=== PATIENT | male | born 1940 | race Caucasian/White ===

== ENCOUNTER 2021-11-12 08:35 | Outpatient (CLI) | payer MEDICARE, SELFPAY ==
--- NOTE | ~2021-11-12 | XR_ITS ---
XR chest 2V DATE: 11/12/2021 09:30 INDICATION: Orthostatic hypotension. Abnormal weight loss. Nicotine dependence. TECHNIQUE: PA and lateral views COMPARISON: 02/20/2016 PA and lateral chest FINDINGS: Severe bilateral hyperinflation with increased airspace, flattening the diaphragm, consiste nt with COPD. There is mild infiltrate or atelectasis at the right lower lung and lung base. Pneumonia aspiration p neumonitis. The lungs otherwise appear clear. No pleural effusion or pulmonary vascular congestion or pneumothorax. Cardiomegaly. Aortic calcification and mild unfolding. Diffuse osteopenia. IMPRESSION: Prominent COPD Mild right lower lung basilar infiltrate or atelectasis; consider pneumonia, aspiration cardiomegaly Aortic atherosclerosis Osteopenia Reviewed, dictated and finalized at location A. IMPRESSION: Prominent COPD Mild right lower lung basilar infiltrate or atelectasis; consider pneumonia, as piration cardiomegaly Aortic atherosclerosis Osteopenia
[2021-11-12 09:05] LABS: Basophils Absolute Auto 0.1 K/mm3 (0.0-0.1); Eosinophils Absolute Auto 0.1 K/mm3 (0-0.3); Eosinophils Percent Auto 1.9 % (0-4.4); Hematocrit 37.3 % (42.0-52.0); Hemoglobin 12.3 g/dL (14.0-18.0); Immature Granulocyte Absolute 0.02 K/mm3 (0.00-0.031); Immature Granulocyte Percent A 0.3 % (0-0.5); Lymphocytes Absolute Auto 1.58 K/mm3 (0.9-3.2); Lymphocytes Percent Auto 23.4 % (18.3-44.2); Mean Corpuscular Hemoglobin 29.2 pg (26-34); Mean Corpuscular Volume 88.6 fl (80-100); Mean Platelet Volume 9.4 fl (7.4-10.4); Monocytes Absolute Auto 0.5 K/mm3 (0.1-0.6); Monocytes Percent Auto 6.7 % (2.6-8.5); Neutrophils Absolute Auto 4.5 K/mm3 (1.3-6.7); Neutrophils Percent Auto 66.7 % (45.5-73.1); Platelet Count Result 218 k/mm3 (150-375); Red Blood Count 4.21 M/mm3 (4.6-6.20); White Blood Count 6.8 K/mm3 (4.5-10.0)
[2021-11-12 09:20] LABS: Alanine Aminotransferase 10 U/L (6-50); Albumin Level 3.8 g/dL (3.5-5.1); Alkaline Phosphatase 65 U/L (38-126); Anion Gap 6 mmol/L (8-16); Aspartate Amino Transferase 20 U/L (17-59); Bilirubin,Total 0.7 mg/dL (0.2-1.3); Blood Urea Nitrogen 23 mg/dL (9-20); Calcium 8.6 mg/dL (8.4-10.2); Carbon Dioxide 31 mmol/L (22-30); Chloride 102 mmol/L (98-107); Estimated Glomerular Filt Rate > 60; Glucose 106 mg/dL (65-110); Magnesium 2.2 mg/dL (1.6-2.3); Potassium 4.2 mmol/L (3.4-5.0); Sodium 139 mmol/L (137-145)
[2021-11-12 09:30] LABS: Troponin I 0.028 ng/mL (0.000-0.034)
== END 2021-11-12 08:36 | disposition home or self-care (01) ==
PROVIDERS: PCP Internal Medicine; Visit Provider Clinical Nurse Specialist
DX: R63.4 Abnormal weight loss (principal); I95.9 Hypotension, unspecified; R94.31 Abnormal electrocardiogram [ECG] [EKG]; F17.200 Nicotine dependence, unspecified, uncomplicated; I95.1 Orthostatic hypotension; J44.9 Chronic obstructive pulmonary disease, unspecified; R91.8 Other nonspecific abnormal finding of lung field; I70.0 Atherosclerosis of aorta; M85.88 Other specified disorders of bone density and structure, other site
CPT/HCPCS: 36415; 71046; 80053; 83735; 84443; 84484; 85025

== ENCOUNTER 2021-11-17 17:18 | Outpatient (CLI) | payer MEDICARE, SELFPAY ==
--- NOTE | ~2021-11-17 | CT_ITS ---
EXAMINATION:CT diagnostic chest w con DATE: 11/17/2021 18:04 INDICATION: Abnormal chest radiographs. TECHNIQUE: Computed tomography (CT) of the chest was performed with 75 mL Omnipaque 300 intravenous c ontrast. Automated exposure control and iterative reconstruction technique were employed. The dose-le ngth product (DLP) was 156.10 mGy-cm. COMPARISON: Chest 2 views 11/12/2021 FINDINGS: There is mild scarring at the lung apices. There is moderate emphysema. There is mild bronc hiectasis in the inferior lungs. There are groundglass opacities and septal thickening in the lungs w ith a lower lung predominance. There are airspace opacities in basilar right lower lobe. There are ce ntrilobular nodules and tree-in-bud opacities in the upper lobes. There are mild airspace opacities i n left lower lobe. No pleural effusion. There is left ventricular and left atrial enlargement of the heart. There is a large old infarct centered at left ventricular apex. There are coronary artery calc ifications. No pericardial effusion. There is kyphosis of thoracic spine with mild chronic anterior w edging of multiple vertebral bodies. There is severe cervical spondylosis and mild thoracic spondylos is. IMPRESSION: 1. Diffuse lung disease, likely a combination of multifocal pneumonia, moderate emphysema, and chroni c interstitial lung disease. 2. 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 Reviewed, dictated and finalized at location A. IMPRESSION: 1. Diffuse lung disease, likely a combination of multifocal pneumonia, moderate emphysema, and chronic interstitial lung disease. 2. 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
== END 2021-11-17 17:19 | disposition home or self-care (01) ==
PROVIDERS: PCP Internal Medicine; Visit Provider Clinical Nurse Specialist
DX: R63.4 Abnormal weight loss (principal); J44.9 Chronic obstructive pulmonary disease, unspecified; J18.9 Pneumonia, unspecified organism; F17.200 Nicotine dependence, unspecified, uncomplicated; R91.8 Other nonspecific abnormal finding of lung field; I25.2 Old myocardial infarction
CPT/HCPCS: 71260; Q9967

== ENCOUNTER 2021-12-04 13:30 | Outpatient (CLI) | payer MEDICARE, SELFPAY ==
--- NOTE | 2021-12-04 13:53 | ECHO_ITS ---
Patient Info Name: Clyde Watkins Age: 81 years : 1940 Gender: Male Ht: 75 in Wt: 135 lbs BSA: 1.78 m2 HR: 79 bpm BP: 119 / 76 mmHg Technical Quality: Fair Exam Date: 12/04/2021 2:13 PM Exam Location: [facility] Patient Status: Outpatient Admit Date: 12/04/2021 Staff Ordering Physician: Zeynep Osuna Frame Table Operator: Renata Corrigan RDCS Attending Provider: Zeynep Osuna Referring Physician: Enrrique CAMPOVERDE; Exam Type: CA echo dop color flow w con Study Info Indications I95.9 - HYPOTENSION, UNSPECIFIED Complete two-dimensional, color flow and Doppler transthoracic echocardiogram is performed with contrast to opacify the left ventricle and to improve the deliniation of the left ventricle endocardial borders. Contrast/Agitated Saline Contrast/Ag. Saline: Definity Amount: 8.00 ml Administered By: Renata Corrigan [facility] IV Access: Inner Forearm and Left Site Condition: No extravasation and IV removed Summary 1. Left ventricular chamber dimension is severely enlarged. 2. Definity contrast administered improved wall motion interpretation. 3. 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 4. Left ventricular systolic function is severely reduced, estimated at 15-20%. 5. The left ventricular diastolic function is grade I diastolic dysfunction. 6. E/e' 22 is elevated. 7. Left atrial chamber dimension is moderately enlarged. 8. There is mild aortic valve sclerosis. 9. The mitral valve has mildly calcified mitral leaflets and mildly calcified annulus. 10. There is mild to moderate mitral valve regurgitation. 11. There is trace tricuspid valve regurgitation. 12. Mild pulmonary hypertension, estimated pulmonary arterial systolic pressure is 42 mmHg. Left Ventricle E/e' 22 is elevated. Definity contrast administered improved wall motion interpretation. 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 Left ventricular chamber dimension is severely enlarged. Left ventricular systolic function is severely reduced, estimated at 15-20%. The left ventricular diastolic function is grade I diastolic dysfunction. Right Ventricle Right ventricular chamber dimension is normal. Right ventricular systolic function is normal. Left Atria Left atrial chamber dimension is moderately enlarged. Right Atria Right atrial chamber dimension is normal. Aortic Valve The aortic valve is trileaflet. There is mild aortic valve sclerosis. There is no aortic valve stenosis. There is no aortic valve regurgitation. Pulmonic Valve There is no pulmonic regurgitation. Mitral Valve The mitral valve has mildly calcified mitral leaflets and mildly calcified annulus. There is no mitral valve stenosis. There is mild to moderate mitral valve regurgitation. Tricuspid Valve There is trace tricuspid valve regurgitation. Mild pulmonary hypertension, estimated pulmonary arterial systolic pressure is 42 mmHg. Pericardium/Pleural There is no pericardial effusion. Inferior Vena Cava Normal inferior vena cava with >50% collapse upon inspiration consistent with normal right atrial pressure, 5 mmHg. Aorta The aortic root size at the sinus of Valsalva is normal. Left Ventricular Outflow Tract Name Value Normal
[2021-12-04] MEDS: PERFLUTREN LIPID MICROSPHERES 1.5 ML VIAL DILUTED TO 10 ML TOTAL VOLUME IV PUSH (14:55)
== END 2021-12-04 13:31 | disposition home or self-care (01) ==
LOC: ANHCARD 13:32
PROVIDERS: PCP Internal Medicine; Visit Provider Clinical Nurse Specialist
DX: I95.9 Hypotension, unspecified (principal); I08.3 Combined rheumatic disorders of mitral, aortic and tricuspid valves; I27.20 Pulmonary hypertension, unspecified
CPT/HCPCS: C8929; Q9957

== ENCOUNTER 2022-06-14 09:10 | Inpatient (IN) | payer MEDICARE, SELFPAY ==
[2022-06-14] VITALS (25 sets, daily range): BP systolic 108–129; BP diastolic 52–103; PULSE 60–94; RESP 13–23; TEMP 36.3–36.7; O2SAT 90–97; BMI 20.2
--- NOTE | ~2022-06-14 | US_ITS ---
EXAMINATION: US arterial ankle brachial ind DATE: 06/16/2022 12:17 INDICATION: Bilateral lower extremity ulcers. TECHNIQUE: Segmental pressures and plethysmographic and Doppler waveforms of the brachial and lower e xtremity arteries were obtained. COMPARISON: None. FINDINGS: Right and left brachial artery pressures of 70 mm Hg and 81 mm Hg, respectively, are concordant (norm al difference <= 30 mmHg). The right ankle-brachial index (RUCHI) is 0.75 (normal >= 0.9-1.0). The right great toe-brachial index (TBI) is 0.28 (normal >= 0.65). Arterial Doppler waveforms are biphasic at the ankle. The left RUCHI is 0.89. The left TBI is 0.38. Arterial Doppler waveforms are biphasic at the ankle. IMPRESSION: 1. Mildly decreased ABIs, consistent with arterial occlusive disease. Reviewed, dictated and finalized at location A. CAL DIRECTOR
--- NOTE | ~2022-06-14 | XR_ITS ---
XR chest 2V DATE: 06/14/2022 10:06 INDICATION: Edema of the lower extremities. Weakness. TECHNIQUE: AP and lateral views COMPARISON: 11/17/2021 CT chest 11/12/2021 PA and lateral chest FINDINGS: There is prominent enlargement of the cardiac silhouette. There is aortic calcification and unfolding. There is pulmonary vascular congestion and redistribution. There are bilateral central and particular ly lower lung zone infiltrates. There are moderate moderate bilateral pleural effusions. There is pro minence of the fissures consistent with subpleural edema. Findings are consistent with congestive hea rt failure and pulmonary edema. Pneumonia and aspiration cannot be excluded. Diffuse osteopenia. IMPRESSION: Congestive heart failure and pulmonary edema Reviewed, dictated and finalized at location A. ON STRIPPER
--- NOTE | ~2022-06-14 | US_ITS ---
EXAMINATION: US abdomen limited DATE: 06/15/2022 11:49 INDICATION: Abnormal liver function tests. TECHNIQUE: Multiple grayscale and Doppler ultrasound images of the abdomen were obtained. COMPARISON: Chest CT 11/17/2021 FINDINGS: The visualized portions of the head, body, and tail of the pancreas are normal. The liver i s normal without focal lesion. No liver surface nodularity. There is normal flow in main portal vein. The gallbladder is normal in size and contains sludge. No gallstones or gallbladder wall thickening. There is no sonographic Cannon sign. The common duct is normal and measures 3 mm . IMPRESSION: 1. Gallbladder sludge. No evidence of acute cholecystitis. Reviewed, dictated and finalized at location A. E MIXING SUPERVISOR
--- NOTE | ~2022-06-14 | XR_ITS ---
EXAMINATION: XR chest 1V portable INDICATION: Congestive heart failure TECHNIQUE: Portable AP chest at 0839 hours COMPARISON: 06/14/2022 FINDINGS: Cardiomegaly is noted. There is a diffuse interstitial pattern with slight interval worseni ng. There are small pleural effusions. No pneumothorax is identified. There are minimal bibasilar air space opacities. IMPRESSION: 1. Cardiomegaly. 2. Worsening diffuse lung disease, consistent with pneumonia and/or pulmonary edema. 3. Small pleural effusions. Reviewed, dictated and finalized at location B. CARRIER DRIVER IMPRESSION: 1. Cardiomegaly. 2. Worsening diffuse lung disease, consistent with pneumonia and/or pulmonary e gosia. 3. Small pleural effusions.
--- NOTE | ~2022-06-14 | US_ITS ---
EXAMINATION: US venous doppler [facility] DATE: 06/15/2022 11:48 INDICATION: Lower limb edema. TECHNIQUE: Grayscale ultrasound images without and with compression and Doppler ultrasound images of the bilateral lower extremity veins were obtained. COMPARISON: None. FINDINGS: The visualized portions of right common femoral vein, profunda (deep) femoral vein, femoral vein, pop liteal vein, peroneal veins, posterior tibial veins, and greater saphenous vein outflow are patent. The visualized portions of left common femoral vein, profunda femoral vein, femoral vein, popliteal v ein, peroneal veins, posterior tibial veins, and greater saphenous vein outflow are patent. IMPRESSION: 1. No deep venous thrombosis. Reviewed, dictated and finalized at location A. BATIC DANCER
--- NOTE | 2022-06-14 09:15 | ECG_ITS ---
Measurements Intervals [place] Rate: 73 P: 52 [place]: 183 QRS: -74 QRSD: 118 T: 92 QT: 395 QTc: 435 Interpretive Statements SINUS RHYTHM WITH OCCASIONAL VENTRICULAR PREMATURE COMPLEXES MARKED LEFT AXIS DEVIATION [QRS AXIS < -30] PATTERN CONSISTENT WITH PULMONARY DISEASE MODERATE INTRAVENTRICULAR CONDUCTION DELAY [110+ ms QRS DURATION] ABNORMAL QRS-T ANGLE [QRS-T AXIS DIFFERENCE > 60] NO PREVIOUS ECG AVAILABLE FOR COMPARISON Electronically Signed On 06-14-2022 18:40:32 [employer] by Lakesha Espinoza M.D.
--- NOTE | 2022-06-14 10:20 | ED.WEAKNESS ---
HPI - Weakness General Chief complaint: Weakness <Elli Reed PA-C - Last Filed: 06/14/22 13:54> Stated complaint: weakness <LONNIE Guthrie Last Filed: 06/14/22 13:54> Time Seen by Provider: 06/14/22 09:51 <Elli Reed PA-C - Last Filed: 06/14/22 13:54> Source: patient and family <LONNIE Guthrie Last Filed: 06/14/22 13:54> Mode of arrival: wheelchair <LONNIE Guthrie Last Filed: 06/14/22 13:54> Limitations: other (poor historian) <LONNIE Guthrie Last Filed: 06/14/22 13:54> History of Present Illness HPI Narrative: This is a 82 year old male that presents to the ER for generalized weakness. Worsening over the last week. Brought in by family for evaluation. He reports swelling and weeping in his lower extremities. Reports he does not currently take any medications or have any medical problems. Reports he did see his PCP last year and had several laboratory and imaging studies done, but has not followed up since. Denies fever, cough, chest pain, shortness of breath, abdominal pain, vomiting, diarrhea, or dysuria. <Elli Reed PA-C - Last Filed: 06/14/22 13:54> Related Data Allergies/Adverse reactions: Allergies Allergy/AdvReac Type Severity Reaction Status Date / Time No Known Allergies Allergy Unverified 06/14/22 10:26 <Elli Reed PA-C - Last Filed: 06/14/22 13:54> Review of Systems Review of Systems: CONSTITUTIONAL: Denies fever ENT: Denies rhinorrhea, congestion, sore throat CARDIOVASCULAR: Reports edema. Denies chest pain RESPIRATORY: Denies cough or dyspnea. GASTROINTESTINAL: Denies abdominal pain, nausea, vomiting, or diarrhea. GENITOURINARY: Denies dysuria SKIN: Reports rash and itching. MUSCULOSKELETAL: Denies back pain, joint pain, or myalgia. NEUROLOGIC: Reports generalized weakness. Denies numbness <LONNIE Guthrie Last Filed: 06/14/22 13:54> All systems reviewed & are unremarkable except as noted in HPI and below <Elli Reed PA-C - Last Filed: 06/14/22 13:54> [facility] Past Medical History Medical History: Medical History Chicken pox History of BPH Measles Mumps <Elli Reed PA-C - Last Filed: 06/14/22 13:54> Surgical History Surgical History: Surgical History H/O cataract removal with insertion of prosthetic lens October 2014 H/O hernia repair 1963 <Elli Reed PA-C - Last Filed: 06/14/22 13:54> Family History Family History: Family History Sibling Patient's sister is in good health Father Family history of Alzheimer's disease <Elli Reed PA-C - Last Filed: 06/14/22 13:54> Social History Social History: Social History Smoking status: Current every day smoker Tobacco type: cigarettes (Smokes about 6 cigarettes a day.) Alcohol intake: current Drinks per week: 15 Substance use: never <LONNIE Guthrie Last Filed: 06/14/22 13:54> Exam Narrative: GENERAL: Elderly, thin, and in no acute distress. HEAD: Normocephalic, atraumatic. EYES: PERRLA and EOMI. ENT: Nares clear, no rhinorrhea or epistaxis. Mucous membranes dry. Oropharynx without tonsillar hypertrophy exudate or other lesions. Bilateral TMs pearly heart non-bulging NECK: Supple. No adenopathy or masses. CHEST: Rales noted at the bilateral lower lobes. No respiratory distress. No wheezes or rhonchi HEART: Regular rate and rhythm. No murmur heard. ABDOMEN: Soft, nontender, nondistended, normal active bowel sounds. EXTREMITIES: Normal range of motion. Pitting edema noted to the bilateral lower extremities with weeping present. No erythema SKIN: Warm, dry. Redness and fissuring noted to the dorsal surface of the hands NEURO: No focal deficits. Alert and oriented x
[2022-06-14 10:35] LABS: Basophils Percent Auto 0.5 % (0.2-1.2); Eosinophils Absolute Auto 0.1 K/mm3 (0-0.3); Hematocrit 39.7 % (42.0-52.0); Hemoglobin 12.9 g/dL (14.0-18.0); Immature Granulocyte Absolute 0.02 K/mm3 (0.00-0.031); Immature Granulocyte Percent A 0.3 % (0-0.5); Lymphocytes Percent Auto 13.9 % (18.3-44.2); Mean Corpuscular HGB Conc 32.5 g/dl (32-36); Mean Corpuscular Hemoglobin 29.9 pg (26-34); Mean Corpuscular Volume 91.9 fl (80-100); Mean Platelet Volume 11.1 fl (7.4-10.4); Monocytes Absolute Auto 0.4 K/mm3 (0.1-0.6); Monocytes Percent Auto 6.8 % (2.6-8.5); Neutrophils Percent Auto 76.5 % (45.5-73.1); Platelet Count Result 197 k/mm3 (150-375); Red Blood Count 4.32 M/mm3 (4.6-6.20); Red Cell Distribution Width 16.4 % (11.5-14.5); White Blood Count 6.5 K/mm3 (4.5-10.0)
[2022-06-14 10:43] LABS: INR 1.1; Prothrombin Time 13.6 Seconds (11.1-14.7)
[2022-06-14 10:44] LABS: Partial Thromboplastin Time 28.3 SECONDS (22.3-36.8)
[2022-06-14 10:49] LABS: Lipase 136 U/L (23-300)
[2022-06-14 10:54] LABS: NT Pro B Type Natriuretic Pept 18800 pg/mL (19.9-100)
[2022-06-14 10:57] LABS: Alanine Aminotransferase 61 U/L (6-50); Albumin Level 3.6 g/dL (3.5-5.1); Alkaline Phosphatase 144 U/L (38-126); Anion Gap 4 mmol/L (8-16); Aspartate Amino Transferase 61 U/L (17-59); Blood Urea Nitrogen 33 mg/dL (9-20); Calcium 8.6 mg/dL (8.4-10.2); Carbon Dioxide 26 mmol/L (22-30); Chloride 107 mmol/L (98-107); Estimated CRCL calculation 49 ml/min; Estimated Glomerular Filt Rate > 60; Glucose 85 mg/dL (65-110); Potassium 4.7 mmol/L (3.4-5.0); Sodium 137 mmol/L (137-145)
--- NOTE | 2022-06-14 11:12 | PC.NURSE ---
Doppler used to find pedal pulses and marked.
[2022-06-14 11:34] LABS: Influenza A QL RT-PCR Negative (Negative); Influenza B QL RT-PCR Negative (Negative); SARS-CoV-2 RNA PCR Negative
[2022-06-14] MEDS: FUROSEMIDE INJ 40 MG/4 ML VIAL IV PUSH (12:39)
--- NOTE | 2022-06-14 12:54 | PC.NURSE ---
Urinal at bedside for patient. Family in room. Patient has call light in reach and educated on using it if he needs any assistance using urinal.
[2022-06-14 13:46] LABS: Appearance Urine Clear (Clear); Bilirubin Urine Negative (Negative); Blood Urine Negative (Negative); Color Urine Yellow (Yellow); Glucose Urine UA Negative (Negative); Ketones Urine Negative (Negative); Leukocyte Esterase Ur Negative LEU/UL (Negative); Nitrate Urine Negative (Negative); Protein Urine Trace mg/dL (Negative); Urobilinogen Urine 0.2 mg/dL (<2.0); pH Urine 5.5 (5.0-9.0)
[2022-06-14 13:58] LABS: Mucus Urine Rare /lpf; RBC Urine 0-2 /hpf (0-2); WBC Urine 0-3 /hpf
[2022-06-14 14:06] LABS: Add Urine Microscopic? YES
--- NOTE | 2022-06-14 15:15 | PM.IMHP ---
H&P: HPI History of Present Illness Date/Time: 06/14/22 15:15 Chief Complaint: Weakness and swelling. Narrative: This is a pleasant 82-year-old male smoker who presented to the emergency department at the urging of friends and family for evaluation of weakness and swelling. Historically it sounds as though he does not go to the doctor very often and sometime last summer he was at his dentist's office at which time he was told that his blood pressures were low. He made an appointment with Dr. Alexis and he eventually had a workup to include chest x-ray, chest CT, and echocardiogram. He was referred to Dr. Capps given findings of emphysema and possible chronic interstitial lung disease. At that time the patient indicated that he felt perfectly fine and declined further workup. He was also referred to Dr. Kenny after use found to have an EF of 15 to 20%. A subsequent nuclear stress test and January 2022 showed a large previous anterior infarction with an EF of 12%. He declined further workup, medical management, and defibrillator as he was reportedly asymptomatic. He continues to live alone and is independent of all activities of daily living. More recently he has developed swelling ?from my waist to my feet? and family and friends it eventually got him to agree to come into the ER today. He denies syncope, near syncope, chest pain, pleuritic pain, palpitations, nausea, vomiting, sweats, and calf pain. [place] [address], AST 61, ALT 61, alkaline phosphatase 144. Chest x-ray showed cardiomegaly and congestive changes. He is being admitted in this setting for diuresis and reports that he is urinating quite a bit already since receiving 40 mg Lasix in the ED. Review of Systems Review of Systems: Twelve systems were reviewed and are negative except for as per HPI. [facility] Past Medical History Medical History (Updated 06/14/22 @ 21:05 by Vicki Colunga PA-C) Benign prostatic hyperplasia Chronic obstructive pulmonary disease History of myocardial infarction Ischemic cardiomyopathy Tobacco dependence Surgical History Surgical History (Updated 06/14/22 @ 20:57 by Vicki Colunga PA-C) History of cataract removal with insertion of prosthetic lens (10/2014) History of hernia repair (1963) Family History Family History Sibling Patient's sister is in good health Father Family history of Alzheimer's disease Social History Social History (Updated 06/14/22 @ 21:01 by Vicki Colunga PA-C) Social History: Surrogate medical decision maker: Candida Soto, sister. Code status: Full code. Smoking status: Current every day smoker Tobacco type: cigarettes Alcohol intake: current Drinks per week: 7 Alcohol use details: Drinks 1 beer a day. Substance use: never Lack of Transportation: No Lack of Food: Never True Current Housing: I Have Housing Concerned About Future Housing: No Difficulty Paying Gas/Electric Bills: No Difficulty Paying for Meds: No Currently Unemployed: No Education: High School Diploma/GED Difficulty w/ Childcare or Family Care: No Additional living arrangements comments: The patient lives in his own home in [place]. Not , no children. 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 Spiritual care concerns: No Meds Home Medications and Allergies Home Medications Medication Instructions Recorded Confirmed Type No Home Medications 06/14/22 06/14/22 History Allergies Allergy/AdvReac Type Severity Reaction Status Date / Time No Known Allergies Allergy Unverified 06/14/22 10:26 Vital Signs Vital Signs - 24 hr 06/14/22 09:18 06/14/22 10:08 06/14/22 10:35 Temperature 98.1 F Pulse Rate 60 78 77 Respiratory Rate 18 14 Blood Pressure 116/103 H Pulse Oximetry 97 93 Oxygen Delivery Room Air 06/14/22 10:45 06/14/22 11:00
[2022-06-14] MEDS: FUROSEMIDE INJ 40 MG/4 ML VIAL 20 MG IV PUSH (21:41)
[2022-06-15 05:59] VITALS: BP 104/75; PULSE 84; RESP 18; TEMP 36.1; O2SAT 91
[2022-06-15 06:43] LABS: Alanine Aminotransferase 52 U/L (6-50); Albumin Level 3.4 g/dL (3.5-5.1); Alkaline Phosphatase 147 U/L (38-126); Anion Gap 7 mmol/L (8-16); Aspartate Amino Transferase 50 U/L (17-59); Bilirubin,Total 1.1 mg/dL (0.2-1.3); Blood Urea Nitrogen 36 mg/dL (9-20); Calcium 8.4 mg/dL (8.4-10.2); Carbon Dioxide 28 mmol/L (22-30); Chloride 106 mmol/L (98-107); Estimated CRCL calculation 41 ml/min; Estimated Glomerular Filt Rate 53; Glucose 78 mg/dL (65-110); Magnesium 2.2 mg/dL (1.6-2.3); Sodium 141 mmol/L (137-145)
[2022-06-15 07:15] LABS: Hepatitis B Surface Antigen Negative (Negative)
[2022-06-15 07:20] LABS: HAV RESULT Negative (Negative); Hepatitis B Core IgM Result Negative (Negative)
[2022-06-15 07:32] LABS: Hepatitis C Virus Antibody Negative (Negative)
[2022-06-15] MEDS: FUROSEMIDE INJ 40 MG/4 ML VIAL 20 MG IV PUSH (08:55)
[2022-06-15] MEDS: ENOXAPARIN 40 MG/0.4 ML SYRINGE SUB-Q (09:02)
[2022-06-15] MEDS: POTASSIUM CHLORIDE 20 MEQ TABLET.ER PO (11:54)
--- NOTE | 2022-06-15 13:28 | PM.CNCAR ---
Assessment and Plan Assessment and plan (1) Ischemic cardiomyopathy: Code(s): I25.5 - Ischemic cardiomyopathy Status: Acute Plan This is an 82-year-old man who has a chronic cigarette smoker who has been found several months ago as outpatient workup to have severe ischemic cardiomyopathy with a previous anterior wall infarction. He now presents to the hospital after falling while visiting some friends I do not get the history that sounds like a syncopal episode. He has now with some reservations become amenable to starting some guideline directed medical therapy. Along those lines I will start modest doses of Entresto and spironolactone to start with. If she is able to hemodynamically tolerate this we will consider starting beta-blockers later. His prognosis is very poor and in my opinion he is a poor candidate for aggressive treatment in the way of invasive procedures or device/defibrillator implant. Tobias Kenny MD [facility] History of Present Illness History of Present Illness Consult date/time: 06/15/22 13:28 Reason For Visit: CHF Exacerbation Narrative: This is an 82-year-old man I am asked to see at the request of the hospitalist because of congestive heart failure. The patient is actually known to me from a outpatient evaluation in the fall of 2021. He was brought to this hospital yesterday when he was [place] friends [place] country and took a fall at their house. The patient states that he tripped on something and fell to the floor they were unable to get him up so an ambulance was called to bring him to the hospital for the evaluation in the emergency room. He has been having some accumulating lower extremity edema for at least a couple of months he does not report any symptoms of chest pain or overt air hunger. He upon seeing him in the medical floor this after is alert and responsive but is not entirely coherent in terms of understanding and processing answers to simple medical questions. In any event the patient was referred to see me in the fall because he was found to have very poor left ventricular systolic function. His history began when he was going to the dentist for an appointment and he was found to be asymptomatically hypotensive in the dentist office. He referred to his PCP who ordered an echocardiogram. That was read by another collar feller as showing severely reduced left ventricular systolic function with a marked LV dilation. He had a CT scan of his chest done which corroborated these findings and also showed evidence of severe emphysema/COPD. The patient has been a significant cigarette smoker since he was a teenager. After I saw the patient in consultation in the office a Lexiscan nuclear stress test was done which confirmed evidence of a large previous anterior infarction, no significant ischemic burden and a very low ejection fraction of 13%. He was seen back in the office to discuss these findings and despite this information was firm in his decision to decline any sort of medical treatment for his heart disease and did not wish to have any further follow-up appointments. The patient's sister who apparently has medical power of regeneration operator is in the room visiting the patient with her . They participated in this to conversation today. The patient was sleeping in his bed when I entered the room to see him upon awakening he did not offer any other complaints. After a very long discussion he is now amenable to taking some simple medical therapy for congestive heart failure. Explained to the patient and his sister who has power of regeneration operator that we will be starting very cautiously some guideline directed medical therapy Review of Systems Review of Systems: ROS unobtainable: Yes unobtainable due to mental status PMFSH Past Medical History Medical History (Updated 06/14/22 @ 21:05 by Vicki Colunga PA-C) Benign prostatic hyperplasia Chronic obstructive pulmonary disease Histo
[2022-06-15] MEDS: EUCERIN CREAM 120 GM JAR 1 APPLIC TOPICAL (13:56)
[2022-06-15 14:00] VITALS: BP 102/68; PULSE 72; RESP 20; TEMP 35.7; O2SAT 93
[2022-06-15 14:59] VITALS: BMI 20.1
--- NOTE | 2022-06-15 15:11 | PM.IMPN ---
Progress Note: A&P Assessment and Plan (1) Acute on chronic systolic congestive heart failure: Code(s): I50.23 - Acute on chronic systolic (congestive) heart failure Status: Acute Assessment and Plan: Acute on chronic exacerbation. Echocardiogram 12/2021 found to have an EF of 15 to 20%. A subsequent nuclear stress test and January 2022 showed a large previous anterior infarction with an EF of 12%. He declined further workup, medical management, and defibrillator as he was reportedly asymptomatic. [place] [address], with likely hepatic congestion with AST 61, ALT 61, alkaline phosphatase 144. Chest x-ray showed cardiomegaly and congestive changes.? Received 40 mg Lasix in the ED. Cardiology consulted and appreciate recommendation. He is now agreeable to guideline directed medical therapy- low dose Entresto and Spironolactone started by Cardio Continue IV furosemide. Daily weights and strict I/O. Monitor renal function and electrolytes. Venous doppler negative for DVT. (2) Ischemic cardiomyopathy: Code(s): I25.5 - Ischemic cardiomyopathy Status: Chronic Assessment and Plan: Per Cardiology. (3) Elevated LFTs: Code(s): R79.89 - Other specified abnormal findings of blood chemistry Status: Acute Assessment and Plan: Likely secondary to hepatic congestion from CHF exacerbation. Liver US shows biliary sludge without gallstones or obstruction. No abd pain. Trend LFTs. (4) Chronic obstructive pulmonary disease: Code(s): J44.9 - Chronic obstructive pulmonary disease, unspecified Status: Chronic Assessment and Plan: Chronic, no wheezing on exam. Does not appear to be in acute exacerbation. PRN albuterol nebs for SOB/wheezing. (5) Tobacco dependence: Code(s): F17.200 - Nicotine dependence, unspecified, uncomplicated Status: Chronic Assessment and Plan: Counseled to quit. He reports smoking 5 cigarettes per day, but is not interested in quitting at this time. (6) Benign prostatic hyperplasia: Code(s): N40.0 - Benign prostatic hyperplasia without lower urinary tract symptoms Status: Chronic Assessment and Plan: UOP adequate. No suprapubic tenderness. continue to monitor. (7) Dermatitis: Code(s): L30.9 - Dermatitis, unspecified Status: Acute Assessment and Plan: Bilateral hands with multiple cracked ulcerations. wound care consulted. Ulcerations to BLE secondary to falls. Will check RUCHI Plan CODE STATUS: FULL CODE. Discussed at length with the patient and his sister/POA and patient wants to remain full code. Discharge disposition: pending PT/OT evaluation. Time Spent With Patient Time: 50 minutes spent reviewing chart, labs, patient assessment and adjusting treatment plan. Patient's questions all answered to the best of my ability. Subjective Date/time seen: 06/15/22 15:11 Patient is a 82-year-old male smoker who presented to the emergency department at the urging of friends and family for evaluation of weakness and lower extremity swelling. He reported several falls during the days prior to arrival but denies syncope. Review of medical records shows prior echocardiogram with HFrEF 10-15% with ischemic cardiomyopathy and known severe emphysema. BNP 95338 and chest x-ray shows cardiomegaly with moderate bilateral pleural effusion and pulmonary edema. He was admitted for cardiology evaluation and diuresis. Patient reports his lower extremity edema is improved today. No SOB, chest pain, palpitations, cough or sputum. Review of Systems Review of Systems: All systems reviewed & are unremarkable except as noted in HPI and below Exam Narrative: General: No acute distress.?Thin, frail older adult male sitting up in bed. BMI 20 kg/m2. Mental Status/Psych: Awake, alert and oriented x4 with clear speech. Forgetful. Neutral mood and affect. Pleasant
[2022-06-15 15:31] LABS: Alveolar/Arterial O2 Gradient 47.9 mmHg; Base Excess ABG 4.3 mEq/l (+/-2.0); Fractional Inspired Oxygen 21 %; HCO3 ABG 28.4 mEq/l (22.0-26.0); Oxygen Content ABG 16.7 %vol (16.0-22.0); Oxygen Saturation ABG 89.1 % (95.0-100.0); PCO2 ABG 40.9 mmHg (35.0-45.0); PO2 ABG 52.9 mmHg (80.0-100.0); PO2 FiO2 Ratio Arterial Blood 2.52 %; Total Hemoglobin 14.2 g/dL (12.0-18.0)
[2022-06-15 15:33] LABS: Oxyhemoglobin 83.7 % THb (90.0-100.0)
[2022-06-15 15:34] LABS: Device ROOM AIR; Site Drawn LEFT BRACHIAL
[2022-06-15 15:48] VITALS: O2SAT 97
[2022-06-15 20:00] VITALS: O2SAT 97
[2022-06-15 22:00] VITALS: BP 95/66; PULSE 87; RESP 14; TEMP 35.7; O2SAT 100
[2022-06-15 22:49] LABS: Hematocrit 39.3 % (42.0-52.0); Hemoglobin 12.9 g/dL (14.0-18.0); Mean Corpuscular HGB Conc 32.8 g/dl (32-36); Mean Corpuscular Hemoglobin 29.9 pg (26-34); Mean Platelet Volume 11.4 fl (7.4-10.4); Platelet Count Result 180 k/mm3 (150-375); Red Blood Count 4.32 M/mm3 (4.6-6.20); Red Cell Distribution Width 16.3 % (11.5-14.5); White Blood Count 5.7 K/mm3 (4.5-10.0)
[2022-06-15 23:06] LABS: NT Pro B Type Natriuretic Pept 19000 pg/mL (19.9-100)
[2022-06-16] VITALS (8 sets, daily range): BP systolic 91–130; BP diastolic 49–86; PULSE 68–76; RESP 16–20; TEMP 36.1–36.6; O2SAT 90–100
--- NOTE | 2022-06-16 01:14 | PC.NURSE ---
At 2045 pt was delayed in response to verbal and tactile stimuli. Pt responded with gurgled speech and was unable to stay awake for 2100 med pass. 2100 med (entresto) was not given. BERNADINE Talbert was made aware of pt status. Orders were received and results are pending.
[2022-06-16 01:23] LABS: Alveolar/Arterial O2 Gradient 54.8 mmHg; Base Excess ABG 2.8 mEq/l (+/-2.0); Fractional Inspired Oxygen 28 %; HCO3 ABG 27.4 mEq/l (22.0-26.0); Oxygen Content ABG 18.2 %vol (16.0-22.0); Oxygen Saturation ABG 97.4 % (95.0-100.0); Oxyhemoglobin 95.3 % THb (90.0-100.0); PCO2 ABG 42.2 mmHg (35.0-45.0); PO2 FiO2 Ratio Arterial Blood 3.39 %; Site Drawn RIGHT RADIAL; Total Hemoglobin 13.5 g/dL (12.0-18.0)
[2022-06-16 01:24] LABS: Device NASAL CANNULA; Modified Allen's Test Unable to perform
--- NOTE | 2022-06-16 07:50 | PC.NURSE ---
Called [facility] hospitalist to inform about pt blood pressure 95/66 around 0600. Had hadoop developer recheck at 0740 with 102/67. This nurse was told to hold the iv lasix for now and give the spironlactone and entresto. Recheck bp in 2 hours after.
[2022-06-16] MEDS: EUCERIN CREAM 120 GM JAR 1 APPLIC TOPICAL (08:03)
[2022-06-16] MEDS: SPIRONOLACTONE 25 MG TABLET PO (08:06)
[2022-06-16] MEDS: ENOXAPARIN 40 MG/0.4 ML SYRINGE SUB-Q (08:06)
[2022-06-16] MEDS: SACUBITRIL/VALSARTAN 12-13 MG TABLET 1 TAB PO ×2 (08:06→21:03)
[2022-06-16 08:21] LABS: Hematocrit 40.8 % (42.0-52.0); Hemoglobin 12.9 g/dL (14.0-18.0); Mean Corpuscular HGB Conc 31.6 g/dl (32-36); Mean Corpuscular Hemoglobin 29.3 pg (26-34); Mean Corpuscular Volume 92.7 fl (80-100); Mean Platelet Volume 11.3 fl (7.4-10.4); Platelet Count Result 186 k/mm3 (150-375); Red Cell Distribution Width 16.6 % (11.5-14.5); White Blood Count 5.6 K/mm3 (4.5-10.0)
[2022-06-16 08:28] LABS: Alanine Aminotransferase 46 U/L (6-50); Albumin Level 3.1 g/dL (3.5-5.1); Alkaline Phosphatase 125 U/L (38-126); Anion Gap 5 mmol/L (8-16); Aspartate Amino Transferase 54 U/L (17-59); Blood Urea Nitrogen 38 mg/dL (9-20); Calcium 8.1 mg/dL (8.4-10.2); Carbon Dioxide 29 mmol/L (22-30); Chloride 105 mmol/L (98-107); Estimated CRCL calculation 39 ml/min; Estimated Glomerular Filt Rate 53; Glucose 73 mg/dL (65-110); Magnesium 2.2 mg/dL (1.6-2.3); Potassium 4.2 mmol/L (3.4-5.0); Sodium 139 mmol/L (137-145)
--- NOTE | 2022-06-16 11:06 | PC.NURSE ---
Called [facility] again about the recheck bp of . Hospitalist again said to hold the lasix for now.
--- NOTE | 2022-06-16 14:22 | PM.PNCARD ---
Progress Note: A&P Assessment and Plan (1) Ischemic cardiomyopathy: Code(s): I25.5 - Ischemic cardiomyopathy Status: Chronic Assessment and Plan: Severe ischemic cardiomyopathy with an EF of ~15%. He appears to be mildly decompensated currently. He has been placed on low doses of GDMT and seems to be tolerating this well from a blood pressure standpoint. Continue IV furosemide today, perhaps shift him to p.o. furosemide tomorrow. Anticipate discharge in the next 24 - 48 hours. Will arrange for follow up in our office. Cardiology will sign off. Please call with any further questions. Subjective Date/time seen: 06/16/22 14:22 Cardiology follow up for cardiomyopathy, CHF Interval history: Feeling well today. Denies any shortness of breath or chest pain. Interested in going home. Still has some swelling. Review of Systems Review of Systems: ROS unobtainable: Yes unobtainable due to mental status Exam Const: General: comfortable HENMT: Mouth: Yes dry mucous membranes Eyes: Sclera: sclerae normal Neck: Neck: supple Resp: Effort & Inspection: normal respiratory effort Other: Breath sounds are diminished in all lung [place] Cardio: Rate: regular rate Rhythm: regular rhythm Other: PMI is laterally displaced in the anterior axillary line S1-S2 is audible S3 is noted no audible murmur GI: Auscultation: normal bowel sounds Skin: General skin exam: normal color Neuro: Other: The patient is arousable and answers questions cognition is very slow Extrem: Other: Moderate symmetrical bilateral pitting edema. Fingers have extensive nicotine stain Objective Data Vital Signs Vital Signs: Vital Signs - 24 hr 06/15/22 15:48 06/15/22 16:00 06/15/22 20:00 Temperature Pulse Rate Respiratory Rate Blood Pressure Pulse Oximetry 97 97 Oxygen Delivery Nasal Cannula Nasal Cannula Nasal Cannula Oxygen Flow Rate 2 2 2 06/15/22 22:00 06/16/22 06:00 06/16/22 07:44 Temperature 35.7 C L 36.6 C Pulse Rate 87 76 Respiratory Rate 14 16 Blood Pressure 95/66 L 102/67 Pulse Oximetry 100 100 Oxygen Delivery Oxygen Flow Rate 06/16/22 09:51 06/16/22 08:00 06/16/22 10:39 Temperature Pulse Rate Respiratory Rate Blood Pressure 91/49 L Pulse Oximetry 95 Oxygen Delivery Nasal Cannula Nasal Cannula Oxygen Flow Rate 1 1 06/16/22 12:22 Temperature Pulse Rate Respiratory Rate Blood Pressure Pulse Oximetry 96 Oxygen Delivery Room Air Oxygen Flow Rate Intake/Output Intake/Output: Intake & Output 06/13/22 06/14/22 06/15/22 06/16/22 23:59 23:59 23:59 23:59 Intake Total 618 1754 910 Output Total 950 Balance 618 804 910 Meds/Results Medications: Active Medications Generic Name Dose Route Start Last Admin Trade Name Freq PRN Reason Stop Dose Admin Acetaminophen 650 mg 06/15/22 15:44 Acetaminophen 325 Mg Tablet PO Q6H PRN Mild Pain (1-3) or Fever Enoxaparin Sodium 40 mg 06/15/22 09:00 06/16/22 08:06 Enoxaparin 40 Mg/0.4 Ml Syringe SUB-Q 40 mg DAILY ERUM Administration Furosemide 20 mg 06/16/22 09:00 06/16/22 07:48 Furosemide Inj 40 Mg/4 Ml Vial IV PUSH Not Given BID ERUM Multi-Ingred Cream/Lotion/Oil/Oint 1 applic 06/15/22 09:00 06/16/22 08:03 Eucerin Cream 120 Gm Jar TOPICAL 1 applic DAILY ERUM Administration Sacubitril/Valsartan 1 tab 06/15/22 21:00 06/16/22 08:06 Sacubitril/Valsartan 12-13 Mg Tablet PO 1 tab Q12HR ERUM Administration Spironolactone 25 mg 06/16/22 09:00 06/16/22 08:06 Spironolactone 25 Mg Tablet PO 25 mg QAM ERUM Administration Radiology Results: ITS Impressions Chest X-Ray 06/14/22 10:11 IMPRESSION: Congestive heart failure and pulmonary edema Venous Doppler Study 06/15/22 11:49 IMPRESSION: 1. No deep venous thrombosis. Abdomen Ultrasound 06/15/22 11:50 IMPRESSION: 1. Gallbladder sludge. No evidence of
--- NOTE | 2022-06-16 14:54 | PM.IMPN ---
Progress Note: A&P Assessment and Plan (1) Acute on chronic systolic congestive heart failure: Code(s): I50.23 - Acute on chronic systolic (congestive) heart failure Status: Acute Assessment and Plan: Acute on chronic exacerbation. Echocardiogram 12/2021 found to have an EF of 15 to 20%. Received 40 mg Lasix in the ED. A subsequent nuclear stress test and January 2022 showed a large previous anterior infarction with an EF of 12%. He declined further workup, medical management, and defibrillator as he was reportedly asymptomatic. [place] [address], with likely hepatic congestion with AST 61, ALT 61, alkaline phosphatase 144. Chest x-ray showed cardiomegaly and congestive changes.? Cardiology consulted and appreciate recommendation. He is now agreeable to guideline directed medical therapy- low dose Entresto and Spironolactone started by Cardio Continue IV furosemide 20 mg BID. Hold parameters placed for SBP<90 Daily weights and strict I/O- intake/output appear inaccurate, however -4 to 5 kg. Monitor renal function and electrolytes. Venous doppler negative for DVT. (2) Ischemic cardiomyopathy: Code(s): I25.5 - Ischemic cardiomyopathy Status: Chronic Assessment and Plan: Per Cardiology. (3) Elevated LFTs: Code(s): R79.89 - Other specified abnormal findings of blood chemistry Status: Acute Assessment and Plan: Likely secondary to hepatic congestion from CHF exacerbation. Liver US shows biliary sludge without gallstones or obstruction. No abd pain. Trend LFTs. (4) Chronic obstructive pulmonary disease: Qualifiers: COPD type: emphysema Emphysema type: unspecified Qualified Code(s): J43.9 - Emphysema, unspecified Code(s): J44.9 - Chronic obstructive pulmonary disease, unspecified Status: Chronic Assessment and Plan: Chronic, no wheezing on exam. Does not appear to be in acute exacerbation. PRN albuterol nebs for SOB/wheezing. (5) Tobacco dependence: Code(s): F17.200 - Nicotine dependence, unspecified, uncomplicated Status: Chronic Assessment and Plan: Counseled to quit. He reports smoking 5 cigarettes per day, but is not interested in quitting at this time. (6) Benign prostatic hyperplasia: Qualifiers: Lower urinary tract symptom presence: symptoms absent Qualified Code(s): N40.0 - Benign prostatic hyperplasia without lower urinary tract symptoms Code(s): N40.0 - Benign prostatic hyperplasia without lower urinary tract symptoms Status: Chronic Assessment and Plan: UOP adequate. No suprapubic tenderness. continue to monitor. (7) Dermatitis: Code(s): L30.9 - Dermatitis, unspecified Status: Acute Assessment and Plan: Bilateral hands with multiple cracked ulcerations. wound care consulted. Ulcerations to BLE secondary to venous stasis and PAD (8) Peripheral artery disease: Code(s): I73.9 - Peripheral vascular disease, unspecified Status: Acute Assessment and Plan: chronic tobacco use. RUCHI - R RUCHI 0.75, R TBI 0.28, L RUCHI 0.89, L TBI 0.38 Will start aspirin 81 mg daily Plan CODE STATUS: FULL CODE. Discussed at length with the patient and his sister/POA and patient wants to remain full code. Discharge disposition: pending PT/OT evaluation. Time Spent With Patient Time: 35 minutes time spent reviewing nursing and specialist documentation, labs, vitals, and patient assessment. Subjective Date/time seen: 06/16/22 14:54 Patient is an 82-year-old male with chronic tobacco use who presented to the emergency department at the urging of friends and family for evaluation of weakness and lower extremity swelling. Review of medical records shows prior echocardiogram with HFrEF 10-15% with ischemic cardiomyopathy and known severe emphysema. BNP 75117 and chest x-ray shows cardiomegaly with moderate bilateral p
[2022-06-16] MEDS: FUROSEMIDE INJ 40 MG/4 ML VIAL 20 MG IV PUSH (17:15)
[2022-06-17 06:00] VITALS: BP 106/67; PULSE 77; RESP 18; TEMP 36.6; O2SAT 92
[2022-06-17 07:54] LABS: Anion Gap 3 mmol/L (8-16); Blood Urea Nitrogen 34 mg/dL (9-20); Calcium 8.1 mg/dL (8.4-10.2); Carbon Dioxide 32 mmol/L (22-30); Chloride 103 mmol/L (98-107); Estimated CRCL calculation 39 ml/min; Estimated Glomerular Filt Rate 53; Glucose 87 mg/dL (65-110); Magnesium 2.1 mg/dL (1.6-2.3); Potassium 3.7 mmol/L (3.4-5.0); Sodium 138 mmol/L (137-145)
[2022-06-17 07:59] LABS: Hematocrit 40.9 % (42.0-52.0); Hemoglobin 13.2 g/dL (14.0-18.0); Mean Corpuscular HGB Conc 32.3 g/dl (32-36); Mean Corpuscular Hemoglobin 28.8 pg (26-34); Mean Corpuscular Volume 89.3 fl (80-100); Mean Platelet Volume 11.5 fl (7.4-10.4); Platelet Count Result 211 k/mm3 (150-375); Red Blood Count 4.58 M/mm3 (4.6-6.20); Red Cell Distribution Width 16.4 % (11.5-14.5); White Blood Count 6.6 K/mm3 (4.5-10.0)
[2022-06-17 08:03] LABS: Iron 52 ug/dL (49-181)
[2022-06-17 08:12] LABS: Percent Iron Saturation 16 % (20-50)
[2022-06-17] MEDS: EUCERIN CREAM 120 GM JAR 1 APPLIC TOPICAL (08:17)
[2022-06-17] MEDS: FUROSEMIDE INJ 40 MG/4 ML VIAL 20 MG IV PUSH (08:18)
[2022-06-17] MEDS: ENOXAPARIN 40 MG/0.4 ML SYRINGE SUB-Q (08:19)
[2022-06-17] MEDS: ASPIRIN 81 MG ENTERIC TABLET PO (08:20)
[2022-06-17] MEDS: SACUBITRIL/VALSARTAN 12-13 MG TABLET 1 TAB PO ×2 (08:21→20:54)
[2022-06-17] MEDS: SPIRONOLACTONE 25 MG TABLET PO (08:21)
--- NOTE | 2022-06-17 08:23 | PM.IMPN ---
Progress Note: A&P Assessment and Plan (1) Acute on chronic systolic congestive heart failure: Code(s): I50.23 - Acute on chronic systolic (congestive) heart failure Status: Acute Assessment and Plan: Acute on chronic exacerbation. Echocardiogram 12/2021 found to have an EF of 15 to 20%. Received 40 mg Lasix in the ED. A subsequent nuclear stress test and January 2022 showed a large previous anterior infarction with an EF of 12%. He declined further workup, medical management, and defibrillator as he was reportedly asymptomatic. [place] [address], with likely hepatic congestion with AST 61, ALT 61, alkaline phosphatase 144. Chest x-ray showed cardiomegaly and congestive changes.? Cardiology consulted and appreciate recommendation. He is now agreeable to guideline directed medical therapy- low dose Entresto and Spironolactone started by Cardio Continue IV furosemide 20 mg BID. Hold parameters placed for SBP<90 Daily weights and strict I/O- intake/output appear inaccurate, however -4 to 5 kg. Monitor renal function and electrolytes. Venous doppler negative for DVT. (2) Ischemic cardiomyopathy: Code(s): I25.5 - Ischemic cardiomyopathy Status: Chronic Assessment and Plan: Per Cardiology. (3) Elevated LFTs: Code(s): R79.89 - Other specified abnormal findings of blood chemistry Status: Acute Assessment and Plan: Likely secondary to hepatic congestion from CHF exacerbation. Liver US shows biliary sludge without gallstones or obstruction. No abd pain. Trend LFTs. (4) Chronic obstructive pulmonary disease: Qualifiers: COPD type: emphysema Emphysema type: unspecified Qualified Code(s): J43.9 - Emphysema, unspecified Code(s): J44.9 - Chronic obstructive pulmonary disease, unspecified Status: Chronic Assessment and Plan: Chronic, no wheezing on exam. Does not appear to be in acute exacerbation. PRN albuterol nebs for SOB/wheezing. Has some productive cough, possible acute bacteriuria bronchitis Start doxycycline and Omnicef p.o. (5) Tobacco dependence: Code(s): F17.200 - Nicotine dependence, unspecified, uncomplicated Status: Chronic Assessment and Plan: Counseled to quit. He reports smoking 5 cigarettes per day, but is not interested in quitting at this time. (6) Benign prostatic hyperplasia: Qualifiers: Lower urinary tract symptom presence: symptoms absent Qualified Code(s): N40.0 - Benign prostatic hyperplasia without lower urinary tract symptoms Code(s): N40.0 - Benign prostatic hyperplasia without lower urinary tract symptoms Status: Chronic Assessment and Plan: UOP adequate. No suprapubic tenderness. continue to monitor. (7) Dermatitis: Code(s): L30.9 - Dermatitis, unspecified Status: Acute Assessment and Plan: Bilateral hands with multiple cracked ulcerations. wound care consulted. Ulcerations to BLE secondary to venous stasis and PAD (8) Peripheral artery disease: Code(s): I73.9 - Peripheral vascular disease, unspecified Status: Acute Assessment and Plan: chronic tobacco use. RUCHI - R RUCHI 0.75, R TBI 0.28, L RUCHI 0.89, L TBI 0.38 Will start aspirin 81 mg daily Plan CODE STATUS: FULL CODE. Discussed at length with the patient and his sister/POA and patient wants to remain full code. Discharge disposition: pending PT/OT evaluation. Subjective Date/time seen: 06/17/22 08:23 Interval history: Saw and examined patient today, patient denies any shortness of breath or chest pain. Still has some swelling. Exam Narrative: General: No acute distress.?Thin, frail older adult male sitting up in bed. Mental Status/Psych: Awake, alert and oriented x4 with clear speech. Forgetful. Neutral mood and affect. Pleasant and cooperative. Skin: fair, warm, dry. Scattered seborrheic keratoses on the trunk
[2022-06-17 14:00] VITALS: BP 97/76; PULSE 73; RESP 16; TEMP 36.2; O2SAT 93
--- NOTE | 2022-06-17 14:14 | ECHO_ITS ---
Patient Info Name: Clyde Watkins Age: 82 years : 1940 Gender: Male Ht: 75 in Wt: 152 lbs BSA: 1.89 m2 HR: 65 bpm BP: 97 / 96 mmHg Technical Quality: Fair Exam Date: 06/17/2022 3:16 PM Exam Location: [facility] Pulmonary Exam Room: 320 Patient Status: Inpatient Admit Date: 06/15/2022 Staff Ordering Physician: Selam Sheets MD [employer]: Renata Corrigan RDCS Attending Provider: Evelio Delaney MD Exam Type: CA echo doppler color flow Study Info Indications - dizziness Complete two-dimensional, color flow and Doppler transthoracic echocardiogram is performed. Summary 1. Complete two-dimensional, color flow and Doppler transthoracic echocardiogram is performed. 2. Left ventricular chamber dimension is severely enlarged. 3. Left ventricular systolic function is severely reduced, estimated at 15-20%. 4. Right ventricular chamber dimension is normal. 5. Right ventricular systolic function is normal. 6. Left atrial chamber dimension is severely enlarged. 7. Right atrial chamber dimension is severely enlarged. 8. The mitral valve annulus is mildly calcified. 9. The mitral valve has thickened leaflets. 10. There is moderate mitral valve regurgitation, which may be underestimated due to the eccentricity of the jet. 11. There is moderate tricuspid valve regurgitation. 12. Dilated inferior vena cava with <50% collapse upon inspiration consistent with elevated right atrial pressure, 15 mmHg. 13. Large left pleural effusion present. Left Ventricle Left ventricular chamber dimension is severely enlarged. Left ventricular systolic function is severely reduced, estimated at 15-20%. There is no increased left ventricular wall thickness. Right Ventricle Right ventricular chamber dimension is normal. Right ventricular systolic function is normal. Left Atria Left atrial chamber dimension is severely enlarged. Right Atria Right atrial chamber dimension is severely enlarged. Atrial Septum Intact interatrial septum visualized by color flow imaging. Aortic Valve The aortic valve is trileaflet. There is mild aortic valve sclerosis. There is no aortic valve stenosis. Pulmonic Valve The pulmonic valve is not well visualized. Mitral Valve The mitral valve has thickened leaflets. There is moderate mitral valve regurgitation, which may be underestimated due to the eccentricity of the jet. The mitral valve annulus is mildly calcified. Tricuspid Valve There is moderate tricuspid valve regurgitation. Pericardium/Pleural Large left pleural effusion present. There is no pericardial effusion. Inferior Vena Cava Dilated inferior vena cava with <50% collapse upon inspiration consistent with elevated right atrial pressure, 15 mmHg. Aorta The aortic root size at the sinus of Valsalva is normal. Left Ventricular Outflow Tract Name Value Normal LVOT 2D LVOT Diameter 2.2 cm LVOT Doppler LVOT Peak Gradient 3 mmHg LVOT Mean Gradient 1 mmHg LVOT VTI 16 cm LVOT VTI/AV VTI Ratio
[2022-06-17] MEDS: FUROSEMIDE INJ 40 MG/4 ML VIAL IV PUSH (16:55)
[2022-06-17] MEDS: guaiFENesin/DEXTROMETHORPHAN 10 ML UDC PO (17:14)
[2022-06-17] MEDS: CEFDINIR 300 MG CAPSULE PO (20:54)
[2022-06-17] MEDS: DOXYCYCLINE HYCLATE 100 MG TABLET PO (20:54)
[2022-06-17 21:25] VITALS: BP 111/70; PULSE 70; RESP 20; TEMP 36.2; O2SAT 94
[2022-06-18 04:37] VITALS: BP 110/70; PULSE 65; RESP 16; TEMP 36.2; O2SAT 93
[2022-06-18] MEDS: DOXYCYCLINE HYCLATE 100 MG TABLET PO (08:32)
[2022-06-18] MEDS: SACUBITRIL/VALSARTAN 12-13 MG TABLET 1 TAB PO (08:32)
[2022-06-18] MEDS: SPIRONOLACTONE 25 MG TABLET PO (08:32)
[2022-06-18] MEDS: CEFDINIR 300 MG CAPSULE PO (08:32)
[2022-06-18] MEDS: ENOXAPARIN 40 MG/0.4 ML SYRINGE SUB-Q (08:32)
[2022-06-18] MEDS: ASPIRIN 81 MG ENTERIC TABLET PO (08:32)
[2022-06-18] MEDS: EUCERIN CREAM 120 GM JAR 1 APPLIC TOPICAL (09:47)
[2022-06-18 09:51] VITALS: BP 99/50
[2022-06-18] MEDS: FUROSEMIDE INJ 40 MG/4 ML VIAL IV PUSH (09:51)
--- NOTE | 2022-06-18 12:29 | PM.DS ---
DS: Summary Time Spent with Patient Time attestation: Total time spent providing and/or coordinating discharge services: Discharge Plan Discharge Attending physician on discharge: Selam Sheets Consulting providers: Elli Reed ; Tobias Kenny Discharging Clinician: Selam Sheets Anticipated Discharge Date/Time: 06/18/22 12:24 Patient Disposition: Home Health Service Activity: as tolerated Diet: heart healthy Patient Instructions: Antibiotic Form, Heart Failure (GEN), How to Stop Smoking (DC) Stand Alone Forms: General Discharge Information Follow-up/Referrals: Donna Graham APN-C [Advanced Practice Nurse] - Marcell Alexis, [Primary Care Provider] - Discharge Medications: New doxycycline hyclate 100 mg Tablet 100 mg PO Q12HR Qty: 12 0RF furosemide [Lasix] 20 mg tablet 20 mg PO BID Qty: 60 1RF Entresto 24-26 mg Tablet 1 tab PO Q12HR Qty: 60 1RF spironolactone 25 mg Tablet 25 mg PO QAM Qty: 30 1RF aspirin 81 mg Tablet,Delayed Release (Dr/Ec) 81 mg PO QAM Qty: 30 1RF cefdinir 300 mg Capsule 300 mg PO Q12HR Qty: 12 0RF No Action No Home Medications Date of admission: 06/15/22 12:43 Primary Care Provider: Marcell Alexis Admitting Provider: Evelio Delaney Attending physician on admission: Evelio Delaney Condition: Stable
--- NOTE | 2022-06-18 13:21 | PC.NURSE ---
It was brought to my attention that patient was upset about his bed and chair alarm. I educated patient about safety, which he verbalized understanding. Patient is alert and oriented X4. I had patient ambulated to the hallway and back. Patient ambulated without difficulty. Patient refusing to sit in chair with alarm pad activated. Spoke with staff. Patient eager to discharge today.
--- NOTE | 2022-06-18 13:31 | PM.DS ---
DS: Admitting Diagnosis Discharge Date today Admitting Diagnosis Acute on chronic systolic heart failure DS: Discharge Diagnosis Discharge Diagnosis Plan Patient will be discharged home with home health care DS: Summary Hospital Course Reason for hospitalization: Acute on chronic systolic heart failure Hospital Course: This is a pleasant 82-year-old male smoker who presented to the emergency department at the urging of friends and family for evaluation of weakness and swelling. Historically it sounds as though he does not go to the doctor very often and sometime last summer he was at his dentist's office at which time he was told that his blood pressures were low. He made an appointment with Dr. Alexis and he eventually had a workup to include chest x-ray, chest CT, and echocardiogram. He was referred to Dr. Capps given findings of emphysema and possible chronic interstitial lung disease. At that time the patient indicated that he felt perfectly fine and declined further workup. He was also referred to Dr. Kenny after use found to have an EF of 15 to 20%. A subsequent nuclear stress test and January 2022 showed a large previous anterior infarction with an EF of 12%. He declined further workup, medical management, and defibrillator as he was reportedly asymptomatic. He continues to live alone and is independent of all activities of daily living. More recently he has developed swelling ?from my waist to my feet? and family and friends it eventually got him to agree to come into the ER. [place] [address], AST 61, ALT 61, alkaline phosphatase 144. Chest x-ray showed cardiomegaly and congestive changes. He is being admitted in this setting for diuresis and reports that he is urinating quite a bit already since receiving 40 mg Lasix in the ED. during hospitalization, patient was diagnosed acute on chronic exacerbation. Echocardiogram 12/2021 found to have an EF of 15 to 20%. Received 40 mg Lasix in the ED. A subsequent nuclear stress test and January 2022 showed a large previous anterior infarction with an EF of 12%. He declined furt Patient received entresto and Spironolactone started by Cardio, IV Lasix. Today patient feels comfortable, denies chest pain, shortness of breath Acute CHF has resolved. Change Lasix to 20 mg b.i.d. p.o. continue Entresto, spironolactone p.o. During hospitalization, patient was also found have acute bacteriuria bronchitis, received Omnicef and doxycycline p.o. patient feels cough and phlegm production is decreased. Will continue the antibiotics after discharge Current patient is afebrile, hemodynamically stable He will continue with home medication Time Spent with Patient Time attestation: Total time spent providing and/or coordinating discharge services: Specific discharge activities: 40 minutes Discharge Plan Discharge Attending physician on discharge: Selam Sheets Consulting providers: Elli Reed ; Tobias Kenny Discharging Clinician: Selam Sheets Anticipated Discharge Date/Time: 06/18/22 12:24 Patient Disposition: Home Health Service Activity: as tolerated Diet: heart healthy Patient Instructions: Antibiotic Form, Heart Failure (GEN), How to Stop Smoking (DC), Heart Healthy Diet (DC) Stand Alone Forms: General Discharge Information Follow-up/Referrals: Donna Graham, PREMIUM NOTE INTEREST CALCULATOR CLERK-C [Advanced Practice Nurse] - (You have an appointment on 07/01/22 at 2:00. Please arrive at 1:45) Marcell Alexis, DO [Primary Care Provider] - Discharge Medications: New aspirin 81 mg Tablet,Delayed Release (Dr/Ec) 81 mg PO QAM Qty: 30 1RF spironolactone 25 mg Tablet 25 mg PO QAM Qty: 30 1RF cefdinir 300 mg Capsule 300 mg PO Q12HR Qty: 12 0RF doxycycline hyclate 100 mg Tablet 100 mg PO Q12HR Qty: 12 0RF Entresto 24-26 mg Tablet 1 tab PO Q12HR Qty: 60 1RF furosemide [Lasix] 20 mg tablet 20 mg PO BID Qty: 60 1RF Date of admis
== END 2022-06-18 14:02 | disposition home health service (06) | DRG 292 ==
LOC: ANHED 13:46 → ANH3MEDSUR 15:53
PROVIDERS: Nurse Practitioner; Nurse Practitioner Family; Physician Assistant; Preventive Medicine Aerospace Medicine; Admitting Provider Internal Medicine; Emergency Provider Physician Assistant; PCP Internal Medicine; Visit Provider Hospitalist
DX: I50.23 Acute on chronic systolic (congestive) heart failure (principal); J44.0 Chronic obstructive pulmonary disease with (acute) lower respiratory infection; L97.829 Non-pressure chronic ulcer of other part of left lower leg with unspecified severity; L97.819 Non-pressure chronic ulcer of other part of right lower leg with unspecified severity; J20.9 Acute bronchitis, unspecified; I25.5 Ischemic cardiomyopathy; I87.2 Venous insufficiency (chronic) (peripheral); I70.248 Atherosclerosis of native arteries of left leg with ulceration of other part of lower leg; I70.238 Atherosclerosis of native arteries of right leg with ulceration of other part of lower leg; L30.9 Dermatitis, unspecified; N40.0 Benign prostatic hyperplasia without lower urinary tract symptoms; R79.89 Other specified abnormal findings of blood chemistry; I25.2 Old myocardial infarction; F17.210 Nicotine dependence, cigarettes, uncomplicated; Z20.822 Contact with and (suspected) exposure to COVID-19
CPT/HCPCS: 36415; 36600; 71045; 71046; 76705; 80048; 80053; 80074; 80076; 81001; 82607; 82728; 82746; 82805; 83540; 83550; 83690; 83735; 83880; 84443; 85025; 85027; 85610; 85730; 87636; 93005; 93306; 93922; 93970; 96372; 96374; 96375; 96376; 97161; 97165; 99285; A9270; G0378; J1650; J1940

== ENCOUNTER 2022-06-30 15:16 | Outpatient (NON) | payer MEDICARE, SELFPAY ==
[2022-06-30 16:02] LABS: Alanine Aminotransferase 26 U/L (6-50); Albumin Level 3.5 g/dL (3.5-5.1); Alkaline Phosphatase 93 U/L (38-126); Anion Gap 5 mmol/L (8-16); Aspartate Amino Transferase 34 U/L (17-59); Bilirubin,Total 0.7 mg/dL (0.2-1.3); Blood Urea Nitrogen 31 mg/dL (9-20); Calcium 8.4 mg/dL (8.4-10.2); Carbon Dioxide 39 mmol/L (22-30); Chloride 94 mmol/L (98-107); Estimated Glomerular Filt Rate > 60; Glucose 106 mg/dL (65-110); Potassium 3.7 mmol/L (3.4-5.0); Sodium 138 mmol/L (137-145)
== END 2022-06-30 15:17 | disposition home or self-care (01) ==
PROVIDERS: PCP Internal Medicine; Visit Provider Nurse Practitioner
DX: I50.9 Heart failure, unspecified (principal)
CPT/HCPCS: 80053

== ENCOUNTER 2022-07-29 13:15 | Outpatient (CLI) | payer MEDICARE, SELFPAY ==
--- NOTE | ~2022-07-29 | CT_ITS ---
EXAMINATION: CT diagnostic chest wo con DATE: 07/29/2022 13:38 INDICATION: COPD, bronchiectasis TECHNIQUE: Computed tomography (CT) of the chest was performed without intravenous contrast. The dose -length product (DLP) was 158.80 mGy-cm. 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 COMPARISON: 11/17/2021 FINDINGS: There is moderate emphysema. Scarring is noted in the lung apices. There is bronchiectasis in the lower lung zones without significant change. There is mild atelectasis. No pleural effusion or pneumothorax. Cardiomegaly is noted. Again seen is subendocardial fat deposition in the left ventric ular apex with left ventricular enlargement of the heart. There are no pathologically enlarged thorac ic lymph nodes. Calcified coronary artery atherosclerosis is noted. There appears to be a partially i kelly fusiform infrarenal abdominal aortic aneurysm. There is mild thoracic spondylosis. IMPRESSION: 1. Stable bronchiectasis in the lower lung zones. 2. Moderate emphysema. Reviewed, dictated and finalized at location F.
--- NOTE | 2022-07-29 14:43 | PCRCNOTE ---
Addendum entered by Nai Garcia, MANAGEMENT SUPERVISOR 07/29/22 15:46: ATTEMPTED ALL TESTING Original Note: PT CAME IN FOR PFT TESTING AND WAS UNABLE TO GET ACCEPTABLE AND REPRODUCIBLE RESULTS. DR HERNANDEZ'S OFFICE NOTIFIED.
--- NOTE | 2022-08-01 07:41 | WPDSIXMINUTE ---
Six Minute Walk Procedure Procedure Performed Pulmonary Stress Test (6 min walk) Six Minute Walk Six Minute Walk: This is a 6 minute walk test. The test was performed and interpreted in accordance with the 2014 ERS/ATS task force guidelines. Findings: The patient's resting room air oxygen saturation measured by pulse oximetry was 98% and heart rate was 66 bpm. Patient ambulated for 305 meters and oxygen saturation remained 97 to 99%. Heart rate at the end of the study was 100 bpm. The patient did not qualify for supplemental oxygen at rest or with ambulation. There are no prior studies for comparison.
== END 2022-07-29 13:16 | disposition home or self-care (01) ==
LOC: ANHIMG 13:18
PROVIDERS: PCP Internal Medicine; Visit Provider Internal Medicine Pulmonary Disease
DX: J47.9 Bronchiectasis, uncomplicated (principal); J43.9 Emphysema, unspecified; J40 Bronchitis, not specified as acute or chronic; Z72.0 Tobacco use; R93.89 Abnormal findings on diagnostic imaging of other specified body structures
CPT/HCPCS: 71250; 94618

== ENCOUNTER 2022-07-31 10:17 | Outpatient (CLI) | payer MEDICARE, SELFPAY ==
[2022-08-04 10:02] LABS: Immunoglobulin G, Serum 1498 mg/dL (600-1540); Immunoglobulin G1 1054 mg/dL (382-929); Immunoglobulin G2 166 mg/dL (241-700); Immunoglobulin G3 104 mg/dL (22-178); Immunoglobulin G4 178.6 mg/dL (4.0-86.0)
[2022-08-05 21:15] LABS: Immunoglobulin E 478 kU/L (<=114)
== END 2022-07-31 10:18 | disposition home or self-care (01) ==
PROVIDERS: PCP Internal Medicine; Visit Provider Internal Medicine Pulmonary Disease
DX: J47.9 Bronchiectasis, uncomplicated (principal)
CPT/HCPCS: 36415; 82784; 82785; 82787

== ENCOUNTER 2024-12-04 20:30 | Inpatient (IN) | payer MEDICARE, SELFPAY ==
--- NOTE | ~2024-12-04 | XR_ITS ---
EXAMINATION: XR hip RT min 2V DATE: 12/06/2024 15:29 INDICATION: Right bipolar hip arthroplasty TECHNIQUE: 2 views right hip FINDINGS: There is a right bipolar hip arthroplasty in expected position. Subcutaneous gas with soft tissue swelling are consistent with recent surgery. IMPRESSION: 1. Recent right bipolar hip arthroplasty. Reviewed, dictated and finalized at location A.
--- NOTE | ~2024-12-04 | XR_ITS ---
HISTORY: fall COMPARISON: None TECHNIQUE: 2 views of the right hip along with an AP view of the pelvis FINDINGS: Acute fracture of the right femoral neck is identified with overlap of the fracture fragments. Superior lateral sclerosis of the bilateral femoral acetabular joint spaces are present consistent wi th osteoarthritis. Degenerative disease within the visualized portion of the lower lumbar spine. Calcified atherosclerotic disease is detected. IMPRESSION: Acute fracture of the right femoral neck, as detailed above. Reviewed, dictated and finalized at location A.
--- NOTE | ~2024-12-04 | XR_ITS ---
CHEST RADIOGRAPH CLINICAL HISTORY: POSSIBLE POSITIVE HIP FRACTURE . COMPARISON: 06/17/2019 2.3 TECHNIQUE: Single portable view of the chest. FINDINGS The cardiomediastinal silhouette is unremarkable. Increased interstitial markings are identified bilaterally, findings suggesting mild pulmonary vascul ar congestion. Blunting of the right costophrenic sulcus suggesting a small right-sided pleural effusion. The remainder of the lungs are clear. IMPRESSION: Mild pulmonary vascular congestion with a small right-sided pleural effusion. Reviewed, dictated and finalized at location A.
--- NOTE | ~2024-12-04 | XR_ITS ---
HISTORY: fall COMPARISON: None TECHNIQUE: 2 views of the right knee were performed FINDINGS: No acute or subacute fracture. Ossification of the insertion of the quadriceps tendon Medial tibiofemoral joint space narrowing with sclerosis is identified. No suprapatellar joint effusion is identified. The infrapatellar joint space is clear. IMPRESSION: Degenerative disease without acute fracture. Reviewed, dictated and finalized at location A.
--- OUTSIDE RECORDS SUMMARY | 2024-12-04 20:02 | XMS_ITS | Clinical Summary ---
Author Organization [facility] Address [address] [place] [id number] Care Team Providers Care Nurse Obgyn Name Role Phone Unavailable Primary Care Provider Unavailabl e Social History Tobacco Use Types Packs/Day Years Used Date Smoking Tobacco: Never Assessed Sex and Gender Information Value Date Recorded Sex Assigned at Not on file Legal Sex Male 4:36 PM CDT Gender Identity Not on file Sexual Orientation Not on file Plan of Treatment Health Maintenance Due Date Last Done Comments DTaP, Tdap and Td Vaccines ( 1 - Tdap) 01/08/1960 Pneumococcal Vaccine: 50+ Ye ars (1 of 1 - PCV) 1991 Zoster Vaccines (1 of 2) 1991 RSV Immunization or 60+ Years (1 - 1-dose 75+ series) 01/08/2016 COVID-19 Vaccine ( - 2023-2 5 season) 2024 Meningococcal B Vaccine Aged Out No l onger eligible based on patient's age to complete this topic Meningococcal Vaccine Aged Out No demarco tereso eligible based on patient's age to complete this topic RSV Immunizations Under 20 Months Aged Out No longer eligible based on patient's age to complete this topic
[2024-12-04 21:21] VITALS: BP 105/59; PULSE 99; RESP 16; TEMP 36.4; O2SAT 99
--- NOTE | 2024-12-04 22:26 | PC.NURSE ---
pt to imaging via wheelchair, will return to ed room 5 via stretcher after.
--- NOTE | 2024-12-04 23:54 | ED.FALL ---
HPI - Fall General Chief Complaint: Fall <LONNIE Jaquez Last Filed: 12/05/24 03:46> Stated Complaint: right knee injury / fall <LONNIE Jaquez Last Filed: 12/05/24 03:46> Time Seen by Provider: 12/04/24 23:24 <Rosa Elena Mann PA-C - Last Filed: 12/05/24 03:46> History of Present Illness HPI Narrative: 84-year-old male with history of PAD, COPD, CHF presents emergency department via EMS from home for a ground level fall. Patient states patient was leading his neighbor's lawn when his foot got stepped on a crack, he pivoted and sprained his ankle and right knee. He he states he then walked into his garage and his right leg gave out causing him to fall and land on his right knee, right elbow and right hip. He is reporting a skin tear to his right elbow with no pain to this region and pain to his right hip that radiates into his groin. He denies any pain to his right ankle or knee but does note that his knee is swollen. He did not hit his head or lose consciousness. He denies neck pain, back pain or other injuries acquired. Patient notes he has chronic lower extremity leg weakness for several years and it is not abnormal for his legs to ?give out?. Last Tdap unknown. <LONNIE Jaquez Last Filed: 12/05/24 03:46> Related Data Home Medications: Home Medications ?Medication ?Instructions ?Recorded ?Confirmed ?Last Taken ?Type sacubitril 24 mg-valsartan 26 mg 0.5 tablet PO Q12H 12/05/24 12/05/24 Unknown History tablet (Entresto) <LONNIE Jaquez Last Filed: 12/05/24 03:46> Allergies/Adverse Reactions: Allergies Allergy/AdvReac Type Severity Reaction Status Date / Time No Known Allergies Allergy Verified 12/05/24 08:59 <LONNIE Jaquez Last Filed: 12/05/24 03:46> Review of Systems Review of Systems: All systems reviewed & are unremarkable except as noted in HPI and below <Rosa Elena Mann PA-C - Last Filed: 12/05/24 03:46> [facility] Past Medical History Medical History: Medical History History of myocardial infarction Ischemic cardiomyopathy Chronic obstructive pulmonary disease Tobacco dependence Benign prostatic hyperplasia <Rosa Elena Mann PA-C - Last Filed: 12/05/24 03:46> Surgical History Surgical History: Surgical History History of hernia repair (1963) History of cataract removal with insertion of prosthetic lens (10/2014) <LONNIE Jaquez Last Filed: 12/05/24 03:46> Family History Family History: Family History Sibling Patient's sister is in good health Father Family history of Alzheimer's disease <Rosa Elena Mann PA-C - Last Filed: 12/05/24 03:46> Social History Social History: Social History Social History: Patient lives alone. Smokes 1/2 pack per day for the past 70 years. He drinks 1 alcoholic drink day. No drug use. Surrogate medical decision maker: Candida Soto, sister. Code status: Full code. Smoking packs per day: 0.5 Smoking cigarettes per day: 10.0 Years smoked: 68 Smoking pack-years: 34.00 Smoking status: Current every day smoker Tobacco type: cigarettes Alcohol intake: current Drinks per week: 7 Alcohol use details: Drinks 1 beer a day. Substance use: never Substance use type: does not use Lack of Transportation: No Lack of Food: Never True Current Housing: I Have Housing Concerned About Future Housing: No Difficulty Paying Gas/Electric Bills: No Difficulty Paying for Meds: No Currently Unemployed: No Education: High School Diploma/GED Difficulty w/ Childcare or Family Care: No Additional living arrangements comments: The patient lives in his own home in [place]. Not , no children. 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 Spiritual care concerns: No <Rosa Elena Mann PA-C - Last Filed: 12/05/24 03:46> Exam Narrative: GENERAL: Well-appearing, well-nourished, and in no acute distress. HEAD: Normocephalic, atraumatic. EYES: PERRLA and EOMI. ENT: Nares clear, no rhinorrhea or epistaxis. Mucous membranes moist. NECK: No midline cervical spinous tenderness, crepitus, step-offs or deformities BACK: No midline thoracolumbar spinous tenderness, crepitus, step-offs or deformities CHEST: Clear to auscultation. No respiratory distress. HEART: Regular rate and rhythm. No murmur heard. Normal peripheral pulses. ABDOMEN: Soft, nontender, nondistended, normal active bowel sounds. EXTREMITIES: RUE: 3 superficial skin tears to the right elbow with no active bleeding, no deep structures or foreign bodies visualized, no bony tenderness with full range of motion of elbow. No tenderness remainder of right or left upper extremities. Radial pulse 2 +. Sensation intact. RLE: Tenderness to the right hip with limited range of motion due to pain, no overlying skin changes, compartments are soft. No tenderness remainder of extremity with mild edema to the right knee. DP pulse dopplered. SKIN: Warm, dry, no rash. NEURO: No focal deficits. Alert and oriented x3 <Rosa Elena Mann PA-C - Last Filed: 12/05/24 03:46> Course SEWER INSPECTOR/PA Physician Supervision PA informed me that this patient would be admitted for hip fracture. I was available for consultation while patient was in the emergency department but otherwise did not personally examine them and was not directly involved in their care. <Jayna Morales MD - Last Filed: 12/05/24 18:36> Vital Signs Vital signs: Vital Signs Temperature 97.5 F L 12/04/24 21:21 Pulse Rate 99 12/04/24 21:21 Respiratory Rate 16 12/04/24 21:21 Blood Pressure 105/59 L 12/04/24 21:21 Pulse Oximetry 99 12/04/24 21:21 Oxygen Delivery Room Air 12/04/24 21:21 Temperature 98.2 F 12/05/24 14:59 Pulse Rate 81 12/05/24 16:00 Respiratory Rate 18 12/05/24 14:59 Blood Pressure 125/59 L 12/05/24 14:59 Pulse Oximetry 98 12/05/24 14:59 Oxygen Delivery Room Air 12/05/24 11:40 <Rosa Elena Mann PA-C - Last Filed: 12/05/24 03:46> Vital Signs Temperature 97.5 F L 12/04/24 21:21 Pulse Rate 99 12/04/24 21:21 Respiratory Rate 16 12/04/24 21:21 Blood Pressure 105/59 L 12/04/24 21:21 Pulse Oximetry 99 12/04/24 21:21 Oxygen Delivery Room Air 12/04/24 21:21 Temperature 98.2 F 12/05/24 14:59 Pulse Rate 81 12/05/24 16:00 Respiratory Rate 18 12/05/24 14:59 Blood Pressure 125/59 L 12/05/24 14:59 Pulse Oximetry 98 12/05/24 14:59 Oxygen Delivery Room Air 12/05/24 11:40 <Jayna Morales MD - Last Filed: 12/05/24 18:36> MDM - Fall MDM Narrative Medical decision making narrative: 84-year-old male presents emergency department for a ground level fall that occurred prior to arrival. See HPI for further history. Vitals stable. Exam is notable for the above. CBC with leukocytosis of 15.2 which may be acute stress reaction due to a fracture. Hemoglobin is 10.1 with most recent hemoglobin in June 2022 at 13.2. Chemistries indicative of CAMERON with a creatinine of 2.19 BUN of 42. Most recent creatinine in June 2022 was 1.1. Potassium mildly elevated at 5.4. X-ray of the right hip shows an acute fracture of the right femoral neck. X-ray of the right knee shows degenerative disease without acute fracture. Chest x-ray shows mild pulmonary vascular congestion with small right-sided pleural effusion. UA with 51-100 RBCs, likely traumatic due to Restrepo placement. No white blood cells. Patient did receive 500 cc fluid bolus for CAMERON and hyperkalemia. Tdap was updated. He was given morphine and Dilaudid for pain control. Plan to admit to the hospitalist for CAMERON and right hip fracture with consult to Orthopedics. Discussed with orthopedist, Dr. Small, who agrees to consult on admission. Discussed with hospitalist, Dr. Cramer, who advises 50 cc/hour of IV fluids and admission to [facility]. <Rosa Elena Mann PA-C - Last Filed: 12/05/24 03:46> Lab Data Result diagrams: 12/05/24 00:16 12/05/24 10:36 <Rosa Elena Mann PA-C - Last Filed: 12/05/24 03:46> Labs: Lab Results 12/05/24 12/05/24 Range/Units 00:16 01:24 WBC 15.2 H (4.5-10.0) K/mm3 RBC 3.48 L (4.6-6.20) M/mm3 Hgb 10.1 L D (14.0-18.0) g/dL Hct 31.4 L (42.0-52.0) % MCV 90.2 (80-100) fl MCH 29.0 (26-34) pg MCHC 32.2 (32-36) g/dl RDW 13.5 (11.5-14.5) % Plt Count 238 (150-375) k/mm3 MPV 10.0 (7.4-10.4) fl Immature Gran % (Auto) 0.4 (0-0.5) % Neut % (Auto) 88.4 H (45.5-73.1) % Lymph % (Auto) 5.6 L (18.3-44.2) % [place] % (Auto) 5.4 (2.6-8.5) % Eos % (Auto) 0.0 (0-4.4) % Baso % (Auto) 0.2 (0.2-1.2) % Lymph # (Auto) 0.85 L (0.9-3.2) K/mm3 [place] # (Auto) 0.8 H (0.1-0.6) K/mm3 Eos # (Auto) 0.0 (0-0.3) K/mm3 Baso # (Auto) 0.0 (0.0-0.1) K/mm3 Abs Immat Gran (auto) 0.06 H (0.00-0.031) K/mm3 Absolute Neuts (auto) 13.5 H (1.3-6.7) K/mm3 Absolute Nucleated RBC 0.000 (0.0-0.012) K/mm3 Nucleated RBC % 0.0 (0.0-0.2) % Sodium 136 L (137-145) mmol/L Potassium 5.4 H (3.4-5.0) mmol/L Chloride 102 (98-107) mmol/L Carbon Dioxide 23 (22-30) mmol/L Anion Gap 11 (4-12) mmol/L BUN 42 H D (9-20) mg/dL Creatinine 2.19 H (0.7-1.3) mg/dL Estim Creat Clear Calc 21 ml/min Estimated GFR 29 L (59 - ) Glucose 119 H (65-110) mg/dL Calcium 9.4 (8.4-10.2) mg/dL Total Bilirubin 0.6 (0.2-1.3) mg/dL AST 30 (17-59) U/L ALT 18 (6-50) U/L Alkaline Phosphatase 68 (38-126) U/L Total Creatine Kinase 270 H (55-170) U/L Total Protein 7.3 (6.3-8.2) g/dL Albumin 4.1 (3.5-5.1) g/dL Urine Color Yellow (Yellow) Urine Appearance Cloudy H (Clear) Urine pH 5.0 (5.0-9.0) Ur Specific [place] 1.019 (1.001-1.035) Urine Protein 2+ H (Negative) mg/dL Urine Glucose (UA) Negative (Negative) mg/dL Urine Ketones Trace H (Negative) mg/dL Ur Blood (Man) 2+ H (Negative) Urine Nitrate Negative (Negative) Urine Bilirubin Negative (Negative) Urine Urobilinogen 0.2 (<2.0) mg/dL Add Ur Microanalysis Reviewed Leukocyte Esterase Rfl Trace H (Negative) EMMA/UL Urine RBC 51-100 H (0-2) /hpf Urine WBC 0-5 (0-3) /hpf Ur Squamous Epith Cells Occasional (Few) /hpf Urine Bacteria None seen /hpf Urine Casts >20 Urine Mucus Present /lpf <Rosa Elena Mann PA-C - Last Filed: 12/05/24 03:46> Lab Results 12/05/24 12/05/24 Range/Units 00:16 01:24 WBC 15.2 H (4.5-10.0) K/mm3 RBC 3.48 L (4.6-6.20) M/mm3 Hgb 10.1 L D (14.0-18.0) g/dL Hct 31.4 L (42.0-52.0) % MCV 90.2 (80-100) fl MCH 29.0 (26-34) pg MCHC 32.2 (32-36) g/dl RDW 13.5 (11.5-14.5) % Plt Count 238 (150-375) k/mm3 MPV 10.0 (7.4-10.4) fl Immature Gran % (Auto) 0.4 (0-0.5) % Neut % (Auto) 88.4 H (45.5-73.1) % Lymph % (Auto) 5.6 L (18.3-44.2) % Perry % (Auto) 5.4 (2.6-8.5) % Eos % (Auto) 0.0 (0-4.4) % Baso % (Auto) 0.2 (0.2-1.2) % Lymph # (Auto) 0.85 L (0.9-3.2) K/mm3 [place] # (Auto) 0.8 H (0.1-0.6) K/mm3 Eos # (Auto) 0.0 (0-0.3) K/mm3 Baso # (Auto) 0.0 (0.0-0.1) K/mm3 Abs Immat Gran (auto) 0.06 H (0.00-0.031) K/mm3 Absolute Neuts (auto) 13.5 H (1.3-6.7) K/mm3 Absolute Nucleated RBC 0.000 (0.0-0.012) K/mm3 Nucleated RBC % 0.0 (0.0-0.2) % Sodium 136 L (137-145) mmol/L Potassium 5.4 H (3.4-5.0) mmol/L Chloride 102 (98-107) mmol/L Carbon Dioxide 23 (22-30) mmol/L Anion Gap 11 (4-12) mmol/L BUN 42 H D (9-20) mg/dL Creatinine 2.19 H (0.7-1.3) mg/dL Estim Creat Clear Calc 21 ml/min Estimated GFR 29 L (59 - ) Glucose 119 H (65-110) mg/dL Calcium 9.4 (8.4-10.2) mg/dL Total Bilirubin 0.6 (0.2-1.3) mg/dL AST 30 (17-59) U/L ALT 18 (6-50) U/L Alkaline Phosphatase 68 (38-126) U/L Total Creatine Kinase 270 H (55-170) U/L Total Protein 7.3 (6.3-8.2) g/dL Albumin 4.1 (3.5-5.1) g/dL Urine Color Yellow (Yellow) Urine Appearance Cloudy H (Clear) Urine pH 5.0 (5.0-9.0) Ur Specific [place] 1.019 (1.001-1.035) Urine Protein 2+ H (Negative) mg/dL Urine Glucose (UA) Negative (Negative) mg/dL Urine Ketones Trace H (Negative) mg/dL Ur Blood (Man) 2+ H (Negative) Urine Nitrate Negative (Negative) Urine Bilirubin Negative (Negative) Urine Urobilinogen 0.2 (<2.0) mg/dL Add Ur Microanalysis Reviewed Leukocyte Esterase Rfl Trace H (Negative) EMMA/UL Urine RBC 51-100 H (0-2) /hpf Urine WBC 0-5 (0-3) /hpf Ur Squamous Epith Cells Occasional (Few) /hpf Urine Bacteria None seen /hpf Urine Casts >20 Urine Mucus Present /lpf <Jayna Morales MD - Last Filed: 12/05/24 18:36> Discharge Plan Discharge Clinical Impression: CAMERON (acute kidney injury), Hyperkalemia Closed fracture of right hip Qualifiers: Encounter type: initial encounter Qualified Code(s): S72.001A - Fracture of unspecified part of neck of right femur, initial encounter for closed fracture <Rosa Elena Mann PA-C - Last Filed: 12/05/24 03:46> Patient Disposition: Still a Patient <Rosa Elena Mann PA-C - Last Filed: 12/05/24 03:46> Condition: Stable <Rosa Elena Mann PA-C - Last Filed: 12/05/24 03:46>
[2024-12-05] VITALS (19 sets, daily range): BP systolic 106–134; BP diastolic 40–81; PULSE 73–90; RESP 14–18; TEMP 36.3–36.8; O2SAT 91–100; BMI 18.4
--- OUTSIDE RECORDS SUMMARY | 2024-12-05 00:02 | XMS_ITS | Clinical Summary ---
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
[2024-12-05] MEDS: TETANUS,DIPHTHERIA,AC PERTUSSIS ADULT (0.5 ML) BOOSTRIX IM (00:03)
[2024-12-05] MEDS: MORPHINE SULFATE (*CRX) 2 MG/ML INJ IV PUSH (00:05)
--- NOTE | 2024-12-05 00:05 | ECG_ITS ---
Test Date: 2024-12-05 00:40:48 Measurements Intervals [place] Rate: 83 P: 78 WA: 197 QRS: -49 QRSD: 110 T: 125 QT: 366 QTc: 431 Interpretive Statements SINUS RHYTHM WITH SINUS ARRHYTHMIA LEFT AXIS DEVIATION PATTERN CONSISTENT WITH PULMONARY DISEASE ST ELEVATION IN ANTEROLATERAL LEADS, PROBABLY EARLY REPOLARIZATION BORDERLINE ST-T WAVE ABNORMALITY- HIGH LATERAL LEADS BASELINE ARTIFACT- I, II, III, AVR, AVL, AVF, V1-V6 ABNORMAL ECG No previous ECG available for comparison Electronically Signed On 12-05-2024 08:45:27 CDT by Niraj Gibson D.O.
[2024-12-05 00:33] LABS: Hematocrit 31.4 % (42.0-52.0); Hemoglobin 10.1 g/dL (14.0-18.0); Immature Granulocyte Percent A 0.4 % (0-0.5); Lymphocytes Absolute Auto 0.85 K/mm3 (0.9-3.2); Mean Corpuscular HGB Conc 32.2 g/dl (32-36); Mean Corpuscular Hemoglobin 29.0 pg (26-34); Mean Corpuscular Volume 90.2 fl (80-100); Nucleated Red Blood Cells Absolute Auto 0.000 K/mm3 (0.0-0.012); Nucleated Red Blood Cells Perc 0.0 % (0.0-0.2); Platelet Count Result 238 k/mm3 (150-375); Red Blood Count 3.48 M/mm3 (4.6-6.20); White Blood Count 15.2 K/mm3 (4.5-10.0)
[2024-12-05 00:48] LABS: Alanine Aminotransferase 18 U/L (6-50); Albumin Level 4.1 g/dL (3.5-5.1); Alkaline Phosphatase 68 U/L (38-126); Anion Gap 11 mmol/L (4-12); Aspartate Amino Transferase 30 U/L (17-59); Bilirubin,Total 0.6 mg/dL (0.2-1.3); Blood Urea Nitrogen 42 mg/dL (9-20); Calcium 9.4 mg/dL (8.4-10.2); Carbon Dioxide 23 mmol/L (22-30); Chloride 102 mmol/L (98-107); Estimated CRCL calculation 21 ml/min; Estimated Glomerular Filt Rate 29; Glucose 119 mg/dL (65-110); Potassium 5.4 mmol/L (3.4-5.0); Sodium 136 mmol/L (137-145); Total Protein 7.3 g/dL (6.3-8.2)
[2024-12-05] MEDS: SODIUM CHLORIDE 0.9% IV 500 ML 999 ML IV CONT (01:40)
[2024-12-05] MEDS: HYDROmorphone HCL INJ (*CRX) 2 MG/ML VIAL 0.5 MG IV PUSH ×3 (01:41→11:26)
[2024-12-05 02:35] LABS: Add Urine Microscopic? YES; Appearance Urine Cloudy (Clear); Glucose Urine UA Negative (Negative); Leukocyte Esterase Ur Trace LEU/UL (Negative); Need Manual Microscopic Reviewed; Nitrate Urine Negative (Negative); Non Pathogenic Casts >20; Specific Grav Ur 1.019 (1.001-1.035)
[2024-12-05 03:22] LABS: Creatine Kinase 270 U/L (55-170)
[2024-12-05] MEDS: SODIUM CHLORIDE 0.9% IV 1,000 ML 50 ML IV CONT (05:14)
--- NOTE | 2024-12-05 07:57 | P.HP_ITS ---
H&P: HPI History of Present Illness Date/Time: 12/05/24 07:57 Chief Complaint: Hip pain after a fall Narrative: 84yo male with PAD, COPD and systolic CHF who is brought in to the ED with complaints of right hip pain after a fall. Patient has been following with Dr. Ray for his heart disease. Patient has lost about 15 lb over the past 6 months. He also describes chronic leg weakness that he feels is due to his medications. He does not recall when his last echo or stress test were performed. Chart review showing that patient has been following with Cardiology since 2021 when he was found to have low EF. Lexiscan stress test at that time showing a large previous anterior wall NV with EF 12%. Echo here in Jun 2022 showing severely enlarged LV with severely reduced fxn (EF 15-20%), moderate MR, mod TR and large pericardial effusion. He was last seen by Cardiology in August and his Spironolactone dose was decreased to M-W-F due to patient complaints. He is active working outside frequently and denies any chest pain or increasing shortness of breath with activity. His last hospitalization was about 2 years ago. [facility] he had his foot lodged in a crack in the [facility]. He turned abruptly causing right ankle and knee pain. He did not fall. He walked to the garage and sat for short period time. When he got up, he lost balance falling to his right landing on his right elbow, right knee and hip. He had a right elbow abrasion. He was seen by neighbors and EMS was called. There was no head injury. He denies any neck or back pain. No recent fever or chills. No chest pain, palpitations, shortness of breath, cough, nausea, vomiting, dysuria or hematuria. He did have loose stools earlier in the day treated with Pepto-Bismol which is not uncommon for him. He presented to the emergency room for evaluation. In the ED, he was hemodynamically stable. Pertinent labs: WBC 15K, Hgb 10 with normal plt count, potassium 5.4, BUN 42 and Cr 2.2 (with normal baseline Cr in 2022), total CK 270. UA showing 2+ protein, trace ketones, 2+ blood, trace LE and 51-100 RBC but 0-5 WBC. Rt knee xray showing degenerative disease. Rt hip xray showing acute right femoral neck fracture. CXR showing mild pulmonary vascular congestion with a small right-sided pleural effusion. He was admitted for further care. Review of Systems Review of Systems: All systems reviewed & are unremarkable except as noted in HPI and below PMFSH Past Medical History Medical History History of myocardial infarction Ischemic cardiomyopathy Chronic obstructive pulmonary disease Tobacco dependence Benign prostatic hyperplasia Surgical History Surgical History History of hernia repair (1963) History of cataract removal with insertion of prosthetic lens (10/2014) Family History Family History Sibling Patient's sister is in good health Father Family history of Alzheimer's disease Social History Social History (Updated 12/05/24 @ 09:50 by Ernie Riley MD) Social History: Patient lives alone. Smokes 1/2 pack per day for the past 70 years. He drinks 1 alcoholic drink day. No drug use. Surrogate medical decision maker: Candida Soto, sister. Code status: Full code. Smoking status: Current every day smoker Tobacco type: cigarettes Alcohol intake: current Drinks per week: 7 Alcohol use details: Drinks 1 beer a day. Substance use: never Lack of Transportation: No Lack of Food: Never True Current Housing: I Have Housing Concerned About Future Housing: No Difficulty Paying Gas/Electric Bills: No Difficulty Paying for Meds: No Currently Unemployed: No Education: High School Diploma/GED Difficulty w/ Childcare or Family Care: No Additional living arrangements comments: The patient lives in his own home in [place]. Not , no children. 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 Spiritual care concerns: No Meds Home Medications and Allergies Home Medications ?Medication ?Instructions ?Recorded ?Confirmed ?Type aspirin 81 mg tablet,delayed 81 mg PO QAM #30 tabs 06/18/22 12/05/24 Rx release spironolactone 25 mg tablet 25 mg PO QAM #30 tabs 06/18/22 12/05/24 Rx triamcinolone acetonide 0.1 % 1 applic topical BID #15 grams 06/24/22 11/04/22 Rx topical cream Allergies Allergy/AdvReac Type Severity Reaction Status Date / Time No Known Allergies Allergy Verified 12/05/24 08:59 Vital Signs Vital Signs - 24 hr 12/04/24 21:21 12/05/24 01:50 12/05/24 01:57 Temperature 97.5 F L Pulse Rate 99 86 Respiratory Rate 16 14 Blood Pressure 105/59 L 117/56 L Pulse Oximetry 99 96 94 Oxygen Delivery Room Air 12/05/24 02:10 12/05/24 02:20 12/05/24 02:31 Temperature Pulse Rate Respiratory Rate Blood Pressure 107/56 L Pulse Oximetry 96 100 91 Oxygen Delivery 12/05/24 02:46 12/05/24 03:16 12/05/24 03:46 Temperature Pulse Rate Respiratory Rate Blood Pressure 113/58 L 106/74 127/56 L Pulse Oximetry Oxygen Delivery 12/05/24 04:01 12/05/24 04:31 12/05/24 05:01 Temperature Pulse Rate Respiratory Rate Blood Pressure 123/59 L 111/40 L 118/81 Pulse Oximetry 91 Oxygen Delivery 12/05/24 06:16 12/05/24 06:31 Temperature Pulse Rate Respiratory Rate Blood Pressure 117/61 131/64 Pulse Oximetry Oxygen Delivery Exam Narrative: AF 97.5 131/64 86 14 91% ra Gen - thin appearing male in no acute respiratory distress who is nontoxic- appearing lying flat in bed HEENT - normocephalic. Atraumatic. Pupils equal round and reactive. Extraocular motions intact. Sclera clear and anicteric. Nares patent. No oral lesions. Moist mucous membranes. Tongue was midline. Neck - neck was supple without pain with movement. No dominant adenopathy, thyromegaly or masses. Chest - lungs are clear anteriorly and in flanks. No wheezes or crackles. CV - heart was regular rate and rhythm. S1-S2. No murmurs gallops or rubs. Abd - abdomen was soft, scaphoid, nontender. Positive bowel sounds. No organomegaly or masses. - Restrepo secured draining blood tinged urine Ext - no pedal edema. trace DP pulses bilaterally. Right leg is foreshortened. No pain with right ankle ROM. Right foot is cool to touch Neuro - patient is alert and oriented x4 but seems forgetful. Strength is 5/5 in both upper and lower extremities. Cranial nerves 2-12 are intact. Speech is clear. Psych - normal mood and affect. Patient is pleasant and cooperative. Skin - warm and dry. No rashes noted. Rt elbow dressing stained with old blood. Mild abrasion tot he right knee and small about of eccymosis to the right ankle. H&P: Results Labs Labs: Short CBC 12/05/24 Range/Units 00:16 WBC 15.2 H (4.5-10.0) K/mm3 Hgb 10.1 L D (14.0-18.0) g/dL Hct 31.4 L (42.0-52.0) % Plt Count 238 (150-375) k/mm3 BMP 12/05/24 00:16 Sodium 136 L Potassium 5.4 H Chloride 102 Carbon Dioxide 23 BUN 42 H D Creatinine 2.19 H Glucose 119 H Calcium 9.4 Cardiac Enzymes 12/05/24 Range/Units 00:16 Total Creatine Kinase 270 H (55-170) U/L Liver Function 12/05/24 Range/Units 00:16 Total Bilirubin 0.6 (0.2-1.3) mg/dL AST 30 (17-59) U/L ALT 18 (6-50) U/L Alkaline Phosphatase 68 (38-126) U/L Albumin 4.1 (3.5-5.1) g/dL Urine 12/05/24 Range/Units 01:24 Urine Color Yellow (Yellow) Urine Appearance Cloudy H (Clear) Urine pH 5.0 (5.0-9.0) Ur Specific [place] 1.019 (1.001-1.035) Urine Protein 2+ H (Negative) mg/dL Urine Glucose (UA) Negative (Negative) mg/dL Assessment and Plan Assessment and plan (1) Fracture of femoral neck, right: Code(s): S72.001A - Fracture of unspecified part of neck of right femur, initial encounter for closed fracture Status: Acute Assessment and Plan: Patient with right femoral neck fracture after a ground level fall. Ortho consult NPO. Analgesics available prn PT/OT post repair (2) CAMERON (acute kidney injury): Code(s): N17.9 - Acute kidney failure, unspecified Status: Acute Assessment and Plan: Cr 2.2 today. [place] to have normal renal function but unclear on baseline since last Cr was 1.1 in 2022. Could be related to dehydration (working outside) and/or spironolactone. IV fluids started at 50ml/hr. Slow rehydration given his hx of systolic CHF Monitor UOP, renal fxn and electrolytes (3) Hyperkalemia: Code(s): E87.5 - Hyperkalemia Status: Acute Assessment and Plan: Potassium elevated on admission at 5.4 [place] related to CAMERON and spironolactone. Hold spironolactone. IV fluids started Repeat potassium level today (4) Ischemic cardiomyopathy: Code(s): I25.5 - Ischemic cardiomyopathy Status: Chronic Assessment and Plan: Patient with known ischemic CMP with EF 15-20%. He is on spironolactone and Entresto. He can not take betas tobias due to resting bradycardia. Currently on low dose IV fluids. Monitor fluid status closely. (5) Peripheral artery disease: Code(s): I73.9 - Peripheral vascular disease, unspecified Status: Acute Assessment and Plan: Patient with PAD listed. Bilateral LE ABIs Jun 2022 showing mildly decreased bilateral ABIs but severely reduced TBI bilaterally. No further imaging noted. Resume ASA when able. Consider statin therapy. (6) COPD (chronic obstructive pulmonary disease): Code(s): J44.9 - Chronic obstructive pulmonary disease, unspecified Status: Acute Assessment and Plan: Patient with COPD. He continues to smoke. Not on routine inhalers. No wheezing on exam. Follow (7) Tobacco abuse: Code(s): Z72.0 - Tobacco use Status: Acute Assessment and Plan: Patient education about benefits of smoking cessation. Plan Hematuria - felt related to traumatic Restrepo placement. DVT Prophylaxis - per ortho Code status - full
--- NOTE | 2024-12-05 10:19 | ADMGEN ---
This patient, Clyde Watkins Jr., was admitted to Medical Room 248-01. Patient/family oriented to hospital policies and general routines including ID bracelet, bed and alarms, visiting hours, pain management, procedures, bathroom and other care routines, personal items, smoking policy, room service/diet, and visiting hours. Information on how to activate the Rapid Response Team has been discussed. Patient/Family are encouraged to report perceived risks to care and to ask questions if they do not understand what they are told or what they should do.
[2024-12-05 11:31] LABS: Anion Gap 7 mmol/L (4-12); Blood Urea Nitrogen 39 mg/dL (9-20); Calcium 9.2 mg/dL (8.4-10.2); Carbon Dioxide 25 mmol/L (22-30); Chloride 103 mmol/L (98-107); Estimated CRCL calculation 28 ml/min; Estimated Glomerular Filt Rate 38; Glucose 113 mg/dL (65-110); Potassium 5.1 mmol/L (3.4-5.0); Sodium 135 mmol/L (137-145)
--- NOTE | 2024-12-05 12:20 | PM.CNOR ---
Assessment and Plan Assessment and plan (1) Orthostatic hypotension: Code(s): I95.1 - Orthostatic hypotension <Becca R. Pia, MATERNAL FETAL PHYSICIAN - Last Filed: 12/05/24 16:05> Status: Acute <Becca R. Pia, MATERNAL FETAL PHYSICIAN - Last Filed: 12/05/24 16:05> (2) CHF exacerbation: Qualifiers: Heart failure type: unspecified Qualified Code(s): I50.9 - Heart failure, unspecified <Becca R. Pia, MATERNAL FETAL PHYSICIAN - Last Filed: 12/05/24 16:05> Code(s): I50.9 - Heart failure, unspecified <Becca R. Pia, MATERNAL FETAL PHYSICIAN - Last Filed: 12/05/24 16:05> Status: Acute <Becca R. Pia, MATERNAL FETAL PHYSICIAN - Last Filed: 12/05/24 16:05> (3) Ischemic cardiomyopathy: Code(s): I25.5 - Ischemic cardiomyopathy <Becca R. Pia, MATERNAL FETAL PHYSICIAN - Last Filed: 12/05/24 16:05> Status: Chronic <Becca R. Pia, MATERNAL FETAL PHYSICIAN - Last Filed: 12/05/24 16:05> (4) Acute on chronic systolic congestive heart failure: Code(s): I50.23 - Acute on chronic systolic (congestive) heart failure <Becca R. Pia, MATERNAL FETAL PHYSICIAN - Last Filed: 12/05/24 16:05> Status: Acute <Becca R. Pia, MATERNAL FETAL PHYSICIAN - Last Filed: 12/05/24 16:05> (5) Fracture of femoral neck, right: Qualifiers: Encounter type: initial encounter Fracture type: closed Qualified Code(s): S72.001A - Fracture of unspecified part of neck of right femur, initial encounter for closed fracture <Becca R. Pia, MATERNAL FETAL PHYSICIAN - Last Filed: 12/05/24 16:05> Code(s): S72.001A - Fracture of unspecified part of neck of right femur, initial encounter for closed fracture <Becca R. Pia, MATERNAL FETAL PHYSICIAN - Last Filed: 12/05/24 16:05> Status: Acute <Becca R. Pia, MATERNAL FETAL PHYSICIAN - Last Filed: 12/05/24 16:05> Assessment and Plan: History, exam radiographs reviewed the patient. Radiographs of the right hip reveal an acute right femoral neck fracture. The fracture type and injury as well as radiographs discussed with the patient. Discussed nonoperative and operative treatment options with the patient. Risks and benefits of each as well as alternatives were reviewed. All of the patient's questions were answered. The risks of surgery reviewed including but not limited to: Neurovascular damage, wound complication, infection, blood clot, pulmonary embolus, stroke, myocardial infarction, and anesthetic risks up to and including . Continued pain and possible dysfunction were explained. Specific risks of the procedure including later recurrence of deformity. No guarantees were offered. If hardware used, discussed risk of failure/ breakage and possible need for removal. If complications occur, the patient understands the need for further treatment, possible further surgery. Patient verbalizes understanding and wishes to proceed. Plan: Right Hip Bipolar by Dr. Geovanny STEPHENSON at midnight. Medical clearance. Obtain consent. HOLD Anticoagulation. Pain control. Bed rest. HIGH FALL RISK. Ice. Monitor NV status. <BERNADINE Stevens - Last Filed: 12/05/24 16:05> History of Present Illness HPI Consult date: 12/05/24 <BERNADINE Stevens - Last Filed: 12/05/24 16:05> 12/06/24 <Srinivasan Small MD - Last Filed: 12/06/24 07:21> Consult reason: fracture <BERNADINE Stevens - Last Filed: 12/05/24 16:05> Chief complaint: Hip fracture <BERNADINE Stevens - Last Filed: 12/05/24 16:05> Narrative: 84-year-old male with a history of CAD, COPD and systolic CHF was brought to the emergency room after a fall. Per the patient and medical record, he has lost a significant amount of weight over the last 6 months and complains of chronic right lower extremity weakness which he believes are due to his medications. He reports an increase in a dose of medication from his recreational aide in early August. He reports intermittent feelings of dizziness since the increase in dose. Prior to admission to the hospital, the patient was out we had walking when he had his foot lodge in to a portion of the driveway causing right ankle and knee pain without fall. He then went into his garage and sat for a short period of time at which point he got up lost his balance and fell onto his right elbow right knee and right hip. EMS was called by neighbors and the patient was transported for evaluation in the emergency room. Radiographs of the right hip in the emergency room revealed a right femoral neck fracture. Patient admitted to the hospital service with orthopedic consultation for right hip fracture. <BERNADINE Stevens - Last Filed: 12/05/24 16:05> Review of Systems Review of Systems: All systems reviewed & are unremarkable except as noted in HPI and below <BERNADINE Stevens - Last Filed: 12/05/24 16:05> [facility] Past Medical History Medical History: Medical History History of myocardial infarction Ischemic cardiomyopathy Chronic obstructive pulmonary disease Tobacco dependence Benign prostatic hyperplasia <BERNADINE Stevens - Last Filed: 12/05/24 16:05> Surgical History Surgical History: Surgical History History of hernia repair (1963) History of cataract removal with insertion of prosthetic lens (10/2014) <BERNADINE Stevens - Last Filed: 12/05/24 16:05> Family History Family History: Family History Sibling Patient's sister is in good health Father Family history of Alzheimer's disease <BERNADINE Stevens - Last Filed: 12/05/24 16:05> Social History Social History: Social History Social History: Patient lives alone. Smokes 1/2 pack per day for the past 70 years. He drinks 1 alcoholic drink day. No drug use. Surrogate medical decision maker: Candida Soto, sister. Code status: Full code. Smoking packs per day: 0.5 Smoking cigarettes per day: 10.0 Years smoked: 68 Smoking pack-years: 34.00 Smoking status: Current every day smoker Tobacco type: cigarettes Alcohol intake: current Drinks per week: 7 Alcohol use details: Drinks 1 beer a day. Substance use: never Substance use type: does not use Lack of Transportation: No Lack of Food: Never True Current Housing: I Have Housing Concerned About Future Housing: No Difficulty Paying Gas/Electric Bills: No Difficulty Paying for Meds: No Currently Unemployed: No Education: High School Diploma/GED Difficulty w/ Childcare or Family Care: No Additional living arrangements comments: The patient lives in his own home in [place]. Not , no children. 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 Spiritual care concerns: No <BERNADINE Stevens - Last Filed: 12/05/24 16:05> Meds Home Medications and Allergies Home medications: Home Medications ?Medication ?Instructions ?Recorded ?Confirmed ?Type aspirin 81 mg tablet,delayed 81 mg PO QAM #30 tabs 06/18/22 12/05/24 Rx release spironolactone 25 mg tablet 25 mg PO QAM #30 tabs 06/18/22 12/05/24 Rx sacubitril 24 mg-valsartan 26 mg 0.5 tablet PO Q12H 12/05/24 12/05/24 History tablet (Entresto) <BERNADINE Stevens - Last Filed: 12/05/24 16:05> Allergies/Adverse reactions: Allergies Allergy/AdvReac Type Severity Reaction Status Date / Time No Known Allergies Allergy Verified 12/05/24 08:59 <BERNADINE Stevens - Last Filed: 12/05/24 16:05> Vital Signs Vital Signs - 24 hr 12/04/24 21:21 12/05/24 01:50 12/05/24 01:57 Temperature 36.4 C L Pulse Rate 99 86 Respiratory Rate 16 14 Blood Pressure 105/59 L 117/56 L Pulse Oximetry 99 96 94 Oxygen Delivery Room Air 12/05/24 02:10 12/05/24 02:20 12/05/24 02:31 Temperature Pulse Rate Respiratory Rate Blood Pressure 107/56 L Pulse Oximetry 96 100 91 Oxygen Delivery 12/05/24 02:46 12/05/24 03:16 12/05/24 03:46 Temperature Pulse Rate Respiratory Rate Blood Pressure 113/58 L 106/74 127/56 L Pulse Oximetry Oxygen Delivery 12/05/24 04:01 12/05/24 04:31 12/05/24 05:01 Temperature Pulse Rate Respiratory Rate Blood Pressure 123/59 L 111/40 L 118/81 Pulse Oximetry 91 Oxygen Delivery 12/05/24 06:16 12/05/24 06:31 12/05/24 09:12 Temperature 36.3 C L Pulse Rate 77 Respiratory Rate 18 Blood Pressure 117/61 131/64 134/54 L Pulse Oximetry 97 Oxygen Delivery 12/05/24 11:40 Temperature Pulse Rate Respiratory Rate Blood Pressure Pulse Oximetry Oxygen Delivery Room Air <HILARIO StevensP - Last Filed: 12/05/24 16:05> Exam Const: General: cooperative, comfortable and average body habitus <HILARIO StevensP - Last Filed: 12/05/24 16:05> Nutritional Appearance: average body habitus <HILARIO StevensP - Last Filed: 12/05/24 16:05> Limitations: no limitations <HILARIO StevensP - Last Filed: 12/05/24 16:05> HENMT: Head: normal to inspection and No palpable skull fracture present <HILARIO StevensP - Last Filed: 12/05/24 16:05> Ears: hearing grossly normal bilaterally and external ears normal <HILARIO StevensP - Last Filed: 12/05/24 16:05> Face/Nose/Sinus: Normal external nose present, Normal nares present, Normal nasal mucous membranes and turbinates present and normal facial exam <HILARIO StevensP - Last Filed: 12/05/24 16:05> Face and sinus: normal facial exam <HILARIO StevensP - Last Filed: 12/05/24 16:05> Mouth: Yes Normal oral and palatal mucosa present <HILARIO StevensP - Last Filed: 12/05/24 16:05> Teeth and gingiva: dentition normal <HILARIO StevensP - Last Filed: 12/05/24 16:05> Eyes: General: appearance normal, both eyes and all related structures <HILARIO StevensP - Last Filed: 12/05/24 16:05> Sclera: sclerae normal <HILARIO StevensP - Last Filed: 12/05/24 16:05> Pupils: Equal, round and reactive pupils present <HILARIO StevensP - Last Filed: 12/05/24 16:05> Neck: Neck: normal visual inspection and full ROM <HILARIO StevensP - Last Filed: 12/05/24 16:05> Resp: Effort & Inspection: normal respiratory effort and able to speak in complete sentences <HILARIO StevensP - Last Filed: 12/05/24 16:05> Cardio: Jugular venous distension: no JVD <HILARIO StevensP - Last Filed: 12/05/24 16:05> Rate: regular rate <HILARIO StevensP - Last Filed: 12/05/24 16:05> Rhythm: regular rhythm <Becca Palacio [facility] - Last Filed: 12/05/24 16:05> GI: Inspection: normal to inspection <Becca Palacio [facility] - Last Filed: 12/05/24 16:05> GI Palp: No abdominal tenderness <HILARIO StevensP - Last Filed: 12/05/24 16:05> Urinary Catheter: Urinary Catheter: patent and draining and urine clear <HILARIO StevensP - Last Filed: 12/05/24 16:05> Skin: General skin exam: normal color and no rashes or lesions noted <HILARIO StevensP - Last Filed: 12/05/24 16:05> Wounds: no wounds <HILARIO StevensP - Last Filed: 12/05/24 16:05> Neuro: General: No gait normal (NWB ), No moves all extremities and Unable to assess gait (bedrest ) <HILARIO StevensP - Last Filed: 12/05/24 16:05> Cranial nerves: Yes Equal, round and reactive pupils present <HILARIO StevensP - Last Filed: 12/05/24 16:05> Cognition (Neuro): normal cognition <BERNADINE Stevens - Last Filed: 12/05/24 16:05> Speech: normal speech <HILARIO StevensP - Last Filed: 12/05/24 16:05> Gait exam (Neuro): Unable to assess gait (bedrest ) <BERNADINE Stevens - Last Filed: 12/05/24 16:05> Sensory Exam: normal sensation <HILARIO StevensP - Last Filed: 12/05/24 16:05> Extrem: Right lower extremity: hip/thigh Details: abnormal to inspection Details: foreshortened and externally rotated, swelling Location: at the hip and abnormal ROM Details: held in an abnormal fashion Details: in external rotation, knee Details: normal to inspection and abnormal ROM Details: held in an abnormal fashion Details: in flexion; no tenderness, no swelling, no lacerations, no ecchymosis and no crepitus, lower leg Details: normal to inspection and no edema; no tenderness, ankle Details: normal to inspection and normal ROM and foot Details: normal capillary refill and vascular exam Details: dorsalis pedis pulse present <BERNADINE Stevens - Last Filed: 12/05/24 16:05> Psych: Appearance: grossly normal <BERNADINE Stevens - Last Filed: 12/05/24 16:05> Results Labs Result Diagrams: 12/06/24 04:27 12/06/24 04:27 <BERNADINE Stevens - Last Filed: 12/05/24 16:05> Labs: Abnormal lab results 12/05/24 12/05/24 12/05/24 Range/Units 00:16 01:24 10:36 WBC 15.2 H (4.5-10.0) K/mm3 RBC 3.48 L (4.6-6.20) M/mm3 Hgb 10.1 L D (14.0-18.0) g/dL Hct 31.4 L (42.0-52.0) % Neut % (Auto) 88.4 H (45.5-73.1) % Lymph % (Auto) 5.6 L (18.3-44.2) % Lymph # (Auto) 0.85 L (0.9-3.2) K/mm3 [place] # (Auto) 0.8 H (0.1-0.6) K/mm3 Abs Immat Gran (auto) 0.06 H (0.00-0.031) K/mm3 Absolute Neuts (auto) 13.5 H (1.3-6.7) K/mm3 Sodium 136 L 135 L (137-145) mmol/L Potassium 5.4 H 5.1 H (3.4-5.0) mmol/L BUN 42 H D 39 H (9-20) mg/dL Creatinine 2.19 H 1.74 H (0.7-1.3) mg/dL Estimated GFR 29 L 38 L (59 - ) Glucose 119 H 113 H (65-110) mg/dL Total Creatine Kinase 270 H (55-170) U/L Urine Appearance Cloudy H (Clear) Urine Protein 2+ H (Negative) mg/dL Urine Ketones Trace H (Negative) mg/dL Ur Blood (Man) 2+ H (Negative) Leukocyte Esterase Rfl Trace H (Negative) EMMA/UL Urine RBC 51-100 H (0-2) /hpf H & H 12/05/24 Range/Units 00:16 Hgb 10.1 L D (14.0-18.0) g/dL Hct 31.4 L (42.0-52.0) % All other labs normal. <BERNADINE Stevens - Last Filed: 12/05/24 16:05>
--- NOTE | 2024-12-05 13:30 | P.CDI_ITS ---
CDI Query Clarification Request BMI: 18.5 Nutritional Diagnostic Statement: Please refer to the comprehensive nutrition assessment for further information. If you agree with diagnosis of Severe Protein Calorie Malnutrition as related to inadequate protein-energy intake with increased protein-energy needs in setting of chronic disease or condition as evidenced by significant weight loss of 9% (14 ibs) in 2 months; severe subcutaneous fat loss (orbital fat pads) and severe muscle wasting (temporalis/clavicle). Please specify severity if known: * Mild * Moderate * Severe * Other/Unknown
[2024-12-05] MEDS: HYDROcodone/acetaminophen (*CRX) 5-325 MG TABLET 1 TAB PO (14:47)
[2024-12-06] VITALS (17 sets, daily range): BP systolic 116–150; BP diastolic 53–87; PULSE 64–104; RESP 14–18; TEMP 36.4–36.9; O2SAT 96–100
[2024-12-06] MEDS: SODIUM CHLORIDE 0.9% IV 1,000 ML 50 ML IV CONT (03:24)
[2024-12-06 05:01] LABS: Hematocrit 29.0 % (42.0-52.0); Hemoglobin 9.3 g/dL (14.0-18.0); Immature Granulocyte Percent A 0.5 % (0-0.5); Lymphocytes Absolute Auto 1.02 K/mm3 (0.9-3.2); Mean Corpuscular HGB Conc 32.1 g/dl (32-36); Mean Corpuscular Hemoglobin 29.0 pg (26-34); Mean Corpuscular Volume 90.3 fl (80-100); Nucleated Red Blood Cells Absolute Auto 0.000 K/mm3 (0.0-0.012); Nucleated Red Blood Cells Perc 0.0 % (0.0-0.2); Platelet Count Result 227 k/mm3 (150-375); Red Blood Count 3.21 M/mm3 (4.6-6.20); White Blood Count 11.5 K/mm3 (4.5-10.0)
[2024-12-06 05:18] LABS: Anion Gap 9 mmol/L (4-12); Blood Urea Nitrogen 32 mg/dL (9-20); Calcium 9.0 mg/dL (8.4-10.2); Carbon Dioxide 23 mmol/L (22-30); Chloride 106 mmol/L (98-107); Estimated CRCL calculation 35 ml/min; Estimated Glomerular Filt Rate 49; Glucose 105 mg/dL (65-110); Potassium 4.8 mmol/L (3.4-5.0); Sodium 138 mmol/L (137-145)
--- NOTE | 2024-12-06 07:20 | WPDHPUPDATE1 ---
History and Physical Update Update Date/Time: 12/06/24 07:20 History and Physical has been reviewed, including an updated exam of the patient. There are NO changes in the patient's condition. Risks, benefits, and alternatives have been discussed and questions answered. Patient agrees to proceed with procedure.
--- NOTE | 2024-12-06 07:29 | P.PNIM_ITS ---
Progress Note: A&P Assessment and Plan (1) Fracture of femoral neck, right: Qualifiers: Encounter type: initial encounter Fracture type: closed Qualified Code(s): S72.001A - Fracture of unspecified part of neck of right femur, initial encounter for closed fracture Code(s): S72.001A - Fracture of unspecified part of neck of right femur, initial encounter for closed fracture Status: Acute Assessment and Plan: -Patient with right femoral neck fracture after a ground level fall. -Ortho consult, planning for OR today -NPO. -Analgesics available prn -PT/OT post repair (2) CAMERON (acute kidney injury): Code(s): N17.9 - Acute kidney failure, unspecified Status: Acute Assessment and Plan: -Cr 2.2 on admission. [place] to have normal renal function but unclear on baseline since last Cr was 1.1 in 2022. -Could be related to dehydration (working outside) and/or spironolactone. -Cr improved with IV fluids. - Spironolactone on hold, resume as able -Monitor UOP, renal fxn and electrolytes (3) Hyperkalemia: Code(s): E87.5 - Hyperkalemia Status: Acute Assessment and Plan: -Potassium elevated on admission at 5.4 -[place] related to CAMERON and spironolactone. -Improved with IV fluids and holding spironolactone. - monitor BMP (4) Ischemic cardiomyopathy: Code(s): I25.5 - Ischemic cardiomyopathy Status: Chronic Assessment and Plan: -Patient with known ischemic CMP with EF 15-20%. (2022) -He is on spironolactone and Entresto. Will resume if renal function remains stable. He can not take betas tobias due to resting bradycardia. -Monitor fluid status closely. (5) Peripheral artery disease: Code(s): I73.9 - Peripheral vascular disease, unspecified Status: Acute Assessment and Plan: -Patient with PAD listed. Bilateral LE ABIs Jun 2022 showing mildly decreased bilateral ABIs but severely reduced TBI bilaterally. No further imaging noted. -Resume ASA when able. Consider statin therapy. (6) COPD (chronic obstructive pulmonary disease): Code(s): J44.9 - Chronic obstructive pulmonary disease, unspecified Status: Acute Assessment and Plan: -Patient with COPD. He continues to smoke. -Not on routine inhalers. -No wheezing on exam. -Follow (7) Tobacco abuse: Code(s): Z72.0 - Tobacco use Status: Acute Assessment and Plan: -Patient education about benefits of smoking cessation. Plan Hematuria - felt related to traumatic Restrepo placement. DVT Prophylaxis - per ortho Code status - full Subjective Date/time seen: 12/06/24 07:29 Interval history: 84yo male with PAD, COPD and systolic CHF who is brought in to the ED with complaints of right hip pain after a fall. Patient seen and examined at bedside. Per nursing, patient was confused overnight. Patient is alert oriented x3 this a.m.. He is having severe pain. Still agreeable to surgery this afternoon. Review of Systems Review of Systems: All systems reviewed & are unremarkable except as noted in HPI and below Exam Narrative: General: NAD, frail Eyes: EOMI ENT: neck supple Cardiovascular: Regular rate and rhythm Respiratory: Clear to auscultation, respirations even and unlabored on RA Gastrointestinal: Soft, non tender Genitourinary: no suprapubic tenderness Musculoskeletal: No edema, right leg shortened and externally rotated Skin: warm, dry Neuro: Alert. Psych: Mood appropriate Objective Data Vital Signs Vital Signs: Vital Signs - 24 hr 12/05/24 09:12 12/05/24 11:40 12/05/24 12:00 Temperature 97.3 F L Pulse Rate 77 73 Respiratory Rate 18 Blood Pressure 134/54 L Pulse Oximetry 97 Oxygen Delivery Room Air 12/05/24 14:59 12/05/24 16:00 12/05/24 20:00 Temperature 98.2 F Pulse Rate 81 81 78 Respiratory Rate 18 Blood Pressure 125/59 L Pulse Oximetry 98 Oxygen Delivery 12/05/24 20:15 12/05/24 20:50 12/06/24 00:00 Temperature 97.4 F L Pulse Rate 90 64 Respiratory Rate 18 Blood Pressure 109/53 L Pulse Oximetry 94 Oxygen Delivery Room Air 12/06/24 03:42 12/06/24 05:03 Temperature 97.6 F Pulse Rate 66 90 Respiratory Rate 18 Blood Pressure 118/59 L Pulse Oximetry 96 Oxygen Delivery Intake/Output Intake/Output: Intake & Output 12/03/24 12/04/24 12/05/24 12/06/24 23:59 23:59 23:59 23:59 Intake Total 740 1000 Output Total 350 300 Balance 390 700 Meds/Results Medications: Active Medications Generic Name Dose Route Start Last Admin Trade Name Freq PRN Reason Stop Dose Admin Acetaminophen 650 mg 12/05/24 10:06 Acetaminophen 325 Mg Tablet PO Q6H PRN Mild Pain (1-3) or Fever Hydrocodone Bitart/Acetaminophen 1 tab 12/05/24 10:06 12/05/24 14:47 Hydrocodone/Acetaminophen (*Crx) 5-325 Mg Tablet PO 1 tab Q6H PRN Administration Pain Rated 4-6 Hydromorphone HCl 0.5 mg 12/05/24 03:46 12/05/24 11:26 Hydromorphone Hcl Inj (*Crx) 2 Mg/Ml Vial IV PUSH 0.5 mg Q4H PRN Administration Pain Rated 7-10 Sodium Chloride 1,000 mls @ 50 mls/hr 12/05/24 03:50 12/06/24 03:24 Normal Saline Iv IV CONT 50 mls/hr .Q20H ERUM Administration Radiology Results: ITS Impressions Knee X-Ray 12/04/24 22:44 IMPRESSION: Degenerative disease without acute fracture. Hip/Pelvis X-Ray 12/04/24 22:45 IMPRESSION: Acute fracture of the right femoral neck, as detailed above. Chest X-Ray 12/04/24 22:47 IMPRESSION: Mild pulmonary vascular congestion with a small right-sided pleural effusion. Labs Labs: Laboratory Results - last 24 hr 12/05/24 12/06/24 10:36 04:27 WBC 11.5 H RBC 3.21 L Hgb 9.3 L Hct 29.0 L MCV 90.3 MCH 29.0 MCHC 32.1 RDW 13.4 Plt Count 227 MPV 10.3 Immature Gran % (Auto) 0.5 Neut % (Auto) 83.7 H Lymph % (Auto) 8.9 L Mckean % (Auto) 6.2 Eos % (Auto) 0.4 Baso % (Auto) 0.3 Lymph # (Auto) 1.02 Mckean # (Auto) 0.7 H Eos # (Auto) 0.1 Baso # (Auto) 0.0 Abs Immat Gran (auto) 0.06 H Absolute Neuts (auto) 9.6 H Absolute Nucleated RBC 0.000 Nucleated RBC % 0.0 Sodium 135 L 138 Potassium 5.1 H 4.8 Chloride 103 106 Carbon Dioxide 25 23 Anion Gap 7 9 BUN 39 H 32 H Creatinine 1.74 H 1.38 H Estim Creat Clear Calc 28 35 Estimated GFR 38 L 49 L Glucose 113 H 105 Calcium 9.2 9.0
[2024-12-06] MEDS: HYDROmorphone HCL INJ (*CRX) 2 MG/ML VIAL 0.5 MG IV PUSH (08:50)
[2024-12-06] MEDS: TRANEXAMIC ACID 1,000MG/ISO100 1,000 MG/100 ML BAG 200 MG IVPB (12:05)
[2024-12-06] MEDS: ACETAMINOPHEN 500 MG TABLET 1000 MG PO (12:05)
[2024-12-06] MEDS: KETOROLAC 15 MG/ML VIAL (*BKC) IV PUSH (12:05)
--- NOTE | 2024-12-06 13:27 | P.PNAN_ITS ---
Anes - Initial Pre Proc Eval Procedure: Operation Date: 12/06/24 13:30 Proposed Procedures p Right Bipolar Hip Replacement(Right) - Srinivasan Small MD Date/Time: 12/06/24 13:27 Surgeon: Lashawn Cramer DO Pre Op Diagnosis: Hip fracture Patient Data Age: 84 Gender: M Height: 1.91 m Weight: 67 kg Last Vital Signs Temp 36.4 C 12/06/24 05:03 Pulse 104 H 12/06/24 08:00 Resp 18 12/06/24 05:03 BP 118/59 L 12/06/24 05:03 Pulse Ox 99 12/06/24 08:32 O2 Del Method Room Air 12/06/24 08:50 Allergies Allergy/AdvReac Type Severity Reaction Status Date / Time No Known Allergies Allergy Verified 12/06/24 12:19 Home Medications ?Medication ?Instructions ?Recorded ?Confirmed ?Type aspirin 81 mg tablet,delayed 81 mg PO QAM #30 tabs 06/18/22 12/05/24 Rx release spironolactone 25 mg tablet 25 mg PO QAM #30 tabs 06/18/22 12/05/24 Rx sacubitril 24 mg-valsartan 26 mg 0.5 tablet PO Q12H 12/05/24 12/05/24 History tablet (Entresto) Laboratory Tests 12/06/24 04:27 WBC 11.5 H K/mm3 (4.5-10.0) RBC 3.21 L M/mm3 (4.6-6.20) Hgb 9.3 L g/dL (14.0-18.0) Hct 29.0 L % (42.0-52.0) MCV 90.3 fl (80-100) MCH 29.0 pg (26-34) MCHC 32.1 g/dl (32-36) RDW 13.4 % (11.5-14.5) Plt Count 227 k/mm3 (150-375) MPV 10.3 fl (7.4-10.4) Immature Gran % (Auto) 0.5 % (0-0.5) Neut % (Auto) 83.7 H % (45.5-73.1) Lymph % (Auto) 8.9 L % (18.3-44.2) Chaves % (Auto) 6.2 % (2.6-8.5) Eos % (Auto) 0.4 % (0-4.4) Baso % (Auto) 0.3 % (0.2-1.2) Lymph # (Auto) 1.02 K/mm3 (0.9-3.2) Chaves # (Auto) 0.7 H K/mm3 (0.1-0.6) Eos # (Auto) 0.1 K/mm3 (0-0.3) Baso # (Auto) 0.0 K/mm3 (0.0-0.1) Abs Immat Gran (auto) 0.06 H K/mm3 (0.00-0.031) Absolute Neuts (auto) 9.6 H K/mm3 (1.3-6.7) Absolute Nucleated RBC 0.000 K/mm3 (0.0-0.012) Nucleated RBC % 0.0 % (0.0-0.2) Sodium 138 mmol/L (137-145) Potassium 4.8 mmol/L (3.4-5.0) Chloride 106 mmol/L (98-107) Carbon Dioxide 23 mmol/L (22-30) Anion Gap 9 mmol/L (4-12) BUN 32 H mg/dL (9-20) Creatinine 1.38 H mg/dL (0.7-1.3) Estim Creat Clear Calc 35 ml/min Estimated GFR 49 L (59 - ) Glucose 105 mg/dL (65-110) Calcium 9.0 mg/dL (8.4-10.2) Patient hx anesthesia problems: none Family hx anesthesia problems: none Results Review: All pre-operative results and documents have been reviewed as part of the pre- operative evaluation. FORMERLY [facility], [facility] Past Medical History Medical History History of myocardial infarction Ischemic cardiomyopathy Chronic obstructive pulmonary disease Tobacco dependence Benign prostatic hyperplasia Surgical History Surgical History History of hernia repair (1963) History of cataract removal with insertion of prosthetic lens (10/2014) Family History Family History Sibling Patient's sister is in good health Father Family history of Alzheimer's disease Social History Social History Social History: Patient lives alone. Smokes 1/2 pack per day for the past 70 years. He drinks 1 alcoholic drink day. No drug use. Surrogate medical decision maker: Candida Soto, sister. Code status: Full code. Smoking packs per day: 0.5 Smoking cigarettes per day: 10.0 Years smoked: 68 Smoking pack-years: 34.00 Smoking status: Current every day smoker Tobacco type: cigarettes Alcohol intake: current Drinks per week: 7 Alcohol use details: Drinks 1 beer a day. Substance use: never Substance use type: does not use Lack of Transportation: No Lack of Food: Never True Current Housing: I Have Housing Concerned About Future Housing: No Difficulty Paying Gas/Electric Bills: No Difficulty Paying for Meds: No Currently Unemployed: No Education: High School Diploma/GED Difficulty w/ Childcare or Family Care: No Additional living arrangements comments: The patient lives in his own home in [place]. Not , no children. 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 Spiritual care concerns: No Anes - Eval Final PreProcedure Day of Procedure 12/06/24 13:27 Patient weight: cachectic Heart: regular rate and rhythm Lungs: decreased breath sounds Airway: Mallampati scale class II Neurological: other (alert) Last oral intake: >/= 8 hours ASA classification: IV Emergent: no Anesthetic plan: proceed Anesthesia type and monitoring: general LMA and standard monitoring Results Review: All pre-operative results and documents have been reviewed as part of the pre- operative evaluation. Informed Consent: The patient's anesthetic plan and its attendant risks and benefits were discussed with the patient/family/POA. Questions were solicited and answers provided to the satisfaction of the patient/family/POA.
[2024-12-06] MEDS: ceFAZolin 2 GM in SODIUM CHLORIDE 0.9% IV 50 ML 100 ML IVPB (13:39)
[2024-12-06] MEDS: SODIUM CHLORIDE 0.9% IV 37.7 ML, MORPHINE SULFATE INJ (*CRX) 2 MG, ROPivacaine HCL 1% 2... INFILTRATE (14:24)
--- NOTE | 2024-12-06 14:57 | W.PM.PROC2 ---
Procedure Note - Detailed Date of Procedure 12/06/24 Pre-op Diagnosis Hip fracture Post-op Diagnosis Same Procedure Performed RIGHT HIP HEMIARTHROPLASTY WITH BIPOLAR PROSTHESIS Surgeon Srinivasan Small MD Anesthesia General Description of Procedure THE PATIENT WAS TAKEN TO THE OPERATING ROOM IN STABLE CONDITION. HE WAS PLACED IN THE LATERAL DECUBITUS AND THE RIGHT LOWER EXTREMITY WAS PREPPED AND DRAPED IN THE STERILE FASHION. INCISION WAS MADE IN THE POSTERIOR LATERAL SIDE OF THE HIP, DOWN TO THE FASCIA LAYER. THE FASCIA WAS INCISED. THE HIP WAS EXPOSED. THE SHORT EXTERNAL ROTATORS WERE EXPOSED AND THERE WAS A LARGE HEMATOMA. THE CAPSULE WAS INCISED EXPOSING THE FRACTURE. THE FEMORAL HEAD WAS REMOVED. IT MEASURED 54 MM. AN OSTEOTOMY WAS MADE TO THE FEMORAL NECK ABOUT 1 CM PROXIMAL TO THE LESSER TROCHANTER. NEXT THE FEMUR WAS PREPARED WITH INITIAL CANAL FINDER THEN SEQUENTIAL REAMING UNTIL A #4 BROACH FIT WELL IN 15 OF ANTE VERSION. A 0 STANDARD OFFSET NECK BIPOLAR TRIAL IN A 54 MM SHELL WAS PLACED. THE SHUCK TEST WAS EXCELLENT AND THE STABILITY IN FLEXION AND ROTATION WAS EXCELLENT. LEG LENGTHS WERE GROSSLY EQUAL. TRIALS WERE REMOVED. A 4 RACHEL FRACTURE STEM WITH A STANDARD OFFSET WAS INSERTED IN 15 DEG OF ANTEVERSION. A 0 BIPOLAR HEAD NECK TRIAL WAS PLACED AGAIN. THE HIP WAS TRIALED AND THE STABILITY WAS EXCELLENT WERE THE LEG LENGTHS AND THE SHUCK TEST. NEXT A BIPOLAR HEAD NECK 0 IMPLANT WITH A 54 MM COBALT CHROME SHELL WAS PLACED AND TRIALED ONCE AGAIN SHOWING EXCELLENT STABILITY AND GROSSLY EQUAL LEG LENGTHS. THE WOUND WAS IRRIGATED WITH STERILE BETADINE AND WATER FOR 3 MIN. THEN WASHED AGAIN. THE CAPSULE AND THE EXTERNAL ROTATORS WERE APPROXIMATED WITH NUMBER 1 VICRYL. THE FASCIA WITH No 2 QUIL AND THE SUB CUTANEOUS LAYER WITH 2-0 ABSORBABLE SUTURE WITH A RUNNING 3-0 SUBCUTICULAR LAYER WITH STRATAFIX WELL. DERMABOND WAS PLACED AND STERILE DRESSING WAS APPLIED. PATIENT WAS PLACED BACK ON TO THE SUPINE POSITION AND WAS EXTUBATED. Estimated Blood Loss 100 Drains No Pathology None sent Complications No immediate complications Condition Stable Disposition PACU
[2024-12-06] MEDS: LACTATED RINGERS 1,000 ML 30 ML IV CONT ×2 (15:09→15:10)
[2024-12-06] MEDS: SACUBITRIL/VALSARTAN 24-26 MG TABLET 0.5 TAB PO (21:21)
[2024-12-07] VITALS (9 sets, daily range): BP systolic 90–106; BP diastolic 40–58; PULSE 62–107; RESP 16–18; TEMP 36.4–36.8; O2SAT 95–100
[2024-12-07] MEDS: SODIUM CHLORIDE 0.9% IV 1,000 ML 50 ML IV CONT (04:30)
[2024-12-07 05:46] LABS: Anion Gap 10 mmol/L (4-12); Blood Urea Nitrogen 32 mg/dL (9-20); Calcium 9.0 mg/dL (8.4-10.2); Carbon Dioxide 21 mmol/L (22-30); Chloride 107 mmol/L (98-107); Estimated CRCL calculation 35 ml/min; Estimated Glomerular Filt Rate 50; Glucose 88 mg/dL (65-110); Magnesium 2.1 mg/dL (1.6-2.3); Potassium 5.0 mmol/L (3.4-5.0); Sodium 138 mmol/L (137-145)
--- NOTE | 2024-12-07 07:00 | P.PNIM_ITS ---
Progress Note: A&P Assessment and Plan (1) Fracture of femoral neck, right: Qualifiers: Encounter type: initial encounter Fracture type: closed Qualified Code(s): S72.001A - Fracture of unspecified part of neck of right femur, initial encounter for closed fracture Code(s): S72.001A - Fracture of unspecified part of neck of right femur, initial encounter for closed fracture Status: Acute Assessment and Plan: -Patient with right femoral neck fracture after a ground level fall. - s/p right hip hemiarthroplasty with bipolar prosthesis 12/06/[address] Small. - pain control with scheduled Tylenol, PRN oxycodone for breakthrough - PT/OT recommends SNF. Care coordination assisting. - DVT prophylaxis per ortho (2) Delirium: Code(s): R41.0 - Disorientation, unspecified Status: Acute Assessment and Plan: - patient having periods of confusion and agitation overnight - family reports ongoing memory issues, but no formal dementia diagnosis. Patient alert oriented x4 this morning. -delirium precautions, schedule melatonin -recommend outpatient dementia evaluation upon discharge (3) CAMERON (acute kidney injury): Code(s): N17.9 - Acute kidney failure, unspecified Status: Acute Assessment and Plan: -Cr 2.2 on admission. [place] to have normal renal function but unclear on baseline since last Cr was 1.1 in 2022. -Could be related to dehydration (working outside) and/or spironolactone. -Cr improved with IV fluids. - Spironolactone and Entresto on hold, resume as able -Monitor UOP, renal fxn and electrolytes (4) Hyperkalemia: Code(s): E87.5 - Hyperkalemia Status: Acute Assessment and Plan: -Potassium elevated on admission at 5.4 -[place] related to CAMERON and spironolactone. -Improved with IV fluids and holding spironolactone. - monitor BMP (5) Ischemic cardiomyopathy: Code(s): I25.5 - Ischemic cardiomyopathy Status: Chronic Assessment and Plan: -Patient with known ischemic CMP with EF 15-20%. (2022) -He is on spironolactone and Entresto. Will resume if renal function remains stable. He can not take betas tobias due to resting bradycardia. -Monitor fluid status closely. (6) Peripheral artery disease: Code(s): I73.9 - Peripheral vascular disease, unspecified Status: Acute Assessment and Plan: -Patient with PAD listed. Bilateral LE ABIs Jun 2022 showing mildly decreased bilateral ABIs but severely reduced TBI bilaterally. No further imaging noted. -Resume ASA when able. Consider statin therapy. (7) COPD (chronic obstructive pulmonary disease): Code(s): J44.9 - Chronic obstructive pulmonary disease, unspecified Status: Acute Assessment and Plan: -Patient with COPD. He continues to smoke. -Not on routine inhalers. -No wheezing on exam. -Follow (8) Tobacco abuse: Code(s): Z72.0 - Tobacco use Status: Acute Assessment and Plan: -Patient education about benefits of smoking cessation. Plan DVT Prophylaxis - per ortho Code status - full Subjective Date/time seen: 12/07/24 07:00 Interval history: 84yo male with PAD, COPD and systolic CHF who is brought in to the ED with complaints of right hip pain after a fall. Patient seen and examined up in chair. Complaining of pain the right hip. Patient adamant about not wanting to go to rehab. Discussed options with kathryn vaca's sister who will be assisting with the discharge process. Review of Systems Review of Systems: All systems reviewed & are unremarkable except as noted in HPI and below Exam Narrative: General: NAD, frail Eyes: EOMI ENT: neck supple Cardiovascular: Regular rate and rhythm Respiratory: Clear to auscultation, respirations even and unlabored on RA Gastrointestinal: Soft, non tender Genitourinary: no suprapubic tenderness Musculoskeletal: No edema, R foot with weak pulse, palpated via doppler per nurses Skin: warm, dry Neuro: Alert. Psych: Mood appropriate Objective Data Vital Signs Vital Signs: Vital Signs - 24 hr 12/06/24 08:00 12/06/24 08:32 12/06/24 08:50 Temperature Pulse Rate 104 H Respiratory Rate Blood Pressure Pulse Oximetry 99 Oxygen Delivery Room Air Room Air Oxygen Flow Rate 12/06/24 12:00 12/06/24 15:09 12/06/24 15:20 Temperature 98.5 F Pulse Rate 80 72 69 Respiratory Rate 14 16 Blood Pressure 144/65 H 116/87 Pulse Oximetry 100 100 Oxygen Delivery Simple Face Mask Simple Face Mask Oxygen Flow Rate 10 10 12/06/24 15:35 12/06/24 15:50 12/06/24 16:05 Temperature Pulse Rate 66 67 71 Respiratory Rate 16 14 14 Blood Pressure 143/71 H 135/71 139/78 Pulse Oximetry 100 99 98 Oxygen Delivery Room Air Room Air Room Air Oxygen Flow Rate 12/06/24 16:20 12/06/24 16:39 12/06/24 17:20 Temperature Pulse Rate 71 75 81 Respiratory Rate 16 18 18 Blood Pressure 137/80 150/59 H 131/63 Pulse Oximetry 97 99 100 Oxygen Delivery Room Air Oxygen Flow Rate 12/06/24 17:42 12/06/24 20:00 12/06/24 20:00 Temperature Pulse Rate 75 74 Respiratory Rate 18 Blood Pressure 134/71 Pulse Oximetry 100 Oxygen Delivery Room Air Oxygen Flow Rate 12/06/24 22:00 12/07/24 00:00 12/07/24 04:00 Temperature 97.5 F L Pulse Rate 82 101 H 88 Respiratory Rate 18 Blood Pressure 125/53 L Pulse Oximetry 97 Oxygen Delivery Oxygen Flow Rate 12/07/24 06:00 Temperature 97.5 F L Pulse Rate 103 H Respiratory Rate 18 Blood Pressure 90/58 L Pulse Oximetry 100 Oxygen Delivery Oxygen Flow Rate Intake/Output Intake/Output: Intake & Output 12/04/24 12/05/24 12/06/24 12/07/24 23:59 23:59 23:59 23:59 Intake Total 740 1305 Output Total 350 775 800 Balance 390 530 -800 Meds/Results Medications: Active Medications Generic Name Dose Route Start Last Admin Trade Name Freq PRN Reason Stop Dose Admin Acetaminophen 650 mg 12/05/24 10:06 Acetaminophen 325 Mg Tablet PO Q6H PRN Mild Pain (1-3) or Fever Hydrocodone Bitart/Acetaminophen 1 tab 12/05/24 10:06 12/05/24 14:47 Hydrocodone/Acetaminophen (*Crx) 5-325 Mg Tablet PO 1 tab Q6H PRN Administration Pain Rated 4-6 Aspirin 81 mg 12/07/24 09:00 Aspirin 81 Mg Enteric Tablet PO QAM ERUM Sacubitril/Valsartan 0.5 tab 12/06/24 21:00 12/06/24 21:21 Sacubitril/Valsartan 24-26 Mg Tablet PO 0.5 tab Q12HR ERUM Administration Radiology Results: ITS Impressions Knee X-Ray 12/04/24 22:44 IMPRESSION: Degenerative disease without acute fracture. Hip/Pelvis X-Ray 12/04/24 22:45 IMPRESSION: Acute fracture of the right femoral neck, as detailed above. Chest X-Ray 12/04/24 22:47 IMPRESSION: Mild pulmonary vascular congestion with a small right-sided pleural effusion. Hip X-Ray 12/06/24 15:34 IMPRESSION: 1. Recent right bipolar hip arthroplasty. Labs Labs: Laboratory Results - last 24 hr 12/07/24 04:56 Sodium 138 Potassium 5.0 Chloride 107 Carbon Dioxide 21 L Anion Gap 10 BUN 32 H Creatinine 1.36 H Estim Creat Clear Calc 35 Estimated GFR 50 L Glucose 88 Calcium 9.0 Magnesium 2.1
[2024-12-07] MEDS: ASPIRIN 81 MG ENTERIC TABLET PO (08:21)
[2024-12-07] MEDS: HYDROcodone/acetaminophen (*CRX) 5-325 MG TABLET 1 TAB PO (08:54)
--- NOTE | 2024-12-07 09:33 | WPDANESPN ---
Anes - Prog Note Post-Op Date/Time: 12/07/24 09:33 Cardiovascular status: normal Respiratory status: normal Airway patency: baseline Mental status: baseline Post-Op hydration status: normal Vital Signs: Last Vital Signs Temp 36.4 C L 12/07/24 06:00 Pulse 107 H 12/07/24 08:00 Resp 18 12/07/24 06:00 BP 90/58 L 12/07/24 06:00 Pulse Ox 100 12/07/24 06:00 O2 Del Method Room Air 12/06/24 20:00 O2 Flow Rate 10 12/06/24 15:20 Pain Score (VAS): 2 I/O: Intake & Output 12/06/24 12/07/24 12/07/24 23:59 07:59 15:59 Intake Total 200 Output Total 150 800 Balance 50 -800 Laboratory Tests 12/06/24 04:27 12/07/24 04:56 12/07/24 04:56 Sodium 138 Potassium 5.0 Chloride 107 Carbon Dioxide 21 L Anion Gap 10 BUN 32 H Creatinine 1.36 H Estim Creat Clear Calc 35 Estimated GFR 50 L Glucose 88 Calcium 9.0 Magnesium 2.1 Post-procedural complaints: none Patient Feedback: Patient satisfied with anesthetic care.
--- NOTE | 2024-12-07 10:06 | P.PNOP_ITS ---
Progress Note: A&P Assessment and Plan (1) Status post hemiarthroplasty of right hip: Code(s): Z96.641 - Presence of right artificial hip joint Status: Acute Assessment and Plan: POD #1: RIGHT HIP HEMIARTHROPLASTY WITH BIPOLAR PROSTHESIS Continue PT/OT. WBAT. Walker. HIGH FALL RISK. Continue pain control. Ice Hip. Protect skin. D/C Restrepo Catheter. Monitor urine output. DVT prophylaxis with Arixtra, Resume home dose of Aspirin. SCDs. Incentive Spirometry Use reviewed. Monitor Dressing. Change prior to discharge. Bowel Regimen. Dispo: Home with Home Health vs. [facility] pending progress with PT/OT Care coordination consult for [facility] evaluation. Plan To note: patient states he feels like his right leg is . He is able to flex/extend the right knee, right foot/ankle. Pedal pulses weak. Dopplerable. Sensation intact. Continue to monitor. Patient may require full work up in the future of the lumbar spine and ABIs for b/l LE. Time Spent With Patient Time: Reviewed history, exam, radiographs and current labs with attending MD and covering surgeon, Dr. Small, who agrees with current plan as indicated above. No further recommendations from Dr. Small at this time. Time with patient: 15 - 25 minutes Subjective Subjective Date/Time Seen: 12/07/24 10:06 Post Op day: 1 Interval history: POD #1: RIGHT HIP HEMIARTHROPLASTY WITH BIPOLAR PROSTHESIS Patient doing well. Pain well controlled. Still complains that his right leg feels . Adamently refusing SNF at discharge. Open to considering [facility] vs. Home with Home Health. Slow progress with PT/OT. Review of Systems Review of Systems: All systems reviewed & are unremarkable except as noted in HPI and below Constitutional: Constitutional: Denies chills, Denies fever(s), Denies headache(s), Denies lethargy and Reports weakness ENT: Denies headache(s) Cardiovascular: Cardiovascular: Denies chest pain, Denies diaphoresis, Denies lightheadedness, Denies palpitations, Denies dyspnea and Denies dyspnea on exertion Respiratory: Respiratory: Denies cough, Denies dyspnea and Denies dyspnea on exertion Gastrointestinal: Gastrointestinal: Denies constipation, Denies diarrhea, Denies nausea and Denies vomiting Genitourinary: Genitourinary: Denies dysuria, Reports urinary frequency and Denies urinary hesitancy Musculoskeletal: Musculoskeletal: Reports joint swelling (Right Hip ) and Reports limited range of motion (Right Hip due to recent surgery ) Neurologic: Denies headache(s) and Reports weakness Endocrine: Endocrine: Denies palpitations Exam Const: General: comfortable and no acute distress Resp: Effort & Inspection: normal respiratory effort Cardio: Rate: regular rate Rhythm: regular rhythm GI: Inspection: non-distended Skin: General skin exam: normal color Other: Incision right hip c/d/i. Surrounding tissue without redness/warmth. Mild swelling consistent with recent surgery. No drainage. Neuro: Cognition (Neuro): normal cognition Speech: normal speech Extrem: Right lower extremity: normal to inspection, normal capillary refill, hip/thigh Details: tenderness Location: of the hip (Thigh soft ) Location: laterally and anteriorly, swelling Location: at the hip, abnormal ROM (limited consistent with recent surgery ) Details: pain with active ROM during and pain with passive ROM during and other (Incision c/d/i. ); no deformity and no unusual warmth, knee Details: normal to inspection; no tenderness and no swelling, lower leg (Negative Dona's Sign ) Details: normal to inspection and no edema; no tenderness, ankle (+ankle dorsiflexion/plantarflexion) Details: normal to inspection and no edema; no tenderness, no swelling and no ecchymosis and foot Details: normal capillary refill, toes with normal ROM, vascular exam Details: dorsalis pedis pulse present and motor-sensory exam Details: light- touch normal; no tenderness Objective Data Vital Signs Vital Signs: Vital Signs - 24 hr 12/06/24 12:00 12/06/24 15:09 12/06/24 15:20 Temperature 36.9 C Pulse Rate 80 72 69 Respiratory Rate 14 16 Blood Pressure 144/65 H 116/87 Pulse Oximetry 100 100 Oxygen Delivery Simple Face Mask Simple Face Mask Oxygen Flow Rate 10 10 12/06/24 15:35 12/06/24 15:50 12/06/24 16:05 Temperature Pulse Rate 66 67 71 Respiratory Rate 16 14 14 Blood Pressure 143/71 H 135/71 139/78 Pulse Oximetry 100 99 98 Oxygen Delivery Room Air Room Air Room Air Oxygen Flow Rate 12/06/24 16:20 12/06/24 16:39 12/06/24 17:20 Temperature Pulse Rate 71 75 81 Respiratory Rate 16 18 18 Blood Pressure 137/80 150/59 H 131/63 Pulse Oximetry 97 99 100 Oxygen Delivery Room Air Oxygen Flow Rate 12/06/24 17:42 12/06/24 20:00 12/06/24 20:00 Temperature Pulse Rate 75 74 Respiratory Rate 18 Blood Pressure 134/71 Pulse Oximetry 100 Oxygen Delivery Room Air Oxygen Flow Rate 12/06/24 22:00 12/07/24 00:00 12/07/24 04:00 Temperature 36.4 C L Pulse Rate 82 101 H 88 Respiratory Rate 18 Blood Pressure 125/53 L Pulse Oximetry 97 Oxygen Delivery Oxygen Flow Rate 12/07/24 06:00 12/07/24 08:00 Temperature 36.4 C L Pulse Rate 103 H 107 H Respiratory Rate 18 Blood Pressure 90/58 L Pulse Oximetry 100 Oxygen Delivery Oxygen Flow Rate Intake/Output Intake/Output: Intake & Output 12/04/24 12/05/24 12/06/24 12/07/24 23:59 23:59 23:59 23:59 Intake Total 740 1305 Output Total 350 775 800 Balance 390 530 -800 Meds/Results Medications: Active Medications Generic Name Dose Route Start Last Admin Trade Name Freq PRN Reason Stop Dose Admin Acetaminophen 650 mg 12/05/24 10:06 Acetaminophen 325 Mg Tablet PO Q6H PRN Mild Pain (1-3) or Fever Hydrocodone Bitart/Acetaminophen 1 tab 12/05/24 10:06 12/07/24 08:54 Hydrocodone/Acetaminophen (*Crx) 5-325 Mg Tablet PO 1 tab Q6H PRN Administration Pain Rated 4-6 Aspirin 81 mg 12/07/24 09:00 12/07/24 08:21 Aspirin 81 Mg Enteric Tablet PO 81 mg QAM ERUM Administration Fondaparinux 2.5 mg 12/08/24 09:00 Fondaparinux Sodium 2.5 Mg/0.5 Ml Syringe SUB-Q DAILY ERUM Sacubitril/Valsartan 0.5 tab 12/06/24 21:00 12/06/24 21:21 Sacubitril/Valsartan 24-26 Mg Tablet PO 0.5 tab Q12HR ERUM Administration Radiology Results: ITS Impressions Knee X-Ray 12/04/24 22:44 IMPRESSION: Degenerative disease without acute fracture. Hip/Pelvis X-Ray 12/04/24 22:45 IMPRESSION: Acute fracture of the right femoral neck, as detailed above. Chest X-Ray 12/04/24 22:47 IMPRESSION: Mild pulmonary vascular congestion with a small right-sided pleural effusion. Hip X-Ray 12/06/24 15:34 IMPRESSION: 1. Recent right bipolar hip arthroplasty. Labs Labs: Laboratory Results - last 24 hr 12/07/24 04:56 Sodium 138 Potassium 5.0 Chloride 107 Carbon Dioxide 21 L Anion Gap 10 BUN 32 H Creatinine 1.36 H Estim Creat Clear Calc 35 Estimated GFR 50 L Glucose 88 Calcium 9.0 Magnesium 2.1 Quality VTE Prophylaxis VTE prophylaxis: mechanical ordered
[2024-12-07] MEDS: FONDAPARINUX SODIUM 2.5 MG/0.5 ML SYRINGE SUB-Q (11:15)
[2024-12-07] MEDS: ACETAMINOPHEN 325 MG TABLET 650 MG PO ×3 (12:34→22:48)
[2024-12-07] MEDS: oxyCODONE HCL (*CRX) 5 MG TAB IR PO (12:34)
[2024-12-07 17:04] LABS: Hematocrit 32.7 % (42.0-52.0); Hemoglobin 10.0 g/dL (14.0-18.0); Immature Granulocyte Percent A 0.4 % (0-0.5); Lymphocytes Absolute Auto 1.18 K/mm3 (0.9-3.2); Mean Corpuscular HGB Conc 30.6 g/dl (32-36); Mean Corpuscular Hemoglobin 28.8 pg (26-34); Mean Corpuscular Volume 94.2 fl (80-100); Nucleated Red Blood Cells Absolute Auto 0.000 K/mm3 (0.0-0.012); Nucleated Red Blood Cells Perc 0.0 % (0.0-0.2); Platelet Count Result 190 k/mm3 (150-375); Red Blood Count 3.47 M/mm3 (4.6-6.20); White Blood Count 10.6 K/mm3 (4.5-10.0)
[2024-12-07] MEDS: MELATONIN 3 MG TABLET PO (21:35)
[2024-12-08] VITALS (11 sets, daily range): BP systolic 90–117; BP diastolic 48–63; PULSE 51–82; RESP 16–18; TEMP 36.5–36.7; O2SAT 95–96
[2024-12-08 05:20] LABS: Anion Gap 6 mmol/L (4-12); Blood Urea Nitrogen 33 mg/dL (9-20); Calcium 8.7 mg/dL (8.4-10.2); Carbon Dioxide 22 mmol/L (22-30); Chloride 103 mmol/L (98-107); Estimated CRCL calculation 41 ml/min; Estimated Glomerular Filt Rate > 60; Glucose 101 mg/dL (65-110); Magnesium 2.0 mg/dL (1.6-2.3); Potassium 4.6 mmol/L (3.4-5.0); Sodium 131 mmol/L (137-145)
[2024-12-08] MEDS: ACETAMINOPHEN 325 MG TABLET 650 MG PO ×4 (06:46→23:33)
[2024-12-08] MEDS: FONDAPARINUX SODIUM 2.5 MG/0.5 ML SYRINGE SUB-Q (08:29)
[2024-12-08] MEDS: ASPIRIN 81 MG ENTERIC TABLET PO (08:29)
--- NOTE | 2024-12-08 09:03 | PCPTNOTE ---
Patient refused treatment this session. Patient reported he just wanted to rest and take the day off. Attempted to educate patient on the importance and benefits of working with therapy and getting up to chair. Patient continued to refuse and became agitated. Patient kept stating can't I just take today off?
--- NOTE | 2024-12-08 11:46 | P.PNIM_ITS ---
Progress Note: A&P Assessment and Plan (1) Fracture of femoral neck, right: Qualifiers: Encounter type: initial encounter Fracture type: closed Qualified Code(s): S72.001A - Fracture of unspecified part of neck of right femur, initial encounter for closed fracture Code(s): S72.001A - Fracture of unspecified part of neck of right femur, initial encounter for closed fracture Status: Acute Assessment and Plan: -Patient with right femoral neck fracture after a ground level fall. - s/p right hip hemiarthroplasty with bipolar prosthesis 12/06/[address] Small. - pain control with scheduled Tylenol, PRN oxycodone for breakthrough - PT/OT recommends SNF. Care coordination assisting. - DVT prophylaxis per ortho (2) Delirium: Code(s): R41.0 - Disorientation, unspecified Status: Acute Assessment and Plan: - patient having periods of confusion and agitation overnight - family reports ongoing memory issues, but no formal dementia diagnosis. Patient alert oriented x4 this morning. -delirium precautions, schedule melatonin -recommend outpatient dementia evaluation upon discharge (3) CAMERON (acute kidney injury): Code(s): N17.9 - Acute kidney failure, unspecified Status: Acute Assessment and Plan: -Cr 2.2 on admission. [place] to have normal renal function but unclear on baseline since last Cr was 1.1 in 2022. -Could be related to dehydration (working outside) and/or spironolactone. -Cr improved with IV fluids. - Spironolactone and Entresto on hold. Resume Entresto. -Monitor UOP, renal fxn and electrolytes (4) Hyperkalemia: Code(s): E87.5 - Hyperkalemia Status: Acute Assessment and Plan: -Potassium elevated on admission at 5.4 -[place] related to CAMERON and spironolactone. -Improved with IV fluids and holding spironolactone. - monitor BMP (5) Ischemic cardiomyopathy: Code(s): I25.5 - Ischemic cardiomyopathy Status: Chronic Assessment and Plan: -Patient with known ischemic CMP with EF 15-20%. (2022) -He is on spironolactone and Entresto. Will resume if renal function remains stable. He can not take betas tobias due to resting bradycardia. -Monitor fluid status closely. (6) Peripheral artery disease: Code(s): I73.9 - Peripheral vascular disease, unspecified Status: Acute Assessment and Plan: -Patient with PAD listed. Bilateral LE ABIs Jun 2022 showing mildly decreased bi lateral ABIs but severely reduced TBI bilaterally. No further imaging noted. -Resume ASA when able. Consider statin therapy. (7) COPD (chronic obstructive pulmonary disease): Code(s): J44.9 - Chronic obstructive pulmonary disease, unspecified Status: Acute Assessment and Plan: -Patient with COPD. He continues to smoke. -Not on routine inhalers. -No wheezing on exam. (8) Tobacco abuse: Code(s): Z72.0 - Tobacco use Status: Acute Assessment and Plan: -Patient education about benefits of smoking cessation. Plan DVT Prophylaxis - per ortho Code status - full Subjective Date/time seen: 12/08/24 11:46 Interval history: 84yo male with PAD, COPD and systolic CHF who is brought in to the ED with co mplaints of right hip pain after a fall. Patient seen and examined at bedside. Less confused overnight Review of Systems Review of Systems: All systems reviewed & are unremarkable except as noted in HPI and below Exam Narrative: General: NAD, frail Eyes: EOMI ENT: neck supple Cardiovascular: Regular rate and rhythm, R leg warm and appears well-perfused Respiratory: Clear to auscultation, respirations even and unlabored on RA Gastrointestinal: Soft, non tender Genitourinary: no suprapubic tenderness Musculoskeletal: No edema Skin: warm, dry Neuro: Alert. Sensation intake RLE. Psych: Mood appropriate Objective Data Vital Signs Vital Signs: Vital Signs - 24 hr 12/07/24 12:00 12/07/24 14:21 12/07/24 16:00 Temperature 97.8 F Pulse Rate 82 62 62 Respiratory Rate 16 Blood Pressure 102/40 L Pulse Oximetry 99 Oxygen Delivery 12/07/24 19:39 12/07/24 20:00 12/07/24 20:00 Temperature 98.3 F Pulse Rate 95 73 Respiratory Rate 16 Blood Pressure 106/46 L Pulse Oximetry 95 Oxygen Delivery Room Air 12/08/24 00:00 12/08/24 04:00 12/08/24 04:33 Temperature 98.0 F Pulse Rate 69 72 79 Respiratory Rate 16 Blood Pressure 117/63 Pulse Oximetry 96 Oxygen Delivery 12/08/24 08:00 12/08/24 08:20 Temperature Pulse Rate Respiratory Rate Blood Pressure Pulse Oximetry 95 Oxygen Delivery Room Air Room Air Intake/Output Intake/Output: Intake & Output 12/05/24 12/06/24 12/07/24 12/08/24 23:59 23:59 23:59 23:59 Intake Total 740 1305 780 400 Output Total 315 500 9144 775 Balance 390 159 -835 -505 Meds/Results Medications: Active Medications Generic Name Dose Route Start Last Admin Trade Name Freq PRN Reason Stop Dose Admin Acetaminophen 650 mg 12/07/24 12:11 12/08/24 06:46 Acetaminophen 325 Mg Tablet PO 650 mg Q6HR ERUM Administration Aspirin 81 mg 12/07/24 09:00 12/08/24 08:29 Aspirin 81 Mg Enteric Tablet PO 81 mg QAM ERUM Administration Fondaparinux 2.5 mg 12/07/24 10:30 12/08/24 08:29 Fondaparinux Sodium 2.5 Mg/0.5 Ml Syringe SUB-Q 2.5 mg DAILY ERUM Administration Melatonin 3 mg 12/07/24 21:00 12/07/24 21:35 Melatonin 3 Mg Tablet PO 3 mg HS ERUM Administration Oxycodone HCl 2.5 mg 12/07/24 12:11 Oxycodone Hcl (*Crx) 2.5 Mg Tab Ir PO Q6H PRN Pain Rated 4-6 Oxycodone HCl 5 mg 12/07/24 12:11 12/07/24 12:34 Oxycodone Hcl (*Crx) 5 Mg Tab Ir PO 5 mg Q6H PRN Administration Pain Rated 7-10 Polyethylene Glycol 17 gm 12/08/24 10:00 Polyethylene Glycol 3350 17 Gm Powd.Pack PO QAM ERUM Sacubitril/Valsartan 0.5 tab 12/06/24 21:00 12/06/24 21:21 Sacubitril/Valsartan 24-26 Mg Tablet PO 0.5 tab Q12HR ERUM Administration Senna/Docusate Sodium 1 tab 12/08/24 09:35 Senna/Docusate Sodium Tablet PO DAILY ERUM Radiology Results: ITS Impressions Knee X-Ray 12/04/24 22:44 IMPRESSION: Degenerative disease without acute fracture. Hip/Pelvis X-Ray 12/04/24 22:45 IMPRESSION: Acute fracture of the right femoral neck, as detailed above. Chest X-Ray 12/04/24 22:47 IMPRESSION: Mild pulmonary vascular congestion with a small right-sided pleural effusion. Hip X-Ray 12/06/24 15:34 IMPRESSION: 1. Recent right bipolar hip arthroplasty. Labs Labs: Laboratory Results - last 24 hr 12/07/24 12/08/24 16:59 04:46 WBC 10.6 H RBC 3.47 L Hgb 10.0 L Hct 32.7 L MCV 94.2 MCH 28.8 MCHC 30.6 L RDW 13.5 Plt Count 190 MPV 10.0 Immature Gran % (Auto) 0.4 Neut % (Auto) 78.7 H Lymph % (Auto) 11.2 L [place] % (Auto) 8.1 Eos % (Auto) 1.1 Baso % (Auto) 0.5 Lymph # (Auto) 1.18 [place] # (Auto) 0.9 H Eos # (Auto) 0.1 Baso # (Auto) 0.1 Abs Immat Gran (auto) 0.04 H Absolute Neuts (auto) 8.3 H Absolute Nucleated RBC 0.000 Nucleated RBC % 0.0 Sodium 131 L Potassium 4.6 Chloride 103 Carbon Dioxide 22 Anion Gap 6 BUN 33 H Creatinine 1.15 Estim Creat Clear Calc 41 Estimated GFR > 60 Glucose 101 Calcium 8.7 Magnesium 2.0 Quality VTE Prophylaxis VTE prophylaxis: mechanical ordered
--- NOTE | 2024-12-08 12:47 | P.PNOP_ITS ---
Progress Note: A&P Assessment and Plan (1) Status post hemiarthroplasty of right hip: Code(s): Z96.641 - Presence of right artificial hip joint Status: Acute Assessment and Plan: POD #2: RIGHT HIP HEMIARTHROPLASTY WITH BIPOLAR PROSTHESIS Continue PT/OT. WBAT. Walker. HIGH FALL RISK. Continue pain control. Ice Hip. Protect skin. D/C Restrepo Catheter. Monitor urine output. DVT prophylaxis with Arixtra, Resume home dose of Aspirin. SCDs. Incentive Spirometry Use reviewed. Monitor Dressing. Change prior to discharge. Bowel Regimen. Dispo: Home with Home Health vs. [facility] pending progress with PT/OT Care coordination consult for [facility] evaluation. (2) Skin tear of elbow without complication: Qualifiers: Encounter type: initial encounter Laterality: right Qualified Code(s): S51.011A - Laceration without foreign body of right elbow, initial encounter Code(s): S51.019A - Laceration without foreign body of unspecified elbow, initial encounter Status: Acute Assessment and Plan: Patient has a skin tear on the right elbow. Dressing removed today. Cleansed with soap/water. Applied silver gel, transfer dressing, gauze and wrapped with kerlex. Nursing to begin daily dressing changes. Plan To note: patient states he feels like his right leg is . He is able to flex/extend the right knee, right foot/ankle. Pedal pulses weak. Dopplerable. Sensation intact. Continue to monitor. Patient may require full work up in the future of the lumbar spine and ABIs for b/l LE. Time Spent With Patient Time: Reviewed history, exam, radiographs and current labs with attending MD and covering surgeon, Dr. Small, who agrees with current plan as indicated above. No further recommendations from Dr. Small at this time. Time with patient: 15 - 25 minutes Subjective Subjective Date/Time Seen: 12/08/24 12:47 Post Op day: 1 Interval history: POD #2: RIGHT HIP HEMIARTHROPLASTY WITH BIPOLAR PROSTHESIS Patient doing well. Pain well controlled. Slow progress with PT/OT. Review of Systems Review of Systems: All systems reviewed & are unremarkable except as noted in HPI and below Constitutional: Constitutional: Denies chills, Denies fever(s), Denies headache(s), Denies lethargy and Reports weakness ENT: Denies headache(s) Cardiovascular: Cardiovascular: Denies chest pain, Denies diaphoresis, Denies lightheadedness, Denies palpitations, Denies dyspnea and Denies dyspnea on exertion Respiratory: Respiratory: Denies cough, Denies dyspnea and Denies dyspnea on exertion Gastrointestinal: Gastrointestinal: Denies constipation, Denies diarrhea, Denies nausea and Denies vomiting Genitourinary: Genitourinary: Denies dysuria, Reports urinary frequency and Denies urinary hesitancy Musculoskeletal: Musculoskeletal: Reports joint swelling (Right Hip ) and Re ports limited range of motion (Right Hip due to recent surgery ) Neurologic: Denies headache(s) and Reports weakness Endocrine: Endocrine: Denies palpitations Exam Const: General: comfortable and no acute distress Resp: Effort & Inspection: normal respiratory effort Cardio: Rate: regular rate Rhythm: regular rhythm GI: Inspection: non-distended Skin: General skin exam: normal color Other: Incision right hip c/d/i. Surrounding tissue without redness/warmth. Mild swelling consistent with recent surgery. No drainage. Neuro: Cognition (Neuro): normal cognition Speech: normal speech Extrem: Right lower extremity: normal to inspection, normal capillary refill, hip/thigh Details: tenderness Location: of the hip (Thigh soft ) Location: laterally and anteriorly, swelling Location: at the hip, abnormal ROM (limited consistent with recent surgery ) Details: pain with active ROM during and pain with passive ROM during and other (Incision c/d/i. ); no deformity and no unusual warmth, knee Details: normal to inspection; no tenderness and no swelling, lower leg (Negative Dona's Sign ) Details: normal to inspection and no edema; no tenderness, ankle (+ankle dorsiflexion/plantarflexion) Details: normal to inspection and no edema; no tenderness, no swelling and no ecchymosis and foot Details: normal capillary refill, toes with normal ROM, vascular exam Details: dorsalis pedis pulse present and motor-sensory exam Details: light- touch normal; no tenderness Objective Data Vital Signs Vital Signs: Vital Signs - 24 hr 12/07/24 14:21 12/07/24 16:00 12/07/24 19:39 Temperature 36.6 C 36.8 C Pulse Rate 62 62 95 Respiratory Rate 16 16 Blood Pressure 102/40 L 106/46 L Pulse Oximetry 99 95 Oxygen Delivery 12/07/24 20:00 08/07/25 20:00 12/08/24 00:00 Temperature Pulse Rate 73 69 Respiratory Rate Blood Pressure Pulse Oximetry Oxygen Delivery Room Air 12/08/24 04:00 12/08/24 04:33 12/08/24 08:00 Temperature 36.7 C Pulse Rate 72 79 Respiratory Rate 16 Blood Pressure 117/63 Pulse Oximetry 96 95 Oxygen Delivery Room Air 12/08/24 08:20 Temperature Pulse Rate Respiratory Rate Blood Pressure Pulse Oximetry Oxygen Delivery Room Air Intake/Output Intake/Output: Intake & Output 12/05/24 12/06/24 12/07/24 12/08/24 23:59 23:59 23:59 23:59 Intake Total 740 1305 780 400 Output Total 941 934 5227 775 Balance 390 293 -517 -050 Meds/Results Medications: Active Medications Generic Name Dose Route Start Last Admin Trade Name Freq PRN Reason Stop Dose Admin Acetaminophen 650 mg 12/07/24 12:11 12/08/24 12:23 Acetaminophen 325 Mg Tablet PO 650 mg Q6HR ERUM Administration Aspirin 81 mg 12/07/24 09:00 12/08/24 08:29 Aspirin 81 Mg Enteric Tablet PO 81 mg QAM ERUM Administration Fondaparinux 2.5 mg 12/07/24 10:30 12/08/24 08:29 Fondaparinux Sodium 2.5 Mg/0.5 Ml Syringe SUB-Q 2.5 mg DAILY ERUM Administration Melatonin 3 mg 12/07/24 21:00 12/07/24 21:35 Melatonin 3 Mg Tablet PO 3 mg HS ERUM Administration Oxycodone HCl 2.5 mg 12/07/24 12:11 Oxycodone Hcl (*Crx) 2.5 Mg Tab Ir PO Q6H PRN Pain Rated 4-6 Oxycodone HCl 5 mg 12/07/24 12:11 12/07/24 12:34 Oxycodone Hcl (*Crx) 5 Mg Tab Ir PO 5 mg Q6H PRN Administration Pain Rated 7-10 Polyethylene Glycol 17 gm 12/08/24 10:00 12/08/24 12:24 Polyethylene Glycol 3350 17 Gm Powd.Pack PO Not Given QAM ERUM Sacubitril/Valsartan 0.5 tab 12/06/24 21:00 08/06/25 21:21 Sacubitril/Valsartan 24-26 Mg Tablet PO 0.5 tab Q12HR ERUM Administration Senna/Docusate Sodium 1 tab 12/08/24 09:35 12/08/24 12:24 Senna/Docusate Sodium Tablet PO Not Given DAILY ERUM Radiology Results: ITS Impressions Knee X-Ray 12/04/24 22:44 IMPRESSION: Degenerative disease without acute fracture. Hip/Pelvis X-Ray 12/04/24 22:45 IMPRESSION: Acute fracture of the right femoral neck, as detailed above. Chest X-Ray 12/04/24 22:47 IMPRESSION: Mild pulmonary vascular congestion with a small right-sided pleural effusion. Hip X-Ray 12/06/24 15:34 IMPRESSION: 1. Recent right bipolar hip arthroplasty. Labs Labs: Laboratory Results - last 24 hr 12/07/24 12/08/24 16:59 04:46 WBC 10.6 H RBC 3.47 L Hgb 10.0 L Hct 32.7 L MCV 94.2 MCH 28.8 MCHC 30.6 L RDW 13.5 Plt Count 190 MPV 10.0 Immature Gran % (Auto) 0.4 Neut % (Auto) 78.7 H Lymph % (Auto) 11.2 L [place] % (Auto) 8.1 Eos % (Auto) 1.1 Baso % (Auto) 0.5 Lymph # (Auto) 1.18 [place] # (Auto) 0.9 H Eos # (Auto) 0.1 Baso # (Auto) 0.1 Abs Immat Gran (auto) 0.04 H Absolute Neuts (auto) 8.3 H Absolute Nucleated RBC 0.000 Nucleated RBC % 0.0 Sodium 131 L Potassium 4.6 Chloride 103 Carbon Dioxide 22 Anion Gap 6 BUN 33 H Creatinine 1.15 Estim Creat Clear Calc 41 Estimated GFR > 60 Glucose 101 Calcium 8.7 Magnesium 2.0
[2024-12-08 13:14] LABS: Hematocrit 26.9 % (42.0-52.0); Hemoglobin 8.4 g/dL (14.0-18.0); Immature Granulocyte Percent A 0.2 % (0-0.5); Lymphocytes Absolute Auto 1.02 K/mm3 (0.9-3.2); Mean Corpuscular HGB Conc 31.2 g/dl (32-36); Mean Corpuscular Hemoglobin 29.3 pg (26-34); Mean Corpuscular Volume 93.7 fl (80-100); Nucleated Red Blood Cells Absolute Auto 0.000 K/mm3 (0.0-0.012); Nucleated Red Blood Cells Perc 0.0 % (0.0-0.2); Platelet Count Result 219 k/mm3 (150-375); Red Blood Count 2.87 M/mm3 (4.6-6.20); White Blood Count 8.8 K/mm3 (4.5-10.0)
[2024-12-08] MEDS: SACUBITRIL/VALSARTAN 24-26 MG TABLET 0.5 TAB PO (21:43)
[2024-12-08] MEDS: MELATONIN 3 MG TABLET PO (21:44)
[2024-12-08] MEDS: LIDOCAINE 2% GEL UROJET 10 ML PKG MUCOUS MEM (23:33)
[2024-12-09] VITALS: PULSE 80
[2024-12-09 04:00] VITALS: PULSE 79
[2024-12-09 04:45] VITALS: BP 118/51; PULSE 79; RESP 18; TEMP 36.4; O2SAT 96
[2024-12-09 05:17] LABS: Hematocrit 27.7 % (42.0-52.0); Hemoglobin 9.0 g/dL (14.0-18.0); Immature Granulocyte Percent A 0.2 % (0-0.5); Lymphocytes Absolute Auto 1.17 K/mm3 (0.9-3.2); Mean Corpuscular HGB Conc 32.5 g/dl (32-36); Mean Corpuscular Hemoglobin 29.1 pg (26-34); Mean Corpuscular Volume 89.6 fl (80-100); Nucleated Red Blood Cells Absolute Auto 0.000 K/mm3 (0.0-0.012); Nucleated Red Blood Cells Perc 0.0 % (0.0-0.2); Platelet Count Result 251 k/mm3 (150-375); Red Blood Count 3.09 M/mm3 (4.6-6.20); White Blood Count 8.2 K/mm3 (4.5-10.0)
--- NOTE | 2024-12-09 07:00 | P.DS_ITS ---
DS: Admitting Diagnosis Discharge Date 12/09/24 Admitting Diagnosis - R femoral neck fracture - CAMERON - Hyperkalemia -Ischemic cardiomyopathy - PAD - COPD - Tobacco use DS: Discharge Diagnosis Discharge Diagnosis (1) Fracture of femoral neck, right: Qualifiers: Encounter type: initial encounter Fracture type: closed Qualified Code(s): S72.001A - Fracture of unspecified part of neck of right femur, initial encounter for closed fracture Code(s): S72.001A - Fracture of unspecified part of neck of right femur, initial encounter for closed fracture Status: Acute (2) Delirium: Code(s): R41.0 - Disorientation, unspecified Status: Acute (3) CAMERON (acute kidney injury): Code(s): N17.9 - Acute kidney failure, unspecified Status: Acute (4) Hyperkalemia: Code(s): E87.5 - Hyperkalemia Status: Acute (5) Ischemic cardiomyopathy: Code(s): I25.5 - Ischemic cardiomyopathy Status: Chronic (6) Peripheral artery disease: Code(s): I73.9 - Peripheral vascular disease, unspecified Status: Acute (7) COPD (chronic obstructive pulmonary disease): Code(s): J44.9 - Chronic obstructive pulmonary disease, unspecified Status: Acute (8) Tobacco abuse: Code(s): Z72.0 - Tobacco use Status: Acute Plan DVT Prophylaxis - per ortho Code status - full DS: Summary Hospital Course Reason for hospitalization: - R femoral neck fracture - CAMERON -Hyperkalemia -Ischemic cardiomyopathy - PAD - COPD - Tobacco use Hospital Course: 84yo male with PAD, COPD and systolic CHF who is brought in to the ED with complaints of right hip pain after a fall. In the ED, he was hemodynamically stable. Pertinent labs: WBC 15K, Hgb 10 with normal plt count, potassium 5.4, BUN 42 and Cr 2.2 (with normal baseline Cr in 2022), total CK 270. UA showing 2+ protein, trace ketones, 2+ blood, trace LE and 51-100 RBC but 0-5 WBC. Rt knee xray showing degenerative disease. Rt hip xray showing acute right femoral neck fracture. CXR showing mild pulmonary vascular congestion with a small right- sided pleural effusion. He was admitted for further management and orthopedic evaluation. Patient underwent right hip hemiarthroplasty with bipolar prosthesis 12/06/[address] Small. Patient did well postoperatively. Vital signs and hemoglobin remained stable. Orthopedic surgery followed and cleared for discharge. Instructions placed on discharge for surgical dressing changes. Patient is scheduled for follow-up as an outpatient 01/18/25. DVT prophylaxis was prescrib ed per Orthopedic surgery. PT/OT followed and recommended SNF. Continued pain management and bowel regimen upon discharge to SNF. Patient noted to have CAMERON. Cr 2.2 on admission with normal baseline in 2022. Patient's creatinine returned to normal with IV fluids and holding Entresto/spironolactone. Entresto was restarted. Continue to hold spironolactone on discharge due to mild hyponatremia (131). SNF instructed to repeat BMP on Wednesday and restart spironolactone if sodium and creatinine are stable. While hospitalized, patient experienced acute urinary retention. A Restrepo catheter was placed preoperatively. A voiding trial was attempted on the day prior to discharge which patient failed. Restrepo was reinserted. [facility] will [facility] with a Restrepo catheter. SNF was provided with instructions to retrial voiding trial once patient is having regular bowel movements and is more mobile. If urinary retention persistent, may consider starting Flomax and following up with urology as outpatient. While hospitalized patient experienced some mild delirium, worse at night. This was likely multifactorial in setting of narcotics, poor sleep/wake cycle superimposed on patient's baseline memory impairment. Patient was alert and oriented x3 on discharge. Encouraged patient's family to follow-up with his PCP regarding a formal memory/dementia evaluation. Continue delirium precautions at SNF. Patient was discharged to [facility] in stable condition. Discussed discharge instructions with patient's sister, Candida, over the phone who expressed understanding. Status at Discharge Functional status at discharge: uses cane/walker Time Spent with Patient Time attestation: Total time spent providing and/or coordinating discharge services: Time spent: Greater than 30 minutes Exam Narrative: General: NAD, frail Eyes: EOMI ENT: neck supple Cardiovascular: Regular rate and rhythm Respiratory: Clear to auscultation, respirations even and unlabored on RA Gastrointestinal: Soft, non tender Genitourinary: no suprapubic tenderness Musculoskeletal: R hip surgical dressing CDI Skin: warm, dry Neuro: Alert. Sensation intact BLEs. Psych: Mood appropriate DS: Data Data Completed and Pending Labs on day of discharge: Labs from last 24 hours 12/09/24 12/08/24 04:46 04:46 WBC 8.2 8.8 RBC 3.09 L 2.87 L Hgb 9.0 L 8.4 L Hct 27.7 L 26.9 L MCV 89.6 93.7 MCH 29.1 29.3 MCHC 32.5 31.2 L RDW 13.5 13.6 Plt Count 251 219 MPV 10.3 10.4 Immature Gran % (Auto) 0.2 0.2 Neut % (Auto) 74.6 H 77.2 H Lymph % (Auto) 14.2 L 11.6 L [place] % (Auto) 7.8 7.9 Eos % (Auto) 2.7 2.5 Baso % (Auto) 0.5 0.6 Lymph # (Auto) 1.17 1.02 [place] # (Auto) 0.6 0.7 H Eos # (Auto) 0.2 0.2 Baso # (Auto) 0.0 0.1 Abs Immat Gran (auto) 0.02 0.02 Absolute Neuts (auto) 6.1 6.8 H Absolute Nucleated RBC 0.000 0.000 Nucleated RBC % 0.0 0.0 Discharge Plan Discharge Attending physician on discharge: Denzel Way Consulting providers: Nida Turcios; Srinivasan Small Discharging Clinician: Nida Turcios Anticipated Discharge Date/Time: 12/09/24 09:26 Patient Disposition: SNF Activity: may shower, no driving and follow weight bearing status Diet: regular Wound Care Instructions: follow printed instructions Discharge Instructions: Patient's sodium level was mildly low (131). Recheck BMP on Wednesday. Can restart spironolactone on Wednesday if sodium and creatinine are stable. Restrepo catheter was attempted to be removed, but patient failed his voiding trial. Would recommend retrialing after patient is having bowel movements and narcotics are weaned. If still having urinary retention, would follow-up with urology as outpatient. Consider starting Flomax if urinary retention persists. Postoperative Hip Fracture Instructions Dr. Srinivasan Small [phone] * Dressing to be changed daily with an island dressing beginning on post op day #2. May stop dressing changes at post op day #14. No sutures/suraj will need to be removed. Can allow Dermabond to fall off naturally. * Weight bearing: Weight bearing as tolerated. * You may shower with your dressing but do not submerge in a bath tub. * Do not drive or operate machinery until you are released by your surgeon. * Do not walk without a walker for any reason until you are released by your s urgeon. * DVT prophylaxis x28 days post op. * Continue to apply ice to the hip intermittently for additional pain relief. Protect your skin with a towel or pillow case. * Continue to follow strict hip fracture precautions. * Please contact our office with any questions/concerns regarding your hip at [phone]. * Follow up appointment instructions indicated below. Patient Instructions: Antibiotic Form Patient Language: Divehi Stand Alone Forms: General Discharge Information, Longterm Discharge Follow-up/Referrals: Srinivasan Small MD [Physician] - 01/18/25 9:15 am Henry Ross MD [Physician] - (as needed for urinary retention) Mracell Alexis DO [Primary Care Provider] - Call for Appointment (hospital follow-up, memory evaluation) Discharge Medications: New fondaparinux [Arixtra] 2.5 mg/0.5 mL Syringe 2.5 mg subcut DAILY 14 Days Qty: 7 0RF melatonin 3 mg Tablet 3 mg PO HS Qty: 30 0RF polyethylene glycol 3350 [Miralax] 17 gram Powder In Packet 17 g PO QAM Qty: 30 0RF acetaminophen [Tylenol] 325 mg tablet 650 mg PO Q6H 7 Days Qty: 56 0RF oxycodone 5 mg capsule 2.5 mg PO Q8H PRN (Reason: pain) 3 Days Qty: 5 0RF docusate sodium [Dulcolax Stool Softener (dss)] 100 mg capsule 100 mg PO DAILY Qty: 30 0RF Continued aspirin 81 mg Tablet,Delayed Release (Dr/Ec) 81 mg PO QAM Qty: 30 1RF sacubitril-valsartan [Entresto] 24-26 mg tablet 0.5 tablet PO Q12H Patient Comments: Patient splits whole pill and takes BID Held spironolactone 25 mg Tablet 25 mg PO QAM Qty: 30 1RF Hold Instructions: Resume on 12/11/24. OK to resume spironolactone if sodium and creatinine are stable Other Ambulatory Orders: Basic Metabolic Panel (Routine) Timeframe: 3 Days Location: Determined by Patient Ordered By: Nida Turcios Complete Blood Count with Diff (Routine) Timeframe: 3 Days Location: Determined by Patient Ordered By: Nida Turcios Date of admission: 12/05/24 08:22 Primary Care Provider: Marcell Alexis Admitting Provider: Lashawn Cramer Attending physician on admission: Lashawn Cramer Condition: Stable Hospitalist MIPS Heart Failure (Exclusion) Patient has history of Heart Transplant or Left Ventricular Assistive Device?: No IF YES, STOP HERE Heart Failure (Qualifier) Patient has current or prior documentation of LVEF less than or equal to 40%, or mod/servere depressed LVSF?: Yes IF NO, STOP HERE If Yes, Heart Failure (Qualifier) Patient was prescribed or already taking an Angiotensin-Converting Enzyme (CARIDAD) Inhibitor, or Antiotensin Receptor Melinda (ARB): Yes Patient was prescribed or already taking bisoprolol, carvedilol, or sustained release metoprolol succinate: No If Medications not prescribed/taking Reason patient not prescribed/taking bisoprolol, carvedilol, or sustained realease metoprolol succinate: Medical reasons: allergy, intolerance, contraindication or other
[2024-12-09 08:00] VITALS: PULSE 94
[2024-12-09] MEDS: SENNA/DOCUSATE SODIUM TABLET 1 TAB PO (08:57)
[2024-12-09] MEDS: SACUBITRIL/VALSARTAN 24-26 MG TABLET 0.5 TAB PO (08:57)
[2024-12-09] MEDS: ASPIRIN 81 MG ENTERIC TABLET PO (08:57)
[2024-12-09] MEDS: FONDAPARINUX SODIUM 2.5 MG/0.5 ML SYRINGE SUB-Q (08:58)
[2024-12-09 12:00] VITALS: PULSE 85
[2024-12-09] MEDS: ACETAMINOPHEN 325 MG TABLET 650 MG PO (12:07)
== END 2024-12-09 13:35 | DRG 521 ==
LOC: ANHED 12-05 03:46 → ANH3MEDSUR 12-05 04:04 → ANH2MED 12-05 08:59
PROVIDERS: Internal Medicine; Orthopaedic Surgery; Admitting Provider Internal Medicine; Emergency Provider Physician Assistant; PCP Internal Medicine; Visit Provider Physician Assistant
PROC: 0SRR01Z Replacement of Right Hip Joint, Femoral Surface with Metal Synthetic Substitute, Open Approach (ICD-10-PCS; CPT 27125; principal; 2024-12-06 13:30)
DX: S72.001A Fracture of unspecified part of neck of right femur, initial encounter for closed fracture (principal); E43 Unspecified severe protein-calorie malnutrition; I50.23 Acute on chronic systolic (congestive) heart failure; Z68.1 Body mass index [BMI] 19.9 or less, adult; N17.9 Acute kidney failure, unspecified; S50.311A Abrasion of right elbow, initial encounter; W19.XXXA Unspecified fall, initial encounter; R41.0 Disorientation, unspecified; R33.8 Other retention of urine; E87.5 Hyperkalemia; F17.210 Nicotine dependence, cigarettes, uncomplicated; I95.9 Hypotension, unspecified; I25.5 Ischemic cardiomyopathy; I25.2 Old myocardial infarction; I73.9 Peripheral vascular disease, unspecified; J44.9 Chronic obstructive pulmonary disease, unspecified; N40.0 Benign prostatic hyperplasia without lower urinary tract symptoms; Z79.82 Long term (current) use of aspirin
CPT/HCPCS: 36415; 71045; 73502; 73560; 80048; 80053; 81001; 82550; 83735; 85025; 90471; 90715; 93005; 96361; 96374; 96375; 96376; 97110; 97162; 97165; 97530; 97535; 99285; J0690; A9270; C1776; G0378; J0166; J1171; J1652; J1885; J2270; J2704; J2795; J3010; J7030; J7120

== ENCOUNTER 2024-12-12 08:41 | Inpatient (IN) | payer MEDICARE, SELFPAY ==
[2024-12-12] VITALS (13 sets, daily range): BP systolic 105–141; BP diastolic 53–83; PULSE 55–98; RESP 14–24; TEMP 36.4–36.6; O2SAT 98–100; BMI 17.0; BMI 16.2
--- NOTE | ~2024-12-12 | XR_ITS ---
XR chest 1V 12/12/2024 09:16 Indication: Altered mental status Procedure: AP view of the chest Comparison: Comparison to multiple prior studies sequentially, with oldest reviewed study dated 11/12. Findings: Cardiomegaly. Right basilar infiltrates. No focal pneumonia, edema or pneumothorax. No sign ificant effusion. Impression: 1: Right basilar infiltrates may represent atelectasis or developing pneumonia. Reviewed, dictated and finalized at location A. Impression: 1: Right basilar infiltrates may represent atelectasis or developing pneumonia.
--- NOTE | ~2024-12-12 | CT_ITS ---
EXAMINATION: CT brain wo con DATE: 12/12/2024 09:09 INDICATION: Altered mental status TECHNIQUE: Computed tomography (CT) of the head was performed without intravenous contrast. The dose- length product was 1362.00 mGy-cm. COMPARISON: None FINDINGS: No acute intracranial hemorrhage. No mass effect. No midline shift. There is a septum cavum pellucidu m. There are a few small low density regions scattered throughout the periventricular and deep white mat ter likely due to chronic ischemic white matter change. Cerebral atrophy appropriate for the patient's age. Partial opacification of the maxillary sinuses. This study is slightly limited due to motion artifact. IMPRESSION: 1. No acute intracranial hemorrhage. No mass effect. 2. Probable chronic ischemic white matter change. 3. Cerebral atrophy appropriate for the patient's age. Reviewed, dictated and finalized at location A.
--- NOTE | 2024-12-12 09:02 | ECG_ITS ---
Test Date: 2024-12-12 08:56:09 Measurements Intervals [place] Rate: 64 P: 41 DE: 188 QRS: -58 QRSD: 110 T: 114 QT: 431 QTc: 446 Interpretive Statements SINUS RHYTHM WITH MARKED SINUS ARRHYTHMIA AND NON-CONDUCTED ATRIAL PREMATURE COMPLEX LEFT AXIS DEVIATION CANNOT R/O SEPTAL INFARCT, AGE INDETERMINATE ST-T WAVE ABNORMALITY IN LAT/HIGH LAT LEADS- CONSIDER ISCHEMIA BASELINE ARTIFACT- II, III, V1-V2 ABNORMAL ECG Compared to ECG 12/05/2024 00:40:48 ST-T WAVE ABNORMALITY NOW PRESENT POSSIBLE ISCHEMIA NOT PRESENT Electronically Signed On 12-12-2024 09:07:58 CDT by Nirja Gibson D.O.
--- NOTE | 2024-12-12 09:04 | ED.AMS ---
HPI - Altered Mental Status General Chief Complaint: Altered Mental Status Stated Complaint: AMS Time Seen by Provider: 12/12/24 08:52 History of Present Illness HPI narrative: Pt found unresponsive this morning but NH staff and had pulled Restrepo out in middle of night and had blood on pants and bed. Pt had recent hip fracture and repair here and was just recently discharged. No reported fever. Related Data Home Medications ?Medication ?Instructions ?Recorded ?Confirmed ?Last Taken ?Type sacubitril 24 mg-valsartan 26 mg 0.5 tablet PO Q12H 12/05/24 12/12/24 12/12/24 History tablet (Entresto) Allergies Allergy/AdvReac Type Severity Reaction Status Date / Time No Known Allergies Allergy Verified 12/12/24 08:58 Review of Systems Review of Systems: ROS unobtainable: Yes unobtainable due to mental status PMFSH Past Medical History Medical History CHF (congestive heart failure) Peripheral artery disease History of myocardial infarction Ischemic cardiomyopathy Chronic obstructive pulmonary disease Tobacco dependence Benign prostatic hyperplasia Surgical History Surgical History Status post hemiarthroplasty of right hip History of hernia repair (1963) History of cataract removal with insertion of prosthetic lens (10/2014) Family History Family History Sibling Patient's sister is in good health Father Family history of Alzheimer's disease Social History Social History Social History: Patient lives alone. Smokes 1/2 pack per day for the past 70 years. He drinks 1 alcoholic drink day. No drug use. Surrogate medical decision maker: Candida Soto, sister. Code status: Full code. Smoking packs per day: 0.5 Smoking cigarettes per day: 10.0 Years smoked: 68 Smoking pack-years: 34.00 Smoking status: Current some day smoker Tobacco type: cigarettes Alcohol intake: current Drinks per week: 7 Alcohol use details: Drinks 1 beer a day. Substance use: never Substance use type: does not use Lack of Transportation: No Lack of Food: Never True Current Housing: I Have Housing Concerned About Future Housing: No Difficulty Paying Gas/Electric Bills: No Difficulty Paying for Meds: No Currently Unemployed: No Education: High School Diploma/GED Difficulty w/ Childcare or Family Care: No Additional living arrangements comments: The patient lives in his own home in [place]. Not , no children. 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 Spiritual care concerns: No Exam Const: Nutritional Appearance: thin Limitations: altered mental status (only responds to painful stimuli) HENMT: Head: normal to inspection Mouth: Yes dry mucous membranes Eyes: Pupils: Equal, round and reactive pupils present Chest: Chest palpation & inspection: normal inspection of the chest Resp: Effort & Inspection: normal respiratory effort Auscultation: clear to auscultation bilaterally Cardio: Rate: regular rate Rhythm: regular rhythm GI: GI Palp: Yes Soft to palpation and No Tenderness to palpation present (GI) Auscultation: normal bowel sounds : Penis: Yes normal penis (blood at urethral meatus) Skin: General skin exam: normal color Extrem: General: no clubbing, cyanosis or edema Course Vital Signs Vital signs: Vital Signs Temperature 97.9 F 12/12/24 08:41 Pulse Rate 55 L 12/12/24 08:41 Respiratory Rate 19 12/12/24 08:41 Blood Pressure 122/67 12/12/24 08:41 Pulse Oximetry 99 12/12/24 08:41 Oxygen Delivery Room Air 12/12/24 08:41 Temperature 97.7 F 12/12/24 15:57 Pulse Rate 80 12/12/24 15:57 Respiratory Rate 24 H 12/12/24 15:57 Blood Pressure 131/67 12/12/24 15:57 Pulse Oximetry 100 12/12/24 15:57 Oxygen Delivery Room Air 12/12/24 09:03 MDM - Altered Mental Status MDM Narrative Medical decision making narrative: Pt was found unresponsive this morning and had pulled out his catheter. will get ams work up to rule out cva and sepsis. Pt appears dry so will give fluid bolus as well but VS look good. ekg to rule out coronary cause. ekg slight st elevation v5 and v6 and t wave inversion v6 trop is elevated slightly., possible infiltrate on cxr. discussed with dr bell and agrees to observation. will treat pneumonia with rocephin and zithromax. Pt now awake and alert and oriented to baseline. No complaint of CP nowDiscussed with Dr Lu and asked to havve cysto tray to room and will assess in ER after his procedure. Dr áMrquez notified and will call after he completes procedure. discussed with Donna Graham and pt has EF of 20% so doubts nstemi, would not anticoagulate and just rend trop. second ekg no change from earlier ekg. Differential Diagnosis Differential diagnosis: Likely altered mental status, delirium, dementia, hyponatremia, subarachnoid hemorrhage and sepsis Lab Data 12/12/24 09:39 12/12/24 09:39 Labs: Lab Results 12/12/24 Range/Units 09:39 WBC 7.7 (4.5-10.0) K/mm3 RBC 2.78 L (4.6-6.20) M/mm3 Hgb 8.2 L (14.0-18.0) g/dL Hct 25.7 L (42.0-52.0) % MCV 92.4 (80-100) fl MCH 29.5 (26-34) pg MCHC 31.9 L (32-36) g/dl RDW 13.7 (11.5-14.5) % Plt Count 364 (150-375) k/mm3 MPV 9.6 (7.4-10.4) fl Immature Gran % (Auto) 0.3 (0-0.5) % Neut % (Auto) 71.9 (45.5-73.1) % Lymph % (Auto) 15.4 L (18.3-44.2) % [place] % (Auto) 7.7 (2.6-8.5) % Eos % (Auto) 3.9 (0-4.4) % Baso % (Auto) 0.8 (0.2-1.2) % Lymph # (Auto) 1.18 (0.9-3.2) K/mm3 [place] # (Auto) 0.6 (0.1-0.6) K/mm3 Eos # (Auto) 0.3 (0-0.3) K/mm3 Baso # (Auto) 0.1 (0.0-0.1) K/mm3 Abs Immat Gran (auto) 0.02 (0.00-0.031) K/mm3 Absolute Neuts (auto) 5.5 (1.3-6.7) K/mm3 Absolute Nucleated RBC 0.000 (0.0-0.012) K/mm3 Nucleated RBC % 0.0 (0.0-0.2) % PT 13.7 (11.1-14.7) Seconds INR 1.0 APTT 31.9 (22.3-36.8) Seconds Sodium 136 L (137-145) mmol/L Potassium 4.5 (3.4-5.0) mmol/L Chloride 103 (98-107) mmol/L Carbon Dioxide 27 (22-30) mmol/L Anion Gap 6 (4-12) mmol/L BUN 36 H (9-20) mg/dL Creatinine 1.24 (0.7-1.3) mg/dL Estim Creat Clear Calc 35 ml/min Estimated GFR 56 L (59 - ) Glucose 93 (65-110) mg/dL Lactic Acid 0.8 (0.7-2.0) mmol/L Calcium 9.0 (8.4-10.2) mg/dL Total Bilirubin 0.8 (0.2-1.3) mg/dL AST 52 (17-59) U/L ALT 26 (6-50) U/L Alkaline Phosphatase 56 (38-126) U/L Total Creatine Kinase 411 H (55-170) U/L Troponin I 0.053 H* (0.000-0.034) ng/mL Total Protein 6.8 (6.3-8.2) g/dL Albumin 3.6 (3.5-5.1) g/dL TSH 1.570 (0.465-4.680) uIU/mL Critical Care Time Critical Care Time Critical Care Time: Yes Total Critical Care Time: 40 Discharge Plan Discharge Clinical Impression: Non-ST elevation ND (NSTEMI), Pneumonia Altered mental status Qualifiers: Altered mental status type: disorientation Qualified Code(s): R41.0 - Disorientation, unspecified Patient Disposition: Still a Patient Condition: Stable
[2024-12-12] MEDS: SODIUM CHLORIDE 0.9% IV 1,000 ML 999 ML IV CONT (09:42)
[2024-12-12 09:50] LABS: Hematocrit 25.7 % (42.0-52.0); Hemoglobin 8.2 g/dL (14.0-18.0); Immature Granulocyte Percent A 0.3 % (0-0.5); Lymphocytes Absolute Auto 1.18 K/mm3 (0.9-3.2); Mean Corpuscular HGB Conc 31.9 g/dl (32-36); Mean Corpuscular Hemoglobin 29.5 pg (26-34); Mean Corpuscular Volume 92.4 fl (80-100); Nucleated Red Blood Cells Absolute Auto 0.000 K/mm3 (0.0-0.012); Nucleated Red Blood Cells Perc 0.0 % (0.0-0.2); Platelet Count Result 364 k/mm3 (150-375); Red Blood Count 2.78 M/mm3 (4.6-6.20); White Blood Count 7.7 K/mm3 (4.5-10.0)
[2024-12-12 10:03] LABS: INR 1.0; Partial Thromboplastin Time 31.9 Seconds (22.3-36.8); Prothrombin Time 13.7 Seconds (11.1-14.7)
--- NOTE | 2024-12-12 10:05 | PC.NURSE ---
per EDP Dr. Norton the UA sample can be obtained from the [facility] due to the pt recently ripping out his guerra catheter. EDP does not want to cause further damage
[2024-12-12 10:08] LABS: Alanine Aminotransferase 26 U/L (6-50); Albumin Level 3.6 g/dL (3.5-5.1); Alkaline Phosphatase 56 U/L (38-126); Anion Gap 6 mmol/L (4-12); Aspartate Amino Transferase 52 U/L (17-59); Bilirubin,Total 0.8 mg/dL (0.2-1.3); Blood Urea Nitrogen 36 mg/dL (9-20); Calcium 9.0 mg/dL (8.4-10.2); Carbon Dioxide 27 mmol/L (22-30); Chloride 103 mmol/L (98-107); Creatine Kinase 411 U/L (55-170); Estimated CRCL calculation 35 ml/min; Estimated Glomerular Filt Rate 56; Glucose 93 mg/dL (65-110); Sodium 136 mmol/L (137-145); Total Protein 6.8 g/dL (6.3-8.2)
[2024-12-12] MEDS: cefTRIAXone 2 GM in SODIUM CHLORIDE 0.9% IV 100 ML 200 ML IVPB (10:14)
[2024-12-12 10:16] LABS: Potassium 4.5 mmol/L (3.4-5.0); Troponin I 0.053 ng/mL (0.000-0.034)
[2024-12-12 10:34] LABS: Thyroid Stimulating Hormone 1.570 uIU/mL (0.465-4.680)
--- NOTE | 2024-12-12 11:30 | PC.NURSE ---
spoke to pt POA/sister Candida Tenorio at this time. POA was requesting an update and this RN gave her the update and answered any questions she had at the time Candida Tenorio (sister/POA)
--- NOTE | 2024-12-12 11:33 | PC.NURSE ---
this RN attempted to call report to pt facility and was told the nurse was busy and she will call this RN back
[2024-12-12] MEDS: AZITHROMYCIN 250 MG/NS 250 ML 250 MG/250 ML BAG IVPB (11:55)
[2024-12-12] MEDS: NITROGLYCERIN OINTMENT 1 INCH DOSE TRANSDERM ×2 (11:56→17:33)
--- NOTE | 2024-12-12 12:11 | PC.NURSE ---
spoke to Clay at [facility] about pt being admitted at this time
--- NOTE | 2024-12-12 12:26 | ECG_ITS ---
Test Date: 2024-12-12 12:34:08 Measurements Intervals [place] Rate: 67 P: 49 [place]: 189 QRS: -59 QRSD: 105 T: 115 QT: 398 QTc: 421 Interpretive Statements SINUS RHYTHM WITH MARKED SINUS ARRHYTHMIA LEFT AXIS DEVIATION CANNOT R/O SEPTAL INFARCT, AGE INDETERMINATE ST-T WAVE ABNORMALITY IN LAT/HIGH LAT LEADS- CONSIDER ISCHEMIA BASELINE ARTIFACT- I, II ,III, AVL ABNORMAL ECG Compared to ECG 12/12/2024 08:56:09 NO SIGNIFICANT CHANGE Electronically Signed On 12-12-2024 14:05:17 CDT by Niraj Gibson D.O.
[2024-12-12 13:12] LABS: Troponin I 0.047 ng/mL (0.000-0.034)
--- NOTE | 2024-12-12 13:33 | P.HP_ITS ---
H&P: HPI History of Present Illness Date/Time: 12/12/24 13:33 Chief Complaint: AMS Narrative: 84 y/o M with PMH of myocardial infarction, ischemic cardiomyopathy, COPD, and BPH presents here with altered mental status. The patient presents here from [facility] via EMS for further evaluation of altered mental status on 12/12. HPI obtained through chart review as the patient is currently altered and unable to provide collateral information. Per facility report to EMS, the patient has a baseline orientation of A&O x4. He was found this morning in the bathroom with approximately 50-100 mL of blood on the floor and altered. He was found alert to painful stimuli only. He had reportedly pulled his Guerra catheter out in the middle of the night which resulted in the blood covering his pants and his bed. He states he accidentally pulled the guerra. He denies chest pain, shortness of breath, fever, chills, nausea, vomiting, diarrhea, focal numbness/weakness, dizziness or headache. Of note, he was recently admitted for a hip fracture from 12/05/2024 to 12/09/2024. He underwent surgical fixation on 12/06. During his stay he developed acute urinary retention and failed his void trial prior to discharge. The patient also developed mild delirium that was worse at night and contributed to multiple factors. Patient also on CAMERON with a creatinine of 2.2 upon admission that return to normal with IV fluids and holding Entresto/Spironolactone. Spironolactone was held at discharge as the patient had mild hyponatremia with a sodium of 131. Plan for repeat BMP outpatient prior to restarting. Initial VS at presentation: 97.9? F, HR 55, RR 19, 122/67, and 99% on RA. ED workup showed: No leukocytosis, hemoglobin 8.2 (9.0 on 12/09), normal coags, sodium 136, creatinine 1.24 and GFR 56, CK 411, TSH WNL, and initial troponin 0.053. Head CT showed no acute intracranial hemorrhage or mass effect, probable chronic ischemic white matter change, cerebral atrophy appropriate for patient's age. CXR showed right basilar infiltrates which may represent atelectasis or developing pneumonia. Review of Systems Review of Systems: All systems reviewed & are unremarkable except as noted in HPI and below [facility] Past Medical History Medical History CHF (congestive heart failure) Peripheral artery disease History of myocardial infarction Ischemic cardiomyopathy Chronic obstructive pulmonary disease Tobacco dependence Benign prostatic hyperplasia Surgical History Surgical History Status post hemiarthroplasty of right hip History of hernia repair (1963) History of cataract removal with insertion of prosthetic lens (10/2014) Family History Family History Sibling Patient's sister is in good health Father Family history of Alzheimer's disease Social History Social History Social History: Patient lives alone. Smokes 1/2 pack per day for the past 70 years. He drinks 1 alcoholic drink day. No drug use. Surrogate medical decision maker: Candida Soto, sister. Code status: Full code. Smoking packs per day: 0.5 Smoking cigarettes per day: 10.0 Years smoked: 68 Smoking pack-years: 34.00 Smoking status: Current some day smoker Tobacco type: cigarettes Alcohol intake: current Drinks per week: 7 Alcohol use details: Drinks 1 beer a day. Substance use: never Substance use type: does not use Lack of Transportation: No Lack of Food: Never True Current Housing: I Have Housing Concerned About Future Housing: No Difficulty Paying Gas/Electric Bills: No Difficulty Paying for Meds: No Currently Unemployed: No Education: High School Diploma/GED Difficulty w/ Childcare or Family Care: No Additional living arrangements comments: The patient lives in his own home in [place]. Not , no children. 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 Spiritual care concerns: No Meds Home Medications and Allergies Home Medications ?Medication ?Instructions ?Recorded ?Confirmed ?Type aspirin 81 mg tablet,delayed 81 mg PO QAM #30 tabs 06/18/22 12/12/24 Rx release spironolactone 25 mg tablet 25 mg PO QAM #30 tabs 06/18/22 12/12/24 Rx sacubitril 24 mg-valsartan 26 mg 0.5 tablet PO Q12H 12/05/24 12/12/24 History tablet (Entresto) fondaparinux 2.5 mg/0.5 mL 2.5 mg (0.5 mL) subcut DAILY 14 12/07/24 12/12/24 Rx subcutaneous solution syringe days #7 mL (Arixtra) acetaminophen 325 mg tablet 650 mg (2 x 325 mg) PO Q6H 7 days 12/09/24 12/12/24 Rx (Tylenol) #56 tabs docusate sodium 100 mg capsule 100 mg PO DAILY #30 caps 12/09/24 12/12/24 Rx (Dulcolax Stool Softener (docusate)) melatonin 3 mg tablet 3 mg PO HS #30 tabs 12/09/24 12/12/24 Rx oxycodone 5 mg capsule 2.5 mg (1/2 x 5 mg) PO Q8H PRN 12/09/24 12/12/24 Rx pain 3 days #5 caps polyethylene glycol 3350 17 gram 17 g PO QAM #30 ea 12/09/24 12/12/24 Rx oral powder packet (Miralax) Allergies Allergy/AdvReac Type Severity Reaction Status Date / Time No Known Allergies Allergy Verified 12/12/24 08:58 Vital Signs Vital Signs - 24 hr 12/12/24 08:41 12/12/24 08:53 12/12/24 09:03 Temperature 97.9 F Pulse Rate 55 L 67 Respiratory Rate 19 18 Blood Pressure 122/67 122/67 Pulse Oximetry 99 98 98 Oxygen Delivery Room Air Room Air 12/12/24 09:40 12/12/24 10:49 12/12/24 11:24 Temperature Pulse Rate 67 66 88 Respiratory Rate 14 19 Blood Pressure 141/72 H 107/73 Pulse Oximetry 100 100 Oxygen Delivery 12/12/24 11:24 12/12/24 12:13 12/12/24 12:16 Temperature Pulse Rate 89 78 58 L Respiratory Rate 19 20 16 Blood Pressure 107/73 118/83 111/53 L Pulse Oximetry 99 99 Oxygen Delivery 12/12/24 13:00 Temperature Pulse Rate 66 Respiratory Rate 15 Blood Pressure 118/64 Pulse Oximetry 98 Oxygen Delivery Exam Const: General: comfortable and no acute distress Other: , male, elderly, frail, nontoxic appearance HENMT: Face/Nose/Sinus: Normal nares present Mouth: Yes moist mucous membranes Eyes: General: appearance normal, both eyes and all related structures Sclera: sclerae normal Pupils: Equal, round and reactive pupils present EOM: EOMs intact bilaterally Resp: Effort & Inspection: normal respiratory effort Other: Crackles in the right lung base, faint. Cardio: Rate: regular rate Rhythm: regular rhythm Other: S1-S2 present without murmur, rub, ectopy GI: Other: Abdomen soft, nondistended, nontender. Normoactive bowel sounds in all quadrants. Skin: General skin exam: normal color and no rashes or lesions noted Other: Postoperative wound to right hip, dressing CDI. Neuro: Speech: normal speech Motor exam (neuro): 5/5 motor strength present throughout Other: A/Ox self, time, and some situational provided. unsure where he is stating he has bounced around. Psych: Mental Status: mental status grossly normal Affect: normal affect Other: Fair to poor insight and judgment at present. H&P: Results Labs Labs: Short CBC 12/12/24 Range/Units 09:39 WBC 7.7 (4.5-10.0) K/mm3 Hgb 8.2 L (14.0-18.0) g/dL Hct 25.7 L (42.0-52.0) % Plt Count 364 (150-375) k/mm3 BMP 12/12/24 09:39 Sodium 136 L Potassium 4.5 Chloride 103 Carbon Dioxide 27 BUN 36 H Creatinine 1.24 Glucose 93 Calcium 9.0 Cardiac Enzymes 12/12/24 12/12/24 Range/Units 09:39 12:32 Total Creatine Kinase 411 H (55-170) U/L Troponin I 0.053 H* 0.047 H* (0.000-0.034) ng/mL Liver Function 12/12/24 Range/Units 09:39 Total Bilirubin 0.8 (0.2-1.3) mg/dL AST 52 (17-59) U/L ALT 26 (6-50) U/L Alkaline Phosphatase 56 (38-126) U/L Albumin 3.6 (3.5-5.1) g/dL Assessment and Plan Assessment and plan (1) Altered mental status: Qualifiers: Altered mental status type: disorientation Qualified Code(s): R41.0 - Disorientation, unspecified Code(s): R41.82 - Altered mental status, unspecified Status: Acute Assessment and Plan: - Head CT showed no etiology for patient's symptoms - check UA - R basilar PNA noted on CXR, reviewed image compared to prior during most recent admission and have a higher suspicion for infiltrate vs atelectasis. started on abx, see below. - patient had mild delirium that worsened at night during most recent admission, felt to be multifactorial including narcotics, poor sleep/wake cycle superimposed on patient's baseline memory impairment. This is likely contributing to patient's current alteration. - continue home melatonin to promote consistent with wake/sleep cycle - neuro checks q.4h (2) Elevated troponin: Code(s): R79.89 - Other specified abnormal findings of blood chemistry Status: Acute Assessment and Plan: - EKG, initial: Sinus rhythm with marked sinus arrhythmia and nonconducted atrial premature complex, left axis deviation, cannot rule out septal infarct, ST-T-wave abnormality in lateral high 00s leads consider ischemia. - EKG, repeat (1): When compared to EKG done earlier same day, atrial premature complexes no longer present, mi findings/T-wave abnormality/possible ischemia still present - Troponin: 0.053 -> 0.047 -> 0.048 - ASA 324 given in ED, continue as 81 daily - nitro transdermal PRN - cardiology consulted, awaiting recs - telemetry monitoring (3) Pneumonia: Qualifiers: Laterality: right Lung location: lower lobe of lung Pneumonia type: due to unspecified organism Qualified Code(s): J18.9 - Pneumonia, unspecified organism Code(s): J18.9 - Pneumonia, unspecified organism Status: Acute Assessment and Plan: - did not meet SIRS criteria - CXR: Right basilar infiltrates may represent atelectasis or developing pneumonia. - risk factors and complicating factors: admitted within the last 2 weeks, COPD - started on HAP tx: Cefepime, doxycycline, vancomycin - check MRSA PCR and sputum culture (if obtainable) - supportive care - no current supplemental O2 requirement/hypoxia (4) COPD (chronic obstructive pulmonary disease): Qualifiers: COPD type: unspecified COPD Qualified Code(s): J44.9 - Chronic obstructive pulmonary disease, unspecified Code(s): J44.9 - Chronic obstructive pulmonary disease, unspecified Status: Chronic Assessment and Plan: - DuoNebs PRN (5) CHF (congestive heart failure): Qualifiers: Heart failure chronicity: chronic Heart failure type: systolic Qualified Code(s): I50.22 - Chronic systolic (congestive) heart failure Code(s): I50.9 - Heart failure, unspecified Status: Chronic Assessment and Plan: - echo in 2022 showed significantly reduced systolic function with an EF of 15- 20%, LVH chamber severely enlarged, bilateral atrial enlargement, valvular disease. See report for full details. - given 1L bolus in the ED, monitor toleration (6) Urinary retention: Code(s): R33.9 - Retention of urine, unspecified Status: Acute Assessment and Plan: - guerra replaced by Urology - Flomax initiated - void trial in several days if inpatient Plan Creatinine and sodium stable, resume spironolactone. Diet: NPO GI Prophylaxis: n/a DVT Prophylaxis: fondaparinux IV fluids: 1L bolus Lines/Tubes: Peripheral IV Code Status: Full code Quality VTE Prophylaxis VTE prophylaxis: pharmacologic ordered Hospitalist MIPS Advance Care Plan I have confirmed that the patient's Advanced Care Plan is present, code status is documented, or surrogate decision maker is listed in patient medical record.: Yes Medication Reconciliation I have utilized all available resources to obtain, update and review the patients current medications (includes all prescriptions, OTC, herbals, cannabis, and nutritional supplements).: Yes
--- NOTE | 2024-12-12 14:31 | P.CONUR_ITS ---
Assessment and Plan Assessment and plan (1) Urinary retention: Code(s): R33.9 - Retention of urine, unspecified Status: Acute Assessment and Plan: Restrepo was placed without difficulty. Will initiate tamsulosin. Will plan on voiding trial in the next several days if patient is inpatient. May benefit from follow-up with Dr. Villafuerte from his right hip arthroplasty as he has been unable to see him as an outpatient Urology Consult Note HPI Date Seen: 12/12/24 Time Seen: 14:32 Requesting Physician: Evelio Delaney MD Primary Care Provider: Marcell Alexis, DO Consult Narrative Reason for consult: Urinary retention and traumatic Restrepo removal Narrative: Clyde Watkins Jr. is a 84 year old male who is status post right hip arthroplasty a week or 2 ago. Patient was found confused at the [facility] and had pulled his Restrepo catheter. It is also unclear why the Restrepo was in place. None the less were asked to see him. Patient appears less confused at this time but again is unclear as to the details of his Restrepo catheter. His PVR or random bladder scan was greater than 450 cc. He was prepped and a 18 [place] coude was placed. Approximately 500 cc of clear urine was obtained. Review of Systems 2 Review of Systems: All systems reviewed & are unremarkable except as noted in HPI and below [facility] Past Medical History Medical History CHF (congestive heart failure) Peripheral artery disease History of myocardial infarction Ischemic cardiomyopathy Chronic obstructive pulmonary disease Tobacco dependence Benign prostatic hyperplasia Surgical History Surgical History Status post hemiarthroplasty of right hip History of hernia repair (1963) History of cataract removal with insertion of prosthetic lens (10/2014) Family History Family History Sibling Patient's sister is in good health Father Family history of Alzheimer's disease Social History Social History Social History: Patient lives alone. Smokes 1/2 pack per day for the past 70 years. He drinks 1 alcoholic drink day. No drug use. Surrogate medical decision maker: Candida Soto, sister. Code status: Full code. Smoking packs per day: 0.5 Smoking cigarettes per day: 10.0 Years smoked: 68 Smoking pack-years: 34.00 Smoking status: Current every day smoker Tobacco type: cigarettes Alcohol intake: current Drinks per week: 7 Alcohol use details: Drinks 1 beer a day. Substance use: never Substance use type: does not use Lack of Transportation: No Lack of Food: Never True Current Housing: I Have Housing Concerned About Future Housing: No Difficulty Paying Gas/Electric Bills: No Difficulty Paying for Meds: No Currently Unemployed: No Education: High School Diploma/GED Difficulty w/ Childcare or Family Care: No Additional living arrangements comments: The patient lives in his own home in [place]. Not , no children. 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 Spiritual care concerns: No Meds Home Medications and Allergies Home Medications ?Medication ?Instructions ?Recorded ?Confirmed ?Type aspirin 81 mg tablet,delayed 81 mg PO QAM #30 tabs 06/18/22 12/12/24 Rx release spironolactone 25 mg tablet 25 mg PO QAM #30 tabs 06/18/22 12/12/24 Rx sacubitril 24 mg-valsartan 26 mg 0.5 tablet PO Q12H 12/05/24 12/12/24 History tablet (Entresto) fondaparinux 2.5 mg/0.5 mL 2.5 mg (0.5 mL) subcut DAILY 14 12/07/24 12/12/24 Rx subcutaneous solution syringe days #7 mL (Arixtra) acetaminophen 325 mg tablet 650 mg (2 x 325 mg) PO Q6H 7 days 12/09/24 12/12/24 Rx (Tylenol) #56 tabs docusate sodium 100 mg capsule 100 mg PO DAILY #30 caps 12/09/24 12/12/24 Rx (Dulcolax Stool Softener (docusate)) melatonin 3 mg tablet 3 mg PO HS #30 tabs 12/09/24 12/12/24 Rx oxycodone 5 mg capsule 2.5 mg (1/2 x 5 mg) PO Q8H PRN 12/09/24 12/12/24 Rx pain 3 days #5 caps polyethylene glycol 3350 17 gram 17 g PO QAM #30 ea 12/09/24 12/12/24 Rx oral powder packet (Miralax) Allergies Allergy/AdvReac Type Severity Reaction Status Date / Time No Known Allergies Allergy Verified 12/12/24 08:58 Vital Signs Vital Signs - 24 hr 12/12/24 08:41 12/12/24 08:53 12/12/24 09:03 Temperature 36.6 C Pulse Rate 55 L 67 Respiratory Rate 19 18 Blood Pressure 122/67 122/67 Pulse Oximetry 99 98 98 Oxygen Delivery Room Air Room Air 12/12/24 09:40 12/12/24 10:49 12/12/24 11:24 Temperature Pulse Rate 67 66 88 Respiratory Rate 14 19 Blood Pressure 141/72 H 107/73 Pulse Oximetry 100 100 Oxygen Delivery 12/12/24 11:24 12/12/24 12:13 12/12/24 12:16 Temperature Pulse Rate 89 78 58 L Respiratory Rate 19 20 16 Blood Pressure 107/73 118/83 111/53 L Pulse Oximetry 99 99 Oxygen Delivery 12/12/24 13:00 Temperature Pulse Rate 66 Respiratory Rate 15 Blood Pressure 118/64 Pulse Oximetry 98 Oxygen Delivery Exam 2 Const: General: cooperative and comfortable Resp: Effort & Inspection: normal respiratory effort Cardio: Rate: regular rate Rhythm: regular rhythm GI: GI Palp: Yes Soft to palpation Results Labs 12/12/24 09:39 12/12/24 09:39 Labs: Short CBC 12/12/24 Range/Units 09:39 WBC 7.7 (4.5-10.0) K/mm3 Hgb 8.2 L (14.0-18.0) g/dL Hct 25.7 L (42.0-52.0) % Plt Count 364 (150-375) k/mm3 BMP 12/12/24 09:39 Sodium 136 L Potassium 4.5 Chloride 103 Carbon Dioxide 27 BUN 36 H Creatinine 1.24 Glucose 93 Calcium 9.0 Cardiac Enzymes 12/12/24 12/12/24 Range/Units 09:39 12:32 Total Creatine Kinase 411 H (55-170) U/L Troponin I 0.053 H* 0.047 H* (0.000-0.034) ng/mL Liver Function 12/12/24 Range/Units 09:39 Total Bilirubin 0.8 (0.2-1.3) mg/dL AST 52 (17-59) U/L ALT 26 (6-50) U/L Alkaline Phosphatase 56 (38-126) U/L Albumin 3.6 (3.5-5.1) g/dL
--- NOTE | 2024-12-12 14:41 | PC.NURSE ---
due to pt ripping out his catheter, Dr. Lu inserted a new Restrepo 18fr with 400mL output
--- NOTE | 2024-12-12 15:19 | ADMGEN ---
This patient, Clyde Watkins Jr., was admitted to IMU Room 204-01. Patient/family oriented to hospital policies and general routines including ID bracelet, bed and alarms, visiting hours, pain management, procedures, bathroom and other care routines, personal items, smoking policy, room service/diet, and visiting hours. Information on how to activate the Rapid Response Team has been discussed. Patient/Family are encouraged to report perceived risks to care and to ask questions if they do not understand what they are told or what they should do.
[2024-12-12] MEDS: CEFEPIME 2 GM in SODIUM CHLORIDE 0.9% IV 50 ML 100 ML IVPB ×2 (15:23→20:56)
[2024-12-12] MEDS: VANCOMYCIN 1,500 MG/NS 500 ML 1,500 MG/500 ML BAG 250 MG IVPB (16:10)
[2024-12-12] MEDS: DOXYCYCLINE HYCLATE 100 MG TABLET PO (17:30)
[2024-12-12 17:33] LABS: Troponin I 0.048 ng/mL (0.000-0.034)
[2024-12-12] MEDS: MELATONIN 3 MG TABLET PO (20:42)
[2024-12-12] MEDS: SACUBITRIL/VALSARTAN 12-13 MG TABLET 1 TAB PO (20:42)
[2024-12-12] MEDS: TAMSULOSIN HCL 0.4 MG CAPSULE PO (20:42)
[2024-12-12 22:13] LABS: MRSA (PCR) NOT DETECTED (NOT DETECTE)
[2024-12-13] VITALS (11 sets, daily range): BP systolic 104–129; BP diastolic 54–77; PULSE 52–111; RESP 16–20; TEMP 36.4–36.7; O2SAT 95–100; BMI 16.2
[2024-12-13 04:52] LABS: Hematocrit 26.3 % (42.0-52.0); Hemoglobin 8.2 g/dL (14.0-18.0); Immature Granulocyte Percent A 0.3 % (0-0.5); Lymphocytes Absolute Auto 0.81 K/mm3 (0.9-3.2); Mean Corpuscular HGB Conc 31.2 g/dl (32-36); Mean Corpuscular Hemoglobin 29.2 pg (26-34); Mean Corpuscular Volume 93.6 fl (80-100); Nucleated Red Blood Cells Absolute Auto 0.000 K/mm3 (0.0-0.012); Nucleated Red Blood Cells Perc 0.0 % (0.0-0.2); Platelet Count Result 362 k/mm3 (150-375); Red Blood Count 2.81 M/mm3 (4.6-6.20); White Blood Count 7.6 K/mm3 (4.5-10.0)
[2024-12-13 05:10] LABS: Alanine Aminotransferase 24 U/L (6-50); Albumin Level 3.7 g/dL (3.5-5.1); Alkaline Phosphatase 64 U/L (38-126); Anion Gap 9 mmol/L (4-12); Aspartate Amino Transferase 46 U/L (17-59); Bilirubin,Total 1.0 mg/dL (0.2-1.3); Blood Urea Nitrogen 28 mg/dL (9-20); Calcium 9.2 mg/dL (8.4-10.2); Carbon Dioxide 22 mmol/L (22-30); Chloride 104 mmol/L (98-107); Estimated CRCL calculation 39 ml/min; Estimated Glomerular Filt Rate > 60; Glucose 79 mg/dL (65-110); Potassium 4.5 mmol/L (3.4-5.0); Sodium 135 mmol/L (137-145); Total Protein 6.8 g/dL (6.3-8.2)
[2024-12-13] MEDS: DOXYCYCLINE HYCLATE 100 MG TABLET PO (05:42)
[2024-12-13] MEDS: SPIRONOLACTONE 25 MG TABLET PO (08:44)
[2024-12-13] MEDS: CEFEPIME 2 GM in SODIUM CHLORIDE 0.9% IV 50 ML 100 ML IVPB (08:44)
[2024-12-13] MEDS: DOCUSATE SODIUM 100 MG CAPSULE PO (08:44)
[2024-12-13] MEDS: SACUBITRIL/VALSARTAN 12-13 MG TABLET 1 TAB PO (08:44)
[2024-12-13] MEDS: ASPIRIN 81 MG ENTERIC TABLET PO (08:44)
--- NOTE | 2024-12-13 12:24 | P.CONCA_ITS ---
Assessment and Plan Assessment and plan (1) Elevated troponin: Code(s): R79.89 - Other specified abnormal findings of blood chemistry Status: Acute Assessment and Plan: His troponins obviously are not related acute coronary syndrome. He has severe cardiomyopathy and chronic congestive heart failure as well as mild acute renal failure. No further troponins. He can be downgraded. Okay to discontinue telemetry monitoring. No further cardiac workup. (2) Ischemic cardiomyopathy: Code(s): I25.5 - Ischemic cardiomyopathy Status: Chronic Assessment and Plan: Continue home medications including aspirin, low-dose Entresto and spironolactone (3) CAMERON (acute kidney injury): Code(s): N17.9 - Acute kidney failure, unspecified Status: Acute Assessment and Plan: Per hospitalist (4) Chronic systolic (congestive) heart failure: Code(s): I50.22 - Chronic systolic (congestive) heart failure Status: Acute Assessment and Plan: Continue home regimen. History of Present Illness History of Present Illness Consult date/time: 12/13/24 12:24 Consult reason: Other (Elevated troponin) Reason For Visit: altered mental status Narrative: Date of service: 12/13/2024 Reason for consultation: Elevated troponin Requesting provider: Dr. Norton History patient 84-year-old male with history of ischemic cardiomyopathy who follows with Dr. Ray who has a history of myocardial infarction, COPD who presented to the hospital because of altered mental status. In he did have a hip fracture and ORIF on 12/06/2024. Recently discharged on 12/09/2024. Did have urinary retention and failed a voiding trial and therefore was sent to the nursing facility with a Restrepo catheter. He was found in the bathroom with a little bit of blood on the floor and was only alert to painful stimuli only. Reportedly he had pulled out his Restrepo catheter. In the process of workup a troponin was ordered for some reason which was minimally elevated. There is no significant rise or fall. He has elevated creatinine history of severe cardiomyopathy and CHF. He states he has been feeling fine and denies any chest pain, shortness of breath, syncope, presyncope, paroxysmal nocturnal dyspnea, orthopnea, edema palpitations. Review of Systems 2 Review of Systems: All systems reviewed & are unremarkable except as noted in HPI and below Constitutional: Constitutional: Denies body ache(s) Eyes: Eyes: Denies blurry vision ENT: Reports Normal hearing present Cardiovascular: Cardiovascular: Denies chest pain Respiratory: Respiratory: Denies hemoptysis Gastrointestinal: Gastrointestinal: Denies abdominal pain Genitourinary: Genitourinary: Denies hematuria Musculoskeletal: Musculoskeletal: Denies back pain Integumentary/Breasts: Skin/Breast: Denies erythema Neurologic: Denies Abnormal speech present Psychiatric: Psychiatric: Denies anxiety Endocrine: Endocrine: Denies excessive sweating Hematologic/Lymphatic: Hematologic/Lymphatic: Denies easy bleeding Allergic/Immunologic: Allergic/Immunologic: Denies GI upset with certain foods PMFSH Past Medical History Medical History CHF (congestive heart failure) Peripheral artery disease History of myocardial infarction Ischemic cardiomyopathy Chronic obstructive pulmonary disease Tobacco dependence Benign prostatic hyperplasia Surgical History Surgical History Status post hemiarthroplasty of right hip History of hernia repair (1963) History of cataract removal with insertion of prosthetic lens (10/2014) Family History Family History Sibling Patient's sister is in good health Father Family history of Alzheimer's disease Social History Social History Social History: Patient lives alone. Smokes 1/2 pack per day for the past 70 years. He drinks 1 alcoholic drink day. No drug use. Surrogate medical decision maker: Candida Soto, sister. Code status: Full code. Smoking packs per day: 0.5 Smoking cigarettes per day: 10.0 Years smoked: 68 Smoking pack-years: 34.00 Smoking status: Current some day smoker Tobacco type: cigarettes Alcohol intake: current Drinks per week: 7 Alcohol use details: Drinks 1 beer a day. Substance use: never Substance use type: does not use Lack of Transportation: No Lack of Food: Never True Current Housing: I Have Housing Concerned About Future Housing: No Difficulty Paying Gas/Electric Bills: No Difficulty Paying for Meds: No Currently Unemployed: No Education: High School Diploma/GED Difficulty w/ Childcare or Family Care: No Additional living arrangements comments: The patient lives in his own home in [place]. Not , no children. 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 Spiritual care concerns: No Meds Home Medications and Allergies Home Medications ?Medication ?Instructions ?Recorded ?Confirmed ?Type aspirin 81 mg tablet,delayed 81 mg PO QAM #30 tabs 06/18/22 12/12/24 Rx release spironolactone 25 mg tablet 25 mg PO QAM #30 tabs 06/18/22 12/12/24 Rx sacubitril 24 mg-valsartan 26 mg 0.5 tablet PO Q12H 12/05/24 12/12/24 History tablet (Entresto) fondaparinux 2.5 mg/0.5 mL 2.5 mg (0.5 mL) subcut DAILY 14 12/07/24 12/12/24 Rx subcutaneous solution syringe days #7 mL (Arixtra) acetaminophen 325 mg tablet 650 mg (2 x 325 mg) PO Q6H 7 days 12/09/24 12/12/24 Rx (Tylenol) #56 tabs docusate sodium 100 mg capsule 100 mg PO DAILY #30 caps 12/09/24 12/12/24 Rx (Dulcolax Stool Softener (docusate)) melatonin 3 mg tablet 3 mg PO HS #30 tabs 12/09/24 12/12/24 Rx oxycodone 5 mg capsule 2.5 mg (1/2 x 5 mg) PO Q8H PRN 12/09/24 12/12/24 Rx pain 3 days #5 caps polyethylene glycol 3350 17 gram 17 g PO QAM #30 ea 12/09/24 12/12/24 Rx oral powder packet (Miralax) Allergies Allergy/AdvReac Type Severity Reaction Status Date / Time No Known Allergies Allergy Verified 12/12/24 08:58 Vital Signs Vital Signs - 24 hr 12/12/24 13:00 12/12/24 15:57 12/12/24 19:44 Temperature 36.5 C 36.4 C L Pulse Rate 66 80 82 Respiratory Rate 15 24 H 18 Blood Pressure 118/64 131/67 105/70 Pulse Oximetry 98 100 100 Oxygen Delivery 12/12/24 20:00 12/12/24 20:00 12/12/24 22:00 Temperature Pulse Rate 98 86 Respiratory Rate Blood Pressure Pulse Oximetry Oxygen Delivery Room Air 12/13/24 00:00 12/13/24 00:00 12/13/24 00:00 Temperature 36.7 C Pulse Rate 111 H 108 H Respiratory Rate 18 Blood Pressure 104/56 L Pulse Oximetry 100 Oxygen Delivery Room Air 12/13/24 02:00 12/13/24 04:00 12/13/24 04:00 Temperature Pulse Rate 95 84 Respiratory Rate Blood Pressure Pulse Oximetry Oxygen Delivery Room Air 12/13/24 04:00 12/13/24 06:00 12/13/24 08:00 Temperature 36.6 C Pulse Rate 75 94 77 Respiratory Rate 16 20 Blood Pressure 119/54 L Pulse Oximetry 100 96 Oxygen Delivery Room Air 12/13/24 08:00 12/13/24 08:03 12/13/24 08:34 Temperature 36.4 C Pulse Rate 77 77 74 Respiratory Rate 20 20 Blood Pressure 129/60 Pulse Oximetry 100 96 Oxygen Delivery Room Air 12/13/24 10:00 12/13/24 11:36 Temperature 36.4 C Pulse Rate 83 81 Respiratory Rate 18 Blood Pressure 113/65 Pulse Oximetry 98 Oxygen Delivery Exam 2 Narrative: Appears in no acute distress. Appears stated age Const: General: comfortable and no acute distress HENMT: Ears: TM's normal bilaterally Face/Nose/Sinus: Normal nares present Eyes: General: appearance normal, both eyes and all related structures S clera: sclerae normal Neck: Neck: supple and no JVD Chest: Other: No reproducible chest wall pain to palpation Resp: Effort & Inspection: normal respiratory effort Auscultation: clear to auscultation bilaterally Cardio: Rate: regular rate Rhythm: regular rhythm GI: Inspection: non-distended GI Palp: Yes Soft to palpation Skin: General skin exam: normal color and no rashes or lesions noted Neuro: Speech: normal speech Extrem: General: normal to inspection Psych: Mental Status: mental status grossly normal Affect: normal affect Results Labs and Meds 12/13/24 03:59 12/13/24 03:59 Lab results: Cardiac Enzymes 12/12/24 12/12/24 12/13/24 Range/Units 12:32 16:12 03:59 AST 46 (17-59) U/L Troponin I 0.047 H* 0.048 H* (0.000-0.034) ng/mL CBC 12/13/24 Range/Units 03:59 WBC 7.6 (4.5-10.0) K/mm3 RBC 2.81 L (4.6-6.20) M/mm3 Hgb 8.2 L (14.0-18.0) g/dL Hct 26.3 L (42.0-52.0) % Plt Count 362 (150-375) k/mm3 Lymph # (Auto) 0.81 L (0.9-3.2) K/mm3 Clinch # (Auto) 0.6 (0.1-0.6) K/mm3 Eos # (Auto) 0.2 (0-0.3) K/mm3 Baso # (Auto) 0.1 (0.0-0.1) K/mm3 Comprehensive Metabolic Panel 12/13/24 Range/Units 03:59 Sodium 135 L (137-145) mmol/L Potassium 4.5 (3.4-5.0) mmol/L Chloride 104 (98-107) mmol/L Carbon Dioxide 22 (22-30) mmol/L BUN 28 H (9-20) mg/dL Creatinine 1.06 (0.7-1.3) mg/dL Glucose 79 (65-110) mg/dL Calcium 9.2 (8.4-10.2) mg/dL AST 46 (17-59) U/L ALT 24 (6-50) U/L Alkaline Phosphatase 64 (38-126) U/L Total Protein 6.8 (6.3-8.2) g/dL Albumin 3.7 (3.5-5.1) g/dL Intake and Output 12/12/24 12/13/24 12/13/24 23:59 07:59 15:59 Intake Total 150 200 240 Output Total 275 725 Balance -125 -525 240 Intake: IV 50 Cefepime 2 gm In Sodium 50 Chloride 0.9% IV 50 ml @ 100 mls/hr IVPB Q12HR [facility] Rx#: [id number] Oral 100 200 240 Output: Urine 275 Catheter Urine 725 Urethral Catheter 725 EKG is personally reviewed and independently interpreted showing sinus rhythm convert. Septal infarction. Lateral T-wave abnormality, consider ischemia. ST and T-wave changes consistent with known severe previous infarction in likely aneurysmal formation.
--- NOTE | 2024-12-13 12:51 | WPDUROPN2 ---
Progress Note: A&P Assessment and Plan (1) Urinary retention: Code(s): R33.9 - Retention of urine, unspecified Status: Acute Assessment and Plan: Restrepo draining clear urine at this time. Again unclear as to the initial need for the Restrepo. Given that he had a traumatic Restrepo removal recommend Restrepo for at least 3-4 days prior to a voiding trial. Initiate tamsulosin. Subjective Subjective Date/Time Seen: 12/13/24 12:51 Interval history: Restrepo draining clear urine at this time. Review of Systems Review of Systems: All systems reviewed & are unremarkable except as noted in HPI and below Exam Resp: Effort & Inspection: normal respiratory effort Cardio: Rate: regular rate Rhythm: regular rhythm Urinary Catheter: Urinary Catheter: patent and draining and urine clear Objective Data Vital Signs Vital Signs: Vital Signs - 24 hr 12/12/24 13:00 12/12/24 15:57 12/12/24 19:44 Temperature 36.5 C 36.4 C L Pulse Rate 66 80 82 Respiratory Rate 15 24 H 18 Blood Pressure 118/64 131/67 105/70 Pulse Oximetry 98 100 100 Oxygen Delivery 12/12/24 20:00 12/12/24 20:00 12/12/24 22:00 Temperature Pulse Rate 98 86 Respiratory Rate Blood Pressure Pulse Oximetry Oxygen Delivery Room Air 12/13/24 00:00 12/13/24 00:00 12/13/24 00:00 Temperature 36.7 C Pulse Rate 111 H 108 H Respiratory Rate 18 Blood Pressure 104/56 L Pulse Oximetry 100 Oxygen Delivery Room Air 12/13/24 02:00 12/13/24 04:00 12/13/24 04:00 Temperature Pulse Rate 95 84 Respiratory Rate Blood Pressure Pulse Oximetry Oxygen Delivery Room Air 12/13/24 04:00 12/13/24 06:00 12/13/24 08:00 Temperature 36.6 C Pulse Rate 75 94 77 Respiratory Rate 16 20 Blood Pressure 119/54 L Pulse Oximetry 100 96 Oxygen Delivery Room Air 12/13/24 08:00 12/13/24 08:03 12/13/24 08:34 Temperature 36.4 C Pulse Rate 77 77 74 Respiratory Rate 20 20 Blood Pressure 129/60 Pulse Oximetry 100 96 Oxygen Delivery Room Air 12/13/24 10:00 12/13/24 11:36 Temperature 36.4 C Pulse Rate 83 81 Respiratory Rate 18 Blood Pressure 113/65 Pulse Oximetry 98 Oxygen Delivery Intake/Output Intake/Output: Intake & Output 12/10/24 12/11/24 12/12/24 12/13/24 23:59 23:59 23:59 23:59 Intake Total 1500 440 Output Total 275 725 Balance 1225 -285 Meds/Results Medications: Active Medications Generic Name Dose Route Start Last Admin Trade Name Freq PRN Reason Stop Dose Admin Acetaminophen 650 mg 12/12/24 13:55 Acetaminophen 325 Mg Tablet PO Q6H PRN Mild Pain (1-3) or Fever Albuterol/Ipratropium 3 ml 12/12/24 13:53 Ipratropium 0.5 Mg/Albuterol Sulfate 2.5 Mg Ampul.Neb 3 Ml INHALATION Q6HRT PRN Shortness Of Breath Or Wheezing Aspirin 81 mg 12/13/24 09:00 12/13/24 08:44 Aspirin 81 Mg Enteric Tablet PO 81 mg QAM ERUM Administration Benzonatate 100 mg 12/12/24 13:55 Benzonatate 100 Mg Capsule PO TID PRN Cough Docusate Sodium 100 mg 12/13/24 09:00 12/13/24 08:44 Docusate Sodium 100 Mg Capsule PO 100 mg DAILY ERUM Administration Doxycycline Hyclate 100 mg 12/12/24 18:00 12/13/24 05:42 Doxycycline Hyclate 100 Mg Tablet PO 100 mg Q12H ERUM Administration Fondaparinux 2.5 mg 12/13/24 09:00 12/13/24 09:06 Fondaparinux Sodium 2.5 Mg/0.5 Ml Syringe SUB-Q Not Given DAILY ERUM Guaifenesin 600 mg 12/12/24 13:55 Guaifenesin 12 Hr 600 Mg Tabcr PO Q12HR PRN Congestion Cefepime HCl 2 gm/ Sodium 50 mls @ 100 mls/hr 12/12/24 22:00 12/13/24 08:44 Chloride IVPB 100 mls/hr Q12HR ERUM Administration Melatonin 3 mg 12/12/24 21:00 12/12/24 20:42 Melatonin 3 Mg Tablet PO 3 mg HS ERUM Administration Nitroglycerin 0.4 mg 12/12/24 23:41 Nitroglycerin Sl 0.4 Mg Tablet SUBLINGUAL Q5MIN PRN Chest Pain Polyethylene Glycol 17 gm 12/13/24 09:00 12/13/24 08:40 Polyethylene Glycol 3350 17 Gm Powd.Pack PO Not Given QAM ERUM Sacubitril/Valsartan 1 tab 12/12/24 21:00 12/13/24 08:44 Sacubitril/Valsartan 12-13 Mg Tablet PO 1 tab Q12HR ERUM Administration Spironolactone 25 mg 12/13/24 09:00 12/13/24 08:44 Spironolactone 25 Mg Tablet PO 25 mg QAM ERUM Administration Tamsulosin HCl 0.4 mg 12/12/24 21:00 12/12/24 20:42 Tamsulosin Hcl 0.4 Mg Capsule PO 0.4 mg QHS ERUM Administration Radiology Results: ITS Impressions Head CT 12/12/24 09:12 IMPRESSION: 1. No acute intracranial hemorrhage. No mass effect. 2. Probable chronic ischemic white matter change. 3. Cerebral atrophy appropriate for the patient's age. Chest X-Ray 12/12/24 09:20 Impression: 1: Right basilar infiltrates may represent atelectasis or developing pneumonia. Labs Labs: Laboratory Results - last 24 hr 12/12/24 12/12/24 12/12/24 12:32 16:12 20:54 WBC RBC Hgb Hct MCV MCH MCHC RDW Plt Count MPV Immature Gran % (Auto) Neut % (Auto) Lymph % (Auto) [place] % (Auto) Eos % (Auto) Baso % (Auto) Lymph # (Auto) [place] # (Auto) Eos # (Auto) Baso # (Auto) Abs Immat Gran (auto) Absolute Neuts (auto) Absolute Nucleated RBC Nucleated RBC % Sodium Potassium Chloride Carbon Dioxide Anion Gap BUN Creatinine Estim Creat Clear Calc Estimated GFR Glucose Calcium Total Bilirubin AST ALT Alkaline Phosphatase Troponin I 0.047 H* 0.048 H* Total Protein Albumin Nasal MRSA (PCR) Not detected 12/13/24 03:59 WBC 7.6 RBC 2.81 L Hgb 8.2 L Hct 26.3 L MCV 93.6 MCH 29.2 MCHC 31.2 L RDW 13.6 Plt Count 362 MPV 9.5 Immature Gran % (Auto) 0.3 Neut % (Auto) 78.7 H Lymph % (Auto) 10.7 L [place] % (Auto) 7.2 Eos % (Auto) 2.4 Baso % (Auto) 0.7 Lymph # (Auto) 0.81 L [place] # (Auto) 0.6 Eos # (Auto) 0.2 Baso # (Auto) 0.1 Abs Immat Gran (auto) 0.02 Absolute Neuts (auto) 6.0 Absolute Nucleated RBC 0.000 Nucleated RBC % 0.0 Sodium 135 L Potassium 4.5 Chloride 104 Carbon Dioxide 22 Anion Gap 9 BUN 28 H Creatinine 1.06 Estim Creat Clear Calc 39 Estimated GFR > 60 Glucose 79 Calcium 9.2 Total Bilirubin 1.0 AST 46 ALT 24 Alkaline Phosphatase 64 Troponin I Total Protein 6.8 Albumin 3.7 Nasal MRSA (PCR)
--- NOTE | 2024-12-13 13:53 | P.DS_ITS ---
DS: Admitting Diagnosis Discharge Date 12/13/2024 Admitting Diagnosis indwelling catheter trauma/AMS/elevated troponin/pneumonia DS: Discharge Diagnosis Discharge Diagnosis (1) Altered mental status: Qualifiers: Altered mental status type: disorientation Qualified Code(s): R41.0 - Disorientation, unspecified Code(s): R41.82 - Altered mental status, unspecified Status: Acute (2) Elevated troponin: Code(s): R79.89 - Other specified abnormal findings of blood chemistry Status: Acute (3) Pneumonia: Qualifiers: Laterality: right Lung location: lower lobe of lung Pneumonia type: due to unspecified organism Qualified Code(s): J18.9 - Pneumonia, unspecified organism Code(s): J18.9 - Pneumonia, unspecified organism Status: Acute (4) COPD (chronic obstructive pulmonary disease): Qualifiers: COPD type: unspecified COPD Qualified Code(s): J44.9 - Chronic obstructive pulmonary disease, unspecified Code(s): J44.9 - Chronic obstructive pulmonary disease, unspecified Status: Chronic (5) CHF (congestive heart failure): Qualifiers: Heart failure chronicity: chronic Heart failure type: systolic Qualified Code(s): I50.22 - Chronic systolic (congestive) heart failure Code(s): I50.9 - Heart failure, unspecified Status: Chronic (6) Urinary retention: Code(s): R33.9 - Retention of urine, unspecified Status: Acute DS: Summary Hospital Course Reason for hospitalization: indwelling catheter trauma/AMS/elevated troponin/pneumonia Hospital Course: Admission: Patient is a 84 y/o M with PMH of myocardial infarction, ischemic cardiomyopathy, COPD, and BPH presents here with altered mental status. The patient presented to the ED from [facility] via EMS for further evaluation of altered mental status on 12/12. HPI obtained through chart review as the patient is currently altered and unable to provide collateral infor mation. Per facility report to EMS, the patient has a baseline orientation of A&O x4. He was found this morning in the bathroom with approximately 50-100 mL of blood on the floor and altered. He was found alert to painful stimuli only. He had reportedly pulled his Guerra catheter out in the middle of the night which resulted in the blood covering his pants and his bed. He states he accidentally pulled the guerra. He denies chest pain, shortness of breath, fever, chills, nausea, vomiting, diarrhea, focal numbness/weakness, dizziness or headache. Of note, he was recently admitted for a hip fracture from 12/05/2024 to 12/09/2024. He underwent surgical fixation on 12/06. During his stay he developed acute urinary retention and failed his void trial prior to discharge. The patient also developed mild delirium that was worse at night and contributed to multiple factors. Patient also on CAMERON with a creatinine of 2.2 upon admission that return to normal with IV fluids and holding Entresto/Spironolactone. Spironolactone was held at discharge as the patient had mild hyponatremia with a sodium of 131. Plan for repeat BMP outpatient prior to restarting. In the ED: No leukocytosis, hemoglobin 8.2 (9.0 on 12/09), normal coags, sodium 136, creatinine 1.24 and GFR 56, CK 411, TSH WNL, and initial troponin 0.053. Head CT showed no acute intracranial hemorrhage or mass effect, probable chronic ischemic white matter change, cerebral atrophy appropriate for patient's age. CXR showed right basilar infiltrates which may represent atelectasis or developing pneumonia. Hospital Course: Patient was admitted to the medical unit for further evaluation after he was believed to altered mental term removed his catheter the [facility] facility. Follow-up assessment next day patient was alert and oriented x4 no altered mental status was aware of his current location and what happened. Patient's Guerra catheter had been replaced by Urology in the emergency department without difficulty and voiding clear yellow urine they did initiate Flomax and stated plans continue voiding trial in 3-4 days following traumatic removal. Patient did have a mild bump in troponins and Cardiology have been consulted but patient denied any type of chest pain shortness a breath appeared secondary to his severe cardiomyopathy, CHF and acute renal failure ACS ruled out. Patient back to baseline following day was discharged back to [facility] for continued rehab and to follow-up with his orthopedic surgeon as scheduled and to attempt a voiding trial within 3-4 days. Status at Discharge Functional status at discharge: uses cane/walker Overall status at discharge: patient is progressing back to baseline Time Spent with Patient Time attestation: Total time spent providing and/or coordinating discharge services: Time spent: Greater than 30 minutes Exam Narrative: Const: General: comfortable and no acute distress Other: , male, elderly, frail, nontoxic appearance HENMT: Face/Nose/Sinus: Normal nares present Mouth: Yes moist mucous membranes Eyes: General: appearance normal, both eyes and all related structures Sclera: sclerae normal Pupils: Equal, round and reactive pupils present EOM: EOMs intact bilaterally Resp: Effort & Inspection: normal respiratory effort Other: Crackles in the right lung base, faint. Cardio: Rate: regular rate Rhythm: regular rhythm Other: S1-S2 present without murmur, rub, ectopy GI: Other: Abdomen soft, nondistended, nontender. Normoactive bowel sounds in all quadrants. Skin: General skin exam: normal color and no rashes or lesions noted Other: Postoperative wound to right hip, dressing CDI. Neuro: Cranial nerves: Yes Equal, round and reactive pupils present Speech: normal speech Motor exam (neuro): 5/5 motor strength present throughout Psych: Mental Status: mental status grossly normal Affect: normal affect Other: Fair to poor insight and judgment at present. DS: Data Data Completed and Pending Labs on day of discharge: Labs from last 24 hours 12/13/24 12/12/24 12/12/24 03:59 20:54 16:12 WBC 7.6 RBC 2.81 L Hgb 8.2 L Hct 26.3 L MCV 93.6 MCH 29.2 MCHC 31.2 L RDW 13.6 Plt Count 362 MPV 9.5 Immature Gran % (Auto) 0.3 Neut % (Auto) 78.7 H Lymph % (Auto) 10.7 L [place] % (Auto) 7.2 Eos % (Auto) 2.4 Baso % (Auto) 0.7 Lymph # (Auto) 0.81 L [place] # (Auto) 0.6 Eos # (Auto) 0.2 Baso # (Auto) 0.1 Abs Immat Gran (auto) 0.02 Absolute Neuts (auto) 6.0 Absolute Nucleated RBC 0.000 Nucleated RBC % 0.0 Sodium 135 L Potassium 4.5 Chloride 104 Carbon Dioxide 22 Anion Gap 9 BUN 28 H Creatinine 1.06 Estim Creat Clear Calc 39 Estimated GFR > 60 Glucose 79 Calcium 9.2 Total Bilirubin 1.0 AST 46 ALT 24 Alkaline Phosphatase 64 Troponin I 0.048 H* Total Protein 6.8 Albumin 3.7 Nasal MRSA (PCR) Not detected Imaging Radiologist's impression: EXAMINATION: CT brain wo con DATE: 12/12/2024 09:09 INDICATION: Altered mental status TECHNIQUE: Computed tomography (CT) of the head was performed without intravenous contrast. The dose-length product was 1362.00 mGy-cm. COMPARISON: None FINDINGS: No acute intracranial hemorrhage. No mass effect. No midline shift. There is a septum cavum pellucidum. There are a few small low density regions scattered throughout the periventricular and deep white matter likely due to chronic ischemic white matter change. Cerebral atrophy appropriate for the patient's age. Partial opacification of the maxillary sinuses. This study is slightly limited due to motion artifact. IMPRESSION: 1. No acute intracranial hemorrhage. No mass effect. 2. Probable chronic ischemic white matter change. 3. Cerebral atrophy appropriate for the patient's age. XR chest 1V 12/12/2024 09:16 Indication: Altered mental status Procedure: AP view of the chest Comparison: Comparison to multiple prior studies sequentially, with oldest reviewed study dated 11/12/2021. Findings: Cardiomegaly. Right basilar infiltrates. No focal pneumonia, edema or pneumothorax. No significant effusion. Impression: 1: Right basilar infiltrates may represent atelectasis or developing pneumonia. Discharge Plan Discharge Attending physician on discharge: Moses Prescott Consulting providers: Saleem Lu; Salo Calderon; Niraj Gibson; Tania Linda; Laith Ontiveros; Everette Joshua Discharging Clinician: Pilar Hernandez Anticipated Discharge Date/Time: 12/13/24 13:44 Patient Disposition: SNF Activity: follow weight bearing status Diet: as tolerated and regular Discharge Instructions: 1). Guerra catheter failed his voiding trial and due to recent trauma will need to wait at least 4-5 days before another voiding trial. If still having urinary retention, would follow-up with urology as outpatient. Flomax was started for urinary retention. 2). Postoperative Hip Fracture Instructions Dr. Srinivasan Small [phone] * Dressing to be changed daily with an island dressing beginning on post op day #2. May stop dressing changes at post op day #14. No sutures/surja will need to be removed. Can allow Dermabond to fall off naturally. * Weight bearing: Weight bearing as tolerated. * You may shower with your dressing but do not submerge in a bath tub. * Do not drive or operate machinery until you are released by your surgeon. * Do not walk without a walker for any reason until you are released by your surgeon. * DVT prophylaxis x28 days post op. * Continue to apply ice to the hip intermittently for additional pain relief. Protect your skin with a towel or pillow case. * Continue to follow strict hip fracture precautions. * Please contact our office with any questions/concerns regarding your hip at [phone]. * Follow up appointment instructions indicated below. 01/18/2025 at 0915 3). Pneumonia * Chest XRAY was showing early evidence of pneumonia I have prescribed oral antibiotic please take and complete as indicated * Continue with incentive spirometer * encourage activity How can you care for yourself at home? ? Keep track of any new symptoms or changes in your symptoms. ? Rest until you feel better. ? Be safe with medicines. Take your medicines exactly as prescribed. Call your doctor if you think you are having a problem with your medicine. ? Do not drive after taking a prescription pain medicine. ? Ensure to follow-up with primary care physician as indicated and provide updated medication list provided to you at discharge. When should you call for help? Call 911 anytime you think you may need emergency care. For example, call if: ? You passed out (lost consciousness). Call your doctor now or seek immediate medical care if: ? You have new symptoms like fever, difficulty breathing, Chest pain, vomiting, or rash. ? You have new or different pain. ? You are confused and are having trouble thinking clearly. ? Your symptoms are getting worse. Watch closely for changes in your health, and be sure to contact your doctor if: ? You do not get better as expected. Patient Instructions: Urinary Retention in Men (GEN), Enlarged Prostate (BPH) (DC) Patient Language: Korean Stand Alone Forms: General Discharge Information, Jail Discharge Follow-up/Referrals: Srinivasan Small MD [Physician] - 12/18/24 9:15 am Saleem Lu MD [Physician] - Call for Appointment Discharge Medications: New tamsulosin 0.4 mg Capsule 0.4 mg PO QHS Qty: 30 0RF doxycycline hyclate 100 mg Tablet 100 mg PO Q12H Qty: 8 0RF guaifenesin [Mucus Relief ER] 600 mg Tablet Extended Release 12hr 600 mg PO Q12HR PRN (Reason: Congestion) Qty: 20 0RF amoxicillin-pot clavulanate 875-125 mg tablet 1 tablet PO Q12H Qty: 8 0RF Continued aspirin 81 mg Tablet,Delayed Release (Dr/Ec) 81 mg PO QAM Qty: 30 1RF spironolactone 25 mg Tablet 25 mg PO QAM Qty: 30 1RF sacubitril-valsartan [Entresto] 24-26 mg tablet 0.5 tablet PO Q12H Patient Comments: Patient splits whole pill and takes BID fondaparinux [Arixtra] 2.5 mg/0.5 mL Syringe 2.5 mg subcut DAILY 14 Days Qty: 7 0RF melatonin 3 mg Tablet 3 mg PO HS Qty: 30 0RF polyethylene glycol 3350 [Miralax] 17 gram Powder In Packet 17 g PO QAM Qty: 30 0RF acetaminophen [Tylenol] 325 mg tablet 650 mg PO Q6H 7 Days Qty: 56 0RF oxycodone 5 mg capsule 2.5 mg PO Q8H PRN (Reason: pain) 3 Days Qty: 5 0RF docusate sodium [Dulcolax Stool Softener (dss)] 100 mg capsule 100 mg PO DAILY Qty: 30 0RF Date of admission: 12/13/24 10:46 Primary Care Provider: Yablonsky,Marcell B. Admitting Provider: Evelio Delaney Attending physician on admission: Pilar Hernandez Condition: Stable Quality VTE Prophylaxis VTE prophylaxis: pharmacologic ordered Hospitalist MIPS Heart Failure (Exclusion) Patient has history of Heart Transplant or Left Ventricular Assistive Device?: No IF YES, STOP HERE Heart Failure (Qualifier) Patient has current or prior documentation of LVEF less than or equal to 40%, or mod/servere depressed LVSF?: No IF NO, STOP HERE
--- NOTE | 2024-12-13 15:45 | PC.NURSE ---
Report called to Yary or Ronak nurse at [facility]. Discussed discharge orders including new medications and continued medications. All orders faxed over to the facility as well and a copy of orders along with medications prescription and orders placed in discharge packet. Medications were highlighted with last dose given. Patient updated that ambulance was coming to get the patient. Denies further questions at this time.
--- NOTE | 2024-12-14 06:55 | P.CDI_ITS ---
CDI Query Clarification Request BMI: 16.3 Nutritional Diagnostic Statement: Please refer to the comprehensive nutrition assessment for further information. If you agree with diagnosis of Severe malnutrition related to chronic COPD, loss of appetite as evidenced by intakes <75% needs >1 month; weight loss 6%/1 week; severe muscle wasting and fat loss. Please specify severity if known: * Mild * Moderate * Severe * Other/Unknown <Jackie Cai RN - Last Filed: 12/14/24 06:56> Clarified Diagnosis Clarified Diagnosis: Severe malnutrition related to chronic COPD, loss of appetite as evidenced by intakes <75% needs >1 month; weight loss 6%/1 week; severe muscle wasting and fat loss <Pilar Hernandez APRN - Last Filed: 12/14/24 08:56>
== END 2024-12-13 17:38 | DRG 698 ==
LOC: ANHED 10:47 → ANH3MEDSUR 11:28 → ANHIMU 14:21
PROVIDERS: Student in an Organized Health Care Education/Training Program; Admitting Provider Internal Medicine; Emergency Provider Emergency Medicine; PCP Internal Medicine; Visit Provider Nurse Practitioner Family
DX: S37.39XA Other injury of urethra, initial encounter (principal); E43 Unspecified severe protein-calorie malnutrition; J18.9 Pneumonia, unspecified organism; I50.22 Chronic systolic (congestive) heart failure; Z68.1 Body mass index [BMI] 19.9 or less, adult; N17.9 Acute kidney failure, unspecified; J44.0 Chronic obstructive pulmonary disease with (acute) lower respiratory infection; R33.9 Retention of urine, unspecified; R41.82 Altered mental status, unspecified; N40.0 Benign prostatic hyperplasia without lower urinary tract symptoms; I25.5 Ischemic cardiomyopathy; I73.9 Peripheral vascular disease, unspecified; R79.89 Other specified abnormal findings of blood chemistry; F17.210 Nicotine dependence, cigarettes, uncomplicated; Z96.641 Presence of right artificial hip joint; I25.2 Old myocardial infarction
CPT/HCPCS: 36415; 70450; 71045; 80053; 82550; 83605; 84443; 84484; 85025; 85610; 85730; 87040; 87641; 93005; 96361; 96365; 96366; 96367; 96372; 99291; A9270; G0378; J0456; J0692; J0696; J1652; J3373; J7030

== ENCOUNTER 2025-03-15 19:36 | Inpatient (IN) | payer MEDICARE, SELFPAY ==
[2025-03-15] VITALS (34 sets, daily range): BP systolic 57–145; BP diastolic 47–93; PULSE 76–111; RESP 15–24; TEMP 34.4–36.7; O2SAT 62–98
--- NOTE | ~2025-03-15 | CT_ITS ---
EXAMINATION: CTA chest abdomen pelvis DATE: 03/15/2025 22:57 INDICATION: Enlarged aorta. TECHNIQUE: Computed tomographic angiography (CTA) of the chest, abdomen, and pelvis was performed with 100 mL Omnipaque-350 intravenous contrast. Automated exposure control and iterative reconstruction technique were employed. The dose- length product was 412.67 mGy-cm. Maximum intensity projection 3D-r econstructions of the aorta and other arteries were constructed by the technologist on a separate workstation. COMPARISON: Chest CT 07/29/2022 FINDINGS: CHEST CTA: There is moderate emphysema. There is material in the bronchi of the upper lobes and lower lobes, worse in the lower lobes. There are airspace opacities in right upper lobe. There are airspace opacities with volume loss in left lower lobe. There are mild airspace opacities in left upper lobe and right lower lobe. There is a trace left pleural effusion. Cardiomegaly is noted. There are coronary artery calcifications. Thoracic aorta is normal in caliber. Aortic atherosclerosis is noted. The endotracheal tube tip is in expected position. The esophagus is fluid-filled. There is severe cervical spondylosis and mild thoracic spondylosis. There is mild chronic anterior wedging of multiple thoracic vertebral bodies. ABDOMEN AND PELVIS CTA: The liver is normal. There is a gallstone in the gallbladder, which is normal in size. The spleen, pancreas, and adrenal glands are normal. There is cortical thinning of the kidneys. There is a Restrepo catheter in expected position. There is diverticulosis of the colon without evidence of diverticulitis. The appendix is not visualized. Stool distends the rectum. There are no pathologically enlarged lymph nodes. There is no ascites. There is a 6.4 cm fusiform infrarenal aneurysm. 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 There is no significant stenosis of superior mesenteric artery or the renal arteries. 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 There is moderate lumbar spondylosis. There is mild chronic anterior wedging of L1 vertebral body. IMPRESSION: 1. Multifocal pneumonia, worst in left lower lobe. 2. Moderate emphysema. 3. Fluid-filled esophagus. Material in the upper and lower lobe bronchi may be aspiration. 4. 6.4 cm fusiform infrarenal aortic aneurysm. Surgical consultation is recommended. 5. 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 6. 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 7. Stool distends the rectum. Reviewed, dictated and finalized at location E. RESSIONAL DISTRICT AIDE IMPRESSION: 1. Multifocal pneumonia, worst in left lower lobe. 2. Moderate emphysema. 3. Fluid-filled esophagus. Material in the upper and lower lobe bronchi may be aspiration. 4. 6.4 cm fusiform infrarenal aortic aneurysm. Surgical consultation is recomme nded. 5. 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 6. 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 7. Stool distends the rectum.
--- NOTE | ~2025-03-15 | XR_ITS ---
Examination: XR chest 1V portable Clinical History: Resp Failure Comparison: 03/16/2025 Technique: Portable AP Findings: ET tube, NG tube, right neck central line. Heart size normal. Worsening diffuse interstitial markings. Persistent left basilar atelectasis and/or pleural effusion. No acute bony abnormality. IMPRESSION: 1. Worsening diffuse interstitial pulmonary edema and/or pneumonitis. 2. Persistent left basilar atelectasis and/or airspace disease with effusion. Reviewed, dictated and finalized at location R. NG COMPLIANCE AUDITOR
--- NOTE | ~2025-03-15 | CT_ITS ---
CT brain wo con HISTORY:cardiac arrest COMPARISON: None. TECHNIQUE: Axial images were obtained of the head without intravenous contrast. FINDINGS: No acute intracranial hemorrhage, mass effect or midline shift. No extra-axial fluid collections. Generalized atrophy and chronic white matter microangiopathic changes are notedthere are mucosal thickening of the paranasal sinuses. Mastoid air cells are clear. IMPRESSION: No acute intracranial hemorrhage or extra axial fluid collections. Generalized atrophy and chronic white matter microangiopathic changes. All CT scans at this facility are performed using low dose modulation techniques as appropriate to perform exam including the following: automated exposure control; use of iterative reconstruction technique; adjustment of the mA and/or kV according to patient size (this includes techniques or standardized protocols for targeted exams where dose is matched to indication/reason for exam). Reviewed, dictated and finalized at location S. R TRANSFER CAR OPERATOR IMPRESSION: No acute intracranial hemorrhage or extra axial fluid collections. Generalized atrophy and chronic white matter microangiopathic changes. All CT scans at this facility are performed using low dose modulation techniqu es as appropriate to perform exam including the following: automated exposure c ontrol; use of iterative reconstruction technique; adjustment of the mA and/or kV according to patient size (this includes techniques or standardized protocol s for targeted exams where dose is matched to indication/reason for exam).
--- NOTE | ~2025-03-15 | XR_ITS ---
EXAMINATION: XR chest 1V portable DATE: 03/16/2025 08:06 INDICATION: Intubation TECHNIQUE: A single frontal view of the chest was obtained. COMPARISON: March 16 exam FINDINGS: Endotracheal tube remains in place. Patchy alveolar changes in the left lung and right perihilar region noted. Heart size upper limits normal. No pneumothorax or subphrenic free air seen. No large effusion or pneumothorax seen. IMPRESSION: 1. Frontal changes suggesting vascular congestion and mild pulmonary edema with pneumonitis and/or pneumonia possibly present. Grossly stable exam compared to yesterday. Patient remains intubated. Reviewed, dictated and finalized at location A. TH DATA ADMINISTRATOR
--- NOTE | ~2025-03-15 | XR_ITS ---
XR chest port-a-cath/central 03/16/2025 00:13 Indication: Central line placement Procedure: AP portable chest Comparison: Comparison to multiple prior studies sequentially, with oldest reviewed study dated 06/17/2022. Findings: Endotracheal tube tip 6.8 cm above the charles. Central line tip in the SVC. Cardiomegaly with mild interstitial edema unchanged. No significant effusion. No pneumothorax. Impression: 1: Cardiomegaly with stable mild interstitial edema. Reviewed, dictated and finalized at location B. ERCIAL LINES ACCOUNT MANAGER Impression: 1: Cardiomegaly with stable mild interstitial edema.
--- NOTE | ~2025-03-15 | XR_ITS ---
XR chest 1V portable INDICATION:ROSC . REFERENCE: None FINDINGS: A single AP of the chest demonstrates normal heart size. Endotracheal tube terminates above the charles. Bilateral infiltrate and opacity predominantly in the upper lobes. There is no evidence of pneumothorax or pleural effusion. IMPRESSION: Bilateral upper lobe infiltrates and opacities are noted. Reviewed, dictated and finalized at location S. ER HAND
--- NOTE | ~2025-03-15 | XR_ITS ---
EXAMINATION: XR chest 1V portable DATE: 03/16/2025 05:16 INDICATION: Intubation TECHNIQUE: A single frontal view of the chest was obtained. COMPARISON: March 16 chest x-ray at 12:08 AM FINDINGS: Endotracheal tube unchanged in position. Right internal jugular central catheter also noted. Diffuse interstitial changes throughout the right lung bordering on consolidation. Left lung is clear. Heart size upper limits normal. IMPRESSION: 1. Worsening congestion in the right lung possibly developing into multi lobar pneumonia and/or pulmonary edema. Patient remains intubated. Reviewed, dictated and finalized at location A. ASSEMBLER
--- NOTE | ~2025-03-15 | XR_ITS ---
EXAMINATION: XR abdomen gastric tube insert, 03/16/2025 11:08 HOIST CYLINDER LOADER HISTORY: OG tube placement COMPARISON: No comparisons available. Technique: 3 view. Findings: Bowel gas pattern unremarkable. No obstruction. No free air. No abnormal calcifications No acute osseous abnormality. Nasogastric tube terminates in the mid stomach Impression: 1. No acute abnormality. Reviewed, dictated and finalized at location P. T CYLINDER LOADER Impression: 1. No acute abnormality.
--- NOTE | 2025-03-15 19:53 | ECG_ITS ---
Test Date: 2025-03-15 20:04:41 Measurements Intervals [place] Rate: 100 P: 85 NM: 216 QRS: 249 QRSD: 128 T: 68 QT: 350 QTc: 453 Interpretive Statements BASELINE ARTIFACT, POOR QUALITY ECG SINUS TACHYCARDIA WITH FIRST DEGREE AV BLOCK RIGHT AXIS DEVIATION [QRS AXIS > 100] LEFT BUNDLE BRANCH BLOCK ABNORMAL ECG Compared to ECG 12/12/2024 12:34:08 CURRENT TRACING IS POOR QUALITY BECAUSE OF BASELINE ARTIFACT QRS PROLONGATION IS INCREASED LATERAL ST ELEVATION IS NO LONGER SEEN Electronically Signed On 03-16-2025 13:03:31 CAREER RESOURCE SPECIALIST by Tobias Kenny M.D.
[2025-03-15 20:06] LABS: Hematocrit 35.8 % (42.0-52.0); Hemoglobin 10.4 g/dL (14.0-18.0); Immature Granulocyte Percent A 2.0 % (0-0.5); Lymphocytes Absolute Auto 4.49 K/mm3 (0.9-3.2); Mean Corpuscular HGB Conc 29.1 g/dl (32-36); Mean Corpuscular Hemoglobin 28.0 pg (26-34); Mean Corpuscular Volume 96.5 fl (80-100); Nucleated Red Blood Cells Absolute Auto 0.000 K/mm3 (0.0-0.012); Nucleated Red Blood Cells Perc 0.0 % (0.0-0.2); Platelet Count Result 281 k/mm3 (150-375); Red Blood Count 3.71 M/mm3 (4.6-6.20); White Blood Count 8.3 K/mm3 (4.5-10.0)
--- NOTE | 2025-03-15 20:08 | ED_ITS ---
HPI - CPR General Chief Complaint: Cardiac Arrest/CPR Stated Complaint: post arrest Source: EMS and other (friend/client) Mode of arrival: EMS Limitations: clinical condition History of Present Illness HPI narrative: Patient presents after EMS called for patient in respiratory distress. Reportedly choked while eating at local establishment. Initially reported to have gone unresponsive and have agonal breaths quickly stopped breathing and went into cardiac arrest with asystole by report. 2 rounds EPI given as part of ACLS during which one IV and one IO placed as well as a 7.0 ETT during which copious vomitus was reported. ROSC obtained with appropriate vital signs (BP 100/60, HR 101) other than SpO2 52% during assisted bag valve mask ventilation. He got one push dose epi as well. There had been report of patient having recent hip surgery. Glucose 147mg/dL. Related Data Home Medications ?Medication ?Instructions ?Recorded ?Confirmed ?Last Taken ?Type sacubitril 24 mg-valsartan 26 mg 0.5 tablet PO Q12H 03/16/25 12/12/24 History tablet (Entresto) Allergies Allergy/AdvReac Type Severity Reaction Status Date / Time No Known Allergies Allergy Verified 03/16/25 02:05 [facility] Past Medical History Medical History CHF (congestive heart failure) Peripheral artery disease History of myocardial infarction Ischemic cardiomyopathy Chronic obstructive pulmonary disease Tobacco dependence Benign prostatic hyperplasia Surgical History Surgical History History of hernia repair (1963) History of cataract removal with insertion of prosthetic lens (10/2014) Family History Family History Sibling Patient's sister is in good health Father Family history of Alzheimer's disease Social History Social History Social History: Patient lives alone. Smokes 1/2 pack per day for the past 70 years. He drinks 1 alcoholic drink day. No drug use. Surrogate medical decision maker: Candida Soto, sister. Code status: Full code. Smoking packs per day: 0.5 Smoking cigarettes per day: 10.0 Years smoked: 68 Smoking pack-years: 34.00 Smoking status: Current every day smoker Tobacco type: cigarettes Second hand tobacco smoke exposure: No Alcohol intake: unknown Drinks per week: 7 Alcohol use details: Drinks 1 beer a day. Substance use: unknown Substance use type: does not use Lack of Transportation: No Lack of Food: Never True Current Housing: I Have Housing Concerned About Future Housing: No Difficulty Paying Gas/Electric Bills: No Difficulty Paying for Meds: No Currently Unemployed: No Education: High School Diploma/GED Difficulty w/ Childcare or Family Care: No Additional living arrangements comments: The patient lives in his own home in [place]. Not , no children. 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 Spiritual care concerns: No Exam 2 Narrative: GENERAL: thin; EYES: Non injected, non icteric ENT: Nares clear, no rhinorrhea or epistaxis. ETT in oropharynx. NECK: Supple. No meningismus. Trachea midline. CHEST: Thin. Ribs well visualized. No obvious trauma. Ventilation assisted by BVM. HEART: Regular rate and rhythm, borderline tachycardic . ABDOMEN: Soft, nondistended. No rigidity or guarding. Not peritoneal EXTREMITIES: No lower extremity edema. SKIN: Warm, dry, no rash. NEURO: Initially no spontaneous movements Course Vital Signs Vital signs: Vital Signs Pulse Rate 98 03/15/25 19:31 Pulse Oximetry 62 L 03/15/25 19:31 Oxygen Delivery Bag Valve Mask 03/15/25 19:31 Temperature 99.1 F 03/17/25 12:00 Pulse Rate 98 03/17/25 12:00 Respiratory Rate 13 03/17/25 12:00 Blood Pressure 86/54 L 03/17/25 12:00 Pulse Oximetry 12 L 03/17/25 12:00 Oxygen Delivery Room Air 03/17/25 11:55 Oxygen Flow Rate 22 03/16/25 16:00 Fraction of Inspired Oxygen 40 03/17/25 10:43 Procedures Central Line Placement Right IJ: Central Line Date: 03/15/25 Central Line Time: 23:50 Performed Emergently - Given emergent patient condition, temporal constraints may have precluded informed consent.: Yes Time Out Performed: Yes Patient Placed on Monitor/Pulse Ox: Yes Max. Sterile Barrier Technique: Caps, large sterile sheet and hand hygiene Central Line Prep: 2% chlorhexidine scrub and sterile drapes applied Technique: US-Guided Local Anesthetic: lidocaine 1% Amount of anesthesia used (mL): 4 Ultrasound Used for Placement: Yes Central Line Lumen Inserted: triple Post Procedure: sutured in place, good blood return, all ports aspirated, flushed, capped and sterile dressing applied Post Procedure X-Ray: tip of catheter in good position and no pneumothorax seen Patient Tolerated Procedure: well and other (did have episode of vomitus at the end, suctioned ) Other Procedure Procedure 1: Other Procedure: Date: 03/15/25 Procedure: Bronchoscopy Consent: implied emergent Indication: airway surveillance, secretion clearance Monitoring: EKG, blood pressure, pulse oximetry Physician: Jayna Morales Complications: none Entry: RT distilled approximately 10cc saline down ETT. Bronchoscope was introduced through the indwelling ETT in the standard fashion. Findings: ? Larynx: unable to assess (intubated) ? Tube: some occasional areas of bioburden but without occlusion ? Trachea: no secretions -Jordyn : clear/no secretions ? R mainstem: secretions ? L mainstem: secretions Biomatter (chewed meat, greenbeans) removed on multiple such attempts during bronchoscopy MDM - Cardiac Arrest/CPR MDM Narrative Medical decision making narrative: Patient presents after having a choking episode at local restaurant. Had respiratory arrest followed by cardiac arrest. EMS started IV and IO, performed ACLS, administered 2 doses epi + 1 push dose, and intubated with 7.0 tube. In the ED he is hypothermic with other vital signs notable for hypoxia, SpO2 between mid 50s and 60s. There had been report of recent hip surgery and thus consideration of PE causing arrest however the hip surgery was months ago and other etiologies more likely. ROSC achieved but decision made to trial foreign body removal via bronchoscopy and defer giving TNK at present, especially given ROSC achieved. Bronchoscopy performed by myself as above. He has hyperglycemia with a slight anion gap and an abnormal CO2 but not frankly acidotic. He has had some abnormal creatinine previously although seems to have normalized so today represents an CAMERON. He has already received some IV fluids. Additional 500 cc ordered. Transaminitis new. Normocytic anemia stable from previous. Patient discussed with energy risk management analyst Dr. Keene who does recommend proceeding with targeted temperature management. Discussed with Dr Reynolds. Given the amount of organic food material, I suspect patient will developing pneumonitis and is at high risk of pneumonia and thus will empirically treat for such and given he is ventilated, will initiate broad-spectrum antibiotics in the form of vancomycin, cefepime, and azithromycin. Repeat EKG was obtained due to quality of the initial and the questionable ST elevations post ROSC and while repeat EKG does not demonstrate these to the same degree, it is essentially non diagnostic. 2 acquaintences of patient arrive who had been present. They report he complained of right hip pain (his surgical hip) and then put his head down, grunting and gurgling. He gasped and then threw up a few times and became cyanotic while EMS en route. There is report patient's sister to arrive tomorrow. Patient's ABG as below is obtained on settings [id number] Based on the acidosis and the issues with ventilation, will change settings to the followin-[id number]%. Respiratory therapist does get even more organic material out of the ET tube with improved duration, greater than or equal to 96%. Becoming hypotensive. Versed had been started in addition to the fentanyl, will attempt to downtitrate this. Received 300cc from EMS and receiving 500cc from us. BNP slightly elevated but better than historical. History of cardiomyopathy. Previous Echo as below. Sodium bicarb given. Betahydroxybutyrate normal POINT OF CARE ULTRASOUND (POCUS) Procedure note performed by myself at bedside IVC still collapsable. Notably however, large 5 cm abdominal aorta is visualized starting at epigastrium and descening inferiorly at approximately the same size with what appears to be thrombus within the lumen. CTA to be obtained. 500cc additional fluids given. Peripheral pressors are started. Centra lline inserted as above. Central line ok to use for pressors. Viral swab negative. Dr Reynolds discussed with POA who via phone indicated that patient will be DNR. Aware of the AAA and guarded prognosis but would not want intervention. Will go to the ICU with furhter conversations to be had in the morning. == Critical Care: 1 or more vital organ systems impaired with a high probability of imminent or life-threatening deterioration in the patient's condition requiring frequent personal assessment and manipulation of the patient's condition. This included time spent evaluating the patient, speaking with EMS pre-hospital personnel and family, reviewing/interpreting laboratory/imaging studies, discussing the case with consultants or admitting teams, retrieving data and reviewing charts, monitoring for decompensation, documenting the visit, and performing bundled procedures exclusive of separately billed procedures. Differential Diagnosis Differential diagnosis: Likely acute respiratory failure, acute myocardial infarction, cardiac arrest, sudden cardiac and other (choking/aspiration; considered AAA; considered spontaneous intracranial hemorrhage; considered dissection; considered PE) Medical Records Attestation: I reviewed the patient's medical records. Medical records narrative: RIGHT HIP HEMIARTHROPLASTY WITH BIPOLAR PROSTHESIS performed December [id number] Summary 1. Complete two-dimensional, color flow and Doppler transthoracic echocardiogram is performed. 2. Left ventricular chamber dimension is severely enlarged. 3. Left ventricular systolic function is severely reduced, estimated at 15-20%. 4. Right ventricular chamber dimension is normal. 5. Right ventricular systolic function is normal. 6. Left atrial chamber dimension is severely enlarged. 7. Right atrial chamber dimension is severely enlarged. 8. The mitral valve annulus is mildly calcified. 9. The mitral valve has thickened leaflets. 10. There is moderate mitral valve regurgitation, which may be underestimated due to the eccentricity of the jet. 11. There is moderate tricuspid valve regurgitation. 12. Dilated inferior vena cava with <50% collapse upon inspiration consistent with elevated right atrial pressure, 15 mmHg. 13. Large left pleural effusion present. Lab Data 03/17/25 04:44 03/17/25 04:44 Labs: Lab Results 03/15/25 03/15/25 03/15/25 Range/Units 19:56 21:13 21:29 WBC 8.3 (4.5-10.0) K/mm3 RBC 3.71 L (4.6-6.20) M/mm3 Hgb 10.4 L (14.0-18.0) g/dL Hct 35.8 L (42.0-52.0) % MCV 96.5 (80-100) fl MCH 28.0 (26-34) pg MCHC 29.1 L (32-36) g/dl RDW 14.6 H (11.5-14.5) % Plt Count 281 (150-375) k/mm3 MPV 10.3 (7.4-10.4) fl Immature Gran % (Auto) 2.0 H (0-0.5) % Neut % (Auto) 36.0 L (45.5-73.1) % Lymph % (Auto) 53.9 H (18.3-44.2) % [place] % (Auto) 4.4 (2.6-8.5) % Eos % (Auto) 3.0 (0-4.4) % Baso % (Auto) 0.7 (0.2-1.2) % Lymph # (Auto) 4.49 H (0.9-3.2) K/mm3 [place] # (Auto) 0.4 (0.1-0.6) K/mm3 Eos # (Auto) 0.3 (0-0.3) K/mm3 Baso # (Auto) 0.1 (0.0-0.1) K/mm3 Abs Immat Gran (auto) 0.17 H (0.00-0.031) K/mm3 Absolute Neuts (auto) 3.0 (1.3-6.7) K/mm3 Absolute Nucleated RBC 0.000 (0.0-0.012) K/mm3 Band Neutrophils % Not Reportable Nucleated RBC % 0.0 (0.0-0.2) % Platelet Estimate Adequate (Adequate) Hypochromasia 1+ Ovalocytes Occasional [place] Cells Occasional Schistocytes Rare PT 14.7 (11.1-14.7) Seconds INR 1.2 APTT 33.7 (22.3-36.8) Seconds Methemoglobin (0-1.5) %THb Minute Volume Not Reportable Vent Mode Cmv Tidal Volume 430 ml PEEP 5 cmH2O Peak Inspir Pressure Not Reportable Pressure Support Not Reportable Sodium 138 (137-145) mmol/L Potassium 4.0 (3.4-5.0) mmol/L Chloride 100 (98-107) mmol/L Carbon Dioxide 21 L (22-30) mmol/L Anion Gap 17 H (4-12) mmol/L BUN 25 H (9-20) mg/dL Creatinine 1.34 H (0.7-1.3) mg/dL Estim Creat Clear Calc Not Reportable Estimated GFR 51 L (59 - ) Glucose 283 H (65-110) mg/dL POC Capillary Glucose (65-105) mg/dl Lactic Acid (0.7-2.0) mmol/L Calcium 9.0 (8.4-10.2) mg/dL Phosphorus (2.5-4.5) mg/dL Magnesium 2.3 (1.6-2.3) mg/dL Total Bilirubin 0.5 (0.2-1.3) mg/dL AST 104 H (17-59) U/L ALT 52 H (6-50) U/L Alkaline Phosphatase 138 H (38-126) U/L Troponin I 0.023 (0.000-0.034) ng/mL C-Reactive Protein < 0.5 (<1.0) mg/dL NT-Pro-B Natriuret Pep 3080 H (19.9-100) pg/mL Total Protein 7.5 (6.3-8.2) g/dL Albumin 4.3 (3.5-5.1) g/dL Triglycerides 114 (<150) mg/dL Cholesterol 189 (0-200) mg/dL LDL Cholesterol Direct 82 mg/dL HDL Direct 82 mg/dL Beta-Hydroxybutyrate/Acetoacetate (0.02-0.27) mmol/L Urine Color (Yellow) Urine Appearance (Clear) Urine pH (5.0-9.0) Ur Specific [place] (1.001-1.035) Urine Protein (Negative) mg/dL Urine Glucose (UA) (Negative) mg/dL Urine Ketones (Negative) mg/dL Ur Blood (Man) (Negative) Urine Nitrate (Negative) Urine Bilirubin (Negative) Urine Urobilinogen (<2.0) mg/dL Add Ur Microanalysis Leukocyte Esterase Rfl (Negative) EMMA/UL Urine RBC (0-2) /hpf Urine WBC (0-3) /hpf Ur Squamous Epith Cells (Few) /hpf Urine Bacteria /hpf Urine Casts Nasal MRSA (PCR) (NOT DETECTE) Sperm Presence Urine Opiates Screen (Negative) Urine Methadone Screen (Negative) Ur Barbiturates Screen (Negative) Ur Phencyclidine Scrn (Negative) Ur Amphetamine Screen (Negative) U Benzodiazepines Scrn (Negative) Urine Cocaine Screen (Negative) U Cannabinoids Screen (Negative) Influenza A (RT-PCR) (Negative) Influenza B (RT-PCR) (Negative) RSV (RT-PCR) (Negative) SARS-CoV-2 RNA (RT-PCR) (Negative) Blood Type Antibody Screen 03/15/25 03/15/25 03/16/25 Range/Units 21:30 21:31 00:44 WBC (4.5-10.0) K/mm3 RBC (4.6-6.20) M/mm3 Hgb (14.0-18.0) g/dL Hct (42.0-52.0) % MCV (80-100) fl MCH (26-34) pg MCHC (32-36) g/dl RDW (11.5-14.5) % Plt Count (150-375) k/mm3 MPV (7.4-10.4) fl Immature Gran % (Auto) (0-0.5) % Neut % (Auto) (45.5-73.1) % Lymph % (Auto) (18.3-44.2) % [place] % (Auto) (2.6-8.5) % Eos % (Auto) (0-4.4) % Baso % (Auto) (0.2-1.2) % Lymph # (Auto) (0.9-3.2) K/mm3 [place] # (Auto) (0.1-0.6) K/mm3 Eos # (Auto) (0-0.3) K/mm3 Baso # (Auto) (0.0-0.1) K/mm3 Abs Immat Gran (auto) (0.00-0.031) K/mm3 Absolute Neuts (auto) (1.3-6.7) K/mm3 Absolute Nucleated RBC (0.0-0.012) K/mm3 Band Neutrophils % Nucleated RBC % (0.0-0.2) % Platelet Estimate (Adequate) Hypochromasia Ovalocytes Nimesh Cells Schistocytes PT (11.1-14.7) Seconds INR APTT (22.3-36.8) Seconds Methemoglobin (0-1.5) %THb Minute Volume Vent Mode Tidal Volume ml PEEP cmH2O Peak Inspir Pressure Pressure Support Sodium (137-145) mmol/L Potassium (3.4-5.0) mmol/L Chloride (98-107) mmol/L Carbon Dioxide (22-30) mmol/L Anion Gap (4-12) mmol/L BUN (9-20) mg/dL Creatinine (0.7-1.3) mg/dL Estim Creat Clear Calc Estimated GFR (59 - ) Glucose (65-110) mg/dL POC Capillary Glucose (65-105) mg/dl Lactic Acid 5.4 H* (0.7-2.0) mmol/L Calcium (8.4-10.2) mg/dL Phosphorus (2.5-4.5) mg/dL Magnesium (1.6-2.3) mg/dL Total Bilirubin (0.2-1.3) mg/dL AST (17-59) U/L ALT (6-50) U/L Alkaline Phosphatase (38-126) U/L Troponin I 1.270 H* D (0.000-0.034) ng/mL C-Reactive Protein (<1.0) mg/dL NT-Pro-B Natriuret Pep (19.9-100) pg/mL Total Protein (6.3-8.2) g/dL Albumin (3.5-5.1) g/dL Triglycerides (<150) mg/dL Cholesterol (0-200) mg/dL LDL Cholesterol Direct mg/dL HDL Direct mg/dL Beta-Hydroxybutyrate/Acetoacetate 0.26 (0.02-0.27) mmol/L Urine Color Yellow (Yellow) Urine Appearance Clear (Clear) Urine pH 6.0 (5.0-9.0) Ur Specific [place] 1.019 (1.001-1.035) Urine Protein 2+ H (Negative) mg/dL Urine Glucose (UA) Negative (Negative) mg/dL Urine Ketones Negative (Negative) mg/dL Ur Blood (Man) Negative (Negative) Urine Nitrate Negative (Negative) Urine Bilirubin Negative (Negative) Urine Urobilinogen 0.2 (<2.0) mg/dL Add Ur Microanalysis Reviewed Leukocyte Esterase Rfl Negative (Negative) EMMA/UL Urine RBC 6-10 H (0-2) /hpf Urine WBC 0-5 (0-3) /hpf Ur Squamous Epith Cells None seen (Few) /hpf Urine Bacteria None seen /hpf Urine Casts 0-2 Nasal MRSA (PCR) Not detected (NOT DETECTE) Sperm Presence Present Urine Opiates Screen Negative (Negative) Urine Methadone Screen Negative (Negative) Ur Barbiturates Screen Negative (Negative) Ur Phencyclidine Scrn Negative (Negative) Ur Amphetamine Screen Negative (Negative) U Benzodiazepines Scrn Negative (Negative) Urine Cocaine Screen Negative (Negative) U Cannabinoids Screen Negative (Negative) Influenza A (RT-PCR) Negative (Negative) Influenza B (RT-PCR) Negative (Negative) RSV (RT-PCR) Negative (Negative) SARS-CoV-2 RNA (RT-PCR) Negative (Negative) Blood Type A Positive Antibody Screen Negative 03/16/25 03/16/25 03/16/25 Range/Units 02:10 04:33 05:35 WBC 10.2 H (4.5-10.0) K/mm3 RBC 3.33 L (4.6-6.20) M/mm3 Hgb 9.4 L (14.0-18.0) g/dL Hct 30.2 L (42.0-52.0) % MCV 90.7 D (80-100) fl MCH 28.2 (26-34) pg MCHC 31.1 L (32-36) g/dl RDW 14.6 H (11.5-14.5) % Plt Count 258 (150-375) k/mm3 MPV 10.5 H (7.4-10.4) fl Immature Gran % (Auto) 0.3 (0-0.5) % Neut % (Auto) 87.0 H (45.5-73.1) % Lymph % (Auto) 7.9 L (18.3-44.2) % [place] % (Auto) 4.3 (2.6-8.5) % Eos % (Auto) 0.2 (0-4.4) % Baso % (Auto) 0.3 (0.2-1.2) % Lymph # (Auto) 0.81 L (0.9-3.2) K/mm3 [place] # (Auto) 0.4 (0.1-0.6) K/mm3 Eos # (Auto) 0.0 (0-0.3) K/mm3 Baso # (Auto) 0.0 (0.0-0.1) K/mm3 Abs Immat Gran (auto) 0.03 (0.00-0.031) K/mm3 Absolute Neuts (auto) 8.9 H (1.3-6.7) K/mm3 Absolute Nucleated RBC 0.000 (0.0-0.012) K/mm3 Band Neutrophils % Nucleated RBC % 0.0 (0.0-0.2) % Platelet Estimate (Adequate) Hypochromasia Ovalocytes [place] Cells Schistocytes PT 13.8 (11.1-14.7) Seconds INR 1.1 APTT 29.6 (22.3-36.8) Seconds Methemoglobin 0.1 (0-1.5) %THb Minute Volume Not Reportable Vent Mode Cmv Tidal Volume 450 ml PEEP 7 cmH2O Peak Inspir Pressure Not Reportable Pressure Support Not Reportable Sodium 137 (137-145) mmol/L Potassium 4.5 (3.4-5.0) mmol/L Chloride 104 (98-107) mmol/L Carbon Dioxide 30 (22-30) mmol/L Anion Gap 3 L (4-12) mmol/L BUN 29 H (9-20) mg/dL Creatinine 1.29 (0.7-1.3) mg/dL Estim Creat Clear Calc 30 Estimated GFR 53 L (59 - ) Glucose 100 (65-110) mg/dL POC Capillary Glucose 112 H (65-105) mg/dl Lactic Acid 0.8 (0.7-2.0) mmol/L Calcium 8.2 L (8.4-10.2) mg/dL Phosphorus 4.0 (2.5-4.5) mg/dL Magnesium 2.2 (1.6-2.3) mg/dL Total Bilirubin 0.4 (0.2-1.3) mg/dL AST 102 H (17-59) U/L ALT 70 H (6-50) U/L Alkaline Phosphatase 146 H (38-126) U/L Troponin I 4.410 H* D (0.000-0.034) ng/mL C-Reactive Protein (<1.0) mg/dL NT-Pro-B Natriuret Pep (19.9-100) pg/mL Total Protein 6.6 (6.3-8.2) g/dL Albumin 3.6 (3.5-5.1) g/dL Triglycerides (<150) mg/dL Cholesterol (0-200) mg/dL LDL Cholesterol Direct mg/dL HDL Direct mg/dL Beta-Hydroxybutyrate/Acetoacetate (0.02-0.27) mmol/L Urine Color (Yellow) Urine Appearance (Clear) Urine pH (5.0-9.0) Ur Specific [place] (1.001-1.035) Urine Protein (Negative) mg/dL Urine Glucose (UA) (Negative) mg/dL Urine Ketones (Negative) mg/dL Ur Blood (Man) (Negative) Urine Nitrate (Negative) Urine Bilirubin (Negative) Urine Urobilinogen (<2.0) mg/dL Add Ur Microanalysis Leukocyte Esterase Rfl (Negative) EMMA/UL Urine RBC (0-2) /hpf Urine WBC (0-3) /hpf Ur Squamous Epith Cells (Few) /hpf Urine Bacteria /hpf Urine Casts Nasal MRSA (PCR) (NOT DETECTE) Sperm Presence Urine Opiates Screen (Negative) Urine Methadone Screen (Negative) Ur Barbiturates Screen (Negative) Ur Phencyclidine Scrn (Negative) Ur Amphetamine Screen (Negative) U Benzodiazepines Scrn (Negative) Urine Cocaine Screen (Negative) U Cannabinoids Screen (Negative) Influenza A (RT-PCR) (Negative) Influenza B (RT-PCR) (Negative) RSV (RT-PCR) (Negative) SARS-CoV-2 RNA (RT-PCR) (Negative) Blood Type Antibody Screen ABG Data ABG results: 03/15/25 03/16/25 21:13 05:35 Puncture Site Left radial Right radial ABG pH 7.204 L* 7.355 ABG pCO2 57.5 H 51.4 H ABG pO2 72.0 L 85.8 ABG PO2/FiO2 Ratio 0.80 1.43 ABG HCO3 22.2 28.1 H ABG O2 Saturation 90.6 L 96.0 ABG O2 Content 13.8 L 14.7 L ABG Base Excess -6.1 1.9 A-a Gradient 510.8 285.5 Oxyhemoglobin 88.0 L 95.4 Carboxyhemoglobin 0.4 Reduced Hemoglobin 4.1 Total Hemoglobin 11.1 L 10.9 L O2 Delivery Device Ventilator Ventilator O2 Liters/Min Not Reportable Not Reportable Vent Rate 18 22 FiO2 90 60 Imaging Data Attestation: I personally reviewed and interpreted this imaging study as follows: My impression: Diffuse patchy infiltrate in bilateral lungs CXR #2: Central line ok to use, in [facility] Radiologist's impression: CXR Stat Rad Post central line: Comparison did radiograph performed earlier on 03/15/2025. Impression: Right internal jugular central venous line catheter tip is at the superior vena cava. Endotracheal tube tip is 4.9 cm above the jordyn. (NOTE: PATIENT HAD BEEN SUPINE DURING THIS STUDY) unchanged bilateral pulmonary infiltrates in the upper lungs. NO INcidental findings: None CTA Chest Stat Rad: No thoracic aortic dissection. Atherosclerosis of the thoracic aorta. Coronary artery calcification. Left lower lobe pneumonia. Endotracheal tube in position. Emphysematous lung disease. Fibrotic changes of the right lung apex. Incidental findings: Degenerative changes of the spine. CTA Abd & Pelvis Stat rad: 5.9 x 5.8 cm infrarenal abdominal aortic aneurysm. No aortic dissection. Incidental finding scatter artifact from right femoral hardware. Restrepo catheter in position. ECG Data EKG #1: Attestation: I personally reviewed and interpreted this ECG as follows: ECG completion date: 03/15/25 ECG completion time: 20:04 Interpretation: Sinus tachycardia at a rate of 100 beats per minute. WA interval is permanent and [address] residence. Significant artifact in multiple leads including 1 to PVR EBL limits full interpretation. QRS 128. QT/QTC 350/407. Questionable ST elevation V3 and V4 and V5 but not V6. EKG #2: Attestation: I personally reviewed and interpreted this ECG as follows: ECG completion date: 03/15/25 ECG completion time: 20:37 EKG #3: Attestation: I personally reviewed and interpreted this ECG as follows: ECG completion date: 03/16/25 ECG completion time: 00:43 Interpretation: Pre populated EKG algorithm suggests atrial fibrillation however there are P- waves that preceded QRS complexes in QRS complexes that follow P-waves consistent with sinus rhythm. QRS 98. QT/QTC 380/429. Poor R-wave progression across the precordial leads. Critical Care Time Critical Care Time Critical Care Time: Yes Total Critical Care Time: 65 Discharge Plan Discharge Clinical Impression: Hyperglycemia, CAMERON (acute kidney injury), Transaminitis, Respiratory arrest before cardiac arrest, Signs of return of spontaneous circulation, On mechanically assisted ventilation, Normocytic anemia, Aspiration into main bronchus, Left lower lobe pneumonia, Emphysema lung, Degeneration of spine, Infrarenal abdominal aortic aneurysm (AAA) without rupture Patient Disposition: Still a Patient Condition: Guarded Prognosis
--- NOTE | 2025-03-15 20:16 | ECG_ITS ---
Test Date: 2025-03-15 20:37:21 Measurements Intervals [place] Rate: 111 P: 0 AL: 0 QRS: -73 QRSD: 138 T: 91 QT: 340 QTc: 462 Interpretive Statements POOR QUALITY ECG WITH BASELINE ARTIFACT SINUS RHYTHM WITH FIRST-DEGREE AV BLOCK LEFT BUNDLE BRANCH BLOCK ABNORMAL ECG Compared to ECG 03/15/2025 20:04:41 NO SIGNIFICANT CHANGE Electronically Signed On 03-16-2025 13:05:34 RADIO OPERATOR GROUND by Tobias Kenny M.D.
[2025-03-15 20:21] LABS: INR 1.2; Prothrombin Time 14.7 Seconds (11.1-14.7)
[2025-03-15 20:22] LABS: Alanine Aminotransferase 52 U/L (6-50); Albumin Level 4.3 g/dL (3.5-5.1); Alkaline Phosphatase 138 U/L (38-126); Anion Gap 17 mmol/L (4-12); Aspartate Amino Transferase 104 U/L (17-59); Bilirubin,Total 0.5 mg/dL (0.2-1.3); Blood Urea Nitrogen 25 mg/dL (9-20); CRP < 0.5 mg/dL (<1.0); Calcium 9.0 mg/dL (8.4-10.2); Carbon Dioxide 21 mmol/L (22-30); Chloride 100 mmol/L (98-107); Cholesterol 189 mg/dL (0-200); Estimated Glomerular Filt Rate 51; Glucose 283 mg/dL (65-110); HDL Direct 82 mg/dL; Potassium 4.0 mmol/L (3.4-5.0); Sodium 138 mmol/L (137-145); Total Protein 7.5 g/dL (6.3-8.2); Triglycerides 114 mg/dL (<150)
[2025-03-15] MEDS: FENTANYL 2,500MCG/NS250ML(*CRX 2,500 MCG/250 ML BAG IV CONT (20:22)
[2025-03-15 20:23] LABS: Partial Thromboplastin Time 33.7 Seconds (22.3-36.8)
[2025-03-15 20:26] LABS: Hypochromasia 1+
[2025-03-15 20:27] LABS: Burr Cells Occasional; Ovalocytes Occasional
[2025-03-15 20:28] LABS: Schistocytes Rare
[2025-03-15 20:34] LABS: Troponin I 0.023 ng/mL (0.000-0.034)
--- NOTE | 2025-03-15 20:36 | PC.NURSE ---
Pt placed on alec hugger, core temp 94.2
[2025-03-15] MEDS: MIDAZOLAM 100MG/NS 100ML(*CRX) 100 MG/100 ML BAG IV CONT ×2 (20:55→21:21)
[2025-03-15 21:15] LABS: Alveolar/Arterial O2 Gradient 510.8 mmHg; Fractional Inspired Oxygen 90 %; HCO3 ABG 22.2 mEq/l (22.0-26.0); Oxygen Content ABG 13.8 %vol (16.0-22.0); Oxygen Saturation ABG 90.6 % (95.0-100.0); PCO2 ABG 57.5 mmHg (35.0-45.0); PO2 ABG 72.0 mmHg (80.0-100.0); PO2 FiO2 Ratio Arterial Blood 0.80 %
[2025-03-15 21:17] LABS: Arterial Blood Gas Ventilator rate 18 /MIN; Modified Allen's Test Pass; Site Drawn LEFT RADIAL
[2025-03-15 21:18] LABS: Arterial Blood Gas Tidal Volume 430 ml
[2025-03-15] MEDS: SODIUM CHLORIDE 0.9% IV 500 ML 999 ML IV CONT (21:25)
[2025-03-15] MEDS: CEFEPIME 1 GM in SODIUM CHLORIDE 0.9% IV 50 ML 100 ML IVPB (21:33)
[2025-03-15 21:36] LABS: NT Pro B Type Natriuretic Pept 3080 pg/mL (19.9-100)
[2025-03-15] MEDS: AZITHROMYCIN IV 500 MG in SODIUM CHLORIDE 0.9% IV 250 ML IVPB (21:48)
[2025-03-15] MEDS: SODIUM BICARBONATE 8.4% 50 MEQ/50 ML SYRINGE IV PUSH (21:53)
[2025-03-15 22:01] LABS: Magnesium 2.3 mg/dL (1.6-2.3)
[2025-03-15 22:07] LABS: Beta-Hydroxybutyrate/Acetoace. 0.26 mmol/L (0.02-0.27)
[2025-03-15 22:08] LABS: Add Urine Microscopic? YES; Appearance Urine Clear (Clear); Cannabinoid Screen Urine Negative (Negative); Glucose Urine UA Negative (Negative); Leukocyte Esterase Ur Negative LEU/UL (Negative); Need Manual Microscopic Reviewed; Nitrate Urine Negative (Negative); Non Pathogenic Casts 0-2; Specific Grav Ur 1.019 (1.001-1.035); Spermatozoa Urine Present
[2025-03-15] MEDS: NOREPINEPHRINE 8 MG/D5W 250 ML 8 MG/250 ML BAG 9.38 MG IV CONT (22:17)
[2025-03-15 22:21] LABS: Influenza A QL RT-PCR Negative (Negative); Influenza B QL RT-PCR Negative (Negative); RSV RNA, RT-PCR Negative (Negative); SARS-CoV-2 RNA PCR Negative (Negative)
[2025-03-15 22:58] LABS: MRSA (PCR) NOT DETECTED (NOT DETECTE)
[2025-03-15] MEDS: NOREPINEPHRINE 8 MG/D5W 250 ML 8 MG/250 ML BAG 28.13 MG IV CONT (23:28)
--- NOTE | 2025-03-15 23:37 | WPCEDHO ---
ED Hand Off Checklist All vitals saved:yes IV Site documented:yes All med administrations documented:yes Triage Note Triage Note Pt to ED arrived via EMS, post 03/15/25 19:31 cardiac arrest. Per EMS pt was chocking on food when he went into asystole, gave 2 rounds of EP and achieved ROSC. Upon ED arrival pt intubated with 7 ET tube, oSPO2 61%, BP , HR 95 . Allergies No Known Allergies Allergy (Verified 01/18/25 09:19) Family History (Last Reviewed 01/18/25 @ 09:20 by Isamar Rodriguez MA) Sibling Patient's sister is in good health Father Family history of Alzheimer's disease Active Medications including assessments/comments Fentanyl Citrate (Fentanyl 2,500 Mcg/Ns 250 Ml) 2,500 mcg in 250 mls @ 17.5 mls/hr IV CONT .[id number] ERUM; Protocol Last Titration: 03/15/25 21:15 Dose: 175 mcg/hr, 17.5 mls/hr Documented By: EZG Infusion/Titration Document 03/15/25 21:15 EZG (Rec: 03/15/25 21:16 EZG [id number]) Intake IV Site Peripheral Access Left Forearm Intake 2.7 Cumulative Intake ( 6.5 bag) Cumulative Intake ( 6.5 Rx) Container Volume 243.5 Waste Amount 0 Dosing Dose Rate 175 Infusion Rate 17.5 Cumulative Dose 65 Increase/Decrease Increased Elapsed Time Elapsed Time ( 53m minutes) Fentanyl Infusion Assessment Document 03/15/25 21:15 EZG (Rec: 03/15/25 21:16 EZG [id number]) Infusion Action Fentanyl Infusion Titrated/Rate Changed Action Pulse Pulse Rate (60-100 104 H beats/min) Respirations Respiratory Rate (12 19 -20 breaths/min) Priest Agitation/Sedation Scale (RASS) Priest Agitation/ Agitated/ +2 Sedation Scale (RASS ) Titration: 03/15/25 21:02 Dose: 125 mcg/hr, 12.5 mls/hr Documented By: EZG Infusion/Titration Document 03/15/25 21:02 EZG (Rec: 03/15/25 21:09 EZG [id number]) Intake IV Site Peripheral Access Left Forearm Intake 3.2 Cumulative Intake ( 3.8 bag) Cumulative Intake ( 3.8 Rx) Container Volume 246.2 Waste Amount 0 Dosing Dose Rate 125 Infusion Rate 12.5 Cumulative Dose 38 Increase/Decrease Increased Elapsed Time Elapsed Time ( 40m minutes) Fentanyl Infusion Assessment Document 03/15/25 21:02 EZG (Rec: 03/15/25 21:09 EZG [id number]) Infusion Action Fentanyl Infusion Titrated/Rate Changed Action Pulse Pulse Rate (60-100 105 H beats/min) Respirations Respiratory Rate (12 23 H -20 breaths/min) Priest Agitation/Sedation Scale (RASS) Priest Agitation/ Agitated/ +2 Sedation Scale (RASS ) Titration: 03/15/25 20:36 Dose: 75 mcg/hr, 7.5 mls/hr Documented By: MARY Infusion/Titration Document 03/15/25 20:36 EZG (Rec: 03/15/25 20:38 EZG [id number]) Intake IV Site Peripheral Access Left Forearm Intake 0.6 Cumulative Intake ( 0.6 bag) Cumulative Intake ( 0.6 Rx) Container Volume 249.4 Waste Amount 0 Dosing Dose Rate 75 Infusion Rate 7.5 Cumulative Dose 6 Increase/Decrease Increased Elapsed Time Elapsed Time ( 14m minutes) Fentanyl Infusion Assessment Document 03/15/25 20:36 EZG (Rec: 03/15/25 20:38 EZG [id number]) Infusion Action Fentanyl Infusion Titrated/Rate Changed Action Pulse Pulse Rate (60-100 109 H beats/min) Respirations Respiratory Rate (12 23 H -20 breaths/min) Priest Agitation/Sedation Scale (RASS) Priest Agitation/ Restless/ +1 Sedation Scale (RASS ) Admin: 03/15/25 20:22 Dose: 25 mcg/hr, 2.5 mls/hr Documented By: MARY Co-signed By: RAYMON Infusion/Titration Document 03/15/25 20:22 EZCarroll (Rec: 03/15/25 20:23 EZG [id number]) Co-signed By Brianda Muniz RN Intake IV Site Peripheral Access Left Forearm Container Volume 250 Waste Amount 0 Dosing Dose Rate 25 Infusion Rate 2.5 Increase/Decrease Started Elapsed Time Elapsed Time ( 0m minutes) Fentanyl Infusion Assessment Document 03/15/25 20:22 MARY (Rec: 03/15/25 20:23 EZG [id number]) Co-signed By Brianda Muniz RN Infusion Action Fentanyl Infusion Initiated Action Pulse Pulse Rate (60-100 109 H beats/min) Respirations Respiratory Rate (12 19 -20 breaths/min) Priest Agitation/Sedation Scale (RASS) Priest Agitation/ Restless/ +1 Sedation Scale (RASS ) Midazolam HCl (Versed 100 Mg/Ns 100 Ml) 100 mg in 100 mls @ 2 mls/hr IV CONT .Q50H ERUM; Protocol Last Titration: 03/15/25 21:50 Dose: 2 mg/hr, 2 mls/hr Documented By: EZG Infusion/Titration Document 03/15/25 21:50 EZG (Rec: 03/15/25 22:08 EZG [id number]) Intake IV Site Peripheral Access Right Antecubital Intake 0.5 Cumulative Intake ( 1.7 bag) Cumulative Intake ( 2.8 Rx) Container Volume 98.3 Waste Amount 0 Dosing Dose Rate 2 Infusion Rate 2 Cumulative Dose 2.8 Increase/Decrease Decreased Elapsed Time Elapsed Time ( 55m minutes) Versed Infusion Assessment Document 03/15/25 21:50 EZG (Rec: 03/15/25 22:08 EZG [id number]) Infusion Action Versed Infusion Titrated/Rate Changed Action Pulse Pulse Rate (60-100 108 H beats/min) Respirations Respiratory Rate (12 22 H -20 breaths/min) Priest Agitation/Sedation Scale (RASS) Priest Agitation/ Drowsy/ -1 Sedation Scale (RASS ) Titration: 03/15/25 21:40 Dose: 3 mg/hr, 3 mls/hr Documented By: EZG Infusion/Titration Document 03/15/25 21:40 EZG (Rec: 03/15/25 21:47 EZG [id number]) Intake IV Site Peripheral Access Right Antecubital Intake 0.7 Cumulative Intake ( 1.2 bag) Cumulative Intake ( 2.3 Rx) Container Volume 98.8 Waste Amount 0 Dosing Dose Rate 3 Infusion Rate 3 Cumulative Dose 2.3 Increase/Decrease Decreased Elapsed Time Elapsed Time ( 45m minutes) Versed Infusion Assessment Document 03/15/25 21:40 EZG (Rec: 03/15/25 21:47 EZG [id number]) Infusion Action Versed Infusion Titrated/Rate Changed Action Pulse Pulse Rate (60-100 103 H beats/min) Respirations Respiratory Rate (12 16 -20 breaths/min) Priest Agitation/Sedation Scale (RASS) Priest Agitation/ Drowsy/ -1 Sedation Scale (RASS ) Titration: 03/15/25 21:30 Dose: 4 mg/hr, 4 mls/hr Documented By: EZG Infusion/Titration Document 03/15/25 21:30 EZG (Rec: 03/15/25 21:32 EZG [id number]) Intake IV Site Peripheral Access Right Antecubital Intake 0.5 Cumulative Intake ( 0.5 bag) Cumulative Intake ( 1.6 Rx) Container Volume 99.5 Waste Amount 0 Dosing Dose Rate 4 Infusion Rate 4 Cumulative Dose 1.6 Increase/Decrease Increased Elapsed Time Elapsed Time ( 35m minutes) Versed Infusion Assessment Document 03/15/25 21:30 EZG (Rec: 03/15/25 21:32 EZG [id number]) Infusion Action Versed Infusion Titrated/Rate Changed Action Pulse Pulse Rate (60-100 104 H beats/min) Respirations Respiratory Rate (12 22 H -20 breaths/min) Priest Agitation/Sedation Scale (RASS) Priest Agitation/ Drowsy/ -1 Sedation Scale (RASS ) Admin: 03/15/25 21:21 Dose: 3 mg/hr, 3 mls/hr Documented By: EZG Infusion/Titration Document 03/15/25 21:21 EZG (Rec: 03/15/25 21:22 EZG [id number]) Intake IV Site Peripheral Access Right Antecubital Cumulative Intake ( 1.1 Rx) Container Volume 100 Waste Amount 0 Dosing Dose Rate 3 Infusion Rate 3 Cumulative Dose 1.1 Increase/Decrease Started/Decreased Elapsed Time Elapsed Time ( 26m minutes) Versed Infusion Assessment Document 03/15/25 21:21 EZG (Rec: 03/15/25 21:22 EZG [id number]) Infusion Action Versed Infusion No Rate Change Action Pulse Pulse Rate (60-100 108 H beats/min) Respirations Respiratory Rate (12 19 -20 breaths/min) Priest Agitation/Sedation Scale (RASS) Priest Agitation/ Agitated/ +2 Sedation Scale (RASS ) Titration: 03/15/25 21:21 Dose: Infused Documented By: EZG Infusion/Titration Document 03/15/25 21:21 EZG (Rec: 03/15/25 21:22 EZG [id number]) Intake IV Site Peripheral Access Right Antecubital Intake 1 Cumulative Intake ( 1.1 bag) Cumulative Intake ( 1.1 Rx) Container Volume 0 Waste Amount 98.9 Dosing Dose Rate 5 Infusion Rate 5 Cumulative Dose 1.1 Increase/Decrease Infused Elapsed Time Elapsed Time ( 26m minutes) Versed Infusion Assessment Document 03/15/25 21:21 EZG (Rec: 03/15/25 21:22 EZG [id number]) Infusion Action Versed Infusion Titrated/Rate Changed Action Pulse Pulse Rate (60-100 108 H beats/min) Respirations Respiratory Rate (12 19 -20 breaths/min) Priest Agitation/Sedation Scale (RASS) Priest Agitation/ Agitated/ +2 Sedation Scale (RASS ) Titration: 03/15/25 21:02 Dose: 3 mg/hr, 3 mls/hr Documented By: MARY Infusion/Titration Document 03/15/25 21:02 EZG (Rec: 03/15/25 21:09 EZG [id number]) Intake IV Site Peripheral Access Left Forearm Intake 0.1 Cumulative Intake ( 0.1 bag) Cumulative Intake ( 0.1 Rx) Container Volume 99.9 Waste Amount 0 Dosing Dose Rate 3 Infusion Rate 3 Cumulative Dose 0.1 Increase/Decrease Increased Elapsed Time Elapsed Time ( 7m minutes) Versed Infusion Assessment Document 03/15/25 21:02 EZG (Rec: 03/15/25 21:09 EZG [id number]) Infusion Action Versed Infusion No Rate Change Action Pulse Pulse Rate (60-100 108 H beats/min) Respirations Respiratory Rate (12 18 -20 breaths/min) Priest Agitation/Sedation Scale (RASS) Priest Agitation/ Agitated/ +2 Sedation Scale (RASS ) Admin: 03/15/25 20:55 Dose: 1 mg/hr, 1 mls/hr Documented By: MARY Co-signed By: HENNY Infusion/Titration Document 03/15/25 20:55 EZG (Rec: 03/15/25 20:56 EZG [id number]) Co-signed By Jackie Tuttle RN Intake IV Site Peripheral Access Left Forearm Container Volume 100 Waste Amount 0 Dosing Dose Rate 1 Infusion Rate 1 Increase/Decrease Started Elapsed Time Elapsed Time ( 0m minutes) Versed Infusion Assessment Document 03/15/25 20:55 EZCarroll (Rec: 03/15/25 20:56 EZG [id number]) Co-signed By Jackie Tuttle RN Infusion Action Versed Infusion Initiated Action Pulse Pulse Rate (60-100 107 H beats/min) Respirations Respiratory Rate (12 18 -20 breaths/min) Priest Agitation/Sedation Scale (RASS) Priest Agitation/ Restless/ +1 Sedation Scale (RASS ) Norepinephrine Bitartrate (Levophed 8 Mg/D5w 250 Ml) 8 mg in 250 mls @ 18.75 mls/hr IV CONT .[id number] [facility]; Protocol Last Admin: 03/15/25 23:28 Dose: 15 mcg/min, 28.13 mls/hr Documented By: EZG Infusion/Titration Document 03/15/25 23:28 EZG (Rec: 03/15/25 23:31 EZG [id number]) Intake IV Site Peripheral Access Left Medial Forearm Cumulative Intake ( 14.1 Rx) Container Volume 250 Waste Amount 0 Dosing Dose Rate 15 Infusion Rate 28.13 Cumulative Dose 0.4512 Increase/Decrease Started/Running Elapsed Time Elapsed Time ( 53m minutes) Norepinephrine Infusion Assess Document 03/15/25 23:28 EZG (Rec: 03/15/25 23:31 EZG [id number]) Infusion Action Norepinephrine Titrated/Rate Changed Infusion Action Pulse Pulse Rate (60-100 102 H beats/min) Blood Pressure Blood Pressure (100/ 73/55 L 60-140/90 mmHg) Blood Pressure Mean 61 (mmHg) Titration: 03/15/25 23:10 Dose: Infused Documented By: EZG Infusion/Titration Document 03/15/25 23:10 EZG (Rec: 03/15/25 23:31 EZG [id number]) Intake IV Site Peripheral Access Left Medial Forearm Intake 7.5 Cumulative Intake ( 14.1 bag) Cumulative Intake ( 14.1 Rx) Container Volume 0 Waste Amount 235.9 Dosing Dose Rate 15 Infusion Rate 28.13 Cumulative Dose 0.4512 Increase/Decrease Infused Elapsed Time Elapsed Time ( 53m minutes) Norepinephrine Infusion Assess Document 03/15/25 23:10 EZG (Rec: 03/15/25 23:31 EZG [id number]) Infusion Action Norepinephrine Titrated/Rate Changed Infusion Action Pulse Pulse Rate (60-100 102 H beats/min) Blood Pressure Blood Pressure (100/ 73/55 L 60-140/90 mmHg) Blood Pressure Mean 61 (mmHg) Titration: 03/15/25 22:46 Dose: 10 mcg/min, 18.75 mls/hr Documented By: EZG Infusion/Titration Document 03/15/25 22:46 EZG (Rec: 03/15/25 22:48 EZG [id number]) Intake IV Site Peripheral Access Left Medial Forearm Intake 5.3 Cumulative Intake ( 6.6 bag) Cumulative Intake ( 6.6 Rx) Container Volume 243.4 Waste Amount 0 Dosing Dose Rate 10 Infusion Rate 18.75 Cumulative Dose 0.2112 Increase/Decrease Increased Elapsed Time Elapsed Time ( 29m minutes) Norepinephrine Infusion Assess Document 03/15/25 22:46 EZG (Rec: 03/15/25 22:48 EZG [id number]) Infusion Action Norepinephrine Titrated/Rate Changed Infusion Action Pulse Pulse Rate (60-100 99 beats/min) Blood Pressure Blood Pressure (100/ 77/53 L 60-140/90 mmHg) Blood Pressure Mean 61 (mmHg) Titration: 03/15/25: Dose: 8 mcg/min, 15 mls/hr Documented By: EZG Infusion/Titration Document 03/15/25 22:25 EZG (Rec: 03/15/25 22:27 EZG [id number]) Intake IV Site Peripheral Access Left Medial Forearm Intake 1.3 Cumulative Intake ( 1.3 bag) Cumulative Intake ( 1.3 Rx) Container Volume 248.7 Waste Amount 0 Dosing Dose Rate 8 Infusion Rate 15 Cumulative Dose 0.0416 Increase/Decrease Increased Elapsed Time Elapsed Time ( 8m minutes) Norepinephrine Infusion Assess Document 03/15/25:25 EZG (Rec: 03/15/25 22:27 EZG [id number]) Infusion Action Norepinephrine Titrated/Rate Changed Infusion Action Pulse Pulse Rate (60-100 108 H beats/min) Blood Pressure Blood Pressure (100/ 57/49 L 60-140/90 mmHg) Blood Pressure Mean 51 (mmHg) Admin: 03/15/25: Dose: 5 mcg/min, 9.38 mls/hr Documented By: EZG Infusion/Titration Document 03/15/25 22:17 EZG (Rec: 03/15/25 22: EZG [id number]) Intake IV Site Peripheral Access Left Medial Forearm Container Volume 250 Waste Amount 0 Dosing Dose Rate 5 Infusion Rate 9.38 Increase/Decrease Started Elapsed Time Elapsed Time ( 0m minutes) Norepinephrine Infusion Assess Document 03/15/25 22:17 EZG (Rec: 03/15/25 22:21 EZG [id number]) Infusion Action Norepinephrine Initiated Infusion Action Pulse Pulse Rate (60-100 109 H beats/min) Blood Pressure Blood Pressure (100/ 69/48 L 60-140/90 mmHg) Blood Pressure Mean 55 (mmHg) Administered/Completed Medications Discontinued Medications Sodium Chloride (Normal Saline Iv) 500 mls @ 999 mls/hr IV CONT .Q31M STA Stop: 03/15/25 21:08 Last Infusion: 03/15/25 22:09 Dose: Infused Documented By: Admin: 03/15/25 21:25 Dose: 999 mls/hr Documented By: MARY Azithromycin 500 mg/ Sodium (Chloride) 250 mls @ 250 mls/hr IVPB ONCE ONE Stop: 03/15/25 22:12 Last Infusion: 03/15/25 23:32 Dose: Infused Documented By: Admin: 03/15/25 21:48 Dose: 250 mls/hr Documented By: MARY Cefepime HCl 1 gm/ Sodium (Chloride) 50 mls @ 100 mls/hr IVPB ONCE STA Stop: 03/15/25 21:42 Last Infusion: 03/15/25 22:08 Dose: Infused Documented By: Admin: 03/15/25 21:33 Dose: 100 mls/hr Documented By: MARY Sodium Bicarbonate (Sodium Bicarbonate 8.4% 50 Meq/50 Ml Syringe) 50 meq IV PUSH ONCE STA Stop: 03/15/25 21:45 Last Admin: 03/15/25 21:53 Dose: 50 meq Documented By: MARY Notes 03/15/25 20:36 Nurse Note by Lyndsay Holloway Pt placed on alec hugger, core temp 94.2 Initialized on 03/15/25 20:36 - END OF NOTE Interventions/Assessments Cardiac Monitoring Start: 03/15/25 19:30 Freq: Status: Active Protocol: Document 03/15/25 20:07 EZG (Rec: 03/15/25 20:07 EZG [id number]) Program Counselor Assessment Program Counselor Yes Applied Pulse Rate (60-100 103 H beats/min) IV / Saline Lock, Insert Start: 03/15/25 19:30 Freq: Status: Active Protocol: Document 03/15/25 22:21 EZG (Rec: 03/15/25 22:21 EZG [id number]) IV Assessment Peripheral Access Left Medial Forearm IV Catheter Access Initiated IV Insertion Date 03/15/25 IV Insertion Time 22:21 Catheter Gauge 20 IV Insertion 1 Attempts Ultrasound Used for No Placement IV Site Assessment WNL IV Care and WNL,Dressing Applied, Dated, Timed, and Initialed Maintenance PA: Cardiovascular Assessment Start: 03/15/25 19:30 Freq: Status: Active Protocol: Document 03/15/25 22:48 EZG (Rec: 03/15/25 22:49 EZG [id number]) Cardiovascular Assessment Cardiovascular None Symptoms Skin Description Clammy,Cool PA: Respiratory Assessment Start: 03/15/25 19:30 Freq: Status: Active Protocol: Document 03/15/25 22:11 EZG (Rec: 03/15/25 22:13 EZG [id number]) Respiratory Assessment Effort Manually Ventilated Depth Normal Chest Expansion Symmetrical Adult Capillary Greater than or Equal to 2 Seconds Refill Last Vital Signs Temperature 98.1 F 03/15/25 23:34 Pulse Rate 76 03/15/25 23:34 Respiratory Rate 21 H 03/15/25 23:34 Pulse Oximetry 94 03/15/25 23:34 Blood Pressure 105/61 03/15/25 23:34 Blood Pressure Mean 75 03/15/25 23:34 Blood Pressure Position Supine 03/15/25 23:34 Oxygen Delivery Mechanical Ventilation 03/15/25 21:20 Fraction of Inspired Oxygen 90 03/15/25 21:20 Weight 62.2 kg 03/15/25 19:31 Last Result - Abnormals Only RBC 3.71 M/mm3 (4.6-6.20) L 03/15/25 19:56 Hgb 10.4 g/dL (14.0-18.0) L 03/15/25 19:56 Hct 35.8 % (42.0-52.0) L 03/15/25 19:56 MCHC 29.1 g/dl (32-36) L 03/15/25 19:56 RDW 14.6 % (11.5-14.5) H 03/15/25 19:56 Immature Gran % (Auto) 2.0 % (0-0.5) H 03/15/25 19:56 Neut % (Auto) 36.0 % (45.5-73.1) L 03/15/25 19:56 Lymph % (Auto) 53.9 % (18.3-44.2) H 03/15/25 19:56 Lymph # (Auto) 4.49 K/mm3 (0.9-3.2) H 03/15/25 19:56 Abs Immat Gran (auto) 0.17 K/mm3 (0.00-0.031) H 03/15/25 19:56 ABG pH 7.204 (7.350-7.450) L* 03/15/25 21:13 ABG pCO2 57.5 mmHg (35.0-45.0) H 03/15/25 21:13 ABG pO2 72.0 mmHg (80.0-100.0) L 03/15/25 21:13 ABG O2 Saturation 90.6 % (95.0-100.0) L 03/15/25 21:13 ABG O2 Content 13.8 %vol (16.0-22.0) L 03/15/25 21:13 Oxyhemoglobin 88.0 % THb (90.0-100.0) L 03/15/25 21:13 Total Hemoglobin 11.1 g/dL (12.0-18.0) L 03/15/25 21:13 Carbon Dioxide 21 mmol/L (22-30) L 03/15/25 19:56 Anion Gap 17 mmol/L (4-12) H 03/15/25 19:56 BUN 25 mg/dL (9-20) H 03/15/25 19:56 Creatinine 1.34 mg/dL (0.7-1.3) H 03/15/25 19:56 Estimated GFR 51 (59-) L 03/15/25 19:56 Glucose 283 mg/dL (65-110) H 03/15/25 19:56 Lactic Acid 5.4 mmol/L (0.7-2.0) H* 03/15/25 21:30 AST 104 U/L (17-59) H 03/15/25 19:56 ALT 52 U/L (6-50) H 03/15/25 19:56 Alkaline Phosphatase 138 U/L (38-126) H 03/15/25 19:56 NT-Pro-B Natriuret Pep 3080 pg/mL (19.9-100) H 03/15/25 19:56 Urine Protein 2+ mg/dL (Negative) H 03/15/25 21:30 Urine RBC 6-10 /hpf (0-2) H 03/15/25 21:30
--- NOTE | 2025-03-15 23:40 | WPCEDHO ---
ED Hand Off Checklist All vitals saved:y IV Site documented:y All med administrations documented:y Triage Note Triage Note Pt to ED arrived via EMS, post 03/15/25 19:31 cardiac arrest. Per EMS pt was chocking on food when he went into asystole, gave 2 rounds of EP and achieved ROSC. Upon ED arrival pt intubated with 7 ET tube, oSPO2 61%, BP , HR 95 . Allergies No Known Allergies Allergy (Verified 01/18/25 09:19) Family History (Last Reviewed 01/18/25 @ 09:20 by Isamar Rodriguez MA) Sibling Patient's sister is in good health Father Family history of Alzheimer's disease Active Medications including assessments/comments Fentanyl Citrate (Fentanyl 2,500 Mcg/Ns 250 Ml) 2,500 mcg in 250 mls @ 17.5 mls/hr IV CONT .[id number] [facility]; Protocol Last Titration: 03/15/25 21:15 Dose: 175 mcg/hr, 17.5 mls/hr Documented By: EZG Infusion/Titration Document 03/15/25 21:15 EZG (Rec: 03/15/25 21:16 EZG [id number]) Intake IV Site Peripheral Access Left Forearm Intake 2.7 Cumulative Intake ( 6.5 bag) Cumulative Intake ( 6.5 Rx) Container Volume 243.5 Waste Amount 0 Dosing Dose Rate 175 Infusion Rate 17.5 Cumulative Dose 65 Increase/Decrease Increased Elapsed Time Elapsed Time ( 53m minutes) Fentanyl Infusion Assessment Document 03/15/25 21:15 EZG (Rec: 03/15/25 21:16 EZG [id number]) Infusion Action Fentanyl Infusion Titrated/Rate Changed Action Pulse Pulse Rate (60-100 104 H beats/min) Respirations Respiratory Rate (12 19 -20 breaths/min) Priest Agitation/Sedation Scale (RASS) Priest Agitation/ Agitated/ +2 Sedation Scale (RASS ) Titration: 03/15/25 21:02 Dose: 125 mcg/hr, 12.5 mls/hr Documented By: EZG Infusion/Titration Document 03/15/25 21:02 EZG (Rec: 03/15/25 21:09 EZG [id number]) Intake IV Site Peripheral Access Left Forearm Intake 3.2 Cumulative Intake ( 3.8 bag) Cumulative Intake ( 3.8 Rx) Container Volume 246.2 Waste Amount 0 Dosing Dose Rate 125 Infusion Rate 12.5 Cumulative Dose 38 Increase/Decrease Increased Elapsed Time Elapsed Time ( 40m minutes) Fentanyl Infusion Assessment Document 03/15/25 21:02 EZG (Rec: 03/15/25 21:09 EZG [id number]) Infusion Action Fentanyl Infusion Titrated/Rate Changed Action Pulse Pulse Rate (60-100 105 H beats/min) Respirations Respiratory Rate (12 23 H -20 breaths/min) Priest Agitation/Sedation Scale (RASS) Priest Agitation/ Agitated/ +2 Sedation Scale (RASS ) Titration: 03/15/25 20:36 Dose: 75 mcg/hr, 7.5 mls/hr Documented By: MARY Infusion/Titration Document 03/15/25 20:36 EZG (Rec: 03/15/25 20:38 EZG [id number]) Intake IV Site Peripheral Access Left Forearm Intake 0.6 Cumulative Intake ( 0.6 bag) Cumulative Intake ( 0.6 Rx) Container Volume 249.4 Waste Amount 0 Dosing Dose Rate 75 Infusion Rate 7.5 Cumulative Dose 6 Increase/Decrease Increased Elapsed Time Elapsed Time ( 14m minutes) Fentanyl Infusion Assessment Document 03/15/25 20:36 EZG (Rec: 03/15/25 20:38 EZG [id number]) Infusion Action Fentanyl Infusion Titrated/Rate Changed Action Pulse Pulse Rate (60-100 109 H beats/min) Respirations Respiratory Rate (12 23 H -20 breaths/min) Priest Agitation/Sedation Scale (RASS) Priest Agitation/ Restless/ +1 Sedation Scale (RASS ) Admin: 03/15/25 20:22 Dose: 25 mcg/hr, 2.5 mls/hr Documented By: MARY Co-signed By: RAYMON Infusion/Titration Document 03/15/25 20:22 EZCarroll (Rec: 03/15/25 20:23 EZG [id number]) Co-signed By Brianda Muniz RN Intake IV Site Peripheral Access Left Forearm Container Volume 250 Waste Amount 0 Dosing Dose Rate 25 Infusion Rate 2.5 Increase/Decrease Started Elapsed Time Elapsed Time ( 0m minutes) Fentanyl Infusion Assessment Document 03/15/25 20:22 MARY (Rec: 03/15/25 20:23 EZG [id number]) Co-signed By Brianda Muniz RN Infusion Action Fentanyl Infusion Initiated Action Pulse Pulse Rate (60-100 109 H beats/min) Respirations Respiratory Rate (12 19 -20 breaths/min) Priest Agitation/Sedation Scale (RASS) Priest Agitation/ Restless/ +1 Sedation Scale (RASS ) Midazolam HCl (Versed 100 Mg/Ns 100 Ml) 100 mg in 100 mls @ 2 mls/hr IV CONT .Q50H [facility]; Protocol Last Titration: 03/15/25 21:50 Dose: 2 mg/hr, 2 mls/hr Documented By: EZG Infusion/Titration Document 03/15/25 21:50 EZG (Rec: 03/15/25 22:08 EZG [id number]) Intake IV Site Peripheral Access Right Antecubital Intake 0.5 Cumulative Intake ( 1.7 bag) Cumulative Intake ( 2.8 Rx) Container Volume 98.3 Waste Amount 0 Dosing Dose Rate 2 Infusion Rate 2 Cumulative Dose 2.8 Increase/Decrease Decreased Elapsed Time Elapsed Time ( 55m minutes) Versed Infusion Assessment Document 03/15/25 21:50 EZG (Rec: 03/15/25 22:08 EZG [id number]) Infusion Action Versed Infusion Titrated/Rate Changed Action Pulse Pulse Rate (60-100 108 H beats/min) Respirations Respiratory Rate (12 22 H -20 breaths/min) Priest Agitation/Sedation Scale (RASS) Priest Agitation/ Drowsy/ -1 Sedation Scale (RASS ) Titration: 03/15/25 21:40 Dose: 3 mg/hr, 3 mls/hr Documented By: EZG Infusion/Titration Document 03/15/25 21:40 EZG (Rec: 03/15/25 21:47 EZG [id number]) Intake IV Site Peripheral Access Right Antecubital Intake 0.7 Cumulative Intake ( 1.2 bag) Cumulative Intake ( 2.3 Rx) Container Volume 98.8 Waste Amount 0 Dosing Dose Rate 3 Infusion Rate 3 Cumulative Dose 2.3 Increase/Decrease Decreased Elapsed Time Elapsed Time ( 45m minutes) Versed Infusion Assessment Document 03/15/25 21:40 EZG (Rec: 03/15/25 21:47 EZG [id number]) Infusion Action Versed Infusion Titrated/Rate Changed Action Pulse Pulse Rate (60-100 103 H beats/min) Respirations Respiratory Rate (12 16 -20 breaths/min) Priest Agitation/Sedation Scale (RASS) Priest Agitation/ Drowsy/ -1 Sedation Scale (RASS ) Titration: 03/15/25 21:30 Dose: 4 mg/hr, 4 mls/hr Documented By: EZG Infusion/Titration Document 03/15/25 21:30 EZG (Rec: 03/15/25 21:32 EZG [id number]) Intake IV Site Peripheral Access Right Antecubital Intake 0.5 Cumulative Intake ( 0.5 bag) Cumulative Intake ( 1.6 Rx) Container Volume 99.5 Waste Amount 0 Dosing Dose Rate 4 Infusion Rate 4 Cumulative Dose 1.6 Increase/Decrease Increased Elapsed Time Elapsed Time ( 35m minutes) Versed Infusion Assessment Document 03/15/25 21:30 EZG (Rec: 03/15/25 21:32 EZG [id number]) Infusion Action Versed Infusion Titrated/Rate Changed Action Pulse Pulse Rate (60-100 104 H beats/min) Respirations Respiratory Rate (12 22 H -20 breaths/min) Priest Agitation/Sedation Scale (RASS) Priest Agitation/ Drowsy/ -1 Sedation Scale (RASS ) Admin: 03/15/25 21:21 Dose: 3 mg/hr, 3 mls/hr Documented By: EZG Infusion/Titration Document 03/15/25 21:21 EZG (Rec: 03/15/25 21:22 EZG [id number]) Intake IV Site Peripheral Access Right Antecubital Cumulative Intake ( 1.1 Rx) Container Volume 100 Waste Amount 0 Dosing Dose Rate 3 Infusion Rate 3 Cumulative Dose 1.1 Increase/Decrease Started/Decreased Elapsed Time Elapsed Time ( 26m minutes) Versed Infusion Assessment Document 03/15/25 21:21 EZG (Rec: 03/15/25 21:22 EZG [id number]) Infusion Action Versed Infusion No Rate Change Action Pulse Pulse Rate (60-100 108 H beats/min) Respirations Respiratory Rate (12 19 -20 breaths/min) Priest Agitation/Sedation Scale (RASS) Priest Agitation/ Agitated/ +2 Sedation Scale (RASS ) Titration: 03/15/25 21:21 Dose: Infused Documented By: EZG Infusion/Titration Document 03/15/25 21:21 EZG (Rec: 03/15/25 21:22 EZG [id number]) Intake IV Site Peripheral Access Right Antecubital Intake 1 Cumulative Intake ( 1.1 bag) Cumulative Intake ( 1.1 Rx) Container Volume 0 Waste Amount 98.9 Dosing Dose Rate 5 Infusion Rate 5 Cumulative Dose 1.1 Increase/Decrease Infused Elapsed Time Elapsed Time ( 26m minutes) Versed Infusion Assessment Document 03/15/25 21:21 EZG (Rec: 03/15/25 21:22 EZG [id number]) Infusion Action Versed Infusion Titrated/Rate Changed Action Pulse Pulse Rate (60-100 108 H beats/min) Respirations Respiratory Rate (12 19 -20 breaths/min) Priest Agitation/Sedation Scale (RASS) Priest Agitation/ Agitated/ +2 Sedation Scale (RASS ) Titration: 03/15/25 21:02 Dose: 3 mg/hr, 3 mls/hr Documented By: MARY Infusion/Titration Document 03/15/25 21:02 EZG (Rec: 03/15/25 21:09 EZG [id number]) Intake IV Site Peripheral Access Left Forearm Intake 0.1 Cumulative Intake ( 0.1 bag) Cumulative Intake ( 0.1 Rx) Container Volume 99.9 Waste Amount 0 Dosing Dose Rate 3 Infusion Rate 3 Cumulative Dose 0.1 Increase/Decrease Increased Elapsed Time Elapsed Time ( 7m minutes) Versed Infusion Assessment Document 03/15/25 21:02 EZG (Rec: 03/15/25 21:09 EZG [id number]) Infusion Action Versed Infusion No Rate Change Action Pulse Pulse Rate (60-100 108 H beats/min) Respirations Respiratory Rate (12 18 -20 breaths/min) Priest Agitation/Sedation Scale (RASS) Priest Agitation/ Agitated/ +2 Sedation Scale (RASS ) Admin: 03/15/25 20:55 Dose: 1 mg/hr, 1 mls/hr Documented By: MARY Co-signed By: HENNY Infusion/Titration Document 03/15/25 20:55 EZG (Rec: 03/15/25 20:56 EZG [id number]) Co-signed By Jackie Tuttle RN Intake IV Site Peripheral Access Left Forearm Container Volume 100 Waste Amount 0 Dosing Dose Rate 1 Infusion Rate 1 Increase/Decrease Started Elapsed Time Elapsed Time ( 0m minutes) Versed Infusion Assessment Document 03/15/25 20:55 EZCarroll (Rec: 03/15/25 20:56 EZG [id number]) Co-signed By Jackie Tuttle RN Infusion Action Versed Infusion Initiated Action Pulse Pulse Rate (60-100 107 H beats/min) Respirations Respiratory Rate (12 18 -20 breaths/min) Priest Agitation/Sedation Scale (RASS) Priest Agitation/ Restless/ +1 Sedation Scale (RASS ) Norepinephrine Bitartrate (Levophed 8 Mg/D5w 250 Ml) 8 mg in 250 mls @ 28.125 mls/hr IV CONT .Q8H54M [facility]; Protocol Last Admin: 03/15/25 23:28 Dose: 15 mcg/min, 28.13 mls/hr Documented By: EZG Infusion/Titration Document 03/15/25 23:28 EZG (Rec: 03/15/25 23:31 EZG [id number]) Intake IV Site Peripheral Access Left Medial Forearm Cumulative Intake ( 14.1 Rx) Container Volume 250 Waste Amount 0 Dosing Dose Rate 15 Infusion Rate 28.13 Cumulative Dose 0.4512 Increase/Decrease Started/Running Elapsed Time Elapsed Time ( 53m minutes) Norepinephrine Infusion Assess Document 03/15/25 23:28 EZG (Rec: 03/15/25 23:31 EZG [id number]) Infusion Action Norepinephrine Titrated/Rate Changed Infusion Action Pulse Pulse Rate (60-100 102 H beats/min) Blood Pressure Blood Pressure (100/ 73/55 L 60-140/90 mmHg) Blood Pressure Mean 61 (mmHg) Titration: 03/15/25 23:10 Dose: Infused Documented By: EZG Infusion/Titration Document 03/15/25 23:10 EZG (Rec: 03/15/25 23:31 EZG [id number]) Intake IV Site Peripheral Access Left Medial Forearm Intake 7.5 Cumulative Intake ( 14.1 bag) Cumulative Intake ( 14.1 Rx) Container Volume 0 Waste Amount 235.9 Dosing Dose Rate 15 Infusion Rate 28.13 Cumulative Dose 0.4512 Increase/Decrease Infused Elapsed Time Elapsed Time ( 53m minutes) Norepinephrine Infusion Assess Document 03/15/25 23:10 EZG (Rec: 03/15/25 23:31 EZG [id number]) Infusion Action Norepinephrine Titrated/Rate Changed Infusion Action Pulse Pulse Rate (60-100 102 H beats/min) Blood Pressure Blood Pressure (100/ 73/55 L 60-140/90 mmHg) Blood Pressure Mean 61 (mmHg) Titration: 03/15/25 22:46 Dose: 10 mcg/min, 18.75 mls/hr Documented By: EZG Infusion/Titration Document 03/15/25 22:46 EZG (Rec: 03/15/25 22:48 EZG [id number]) Intake IV Site Peripheral Access Left Medial Forearm Intake 5.3 Cumulative Intake ( 6.6 bag) Cumulative Intake ( 6.6 Rx) Container Volume 243.4 Waste Amount 0 Dosing Dose Rate 10 Infusion Rate 18.75 Cumulative Dose 0.2112 Increase/Decrease Increased Elapsed Time Elapsed Time ( 29m minutes) Norepinephrine Infusion Assess Document 03/15/25 22:46 EZG (Rec: 03/15/25 22:48 EZG [id number]) Infusion Action Norepinephrine Titrated/Rate Changed Infusion Action Pulse Pulse Rate (60-100 99 beats/min) Blood Pressure Blood Pressure (100/ 77/53 L 60-140/90 mmHg) Blood Pressure Mean 61 (mmHg) Titration: 03/15/25: Dose: 8 mcg/min, 15 mls/hr Documented By: EZG Infusion/Titration Document 03/15/25 22:25 EZG (Rec: 03/15/25 22:27 EZG [id number]) Intake IV Site Peripheral Access Left Medial Forearm Intake 1.3 Cumulative Intake ( 1.3 bag) Cumulative Intake ( 1.3 Rx) Container Volume 248.7 Waste Amount 0 Dosing Dose Rate 8 Infusion Rate 15 Cumulative Dose 0.0416 Increase/Decrease Increased Elapsed Time Elapsed Time ( 8m minutes) Norepinephrine Infusion Assess Document 03/15/25:25 EZG (Rec: 03/15/25 22:27 EZG [id number]) Infusion Action Norepinephrine Titrated/Rate Changed Infusion Action Pulse Pulse Rate (60-100 108 H beats/min) Blood Pressure Blood Pressure (100/ 57/49 L 60-140/90 mmHg) Blood Pressure Mean 51 (mmHg) Admin: 03/15/25: Dose: 5 mcg/min, 9.38 mls/hr Documented By: EZG Infusion/Titration Document 03/15/25 22:17 EZG (Rec: 03/15/25 22: EZG [id number]) Intake IV Site Peripheral Access Left Medial Forearm Container Volume 250 Waste Amount 0 Dosing Dose Rate 5 Infusion Rate 9.38 Increase/Decrease Started Elapsed Time Elapsed Time ( 0m minutes) Norepinephrine Infusion Assess Document 03/15/25 22:17 EZG (Rec: 03/15/25 22:21 EZG [id number]) Infusion Action Norepinephrine Initiated Infusion Action Pulse Pulse Rate (60-100 109 H beats/min) Blood Pressure Blood Pressure (100/ 69/48 L 60-140/90 mmHg) Blood Pressure Mean 55 (mmHg) Administered/Completed Medications Discontinued Medications Sodium Chloride (Normal Saline Iv) 500 mls @ 999 mls/hr IV CONT .Q31M STA Stop: 03/15/25 21:08 Last Infusion: 03/15/25 22:09 Dose: Infused Documented By: Admin: 03/15/25 21:25 Dose: 999 mls/hr Documented By: MARY Azithromycin 500 mg/ Sodium (Chloride) 250 mls @ 250 mls/hr IVPB ONCE ONE Stop: 03/15/25 22:12 Last Infusion: 03/15/25 23:32 Dose: Infused Documented By: Admin: 03/15/25 21:48 Dose: 250 mls/hr Documented By: MARY Cefepime HCl 1 gm/ Sodium (Chloride) 50 mls @ 100 mls/hr IVPB ONCE STA Stop: 03/15/25 21:42 Last Infusion: 03/15/25 22:08 Dose: Infused Documented By: Admin: 03/15/25 21:33 Dose: 100 mls/hr Documented By: MARY Sodium Bicarbonate (Sodium Bicarbonate 8.4% 50 Meq/50 Ml Syringe) 50 meq IV PUSH ONCE STA Stop: 03/15/25 21:45 Last Admin: 03/15/25 21:53 Dose: 50 meq Documented By: MARY Notes 03/15/25 23:37 (created 03/15/25 23:36) ED Hand Off by Lyndsay Holloway ED Hand Off Checklist All vitals saved:yes IV Site documented:yes All med administrations documented:yes Triage Note Triage Note Pt to ED arrived via EMS, post 03/15/25 19:31 cardiac arrest. Per EMS pt was chocking on food when he went into asystole, gave 2 rounds of EP and achieved ROSC. Upon ED arrival pt intubated with 7 ET tube, oSPO2 61%, BP , HR 95 . Allergies No Known Allergies Allergy (Verified 01/18/25 09:19) Family History (Last Reviewed 01/18/25 @ 09:20 by Isamar Rodriguez MA) Sibling Patient's sister is in good health Father Family history of Alzheimer's disease Active Medications including assessments/comments Fentanyl Citrate (Fentanyl 2,500 Mcg/Ns 250 Ml) 2,500 mcg in 250 mls @ 17.5 mls/hr IV CONT .[id number] [facility]; Protocol Last Titration: 03/15/25 21:15 Dose: 175 mcg/hr, 17.5 mls/hr Documented By: EZG Infusion/Titration Document 03/15/25 21:15 EZG (Rec: 03/15/25 21:16 EZG [id number]) Intake IV Site Peripheral Access Left Forearm Intake 2.7 Cumulative Intake ( 6.5 bag) Cumulative Intake ( 6.5 Rx) Container Volume 243.5 Waste Amount 0 Dosing Dose Rate 175 Infusion Rate 17.5 Cumulative Dose 65 Increase/Decrease Increased Elapsed Time Elapsed Time ( 53m minutes) Fentanyl Infusion Assessment Document 03/15/25 21:15 EZG (Rec: 03/15/25 21:16 EZG [id number]) Infusion Action Fentanyl Infusion Titrated/Rate Changed Action Pulse Pulse Rate (60-100 104 H beats/min) Respirations Respiratory Rate (12 19 -20 breaths/min) Priest Agitation/Sedation Scale (RASS) Priest Agitation/ Agitated/ +2 Sedation Scale (RASS ) Titration: 03/15/25 21:02 Dose: 125 mcg/hr, 12.5 mls/hr Documented By: EZG Infusion/Titration Document 03/15/25 21:02 EZG (Rec: 03/15/25 21:09 EZG [id number]) Intake IV Site Peripheral Access Left Forearm Intake 3.2 Cumulative Intake ( 3.8 bag) Cumulative Intake ( 3.8 Rx) Container Volume 246.2 Waste Amount 0 Dosing Dose Rate 125 Infusion Rate 12.5 Cumulative Dose 38 Increase/Decrease Increased Elapsed Time Elapsed Time ( 40m minutes) Fentanyl Infusion Assessment Document 03/15/25 21:02 EZG (Rec: 03/15/25 21:09 EZG [id number]) Infusion Action Fentanyl Infusion Titrated/Rate Changed Action Pulse Pulse Rate (60-100 105 H beats/min) Respirations Respiratory Rate (12 23 H -20 breaths/min) Priest Agitation/Sedation Scale (RASS) Priest Agitation/ Agitated/ +2 Sedation Scale (RASS ) Titration: 03/15/25 20:36 Dose: 75 mcg/hr, 7.5 mls/hr Documented By: EZG Infusion/Titration Document 03/15/25 20:36 EZG (Rec: 03/15/25 20:38 EZG [id number]) Intake IV Site Peripheral Access Left Forearm Intake 0.6 Cumulative Intake ( 0.6 bag) Cumulative Intake ( 0.6 Rx) Container Volume 249.4 Waste Amount 0 Dosing Dose Rate 75 Infusion Rate 7.5 Cumulative Dose 6 Increase/Decrease Increased Elapsed Time Elapsed Time ( 14m minutes) Fentanyl Infusion Assessment Document 03/15/25 20:36 EZG (Rec: 03/15/25 20:38 EZG [id number]) Infusion Action Fentanyl Infusion Titrated/Rate Changed Action Pulse Pulse Rate (60-100 109 H beats/min) Respirations Respiratory Rate (12 23 H -20 breaths/min) Priest Agitation/Sedation Scale (RASS) Priest Agitation/ Restless/ +1 Sedation Scale (RASS ) Admin: 03/15/25 20:22 Dose: 25 mcg/hr, 2.5 mls/hr Documented By: MARY Co-signed By: RAYMON Infusion/Titration Document 03/15/25 20:22 EZG (Rec: 03/15/25 20:23 EZG [id number]) Co-signed By Brianda Muniz RN Intake IV Site Peripheral Access Left Forearm Container Volume 250 Waste Amount 0 Dosing Dose Rate 25 Infusion Rate 2.5 Increase/Decrease Started Elapsed Time Elapsed Time ( 0m minutes) Fentanyl Infusion Assessment Document 03/15/25 20:22 EZG (Rec: 03/15/25 20:23 EZG [id number]) Co-signed By Brianda Muniz RN Infusion Action Fentanyl Infusion Initiated Action Pulse Pulse Rate (60-100 109 H beats/min) Respirations Respiratory Rate (12 19 -20 breaths/min) Priest Agitation/Sedation Scale (RASS) Priest Agitation/ Restless/ +1 Sedation Scale (RASS ) Midazolam HCl (Versed 100 Mg/Ns 100 Ml) 100 mg in 100 mls @ 2 mls/hr IV CONT .Q50H [facility]; Protocol Last Titration: 03/15/25 21:50 Dose: 2 mg/hr, 2 mls/hr Documented By: EZG Infusion/Titration Document 03/15/25 21:50 EZG (Rec: 03/15/25 22:08 EZG [id number]) Intake IV Site Peripheral Access Right Antecubital Intake 0.5 Cumulative Intake ( 1.7 bag) Cumulative Intake ( 2.8 Rx) Container Volume 98.3 Waste Amount 0 Dosing Dose Rate 2 Infusion Rate 2 Cumulative Dose 2.8 Increase/Decrease Decreased Elapsed Time Elapsed Time ( 55m minutes) Versed Infusion Assessment Document 03/15/25 21:50 EZG (Rec: 03/15/25 22:08 EZG [id number]) Infusion Action Versed Infusion Titrated/Rate Changed Action Pulse Pulse Rate (60-100 108 H beats/min) Respirations Respiratory Rate (12 22 H -20 breaths/min) Priest Agitation/Sedation Scale (RASS) Priest Agitation/ Drowsy/ -1 Sedation Scale (RASS ) Titration: 03/15/25 21:40 Dose: 3 mg/hr, 3 mls/hr Documented By: EZG Infusion/Titration Document 03/15/25 21:40 EZG (Rec: 03/15/25 21:47 EZG [id number]) Intake IV Site Peripheral Access Right Antecubital Intake 0.7 Cumulative Intake ( 1.2 bag) Cumulative Intake ( 2.3 Rx) Container Volume 98.8 Waste Amount 0 Dosing Dose Rate 3 Infusion Rate 3 Cumulative Dose 2.3 Increase/Decrease Decreased Elapsed Time Elapsed Time ( 45m minutes) Versed Infusion Assessment Document 03/15/25 21:40 EZG (Rec: 03/15/25 21:47 EZG [id number]) Infusion Action Versed Infusion Titrated/Rate Changed Action Pulse Pulse Rate (60-100 103 H beats/min) Respirations Respiratory Rate (12 16 -20 breaths/min) Priest Agitation/Sedation Scale (RASS) Priest Agitation/ Drowsy/ -1 Sedation Scale (RASS ) Titration: 03/15/25 21:30 Dose: 4 mg/hr, 4 mls/hr Documented By: EZG Infusion/Titration Document 03/15/25 21:30 EZG (Rec: 03/15/25 21:32 EZG [id number]) Intake IV Site Peripheral Access Right Antecubital Intake 0.5 Cumulative Intake ( 0.5 bag) Cumulative Intake ( 1.6 Rx) Container Volume 99.5 Waste Amount 0 Dosing Dose Rate 4 Infusion Rate 4 Cumulative Dose 1.6 Increase/Decrease Increased Elapsed Time Elapsed Time ( 35m minutes) Versed Infusion Assessment Document 03/15/25 21:30 EZG (Rec: 03/15/25 21:32 EZG [id number]) Infusion Action Versed Infusion Titrated/Rate Changed Action Pulse Pulse Rate (60-100 104 H beats/min) Respirations Respiratory Rate (12 22 H -20 breaths/min) Priest Agitation/Sedation Scale (RASS) Priest Agitation/ Drowsy/ -1 Sedation Scale (RASS ) Admin: 03/15/25 21:21 Dose: 3 mg/hr, 3 mls/hr Documented By: EZG Infusion/Titration Document 03/15/25 21:21 EZG (Rec: 03/15/25 21:22 EZG [id number]) Intake IV Site Peripheral Access Right Antecubital Cumulative Intake ( 1.1 Rx) Container Volume 100 Waste Amount 0 Dosing Dose Rate 3 Infusion Rate 3 Cumulative Dose 1.1 Increase/Decrease Started/Decreased Elapsed Time Elapsed Time ( 26m minutes) Versed Infusion Assessment Document 03/15/25 21:21 EZG (Rec: 03/15/25 21:22 EZG [id number]) Infusion Action Versed Infusion No Rate Change Action Pulse Pulse Rate (60-100 108 H beats/min) Respirations Respiratory Rate (12 19 -20 breaths/min) Priest Agitation/Sedation Scale (RASS) Priest Agitation/ Agitated/ +2 Sedation Scale (RASS ) Titration: 03/15/25 21:21 Dose: Infused Documented By: EZG Infusion/Titration Document 03/15/25 21:21 EZG (Rec: 03/15/25 21:22 EZG [id number]) Intake IV Site Peripheral Access Right Antecubital Intake 1 Cumulative Intake ( 1.1 bag) Cumulative Intake ( 1.1 Rx) Container Volume 0 Waste Amount 98.9 Dosing Dose Rate 5 Infusion Rate 5 Cumulative Dose 1.1 Increase/Decrease Infused Elapsed Time Elapsed Time ( 26m minutes) Versed Infusion Assessment Document 03/15/25 21:21 EZG (Rec: 03/15/25 21:22 EZG [id number]) Infusion Action Versed Infusion Titrated/Rate Changed Action Pulse Pulse Rate (60-100 108 H beats/min) Respirations Respiratory Rate (12 19 -20 breaths/min) Priest Agitation/Sedation Scale (RASS) Priest Agitation/ Agitated/ +2 Sedation Scale (RASS ) Titration: 03/15/25 21:02 Dose: 3 mg/hr, 3 mls/hr Documented By: EZG Infusion/Titration Document 03/15/25 21:02 EZG (Rec: 03/15/25 21:09 EZG [id number]) Intake IV Site Peripheral Access Left Forearm Intake 0.1 Cumulative Intake ( 0.1 bag) Cumulative Intake ( 0.1 Rx) Container Volume 99.9 Waste Amount 0 Dosing Dose Rate 3 Infusion Rate 3 Cumulative Dose 0.1 Increase/Decrease Increased Elapsed Time Elapsed Time ( 7m minutes) Versed Infusion Assessment Document 03/15/25 21:02 EZG (Rec: 03/15/25 21:09 EZG [id number]) Infusion Action Versed Infusion No Rate Change Action Pulse Pulse Rate (60-100 108 H beats/min) Respirations Respiratory Rate (12 18 -20 breaths/min) Priest Agitation/Sedation Scale (RASS) Priest Agitation/ Agitated/ +2 Sedation Scale (RASS ) Admin: 03/15/25 20:55 Dose: 1 mg/hr, 1 mls/hr Documented By: MARY Co-signed By: AMI Infusion/Titration Document 03/15/25 20:55 EZG (Rec: 03/15/25 20:56 EZG [id number]) Co-signed By Jackie Tuttle RN Intake IV Site Peripheral Access Left Forearm Container Volume 100 Waste Amount 0 Dosing Dose Rate 1 Infusion Rate 1 Increase/Decrease Started Elapsed Time Elapsed Time ( 0m minutes) Versed Infusion Assessment Document 03/15/25 20:55 EZG (Rec: 03/15/25 20:56 EZG [id number]) Co-signed By Jackie Tuttle RN Infusion Action Versed Infusion Initiated Action Pulse Pulse Rate (60-100 107 H beats/min) Respirations Respiratory Rate (12 18 -20 breaths/min) Priest Agitation/Sedation Scale (RASS) Priest Agitation/ Restless/ +1 Sedation Scale (RASS ) Norepinephrine Bitartrate (Levophed 8 Mg/D5w 250 Ml) 8 mg in 250 mls @ 18.75 mls/hr IV CONT .[id number] [facility]; Protocol Last Admin: 03/15/25 23:28 Dose: 15 mcg/min, 28.13 mls/hr Documented By: EZG Infusion/Titration Document 03/15/25 23:28 EZG (Rec: 03/15/25 23:31 EZG [id number]) Intake IV Site Peripheral Access Left Medial Forearm Cumulative Intake ( 14.1 Rx) Container Volume 250 Waste Amount 0 Dosing Dose Rate 15 Infusion Rate 28.13 Cumulative Dose 0.4512 Increase/Decrease Started/Running Elapsed Time Elapsed Time ( 53m minutes) Norepinephrine Infusion Assess Document 03/15/25 23:28 EZG (Rec: 03/15/25 23:31 EZG [id number]) Infusion Action Norepinephrine Titrated/Rate Changed Infusion Action Pulse Pulse Rate (60-100 102 H beats/min) Blood Pressure Blood Pressure (100/ 73/55 L 60-140/90 mmHg) Blood Pressure Mean 61 (mmHg) Titration: 03/15/25 23:10 Dose: Infused Documented By: EZG Infusion/Titration Document 03/15/25 23:10 EZG (Rec: 03/15/25 23:31 EZG [id number]) Intake IV Site Peripheral Access Left Medial Forearm Intake 7.5 Cumulative Intake ( 14.1 bag) Cumulative Intake ( 14.1 Rx) Container Volume 0 Waste Amount 235.9 Dosing Dose Rate 15 Infusion Rate 28.13 Cumulative Dose 0.4512 Increase/Decrease Infused Elapsed Time Elapsed Time ( 53m minutes) Norepinephrine Infusion Assess Document 03/15/25 23:10 EZG (Rec: 03/15/25 23:31 EZG [id number]) Infusion Action Norepinephrine Titrated/Rate Changed Infusion Action Pulse Pulse Rate (60-100 102 H beats/min) Blood Pressure Blood Pressure (100/ 73/55 L 60-140/90 mmHg) Blood Pressure Mean 61 (mmHg) Titration: 03/15/25 22:46 Dose: 10 mcg/min, 18.75 mls/hr Documented By: EZG Infusion/Titration Document 03/15/25 22:46 EZG (Rec: 03/15/25 22:48 EZG [id number]) Intake IV Site Peripheral Access Left Medial Forearm Intake 5.3 Cumulative Intake ( 6.6 bag) Cumulative Intake ( 6.6 Rx) Container Volume 243.4 Waste Amount 0 Dosing Dose Rate 10 Infusion Rate 18.75 Cumulative Dose 0.2112 Increase/Decrease Increased Elapsed Time Elapsed Time ( 29m minutes) Norepinephrine Infusion Assess Document 03/15/25 22:46 EZG (Rec: 03/15/25 22:48 EZG [id number]) Infusion Action Norepinephrine Titrated/Rate Changed Infusion Action Pulse Pulse Rate (60-100 99 beats/min) Blood Pressure Blood Pressure (100/ 77/53 L 60-140/90 mmHg) Blood Pressure Mean 61 (mmHg) Titration: 03/15/25: Dose: 8 mcg/min, 15 mls/hr Documented By: MARY Infusion/Titration Document 03/15/25 22:25 EZG (Rec: 03/15/25 22:27 EZG [id number]) Intake IV Site Peripheral Access Left Medial Forearm Intake 1.3 Cumulative Intake ( 1.3 bag) Cumulative Intake ( 1.3 Rx) Container Volume 248.7 Waste Amount 0 Dosing Dose Rate 8 Infusion Rate 15 Cumulative Dose 0.0416 Increase/Decrease Increased Elapsed Time Elapsed Time ( 8m minutes) Norepinephrine Infusion Assess Document 03/15/25 22:25 EZG (Rec: 03/15/25 22:27 EZG [id number]) Infusion Action Norepinephrine Titrated/Rate Changed Infusion Action Pulse Pulse Rate (60-100 108 H beats/min) Blood Pressure Blood Pressure (100/ 57/49 L 60-140/90 mmHg) Blood Pressure Mean 51 (mmHg) Admin: 03/15/25 22:17 Dose: 5 mcg/min, 9.38 mls/hr Documented By: MARY Infusion/Titration Document 03/15/25 22:17 EZG (Rec: 03/15/25 22:21 EZG [id number]) Intake IV Site Peripheral Access Left Medial Forearm Container Volume 250 Waste Amount 0 Dosing Dose Rate 5 Infusion Rate 9.38 Increase/Decrease Started Elapsed Time Elapsed Time ( 0m minutes) Norepinephrine Infusion Assess Document 03/15/25 22:17 EZG (Rec: 03/15/25 22:21 EZG [id number]) Infusion Action Norepinephrine Initiated Infusion Action Pulse Pulse Rate (60-100 109 H beats/min) Blood Pressure Blood Pressure (100/ 69/48 L 60-140/90 mmHg) Blood Pressure Mean 55 (mmHg) Administered/Completed Medications Discontinued Medications Sodium Chloride (Normal Saline Iv) 500 mls @ 999 mls/hr IV CONT .Q31M STA Stop: 03/15/25 21:08 Last Infusion: 03/15/25 22:09 Dose: Infused Documented By: Admin: 03/15/25: Dose: 999 mls/hr Documented By: MARY Azithromycin 500 mg/ Sodium (Chloride) 250 mls @ 250 mls/hr IVPB ONCE ONE Stop: 03/15/25 22:12 Last Infusion: 03/15/25 23:32 Dose: Infused Documented By: Admin: 03/15/25 21:48 Dose: 250 mls/hr Documented By: MARY Cefepime HCl 1 gm/ Sodium (Chloride) 50 mls @ 100 mls/hr IVPB ONCE STA Stop: 03/15/25 21:42 Last Infusion: 03/15/25 22:08 Dose: Infused Documented By: Admin: 03/15/25 21:33 Dose: 100 mls/hr Documented By: MARY Sodium Bicarbonate (Sodium Bicarbonate 8.4% 50 Meq/50 Ml Syringe) 50 meq IV PUSH ONCE STA Stop: 03/15/25 21:45 Last Admin: 03/15/25 21:53 Dose: 50 meq Documented By: MARY Notes 03/15/25 20:36 Nurse Note by Lyndsay Holloway Pt placed on alec hugger, core temp 94.2 Initialized on 03/15/25 20:36 - END OF NOTE Interventions/Assessments Cardiac Monitoring Start: 03/15/25 19:30 Freq: Status: Active Protocol: Document 03/15/25 20:07 EZG (Rec: 03/15/25 20:07 EZG [id number]) Biofuels Processing Technician Assessment Biofuels Processing Technician Yes Applied Pulse Rate (60-100 103 H beats/min) IV / Saline Lock, Insert Start: 03/15/25 19:30 Freq: Status: Active Protocol: Document 03/15/25 22:21 EZG (Rec: 03/15/25 22:21 EZG [id number]) IV Assessment Peripheral Access Left Medial Forearm IV Catheter Access Initiated IV Insertion Date 03/15/25 IV Insertion Time 22:21 Catheter Gauge 20 IV Insertion 1 Attempts Ultrasound Used for No Placement IV Site Assessment WNL IV Care and WNL,Dressing Applied, Dated, Timed, and Initialed Maintenance PA: Cardiovascular Assessment Start: 03/15/25 19:30 Freq: Status: Active Protocol: Document 03/15/25 22:48 EZG (Rec: 03/15/25 22:49 EZG [id number]) Cardiovascular Assessment Cardiovascular None Symptoms Skin Description Clammy,Cool PA: Respiratory Assessment Start: 03/15/25 19:30 Freq: Status: Active Protocol: Document 03/15/25 22:11 EZG (Rec: 03/15/25 22:13 EZG [id number]) Respiratory Assessment Effort Manually Ventilated Depth Normal Chest Expansion Symmetrical Adult Capillary Greater than or Equal to 2 Seconds Refill Last Vital Signs Temperature 98.1 F 03/15/25 23:34 Pulse Rate 76 03/15/25 23:34 Respiratory Rate 21 H 03/15/25 23:34 Pulse Oximetry 94 03/15/25 23:34 Blood Pressure 105/61 03/15/25 23:34 Blood Pressure Mean 75 03/15/25 23:34 Blood Pressure Position Supine 03/15/25 23:34 Oxygen Delivery Mechanical Ventilation 03/15/25 21:20 Fraction of Inspired Oxygen 90 03/15/25 21:20 Weight 62.2 kg 03/15/25 19:31 Last Result - Abnormals Only RBC 3.71 M/mm3 (4.6-6.20) L 03/15/25 19:56 Hgb 10.4 g/dL (14.0-18.0) L 03/15/25 19:56 Hct 35.8 % (42.0-52.0) L 03/15/25 19:56 MCHC 29.1 g/dl (32-36) L 03/15/25 19:56 RDW 14.6 % (11.5-14.5) H 03/15/25 19:56 Immature Gran % (Auto) 2.0 % (0-0.5) H 03/15/25 19:56 Neut % (Auto) 36.0 % (45.5-73.1) L 03/15/25 19:56 Lymph % (Auto) 53.9 % (18.3-44.2) H 03/15/25 19:56 Lymph # (Auto) 4.49 K/mm3 (0.9-3.2) H 03/15/25 19:56 Abs Immat Gran (auto) 0.17 K/mm3 (0.00-0.031) H 03/15/25 19:56 ABG pH 7.204 (7.350-7.450) L* 03/15/25 21:13 ABG pCO2 57.5 mmHg (35.0-45.0) H 03/15/25 21:13 ABG pO2 72.0 mmHg (80.0-100.0) L 03/15/25 21:13 ABG O2 Saturation 90.6 % (95.0-100.0) L 03/15/25 21:13 ABG O2 Content 13.8 %vol (16.0-22.0) L 03/15/25 21:13 Oxyhemoglobin 88.0 % THb (90.0-100.0) L 03/15/25 21:13 Total Hemoglobin 11.1 g/dL (12.0-18.0) L 03/15/25 21:13 Carbon Dioxide 21 mmol/L (22-30) L 03/15/25 19:56 Anion Gap 17 mmol/L (4-12) H 03/15/25 19:56 BUN 25 mg/dL (9-20) H 03/15/25 19:56 Creatinine 1.34 mg/dL (0.7-1.3) H 03/15/25 19:56 Estimated GFR 51 (59-) L 03/15/25 19:56 Glucose 283 mg/dL (65-110) H 03/15/25 19:56 Lactic Acid 5.4 mmol/L (0.7-2.0) H* 03/15/25 21:30 AST 104 U/L (17-59) H 03/15/25 19:56 ALT 52 U/L (6-50) H 03/15/25 19:56 Alkaline Phosphatase 138 U/L (38-126) H 03/15/25 19:56 NT-Pro-B Natriuret Pep 3080 pg/mL (19.9-100) H 03/15/25 19:56 Urine Protein 2+ mg/dL (Negative) H 03/15/25 21:30 Urine RBC 6-10 /hpf (0-2) H 03/15/25 21:30 Initialized on 03/15/25 23:36 - END OF NOTE 03/15/25 20:36 Nurse Note by Lyndsay Holloway Pt placed on alec hugger, core temp 94.2 Initialized on 03/15/25 20:36 - END OF NOTE Interventions/Assessments Cardiac Monitoring Start: 03/15/25 19:30 Freq: Status: Active Protocol: Document 03/15/25 20:07 EZG (Rec: 03/15/25 20:07 EZG [id number]) Biofuels Processing Technician Assessment Biofuels Processing Technician Yes Applied Pulse Rate (60-100 103 H beats/min) IV / Saline Lock, Insert Start: 03/15/25 19:30 Freq: Status: Active Protocol: Document 03/15/25 22:21 EZG (Rec: 03/15/25 22:21 EZG [id number]) IV Assessment Peripheral Access Left Medial Forearm IV Catheter Access Initiated IV Insertion Date 03/15/25 IV Insertion Time 22:21 Catheter Gauge 20 IV Insertion 1 Attempts Ultrasound Used for No Placement IV Site Assessment WNL IV Care and WNL,Dressing Applied, Dated, Timed, and Initialed Maintenance PA: Cardiovascular Assessment Start: 03/15/25 19:30 Freq: Status: Active Protocol: Document 03/15/25 22:48 EZG (Rec: 03/15/25 22:49 EZG [id number]) Cardiovascular Assessment Cardiovascular None Symptoms Skin Description Clammy,Cool PA: Respiratory Assessment Start: 03/15/25 19:30 Freq: Status: Active Protocol: Document 03/15/25 22:11 EZG (Rec: 03/15/25 22:13 EZG [id number]) Respiratory Assessment Effort Manually Ventilated Depth Normal Chest Expansion Symmetrical Adult Capillary Greater than or Equal to 2 Seconds Refill Last Vital Signs Temperature 98.1 F 03/15/25 23:34 Pulse Rate 76 03/15/25 23:34 Respiratory Rate 21 H 03/15/25 23:34 Pulse Oximetry 94 03/15/25 23:34 Blood Pressure 105/61 03/15/25 23:34 Blood Pressure Mean 75 03/15/25 23:34 Blood Pressure Position Supine 03/15/25 23:34 Oxygen Delivery Mechanical Ventilation 03/15/25 21:20 Fraction of Inspired Oxygen 90 03/15/25 21:20 Weight 62.2 kg 03/15/25 19:31 Last Result - Abnormals Only RBC 3.71 M/mm3 (4.6-6.20) L 03/15/25 19:56 Hgb 10.4 g/dL (14.0-18.0) L 03/15/25 19:56 Hct 35.8 % (42.0-52.0) L 03/15/25 19:56 MCHC 29.1 g/dl (32-36) L 03/15/25 19:56 RDW 14.6 % (11.5-14.5) H 03/15/25 19:56 Immature Gran % (Auto) 2.0 % (0-0.5) H 03/15/25 19:56 Neut % (Auto) 36.0 % (45.5-73.1) L 03/15/25 19:56 Lymph % (Auto) 53.9 % (18.3-44.2) H 03/15/25 19:56 Lymph # (Auto) 4.49 K/mm3 (0.9-3.2) H 03/15/25 19:56 Abs Immat Gran (auto) 0.17 K/mm3 (0.00-0.031) H 03/15/25 19:56 ABG pH 7.204 (7.350-7.450) L* 03/15/25 21:13 ABG pCO2 57.5 mmHg (35.0-45.0) H 03/15/25 21:13 ABG pO2 72.0 mmHg (80.0-100.0) L 03/15/25 21:13 ABG O2 Saturation 90.6 % (95.0-100.0) L 03/15/25 21:13 ABG O2 Content 13.8 %vol (16.0-22.0) L 03/15/25 21:13 Oxyhemoglobin 88.0 % THb (90.0-100.0) L 03/15/25 21:13 Total Hemoglobin 11.1 g/dL (12.0-18.0) L 03/15/25 21:13 Carbon Dioxide 21 mmol/L (22-30) L 03/15/25 19:56 Anion Gap 17 mmol/L (4-12) H 03/15/25 19:56 BUN 25 mg/dL (9-20) H 03/15/25 19:56 Creatinine 1.34 mg/dL (0.7-1.3) H 03/15/25 19:56 Estimated GFR 51 (59-) L 03/15/25 19:56 Glucose 283 mg/dL (65-110) H 03/15/25 19:56 Lactic Acid 5.4 mmol/L (0.7-2.0) H* 03/15/25 21:30 AST 104 U/L (17-59) H 03/15/25 19:56 ALT 52 U/L (6-50) H 03/15/25 19:56 Alkaline Phosphatase 138 U/L (38-126) H 03/15/25 19:56 NT-Pro-B Natriuret Pep 3080 pg/mL (19.9-100) H 03/15/25 19:56 Urine Protein 2+ mg/dL (Negative) H 03/15/25 21:30 Urine RBC 6-10 /hpf (0-2) H 03/15/25 21:30
[2025-03-16] VITALS (90 sets, daily range): BP systolic 57–149; BP diastolic 45–103; PULSE 59–117; RESP 15–25; TEMP 36.6–37.3; O2SAT 90–100; BMI 16.8
--- NOTE | 2025-03-16 | ECHO_ITS ---
Patient Info Name: Clyde Watkins Age: 85 years : 1940 Gender: Male Ht: 72 in Wt: 124 lbs BSA: 1.67 m2 HR: 88 bpm BP: 106 / 80 mmHg Technical Quality: Good Exam Date: 03/16/2025 9:59 AM Patient Status: I Admit Date: 03/16/2025 Exam Type: CA echo doppler color flow Complete two-dimensional, color flow and Doppler transthoracic echocardiogram is performed. Staff Referring Physician: Luis Kay MD Traffic Control Technician: Jarrell Fleming III Attending Provider: Marybeth Reynolds Summary 1. Complete two-dimensional, color flow and Doppler transthoracic echocardiogram is performed. 2. Left ventricular chamber dimension is severely enlarged. 3. Left ventricular systolic function is severely globally reduced, estimated at 15-20. 4. 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 5. The left ventricular diastolic function is grade I diastolic dysfunction. 6. E/e' 15 is elevated. 7. Left atrial chamber dimension is mildly enlarged. 8. Right atrial chamber dimension is mildly enlarged. 9. There is moderate aortic valve sclerosis. 10. The mitral valve has a mildly calcified annulus. 11. There is mild to moderate mitral valve regurgitation. 12. There is mild tricuspid valve regurgitation. 13. No pulmonary hypertension, estimated pulmonary arterial systolic pressure is 26 mmHg. 14. Dilated inferior vena cava with <50% collapse upon inspiration consistent with significantly elevated right atrial pressure, 15 mmHg. Left Ventricle E/e' 15 is elevated. Left ventricular chamber dimension is severely enlarged. Left ventricular systolic function is severely globally reduced, estimated at 15-20. The left ventricular diastolic function is grade I diastolic dysfunction. 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 Right Ventricle Right ventricular chamber dimension is normal. Right ventricular systolic function is normal and with normal TAPSE 1.8 cm. Left Atria Left atrial chamber dimension is mildly enlarged. Right Atria Right atrial chamber dimension is mildly enlarged. Aortic Valve The aortic valve is trileaflet. There is moderate aortic valve sclerosis. There is no aortic valve stenosis. There is no aortic valve regurgitation. Pulmonic Valve There is no pulmonic regurgitation. Mitral Valve The mitral valve has a mildly calcified annulus. There is no mitral valve stenosis. There is mild to moderate mitral valve regurgitation. Tricuspid Valve There is mild tricuspid valve regurgitation. No pulmonary hypertension, estimated pulmonary arterial systolic pressure is 26 mmHg. Pericardium/Pleural There is no pericardial effusion. Inferior Vena Cava Dilated inferior vena cava with <50% collapse upon inspiration consistent with significantly elevated right atrial pressure, 15 mmHg. Aorta The aortic root size at the sinus of Valsalva is normal. Left Ventricular Outflow Tract Name Value Normal LVOT 2D LVOT Diameter 2.5 cm LVOT Doppler LVOT Peak Velocity 101 cm/s LVOT Peak Gradient 4 mmHg LVOT Mean Gradient 2 mmHg LVOT VTI 18 cm LVOT VTI/AV VTI Ratio 0.9 LVOT Stroke Volume 85 ml LVOT CO 6.7 l/min LVOT CI 4.0 l/min/m2 Mitral Valve Name Value Normal MV Doppler MV Peak Gradient 5 mmHg MV Mean Gradient 2 mmHg MV Area (Cont Eq VTI) 3.7 cm2 MV Regurgitation Doppler MR Peak Gradient 75 mmHg MV Diastolic Function MV E Peak Velocity 42 cm/s MV A Peak Velocity 110 cm/s MV E/A 0.4 MV Decel Time (PW) 310 ms MV Annular TDI MV E/e' (Septal) 17.6 MV E/e' (Lateral) 14.4 MV E/e' (Average) 16.0 Tricuspid Valve Name Value Normal TV Regurgitation Doppler TR Peak Velocity 167 cm/s TR Peak Gradient 11 mmHg Estimated PAP/RSVP RA Pressure 15 mmHg <=5 PA Systolic Pressure 26 mmHg <36 RV Systolic Pressure 26 mmHg <36 TV Annular TDI TV Lateral Luci s' Velocity 14.3 cm/s >=9.5 Aortic Valve Name Value Normal AV Doppler AV Peak Velocity 113 cm/s AV Peak Gradient 5 mmHg AV Mean Gradient 3 mmHg AV VTI 19 cm AV Area (Cont Eq VTI) 4.4 cm2 >=3.0 AV Area (Cont Eq Bowen) 4.2 cm2 AV DI (Bowen) 0.89 AV Regurgitation 2D LVOT Area 4.8 cm2 Ventricles Name Value Normal LV Dimensions 2D/MM IVS Diastolic Thickness (2D) 0.7 cm 0.6-1.0 LVID Diastole (2D) 6.6 cm 4.2-5.8 LVIW Diastolic Thickness (2D) 1.1 cm 0.6-1.0 LVID Systole (2D) 5.7 cm 2.5-4.0 LVOT Diameter 2.5 cm LV Mass (2D Cubed) 252.43 g 88.00-224.00 LV Mass Index (2D Cubed) 151 g/m2 49-115 Relative Wall Thickness (2D) 0.33 <=0.42 LV Fractional Shortening/Ejection Fraction 2D/MM LV Fractional Shortening (2D) 13 % 25-43 LV EF (2D Teichholz) 28 % LV Diastolic Volume (4C MOD) 244 ml LV EF (4C MOD) 16 % LV Diastolic Volume (2C MOD) 282 ml LV EF (2C MOD) 23 % LV Diastolic Volume (BP MOD) 272 ml 62-150 LV Diastolic Volume Index (BP MOD) 163 ml/m2 34-74 LV Systolic Volume (BP MOD) 216 ml 21-61 LV Systolic Volume Index (BP MOD) 129 ml/m2 11-31 LV EF (BP MOD) 21 % 52-72 LV Diastolic Length (4C) 11.1 cm LV Systolic Length (4C) 10.7 cm LV Stroke Volume (4C MOD) 40 ml Atria Name Value Normal LA Dimensions LA Volume (4C A-L) 76 ml LA Volume (BP A-L) 75 ml RA Dimensions RA Systolic Major Byers Length (4C) 5.8 cm 2.1-2.7 RA Area (4C) 20.2 cm2 <=18.0 Report Signatures
[2025-03-16] MEDS: VANCOMYCIN 1,500 MG/NS 500 ML 1,500 MG/500 ML BAG 250 MG IVPB (00:12)
[2025-03-16] MEDS: MINERAL OIL/WHITE PETROLATUM OINTMENT 1 APPLIC EACH EYE ×3 (00:14→20:49)
--- NOTE | 2025-03-16 00:19 | PC.NURSE ---
Family updated on plan of care, per sister will be coming tomorrow AM.
--- NOTE | 2025-03-16 00:38 | ECG_ITS ---
Test Date: 2025-03-16 00:43:23 Measurements Intervals [place] Rate: 76 P: 0 [place]: 0 QRS: -70 QRSD: 98 T: 98 QT: 380 QTc: 429 Interpretive Statements SINUS RHYTHM WITH FIRST-DEGREE AV BLOCK AND APCS PREVIOUS ANTERIOR INFARCTION NONSPECIFIC INTRAVENTRICULAR CONDUCTION DELAY Compared to ECG 03/15/2025 20:37:21 QRS IS NARROWED, COMPLETE LEFT BUNDLE BRANCH BLOCK IS NO LONGER SEEN Electronically Signed On 03-16-2025 13:12:20 HEAD GOLF COACH by Tobias Kenny M.D.
[2025-03-16 01:31] LABS: Troponin I 1.270 ng/mL (0.000-0.034)
--- NOTE | 2025-03-16 01:54 | ADMGEN ---
This patient, Clyde Watkins Jr., was admitted to Intensive Care Unit-8. Patient/family oriented to hospital policies and general routines including ID bracelet, bed and alarms, visiting hours, pain management, procedures, bathroom and other care routines, personal items, smoking policy, room service/diet, and visiting hours. Information on how to activate the Rapid Response Team has been discussed. Patient/Family are encouraged to report perceived risks to care and to ask questions if they do not understand what they are told or what they should do.
--- NOTE | 2025-03-16 02:15 | PM.IMHP ---
H&P: HPI History of Present Illness Date/Time: 03/16/25 02:15 Chief Complaint: Out of hospital cardiac arrest Narrative: 85 year male presents to [facility] ER on 03/15/2025 via EMS for out of hospital cardiac arrest. PMH severe ischemic cardiomyopathy with reduced ejection fraction 15-20% on 06/17/[address] Kenny, history of NH, COPD, peripheral artery disease, right femoral neck fracture status post ORIF 12/06/2024, BPH, CKD. Patient is currently intubated, history taken in collaboration with ER staff, patient's [id number] and chart review. Patient was out for dinner with his investment agent, eating chicken and peas. He was noted to choke on food, slumped over and stopped breathing. EMS noted asystole, gave 2 rounds of epi and achieved ROSC. On arrival to [facility] ER patient was unresponsive, intubated with 7 ET tube. SpO2 61%, heart rate 95, blood pressure 120/76. ER physician reports extracting copious amounts of food material during urgent bronchoscopy at bedside. Later, respiratory therapy suctioned out more food material from the ETT. Chest x-ray demonstrates ET tube terminating above the charles, bilateral infiltrates/opacities. Orientation And Mobility Instructor notified, advised to initiate targeted temperature management. Placed on fentanyl GTT but appeared agitated so Versed was added. Head CT without acute findings, reveals generalized atrophy and chronic white matter microangiopathic changes. EKG demonstrates ST-T-wave anteriorly similar to prior EKGs which are consistent with previous anterior myocardial infarction and likely aneurysmal formation, patient had elected medical management per chart review. Blood pressure low, bedside ultrasound performed demonstrating highly collapsible IVC. Patient given 500 cc isotonic fluid bolus in addition to the previous 800 cc. On ultrasound aorta noted to be dilated and a subsequent CTA chest abdomen pelvis revealed left lower lobe pneumonia, fibrotic changes of the right lung apex, 5.9 x 5.8 cm infrarenal abdominal aortic aneurysm without aortic dissection. Blood pressure still low, 73/55. Levophed started after a central line placed in the right IJ, blood pressure improved 139/67. Cefepime, azithromycin, vancomycin started. Blood cultures x2 obtained. Sodium bicarb administered. Hemoglobin 10.4 Lactic acid 5.4 Glucose 283 Serum creatinine 1.34 slightly above baseline Anion gap 17 Bicarb 21 Transaminitis and elevated alkaline phosphatase Troponin 0.023, 1.270 BNP 3080 Beta hydroxybutyrate 0.26 Urinalysis unremarkable except for trace RBC Urine drugs of abuse negative Quad viral screen negative ABG showing pH 7.204, pCO2 57.5, PO2 72 on 90% FiO2, bicarb 22.2. Vent settings changed from rate of 18->22 Tidal volume 430->450, peep from 5->7 Review of Systems Review of Systems: ROS unobtainable: Yes unobtainable due to endotracheal tube, unobtainable due to medical condition and unobtainable due to mental status COUNTS INCLUDE 234 BEDS AT THE [facility] Past Medical History Medical History (Updated 03/16/25 @ 02:45 by Marybeth Reynolds MD) CHF (congestive heart failure) Peripheral artery disease History of myocardial infarction Ischemic cardiomyopathy Chronic obstructive pulmonary disease Tobacco dependence Benign prostatic hyperplasia Surgical History Surgical History (Updated 01/18/25 @ 09:54 by Isamar Rodriguez MA) History of hernia repair (1963) History of cataract removal with insertion of prosthetic lens (10/2014) Family History Family History Sibling Patient's sister is in good health Father Family history of Alzheimer's disease Social History Social History Social History: Patient lives alone. Smokes 1/2 pack per day for the past 70 years. He drinks 1 alcoholic drink day. No drug use. Surrogate medical decision maker: Candida Soto, sister. Code status: Full code. Smoking packs per day: 0.5 Smoking cigarettes per day: 10.0 Years smoked: 68 Smoking pack-years: 34.00 Smoking status: Current every day smoker Tobacco type: cigarettes Second hand tobacco smoke exposure: No Alcohol intake: unknown Drinks per week: 7 Alcohol use details: Drinks 1 beer a day. Substance use: unknown Substance use type: does not use Lack of Transportation: No Lack of Food: Never True Current Housing: I Have Housing Concerned About Future Housing: No Difficulty Paying Gas/Electric Bills: No Difficulty Paying for Meds: No Currently Unemployed: No Education: High School Diploma/GED Difficulty w/ Childcare or Family Care: No Additional living arrangements comments: The patient lives in his own home in [place]. Not , no children. 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 Spiritual care concerns: No Meds Home Medications and Allergies Home Medications ?Medication ?Instructions ?Recorded ?Confirmed ?Type aspirin 81 mg tablet,delayed 81 mg PO QAM #30 tabs 06/18/22 03/16/25 Rx release spironolactone 25 mg tablet 25 mg PO QAM #30 tabs 06/18/22 03/16/25 Rx sacubitril 24 mg-valsartan 26 mg 0.5 tablet PO Q12H 12/05/24 03/16/25 History tablet (Entresto) fondaparinux 2.5 mg/0.5 mL 2.5 mg (0.5 mL) subcut DAILY 14 12/07/24 03/16/25 Rx subcutaneous solution syringe days #7 mL (Arixtra) acetaminophen 325 mg tablet 650 mg (2 x 325 mg) PO Q6H 7 days 12/09/24 03/16/25 Rx (Tylenol) #56 tabs docusate sodium 100 mg capsule 100 mg PO DAILY #30 caps 12/09/24 03/16/25 Rx (Dulcolax Stool Softener (docusate)) melatonin 3 mg tablet 3 mg PO HS #30 tabs 12/09/24 03/16/25 Rx oxycodone 5 mg capsule 2.5 mg (1/2 x 5 mg) PO Q8H PRN 12/09/24 03/16/25 Rx pain 3 days #5 caps polyethylene glycol 3350 17 gram 17 g PO QAM #30 ea 12/09/24 03/16/25 Rx oral powder packet (Miralax) guaifenesin 600 mg tablet, 600 mg PO Q12HR PRN Congestion #20 12/13/24 03/16/25 Rx extended release 12 hr (Mucus tabs Relief ER) tamsulosin 0.4 mg capsule 0.4 mg PO QHS #30 caps 12/13/24 03/16/25 Rx Allergies Allergy/AdvReac Type Severity Reaction Status Date / Time No Known Allergies Allergy Verified 03/16/25 02:05 Vital Signs Vital Signs - 24 hr 03/15/25 19:31 03/15/25 19:43 03/15/25 20:01 Temperature Pulse Rate 98 100 101 H Respiratory Rate 18 16 Blood Pressure 120/76 145/78 H Pulse Oximetry 62 L 87 L 88 L Oxygen Delivery Bag Valve Mask Fraction of Inspired Oxygen 03/15/25 20:04 03/15/25 20:07 03/15/25 20:14 Temperature Pulse Rate 110 H 103 H 103 H Respiratory Rate 15 Blood Pressure 142/85 H Pulse Oximetry 91 98 Oxygen Delivery Mechanical Ventilation Fraction of Inspired Oxygen 100 03/15/25 20:16 03/15/25 20:19 03/15/25 20:22 Temperature 94.0 F L Pulse Rate 102 H 109 H 109 H Respiratory Rate 21 H 16 19 Blood Pressure 139/74 132/93 H Pulse Oximetry 94 92 Oxygen Delivery Fraction of Inspired Oxygen 03/15/25 20:31 03/15/25 20:33 03/15/25 20:36 Temperature 94.6 F L 94.8 F L Pulse Rate 105 H 109 H 109 H Respiratory Rate 22 H 24 H 23 H Blood Pressure Pulse Oximetry 93 93 Oxygen Delivery Fraction of Inspired Oxygen 03/15/25 20:45 03/15/25 20:45 03/15/25 20:47 Temperature 95.2 F L 95.2 F L 95.3 F L Pulse Rate 111 H 110 H 110 H Respiratory Rate 20 24 H 21 H Blood Pressure 141/91 H Pulse Oximetry 91 92 93 Oxygen Delivery Mechanical Ventilation Fraction of Inspired Oxygen 03/15/25 20:55 03/15/25 21:02 03/15/25 21:02 Temperature Pulse Rate 107 H 105 H 108 H Respiratory Rate 18 23 H 18 Blood Pressure Pulse Oximetry Oxygen Delivery Fraction of Inspired Oxygen 03/15/25 21:15 03/15/25 21:20 03/15/25 21:21 Temperature Pulse Rate 104 H 109 H 108 H Respiratory Rate 19 19 Blood Pressure Pulse Oximetry 88 L Oxygen Delivery Mechanical Ventilation Fraction of Inspired Oxygen 90 03/15/25 21:21 03/15/25 21:30 03/15/25 21:37 Temperature 97.1 F L Pulse Rate 108 H 104 H 104 H Respiratory Rate 19 22 H 22 H Blood Pressure 75/48 L Pulse Oximetry 96 Oxygen Delivery Fraction of Inspired Oxygen 03/15/25 21:38 03/15/25 21:39 03/15/25 21:40 Temperature 97.2 F L 97.2 F L Pulse Rate 104 H 104 H 103 H Respiratory Rate 23 H 22 H 16 Blood Pressure 69/47 L 67/48 L Pulse Oximetry 97 97 Oxygen Delivery Fraction of Inspired Oxygen 03/15/25 21:41 03/15/25 21:43 03/15/25 21:50 Temperature 97.2 F L 97.3 F L Pulse Rate 102 H 105 H 108 H Respiratory Rate 21 H 20 22 H Blood Pressure 69/48 L 69/47 L Pulse Oximetry 97 97 Oxygen Delivery Fraction of Inspired Oxygen 03/15/25 22:17 03/15/25 22:25 03/15/25 22:46 Temperature Pulse Rate 109 H 108 H 99 Respiratory Rate Blood Pressure 69/48 L 57/49 L 77/53 L Pulse Oximetry Oxygen Delivery Fraction of Inspired Oxygen 03/15/25 22:57 03/15/25 23:10 03/15/25 23:28 Temperature Pulse Rate 98 102 H 102 H Respiratory Rate Blood Pressure 73/55 L 73/55 L Pulse Oximetry 93 Oxygen Delivery Mechanical Ventilation Fraction of Inspired Oxygen 70 03/15/25 23:34 03/16/25 00:10 03/16/25 00:23 Temperature 98.1 F Pulse Rate 76 102 H 82 Respiratory Rate 21 H 24 H Blood Pressure 105/61 Pulse Oximetry 94 90 Oxygen Delivery Mechanical Ventilation Fraction of Inspired Oxygen 70 03/16/25 00:33 03/16/25 01:45 03/16/25 02:00 Temperature 98 F Pulse Rate 74 98 84 Respiratory Rate 22 H 24 H Blood Pressure 139/66 Pulse Oximetry 93 99 Oxygen Delivery Mechanical Ventilation Fraction of Inspired Oxygen 70 03/16/25 02:15 Temperature Pulse Rate 83 Respiratory Rate Blood Pressure 139/67 Pulse Oximetry Oxygen Delivery Fraction of Inspired Oxygen Exam Const: Other: Intubated and sedated Eyes: Sclera: sclerae normal Pupils: Equal, round and reactive pupils present Resp: Other: Mechanical breath sounds Cardio: Rate: regular rate Rhythm: regular rhythm Heart sounds: no murmurs GI: Inspection: non-distended GI Palp: Yes Soft to palpation and No Tenderness to palpation present (GI) Extrem: General: no edema H&P: Results Labs Labs: Short CBC 03/15/25 Range/Units 19:56 WBC 8.3 (4.5-10.0) K/mm3 Hgb 10.4 L (14.0-18.0) g/dL Hct 35.8 L (42.0-52.0) % Plt Count 281 (150-375) k/mm3 BMP 03/15/25 19:56 Sodium 138 Potassium 4.0 Chloride 100 Carbon Dioxide 21 L BUN 25 H Creatinine 1.34 H Glucose 283 H Calcium 9.0 Cardiac Enzymes 03/15/25 03/16/25 Range/Units 19:56 00:44 Troponin I 0.023 1.270 H* D (0.000-0.034) ng/mL Liver Function 03/15/25 Range/Units 19:56 Total Bilirubin 0.5 (0.2-1.3) mg/dL AST 104 H (17-59) U/L ALT 52 H (6-50) U/L Alkaline Phosphatase 138 H (38-126) U/L Albumin 4.3 (3.5-5.1) g/dL Urine 03/15/25 Range/Units 21:30 Urine Color Yellow (Yellow) Urine Appearance Clear (Clear) Urine pH 6.0 (5.0-9.0) Ur Specific [place] 1.019 (1.001-1.035) Urine Protein 2+ H (Negative) mg/dL Urine Glucose (UA) Negative (Negative) mg/dL Assessment and Plan Assessment and plan (1) Ischemic cardiomyopathy: Code(s): I25.5 - Ischemic cardiomyopathy Status: Chronic (2) Non-ST elevation NH (NSTEMI): Code(s): I21.4 - Non-ST elevation (NSTEMI) myocardial infarction Status: Acute (3) Hyperglycemia: Code(s): R73.9 - Hyperglycemia, unspecified Status: Acute (4) Transaminitis: Code(s): R74.01 - Elevation of levels of liver transaminase levels Status: Acute (5) CAMERON (acute kidney injury): Code(s): N17.9 - Acute kidney failure, unspecified Status: Acute (6) Pneumonia: Qualifiers: Pneumonia type: due to unspecified organism Laterality: right Lung location: lower lobe of lung Qualified Code(s): J18.9 - Pneumonia, unspecified organism Code(s): J18.9 - Pneumonia, unspecified organism Status: Acute (7) Cardiac arrest: Code(s): I46.9 - Cardiac arrest, cause unspecified Status: Acute (8) Acute respiratory failure with hypoxia and hypercarbia: Code(s): J96.01 - Acute respiratory failure with hypoxia; J96.02 - Acute respiratory failure with hypercapnia Status: Acute (9) Septic shock: Code(s): A41.9 - Sepsis, unspecified organism; R65.21 - Severe sepsis with septic shock Status: Acute (10) Lactic acidosis: Code(s): E87.20 - Acidosis, unspecified Status: Acute (11) Aspiration into airway: Code(s): T17.908A - Unspecified foreign body in respiratory tract, part unspecified causing other injury, initial encounter Status: Acute (12) Aortic aneurysm: Code(s): I71.9 - Aortic aneurysm of unspecified site, without rupture Status: Acute Plan 85 year male presents to [facility] ER on 03/15/2025 via EMS for out of hospital cardiac arrest. PMH severe ischemic cardiomyopathy with reduced ejection fraction 15-20% on 06/17/[address] Kenny, history of NH, COPD, peripheral artery disease, right femoral neck fracture status post ORIF 12/06/2024, BPH, CKD. Patient is currently intubated, history taken in collaboration with ER staff, patient's [id number] and chart review. Patient was out for dinner with his investment agent, eating chicken and peas. He was noted to choke on food, slumped over and stopped breathing. EMS noted asystole, gave 2 rounds of epi and achieved ROSC. On arrival to [facility] ER patient was unresponsive, intubated with 7 ET tube. SpO2 61%, heart rate 95, blood pressure 120/76. ER physician reports extracting copious amounts of food material during urgent bronchoscopy at bedside. Later, respiratory therapy suctioned out more food material from the ETT. Chest x-ray demonstrates ET tube terminating above the charles, bilateral infiltrates/opacities. Orientation And Mobility Instructor notified, advised to initiate targeted temperature management. Placed on fentanyl GTT but appeared agitated so Versed was added. Head CT without acute findings, reveals generalized atrophy and chronic white matter microangiopathic changes. EKG demonstrates ST-T-wave anteriorly similar to prior EKGs which are consistent with previous anterior myocardial infarction and likely aneurysmal formation, patient had elected medical management per chart review. Blood pressure low, bedside ultrasound performed demonstrating highly collapsible IVC. Patient given 500 cc isotonic fluid bolus in addition to the previous 800 cc. On ultrasound aorta noted to be dilated and a subsequent CTA chest abdomen pelvis revealed left lower lobe pneumonia, fibrotic changes of the right lung apex, 5.9 x 5.8 cm infrarenal abdominal aortic aneurysm without aortic dissection. Blood pressure still low, 73/55. Levophed started after a central line placed in the right IJ, blood pressure improved 139/67. Cefepime, azithromycin, vancomycin started. Blood cultures x2 obtained. Sodium bicarb administered. Hemoglobin 10.4 Lactic acid 5.4 Glucose 283 Serum creatinine 1.34 slightly above baseline Anion gap 17 Bicarb 21 Transaminitis and elevated alkaline phosphatase Troponin 0.023, 1.270 BNP 3080 Beta hydroxybutyrate 0.26 Urinalysis unremarkable except for trace RBC Urine drugs of abuse negative Quad viral screen negative ABG showing pH 7.204, pCO2 57.5, PO2 72 on 90% FiO2, bicarb 22.2. Vent settings changed from rate of 18->22 Tidal volume 430->450, peep from 5->7 ----- Acute hypoxic and hypercarbic respiratory failure requiring intubation: Orientation And Mobility Instructor consultation. Targeted temperature management ongoing. Continue current vent settings and repeat ABG along with vicente labs and a chest x-ray at 5:00 a.m. continue Versed and fentanyl GTT. Suction ETT q.4 hours Septic shock: Continue Levophed. No fluids for now considering the patient's severe ischemic cardiomyopathy, if need be will reassess IVC. Daily weights and strict intake/output. Lactic acidosis: Status post sodium bicarb 1 amp IV push x1. Trend lactic acid level. Manage hypotension and hypoxia. Aspiration pneumonia: Continue cefepime, vancomycin, azithromycin. Follow-up blood cultures. Pneumonia severity index 194. Start hydrocortisone 50 mg IV q.6 hours Elevated blood sugars: Accu-Cheks q.6 hours with low-dose insulin sliding scale and hypoglycemia protocol. NSTEMI: Continue to trend troponins, likely type 2 demand ischemia. CAMERON and CKD: Multifactorial, management as above. Continue to trend renal function, consult Nephrology if worsening and patient will not be going comfort care. Transaminitis: Continue to trend ----- Intubated 03/16/2025. Admit to ICU. SCDs. Pepcid 20 mg IV b.i.d. NPO. Discussion held with patient's power of superintendent operations division (sister, Candida Soto) at length over the phone. I explained the patient's hospital course so far and guarded prognosis. She was in understanding and all of her questions were answered to satisfaction. She tells me about his POA papers which state I prioritize quality of life over length of life. and requests the patient be DNR. Medical management including pressors okay. She does not want transfer or any heroic management of the patient's large aortic aneurysm and understands it is at risk for rupture. She will be arriving on the morning of 03/16/2025 from [place], [place] to make further decisions regarding continuation of care versus palliative extubation/comfort care. She states his critical condition is not surprising considering his age and previous comorbidities. I made myself available for any further questions. Greater than 165 minutes spent on [id number] time, chart review, discussions with medical staff, family. Hospitalist MIPS Advance Care Plan I have confirmed that the patient's Advanced Care Plan is present, code status is documented, or surrogate decision maker is listed in patient medical record.: Yes Medication Reconciliation The patient is not eligible for med reconciliation; the patient is in a emergent medical situation where delaying treatment would jeopardize the patients health.: Yes
[2025-03-16] MEDS: HYDROCORTISONE SODIUM SUCCINATE 100 MG/2 ML VIAL 50 MG IV PUSH ×4 (04:05→20:49)
[2025-03-16 04:46] LABS: Hematocrit 30.2 % (42.0-52.0); Hemoglobin 9.4 g/dL (14.0-18.0); Immature Granulocyte Percent A 0.3 % (0-0.5); Lymphocytes Absolute Auto 0.81 K/mm3 (0.9-3.2); Mean Corpuscular HGB Conc 31.1 g/dl (32-36); Mean Corpuscular Hemoglobin 28.2 pg (26-34); Mean Corpuscular Volume 90.7 fl (80-100); Nucleated Red Blood Cells Absolute Auto 0.000 K/mm3 (0.0-0.012); Nucleated Red Blood Cells Perc 0.0 % (0.0-0.2); Platelet Count Result 258 k/mm3 (150-375); Red Blood Count 3.33 M/mm3 (4.6-6.20); White Blood Count 10.2 K/mm3 (4.5-10.0)
[2025-03-16 04:57] LABS: INR 1.1; Prothrombin Time 13.8 Seconds (11.1-14.7)
[2025-03-16 04:58] LABS: Partial Thromboplastin Time 29.6 Seconds (22.3-36.8)
[2025-03-16 05:03] LABS: Alanine Aminotransferase 70 U/L (6-50); Albumin Level 3.6 g/dL (3.5-5.1); Alkaline Phosphatase 146 U/L (38-126); Anion Gap 3 mmol/L (4-12); Aspartate Amino Transferase 102 U/L (17-59); Bilirubin,Total 0.4 mg/dL (0.2-1.3); Blood Urea Nitrogen 29 mg/dL (9-20); Calcium 8.2 mg/dL (8.4-10.2); Carbon Dioxide 30 mmol/L (22-30); Chloride 104 mmol/L (98-107); Estimated CRCL calculation 30 ml/min; Estimated Glomerular Filt Rate 53; Glucose 100 mg/dL (65-110); Magnesium 2.2 mg/dL (1.6-2.3); Potassium 4.5 mmol/L (3.4-5.0); Sodium 137 mmol/L (137-145); Total Protein 6.6 g/dL (6.3-8.2)
[2025-03-16] MEDS: CENTRAL LINE FLUSH 10 ML IV PUSH ×3 (05:07→23:05)
[2025-03-16 05:15] LABS: Troponin I 4.410 ng/mL (0.000-0.034)
--- NOTE | 2025-03-16 05:16 | ECG_ITS ---
Test Date: 2025-03-16 05:23:06 Measurements Intervals [place] Rate: 85 P: 85 [place]: 193 QRS: -67 QRSD: 105 T: 88 QT: 372 QTc: 443 Interpretive Statements SINUS RHYTHM WITH OCCASIONAL SUPRAVENTRICULAR PREMATURE COMPLEXES PREVIOUS ANTERIOR WALL INFARCTION NONSPECIFIC INTERVENTRICULAR CONDUCTION DELAY ABNORMAL ECG Compared to ECG 03/16/2025 00:43:23 NO SIGNIFICANT CHANGE Electronically Signed On 03-16-2025 13:18:03 TEACHER VOCAL by Tobias Kenny M.D.
[2025-03-16 05:37] LABS: Alveolar/Arterial O2 Gradient 285.5 mmHg; Carboxyhemoglobin 0.4 % THb (0-2.0); Fractional Inspired Oxygen 60 %; HCO3 ABG 28.1 mEq/l (22.0-26.0); Methemoglobin ABG 0.1 %THb (0-1.5); Oxygen Content ABG 14.7 %vol (16.0-22.0); Oxygen Saturation ABG 96.0 % (95.0-100.0); PCO2 ABG 51.4 mmHg (35.0-45.0); PO2 ABG 85.8 mmHg (80.0-100.0); PO2 FiO2 Ratio Arterial Blood 1.43 %; Reduced Hemoglobin 4.1 %THb (0-5.0)
[2025-03-16 05:39] LABS: Arterial Blood Gas Tidal Volume 450 ml; Arterial Blood Gas Ventilator rate 22 /MIN; Modified Allen's Test Pass; Site Drawn RIGHT RADIAL
[2025-03-16] MEDS: LACTATED RINGERS 1,000 ML 500 ML IV CONT (08:25)
[2025-03-16] MEDS: CEFEPIME 1 GM in SODIUM CHLORIDE 0.9% IV 50 ML 100 ML IVPB ×2 (08:26→20:47)
[2025-03-16] MEDS: FAMOTIDINE 20 MG/2 ML VIAL IV PUSH ×2 (08:26→15:46)
[2025-03-16] MEDS: FONDAPARINUX SODIUM 2.5 MG/0.5 ML SYRINGE SUB-Q (08:38)
[2025-03-16] MEDS: MIDAZOLAM HCL (*CRX) 10 MG/2 ML VIAL 2 MG IV PUSH (08:38)
[2025-03-16] MEDS: CALCIUM GLUC 1,000 MG/NS 50 ML 1,000 MG/50 ML BAG 100 MG IVPB (08:39)
--- NOTE | 2025-03-16 08:39 | WPDCNINT ---
Assessment and Plan Assessment and plan (1) Acute respiratory failure with hypoxia and hypercarbia: Code(s): J96.01 - Acute respiratory failure with hypoxia; J96.02 - Acute respiratory failure with hypercapnia Status: Acute Assessment and Plan: Acute respiratory failure secondary to aspiration pneumonia and cardiac arrest. Repeat chest x-ray done this morning and reviewed and ET tube looks in acceptable position Ventilator settings reviewed. I have wean down FiO2 to 40%. Currently on 7 of PEEP. Blood culture sent. Continue empiric cefepime and will add Flagyl. Discontinue vancomycin and azithromycin Hold worsened infusion. Perform sedation holiday. (2) Cardiac arrest: Code(s): I46.9 - Cardiac arrest, cause unspecified Status: Acute Assessment and Plan: Cardiac arrest secondary to aspiration food leading to aspiration pneumonia Patient has underlying ischemic cardiomyopathy and has elevated troponin likely from CPR and cardiac arrest. EKG reviewed Obtain echocardiogram Consult Cardiology Continue aspirin Hold other CHF medications due to hypotension (3) Chronic systolic (congestive) heart failure: Code(s): I50.22 - Chronic systolic (congestive) heart failure Status: Acute (4) Ischemic cardiomyopathy: Code(s): I25.5 - Ischemic cardiomyopathy Status: Chronic (5) Non-ST elevation SD (NSTEMI): Code(s): I21.4 - Non-ST elevation (NSTEMI) myocardial infarction Status: Acute (6) Infrarenal abdominal aortic aneurysm (AAA) without rupture: Code(s): I71.43 - Infrarenal abdominal aortic aneurysm, without rupture Status: Acute Assessment and Plan: CTA showed large 6.4 cm fusiform infrarenal aortic aneurysm. Defer further evaluation at this time until patient recovers from current events (7) Hyperglycemia: Code(s): R73.9 - Hyperglycemia, unspecified Status: Acute Assessment and Plan: SSI (8) CAMERON (acute kidney injury): Code(s): N17.9 - Acute kidney failure, unspecified Status: Acute Assessment and Plan: Likely secondary to hypotension. Creatinine improving. Will give additional cautious amount of IV fluids. Monitor urine output electrolytes and creatinine (9) COPD (chronic obstructive pulmonary disease): Qualifiers: COPD type: unspecified COPD Qualified Code(s): J44.9 - Chronic obstructive pulmonary disease, unspecified Code(s): J44.9 - Chronic obstructive pulmonary disease, unspecified Status: Chronic Assessment and Plan: Bronchodilators p.r.n. (10) Aspiration into airway: Code(s): T17.908A - Unspecified foreign body in respiratory tract, part unspecified causing other injury, initial encounter Status: Acute (11) Aspiration pneumonia: Code(s): J69.0 - Pneumonitis due to inhalation of food and vomit Status: Acute Plan DVT prophylaxis -Arixtra Stress ulcer prophylaxis -Pepcid Nutrition - NPO Code Status -patient is DNR Total Critical Care Time - 35 minutes Due to a high probability of clinically significant, life threatening deterioration, the patient required my highest level of preparedness to intervene emergently and I personally spent this critical care time directly and personally managing the patient. This critical care time included obtaining a history; examining the patient; pulse oximetry; ordering and review of studies; arranging urgent treatment with development of a management plan; evaluation of patient's response to treatment; frequent reassessment; and discussions with other providers. It was exclusive of separately billable procedures and treating other patients and teaching time. Please see Assessment and Plan section and the rest of the note for further information on patient assessment and treatment Market Reporter Consult Note Consult date: 03/16/25 Reason for consult: Cardiac arrest, respiratory failure HPI: Clyde Watkins Jr. is a 85 year old male was brought to to [facility] ER on 03/15/2025 via EMS for out of hospital cardiac arrest. Patient has past medical history of ischemic cardiomyopathy with reduced ejection fraction 15-20% on 06/17/[address] Kenny, history of SD, COPD, peripheral artery disease, right femoral neck fracture status post ORIF 12/06/2024, BPH, CKD. Patient was out for dinner and eating chicken and peas when he choked and slumped over and start breathing. EMS noted asystole, gave 2 rounds of epi and achieved ROSC. On arrival to [facility] ER patient was unresponsive, intubated, in the ER and a central venous catheter was placed. Patient was given cautious IV fluid bolus. ER physician reported extracting copious amounts of food material during urgent bronchoscopy at bedside. Later, respiratory therapy suctioned out more food material from the ETT. Head CT without acute findings, reveals generalized atrophy and chronic white matter microangiopathic changes. EKG demonstrates ST-T-wave anteriorly similar to prior EKGs which are consistent with previous anterior myocardial infarction and likely aneurysmal formation, patient had elected medical management per chart review. CT chest abdomen pelvis showed IMPRESSION: 1. Multifocal pneumonia, worst in left lower lobe. 2. Moderate emphysema. 3. Fluid-filled esophagus. Material in the upper and lower lobe bronchi may be aspiration. 4. 6.4 cm fusiform infrarenal aortic aneurysm. Surgical consultation is recommended. 5. 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 6. 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 7. Stool distends the rectum. Patient was started on Cefepime, azithromycin, vancomycin started. Blood cultures x2 obtained. Additional lab showed Hemoglobin 10.4 Lactic acid 5.4 Glucose 283 Serum creatinine 1.34 slightly above baseline Anion gap 17 Bicarb 21 Transaminitis and elevated alkaline phosphatase Troponin 0.023, 1.270 BNP 3080 Beta hydroxybutyrate 0.26 Urinalysis unremarkable except for trace RBC Urine drugs of abuse negative Quad viral screen negative ABG showing pH 7.204, pCO2 57.5, PO2 72 on 90% FiO2, bicarb 22.2. Vent settings changed from rate of 18->22 Tidal volume 430->450, peep from 5->7 Patient was showing purposeful movements hence TTM protocol was not initiated. This morning when I evaluated the patient he is off of Levophed. He is currently sedated fentanyl. Versed was turned off recently. Patient is unresponsive except to painful stimuli. History is not obtainable and was obtained from review of chart Review of Systems Review of Systems: ROS unobtainable: Yes unobtainable due to endotracheal tube, unobtainable due to medical condition and unobtainable due to mental status PMFSH Past Medical History Medical History CHF (congestive heart failure) Peripheral artery disease History of myocardial infarction Ischemic cardiomyopathy Chronic obstructive pulmonary disease Tobacco dependence Benign prostatic hyperplasia Surgical History Surgical History History of hernia repair (1963) History of cataract removal with insertion of prosthetic lens (10/2014) Family History Family History Sibling Patient's sister is in good health Father Family history of Alzheimer's disease Social History Social History Social History: Patient lives alone. Smokes 1/2 pack per day for the past 70 years. He drinks 1 alcoholic drink day. No drug use. Surrogate medical decision maker: Candida Soto, sister. Code status: Full code. Smoking packs per day: 0.5 Smoking cigarettes per day: 10.0 Years smoked: 68 Smoking pack-years: 34.00 Smoking status: Current every day smoker Tobacco type: cigarettes Second hand tobacco smoke exposure: No Alcohol intake: unknown Drinks per week: 7 Alcohol use details: Drinks 1 beer a day. Substance use: unknown Substance use type: does not use Lack of Transportation: No Lack of Food: Never True Current Housing: I Have Housing Concerned About Future Housing: No Difficulty Paying Gas/Electric Bills: No Difficulty Paying for Meds: No Currently Unemployed: No Education: High School Diploma/GED Difficulty w/ Childcare or Family Care: No Additional living arrangements comments: The patient lives in his own home in [place]. Not , no children. 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 Spiritual care concerns: No Meds Home Medications and Allergies Home Medications ?Medication ?Instructions ?Recorded ?Confirmed ?Type aspirin 81 mg tablet,delayed 81 mg PO QAM #30 tabs 06/18/22 03/16/25 Rx release spironolactone 25 mg tablet 25 mg PO QAM #30 tabs 06/18/22 03/16/25 Rx sacubitril 24 mg-valsartan 26 mg 0.5 tablet PO Q12H 12/05/24 03/16/25 History tablet (Entresto) fondaparinux 2.5 mg/0.5 mL 2.5 mg (0.5 mL) subcut DAILY 14 12/07/24 03/16/25 Rx subcutaneous solution syringe days #7 mL (Arixtra) acetaminophen 325 mg tablet 650 mg (2 x 325 mg) PO Q6H 7 days 12/09/24 03/16/25 Rx (Tylenol) #56 tabs docusate sodium 100 mg capsule 100 mg PO DAILY #30 caps 12/09/24 03/16/25 Rx (Dulcolax Stool Softener (docusate)) melatonin 3 mg tablet 3 mg PO HS #30 tabs 12/09/24 03/16/25 Rx oxycodone 5 mg capsule 2.5 mg (1/2 x 5 mg) PO Q8H PRN 12/09/24 03/16/25 Rx pain 3 days #5 caps polyethylene glycol 3350 17 gram 17 g PO QAM #30 ea 12/09/24 03/16/25 Rx oral powder packet (Miralax) guaifenesin 600 mg tablet, 600 mg PO Q12HR PRN Congestion #20 12/13/24 03/16/25 Rx extended release 12 hr (Mucus tabs Relief ER) tamsulosin 0.4 mg capsule 0.4 mg PO QHS #30 caps 12/13/24 03/16/25 Rx Allergies Allergy/AdvReac Type Severity Reaction Status Date / Time No Known Allergies Allergy Verified 03/16/25 02:05 Vital Signs Vital Signs - 24 hr 03/15/25 19:31 03/15/25 19:43 03/15/25 20:01 Temperature Pulse Rate 98 100 101 H Respiratory Rate 18 16 Blood Pressure 120/76 145/78 H Pulse Oximetry 62 L 87 L 88 L Oxygen Delivery Bag Valve Mask Oxygen Flow Rate Fraction of Inspired Oxygen 03/15/25 20:04 03/15/25 20:07 03/15/25 20:14 Temperature Pulse Rate 110 H 103 H 103 H Respiratory Rate 15 Blood Pressure 142/85 H Pulse Oximetry 91 98 Oxygen Delivery Mechanical Ventilation Oxygen Flow Rate Fraction of Inspired Oxygen 100 03/15/25 20:16 03/15/25 20:19 03/15/25 20:22 Temperature 34.4 C L Pulse Rate 102 H 109 H 109 H Respiratory Rate 21 H 16 19 Blood Pressure 139/74 132/93 H Pulse Oximetry 94 92 Oxygen Delivery Oxygen Flow Rate Fraction of Inspired Oxygen 03/15/25 20:31 03/15/25 20:33 03/15/25 20:36 Temperature 34.8 C L 34.9 C L Pulse Rate 105 H 109 H 109 H Respiratory Rate 22 H 24 H 23 H Blood Pressure Pulse Oximetry 93 93 Oxygen Delivery Oxygen Flow Rate Fraction of Inspired Oxygen 03/15/25 20:45 03/15/25 20:45 03/15/25 20:47 Temperature 35.1 C L 35.1 C L 35.2 C L Pulse Rate 111 H 110 H 110 H Respiratory Rate 20 24 H 21 H Blood Pressure 141/91 H Pulse Oximetry 91 92 93 Oxygen Delivery Mechanical Ventilation Oxygen Flow Rate Fraction of Inspired Oxygen 03/15/25 20:55 03/15/25 21:02 03/15/25 21:02 Temperature Pulse Rate 107 H 105 H 108 H Respiratory Rate 18 23 H 18 Blood Pressure Pulse Oximetry Oxygen Delivery Oxygen Flow Rate Fraction of Inspired Oxygen 03/15/25 21:15 03/15/25 21:20 03/15/25 21:21 Temperature Pulse Rate 104 H 109 H 108 H Respiratory Rate 19 19 Blood Pressure Pulse Oximetry 88 L Oxygen Delivery Mechanical Ventilation Oxygen Flow Rate Fraction of Inspired Oxygen 90 03/15/25 21:21 03/15/25 21:30 03/15/25 21:37 Temperature 36.2 C L Pulse Rate 108 H 104 H 104 H Respiratory Rate 19 22 H 22 H Blood Pressure 75/48 L Pulse Oximetry 96 Oxygen Delivery Oxygen Flow Rate Fraction of Inspired Oxygen 03/15/25 21:38 03/15/25 21:39 03/15/25 21:40 Temperature 36.2 C L 36.2 C L Pulse Rate 104 H 104 H 103 H Respiratory Rate 23 H 22 H 16 Blood Pressure 69/47 L 67/48 L Pulse Oximetry 97 97 Oxygen Delivery Oxygen Flow Rate Fraction of Inspired Oxygen 03/15/25 21:41 03/15/25 21:43 03/15/25 21:50 Temperature 36.2 C L 36.3 C L Pulse Rate 102 H 105 H 108 H Respiratory Rate 21 H 20 22 H Blood Pressure 69/48 L 69/47 L Pulse Oximetry 97 97 Oxygen Delivery Oxygen Flow Rate Fraction of Inspired Oxygen 03/15/25 22:17 03/15/25 22:25 03/15/25 22:46 Temperature Pulse Rate 109 H 108 H 99 Respiratory Rate Blood Pressure 69/48 L 57/49 L 77/53 L Pulse Oximetry Oxygen Delivery Oxygen Flow Rate Fraction of Inspired Oxygen 03/15/25 22:57 03/15/25 23:10 03/15/25 23:28 Temperature Pulse Rate 98 102 H 102 H Respiratory Rate Blood Pressure 73/55 L 73/55 L Pulse Oximetry 93 Oxygen Delivery Mechanical Ventilation Oxygen Flow Rate Fraction of Inspired Oxygen 70 03/15/25 23:34 03/16/25 00:10 03/16/25 00:23 Temperature 36.7 C Pulse Rate 76 102 H 82 Respiratory Rate 21 H 24 H Blood Pressure 105/61 Pulse Oximetry 94 90 Oxygen Delivery Mechanical Ventilation Oxygen Flow Rate Fraction of Inspired Oxygen 70 03/16/25 00:33 03/16/25 01:45 03/16/25 02:00 Temperature 36.6 C Pulse Rate 74 98 84 Respiratory Rate 22 H 24 H Blood Pressure 139/66 Pulse Oximetry 93 99 Oxygen Delivery Mechanical Ventilation Oxygen Flow Rate Fraction of Inspired Oxygen 70 03/16/25 02:00 03/16/25 02:00 03/16/25 02:00 Temperature Pulse Rate 83 83 78 Respiratory Rate 24 H 24 H Blood Pressure Pulse Oximetry Oxygen Delivery Oxygen Flow Rate Fraction of Inspired Oxygen 03/16/25 02:15 03/16/25 02:21 03/16/25 02:34 Temperature Pulse Rate 83 76 78 Respiratory Rate 21 H Blood Pressure 139/67 117/58 L Pulse Oximetry 100 Oxygen Delivery Mechanical Ventilation Oxygen Flow Rate 22 Fraction of Inspired Oxygen 70 03/16/25 03:00 03/16/25 03:15 03/16/25 03:15 Temperature 36.7 C Pulse Rate 78 80 79 Respiratory Rate 22 H 22 H Blood Pressure 114/62 111/51 L 111/51 L Pulse Oximetry 99 98 Oxygen Delivery Oxygen Flow Rate Fraction of Inspired Oxygen 03/16/25 03:16 03/16/25 03:30 03/16/25 03:50 Temperature 36.7 C Pulse Rate 82 79 79 Respiratory Rate 22 H 22 H Blood Pressure 116/53 L 125/62 Pulse Oximetry 98 Oxygen Delivery Oxygen Flow Rate Fraction of Inspired Oxygen 03/16/25 04:00 03/16/25 04:00 03/16/25 04:00 Temperature 36.7 C Pulse Rate 84 83 Respiratory Rate 22 H 22 H Blood Pressure 119/58 L Pulse Oximetry 99 Oxygen Delivery Oxygen Flow Rate Fraction of Inspired Oxygen 70 03/16/25 04:00 03/16/25 04:00 03/16/25 04:09 Temperature Pulse Rate 83 83 80 Respiratory Rate 22 H Blood Pressure 119/58 L Pulse Oximetry 98 Oxygen Delivery Mechanical Ventilation Oxygen Flow Rate 22 Fraction of Inspired Oxygen 70 03/16/25 04:09 03/16/25 04:15 03/16/25 04:20 Temperature 36.8 C Pulse Rate 80 82 83 Respiratory Rate 22 H 22 H Blood Pressure 117/55 L 117/55 L Pulse Oximetry 99 Oxygen Delivery Oxygen Flow Rate Fraction of Inspired Oxygen 03/16/25 04:30 03/16/25 04:30 03/16/25 04:51 Temperature 36.8 C Pulse Rate 82 84 85 Respiratory Rate 22 H Blood Pressure 115/59 L 115/59 L 117/57 L Pulse Oximetry 99 Oxygen Delivery Oxygen Flow Rate Fraction of Inspired Oxygen 03/16/25 05:00 03/16/25 05:05 03/16/25 05:15 Temperature 36.8 C Pulse Rate 87 84 84 Respiratory Rate 22 H 22 H Blood Pressure 105/58 L 105/58 L 109/59 L Pulse Oximetry 100 99 Oxygen Delivery Oxygen Flow Rate Fraction of Inspired Oxygen 03/16/25 05:18 03/16/25 05:19 03/16/25 05:20 Temperature Pulse Rate 84 82 82 Respiratory Rate 22 H 22 H Blood Pressure Pulse Oximetry 99 Oxygen Delivery Mechanical Ventilation Oxygen Flow Rate Fraction of Inspired Oxygen 60 03/16/25 06:00 03/16/25 06:00 03/16/25 06:00 Temperature 36.8 C Pulse Rate 83 78 83 Respiratory Rate 22 H Blood Pressure 112/54 L 117/54 L Pulse Oximetry 100 Oxygen Delivery Oxygen Flow Rate Fraction of Inspired Oxygen 03/16/25 06:00 03/16/25 06:12 03/16/25 06:22 Temperature Pulse Rate 83 83 90 Respiratory Rate 22 H 22 H 22 H Blood Pressure Pulse Oximetry Oxygen Delivery Oxygen Flow Rate Fraction of Inspired Oxygen 03/16/25 06:23 03/16/25 06:24 03/16/25 07:44 Temperature Pulse Rate 78 89 78 Respiratory Rate 22 H Blood Pressure 106/60 Pulse Oximetry 96 Oxygen Delivery Mechanical Ventilation Oxygen Flow Rate Fraction of Inspired Oxygen 40 03/16/25 08:00 03/16/25 08:00 03/16/25 08:18 Temperature Pulse Rate 81 81 81 Respiratory Rate 22 H 22 H Blood Pressure 106/78 Pulse Oximetry Oxygen Delivery Oxygen Flow Rate Fraction of Inspired Oxygen Exam Narrative: General: Cachectic old male who is currently sedated, intubated and on mechanical ventilation Lungs/Chest: Trachea central Coarse BS B/L, No crackles or wheezing. Cardiac: RRR. Normal S1 S2. No murmurs Circulation: Both dorsalis pedis are not palpable Abdomen: Decreased but present bowel sounds.. Soft. NT. ND. Extremities: No edema, feet are cold : Restrepo in place Neurologic: Unable to assess due to sedation. Withdraws all l 4 extremities to painful stimuli. PERRL Results Labs 03/16/25 04:33 03/16/25 04:33 Labs: Short CBC 03/15/25 03/16/25 Range/Units 19:56 04:33 WBC 8.3 10.2 H (4.5-10.0) K/mm3 Hgb 10.4 L 9.4 L (14.0-18.0) g/dL Hct 35.8 L 30.2 L (42.0-52.0) % Plt Count 281 258 (150-375) k/mm3 BMP 03/15/25 03/16/25 19:56 04:33 Sodium 138 137 Potassium 4.0 4.5 Chloride 100 104 Carbon Dioxide 21 L 30 BUN 25 H 29 H Creatinine 1.34 H 1.29 Glucose 283 H 100 Calcium 9.0 8.2 L Cardiac Enzymes 03/15/25 03/16/25 03/16/25 Range/Units 19:56 00:44 04:33 Troponin I 0.023 1.270 H* D 4.410 H* D (0.000-0.034) ng/mL Liver Function 03/15/25 03/16/25 Range/Units 19:56 04:33 Total Bilirubin 0.5 0.4 (0.2-1.3) mg/dL AST 104 H 102 H (17-59) U/L ALT 52 H 70 H (6-50) U/L Alkaline Phosphatase 138 H 146 H (38-126) U/L Albumin 4.3 3.6 (3.5-5.1) g/dL Urine 03/15/25 Range/Units 21:30 Urine Color Yellow (Yellow) Urine Appearance Clear (Clear) Urine pH 6.0 (5.0-9.0) Ur Specific [place] 1.019 (1.001-1.035) Urine Protein 2+ H (Negative) mg/dL Urine Glucose (UA) Negative (Negative) mg/dL Quality VTE Prophylaxis VTE prophylaxis: pharmacologic ordered Hospitalist MIPS Advance Care Plan I have confirmed that the patient's Advanced Care Plan is present, code status is documented, or surrogate decision maker is listed in patient medical record.: Yes Medication Reconciliation I have utilized all available resources to obtain, update and review the patients current medications (includes all prescriptions, OTC, herbals, cannabis, and nutritional supplements).: Yes
[2025-03-16] MEDS: MIDAZOLAM HCL (*CRX) 2 MG/2 ML VIAL IV PUSH ×5 (08:40→18:30)
[2025-03-16] MEDS: metroNIDAZOLE 500 MG/ISO 100ML 500 MG/100 ML BAG 100 MG IVPB ×3 (08:44→22:30)
--- NOTE | 2025-03-16 12:06 | PM.CNCAR ---
Assessment and Plan Assessment and plan (1) Ischemic cardiomyopathy: Code(s): I25.5 - Ischemic cardiomyopathy Status: Chronic Plan This is a very unfortunate 85-year-old man who has a severe ischemic cardiomyopathy with which he has been remarkably stable. He enters the hospital after a choking incident resulting in an asystolic arrest in a local restaurant. He was resuscitated fairly promptly he is intubated on a ventilator at this point. His elevated troponin level is not indicative of ACS but rather is of course the result of ischemia and anoxic injury during the setting of asystolic arrest. At this point there are no specific cardiac recommendations to make it is noteworthy that this patient did not wish to be resuscitated and made this clear in the office for several years. Tobias Kenny MD [facility] History of Present Illness History of Present Illness Consult date/time: 03/16/25 12:06 Reason For Visit: respiratory -> cardiac arrest w/ROSC; aspiration Narrative: This is a very pleasant frail but unfortunate 85-year-old man I am seeing at the request of the hospitalist after an episode of choking yesterday. The patient is known to me with a history of a severe ischemic cardiomyopathy. I saw him several years ago in consultation because of symptoms of shortness of breath and was found to have a very low ejection fraction his workup indicated evidence of large previous anterior infarction, no ischemic component but a very low ejection fraction. He wished to have conservative treatment, no catheterization ICD etc.. He was treated with guideline directed medical therapy including Entresto and spironolactone any is done quite well in this setting. He was apparently at a local restaurant and yesterday evening I having a meal with a financial/environmental projects advisor and he choked during the meal he became unresponsive 911 was called they found him to be asystolic according to the chart he received some epinephrine and some CPR was intubated and spontaneous circulation was restored. His brought to the ER See where there was a lot of food found in his airway that was suction he was admitted to the ICU for further evaluation and management. He is sedated on ventilator support at this time. According to the nursing staff when not sedated he does follow commands. He following this event had troponin levels sampled on his labs. He has been found to have a rise in the troponin to just over 4. In this setting I am seeing him in consultation. Review of Systems Review of Systems: ROS unobtainable: Yes unobtainable due to endotracheal tube and unobtainable due to mental status [facility] Past Medical History Medical History CHF (congestive heart failure) Peripheral artery disease History of myocardial infarction Ischemic cardiomyopathy Chronic obstructive pulmonary disease Tobacco dependence Benign prostatic hyperplasia Surgical History Surgical History History of hernia repair (1963) History of cataract removal with insertion of prosthetic lens (10/2014) Family History Family History Sibling Patient's sister is in good health Father Family history of Alzheimer's disease Social History Social History Social History: Patient lives alone. Smokes 1/2 pack per day for the past 70 years. He drinks 1 alcoholic drink day. No drug use. Surrogate medical decision maker: Candida Soto, sister. Code status: Full code. Smoking packs per day: 0.5 Smoking cigarettes per day: 10.0 Years smoked: 68 Smoking pack-years: 34.00 Smoking status: Current every day smoker Tobacco type: cigarettes Second hand tobacco smoke exposure: No Alcohol intake: unknown Drinks per week: 7 Alcohol use details: Drinks 1 beer a day. Substance use: unknown Substance use type: does not use Lack of Transportation: No Lack of Food: Never True Current Housing: I Have Housing Concerned About Future Housing: No Difficulty Paying Gas/Electric Bills: No Difficulty Paying for Meds: No Currently Unemployed: No Education: High School Diploma/GED Difficulty w/ Childcare or Family Care: No Additional living arrangements comments: The patient lives in his own home in [place]. Not , no children. 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 Spiritual care concerns: No Meds Home Medications and Allergies Home Medications ?Medication ?Instructions ?Recorded ?Confirmed ?Type aspirin 81 mg tablet,delayed 81 mg PO QAM #30 tabs 06/18/22 03/16/25 Rx release spironolactone 25 mg tablet 25 mg PO QAM #30 tabs 06/18/22 03/16/25 Rx sacubitril 24 mg-valsartan 26 mg 0.5 tablet PO Q12H 12/05/24 03/16/25 History tablet (Entresto) fondaparinux 2.5 mg/0.5 mL 2.5 mg (0.5 mL) subcut DAILY 14 12/07/24 03/16/25 Rx subcutaneous solution syringe days #7 mL (Arixtra) acetaminophen 325 mg tablet 650 mg (2 x 325 mg) PO Q6H 7 days 12/09/24 03/16/25 Rx (Tylenol) #56 tabs docusate sodium 100 mg capsule 100 mg PO DAILY #30 caps 12/09/24 03/16/25 Rx (Dulcolax Stool Softener (docusate)) melatonin 3 mg tablet 3 mg PO HS #30 tabs 12/09/24 03/16/25 Rx oxycodone 5 mg capsule 2.5 mg (1/2 x 5 mg) PO Q8H PRN 12/09/24 03/16/25 Rx pain 3 days #5 caps polyethylene glycol 3350 17 gram 17 g PO QAM #30 ea 12/09/24 03/16/25 Rx oral powder packet (Miralax) guaifenesin 600 mg tablet, 600 mg PO Q12HR PRN Congestion #20 12/13/24 03/16/25 Rx extended release 12 hr (Mucus tabs Relief ER) tamsulosin 0.4 mg capsule 0.4 mg PO QHS #30 caps 12/13/24 03/16/25 Rx Allergies Allergy/AdvReac Type Severity Reaction Status Date / Time No Known Allergies Allergy Verified 03/16/25 02:05 Vital Signs Vital Signs - 24 hr 03/15/25 19:31 03/15/25 19:43 03/15/25 20:01 Temperature Pulse Rate 98 100 101 H Respiratory Rate 18 16 Blood Pressure 120/76 145/78 H Pulse Oximetry 62 L 87 L 88 L Oxygen Delivery Bag Valve Mask Oxygen Flow Rate Fraction of Inspired Oxygen 03/15/25 20:04 03/15/25 20:07 03/15/25 20:14 Temperature Pulse Rate 110 H 103 H 103 H Respiratory Rate 15 Blood Pressure 142/85 H Pulse Oximetry 91 98 Oxygen Delivery Mechanical Ventilation Oxygen Flow Rate Fraction of Inspired Oxygen 100 03/15/25 20:16 03/15/25 20:19 03/15/25 20:22 Temperature 34.4 C L Pulse Rate 102 H 109 H 109 H Respiratory Rate 21 H 16 19 Blood Pressure 139/74 132/93 H Pulse Oximetry 94 92 Oxygen Delivery Oxygen Flow Rate Fraction of Inspired Oxygen 03/15/25 20:31 03/15/25 20:33 03/15/25 20:36 Temperature 34.8 C L 34.9 C L Pulse Rate 105 H 109 H 109 H Respiratory Rate 22 H 24 H 23 H Blood Pressure Pulse Oximetry 93 93 Oxygen Delivery Oxygen Flow Rate Fraction of Inspired Oxygen 03/15/25 20:45 03/15/25 20:45 03/15/25 20:47 Temperature 35.1 C L 35.1 C L 35.2 C L Pulse Rate 111 H 110 H 110 H Respiratory Rate 20 24 H 21 H Blood Pressure 141/91 H Pulse Oximetry 91 92 93 Oxygen Delivery Mechanical Ventilation Oxygen Flow Rate Fraction of Inspired Oxygen 03/15/25 20:55 03/15/25 21:02 03/15/25 21:02 Temperature Pulse Rate 107 H 105 H 108 H Respiratory Rate 18 23 H 18 Blood Pressure Pulse Oximetry Oxygen Delivery Oxygen Flow Rate Fraction of Inspired Oxygen 03/15/25 21:15 03/15/25 21:20 03/15/25 21:21 Temperature Pulse Rate 104 H 109 H 108 H Respiratory Rate 19 19 Blood Pressure Pulse Oximetry 88 L Oxygen Delivery Mechanical Ventilation Oxygen Flow Rate Fraction of Inspired Oxygen 90 03/15/25 21:21 03/15/25 21:30 03/15/25 21:37 Temperature 36.2 C L Pulse Rate 108 H 104 H 104 H Respiratory Rate 19 22 H 22 H Blood Pressure 75/48 L Pulse Oximetry 96 Oxygen Delivery Oxygen Flow Rate Fraction of Inspired Oxygen 03/15/25 21:38 03/15/25 21:39 03/15/25 21:40 Temperature 36.2 C L 36.2 C L Pulse Rate 104 H 104 H 103 H Respiratory Rate 23 H 22 H 16 Blood Pressure 69/47 L 67/48 L Pulse Oximetry 97 97 Oxygen Delivery Oxygen Flow Rate Fraction of Inspired Oxygen 03/15/25 21:41 03/15/25 21:43 03/15/25 21:50 Temperature 36.2 C L 36.3 C L Pulse Rate 102 H 105 H 108 H Respiratory Rate 21 H 20 22 H Blood Pressure 69/48 L 69/47 L Pulse Oximetry 97 97 Oxygen Delivery Oxygen Flow Rate Fraction of Inspired Oxygen 03/15/25 22:17 03/15/25 22:25 03/15/25 22:46 Temperature Pulse Rate 109 H 108 H 99 Respiratory Rate Blood Pressure 69/48 L 57/49 L 77/53 L Pulse Oximetry Oxygen Delivery Oxygen Flow Rate Fraction of Inspired Oxygen 03/15/25 22:57 03/15/25 23:10 03/15/25 23:28 Temperature Pulse Rate 98 102 H 102 H Respiratory Rate Blood Pressure 73/55 L 73/55 L Pulse Oximetry 93 Oxygen Delivery Mechanical Ventilation Oxygen Flow Rate Fraction of Inspired Oxygen 70 03/15/25 23:34 03/16/25 00:10 03/16/25 00:23 Temperature 36.7 C Pulse Rate 76 102 H 82 Respiratory Rate 21 H 24 H Blood Pressure 105/61 Pulse Oximetry 94 90 Oxygen Delivery Mechanical Ventilation Oxygen Flow Rate Fraction of Inspired Oxygen 70 03/16/25 00:33 03/16/25 01:45 03/16/25 02:00 Temperature 36.6 C Pulse Rate 74 98 84 Respiratory Rate 22 H 24 H Blood Pressure 139/66 Pulse Oximetry 93 99 Oxygen Delivery Mechanical Ventilation Oxygen Flow Rate Fraction of Inspired Oxygen 70 03/16/25 02:00 03/16/25 02:00 03/16/25 02:00 Temperature Pulse Rate 83 83 78 Respiratory Rate 24 H 24 H Blood Pressure Pulse Oximetry Oxygen Delivery Oxygen Flow Rate Fraction of Inspired Oxygen 03/16/25 02:15 03/16/25 02:21 03/16/25 02:34 Temperature Pulse Rate 83 76 78 Respiratory Rate 21 H Blood Pressure 139/67 117/58 L Pulse Oximetry 100 Oxygen Delivery Mechanical Ventilation Oxygen Flow Rate 22 Fraction of Inspired Oxygen 70 03/16/25 03:00 03/16/25 03:15 03/16/25 03:15 Temperature 36.7 C Pulse Rate 78 80 79 Respiratory Rate 22 H 22 H Blood Pressure 114/62 111/51 L 111/51 L Pulse Oximetry 99 98 Oxygen Delivery Oxygen Flow Rate Fraction of Inspired Oxygen 03/16/25 03:16 03/16/25 03:30 03/16/25 03:50 Temperature 36.7 C Pulse Rate 82 79 79 Respiratory Rate 22 H 22 H Blood Pressure 116/53 L 125/62 Pulse Oximetry 98 Oxygen Delivery Oxygen Flow Rate Fraction of Inspired Oxygen 03/16/25 04:00 03/16/25 04:00 03/16/25 04:00 Temperature 36.7 C Pulse Rate 84 83 Respiratory Rate 22 H 22 H Blood Pressure 119/58 L Pulse Oximetry 99 Oxygen Delivery Oxygen Flow Rate Fraction of Inspired Oxygen 70 03/16/25 04:00 03/16/25 04:00 03/16/25 04:09 Temperature Pulse Rate 83 83 80 Respiratory Rate 22 H Blood Pressure 119/58 L Pulse Oximetry 98 Oxygen Delivery Mechanical Ventilation Oxygen Flow Rate 22 Fraction of Inspired Oxygen 70 03/16/25 04:09 03/16/25 04:15 03/16/25 04:20 Temperature 36.8 C Pulse Rate 80 82 83 Respiratory Rate 22 H 22 H Blood Pressure 117/55 L 117/55 L Pulse Oximetry 99 Oxygen Delivery Oxygen Flow Rate Fraction of Inspired Oxygen 03/16/25 04:30 03/16/25 04:30 03/16/25 04:51 Temperature 36.8 C Pulse Rate 82 84 85 Respiratory Rate 22 H Blood Pressure 115/59 L 115/59 L 117/57 L Pulse Oximetry 99 Oxygen Delivery Oxygen Flow Rate Fraction of Inspired Oxygen 03/16/25 05:00 03/16/25 05:05 03/16/25 05:15 Temperature 36.8 C Pulse Rate 87 84 84 Respiratory Rate 22 H 22 H Blood Pressure 105/58 L 105/58 L 109/59 L Pulse Oximetry 100 99 Oxygen Delivery Oxygen Flow Rate Fraction of Inspired Oxygen 03/16/25 05:18 03/16/25 05:19 03/16/25 05:20 Temperature Pulse Rate 84 82 82 Respiratory Rate 22 H 22 H Blood Pressure Pulse Oximetry 99 Oxygen Delivery Mechanical Ventilation Oxygen Flow Rate Fraction of Inspired Oxygen 60 03/16/25 06:00 03/16/25 06:00 03/16/25 06:00 Temperature 36.8 C Pulse Rate 83 78 83 Respiratory Rate 22 H Blood Pressure 112/54 L 117/54 L Pulse Oximetry 100 Oxygen Delivery Oxygen Flow Rate Fraction of Inspired Oxygen 03/16/25 06:00 03/16/25 06:12 03/16/25 06:22 Temperature Pulse Rate 83 83 90 Respiratory Rate 22 H 22 H 22 H Blood Pressure Pulse Oximetry Oxygen Delivery Oxygen Flow Rate Fraction of Inspired Oxygen 03/16/25 06:23 03/16/25 06:24 03/16/25 07:00 Temperature 37.0 C Pulse Rate 78 89 76 Respiratory Rate 22 H 22 H Blood Pressure 106/60 103/60 Pulse Oximetry 99 Oxygen Delivery Oxygen Flow Rate Fraction of Inspired Oxygen 03/16/25 07:44 03/16/25 08:00 03/16/25 08:00 Temperature Pulse Rate 78 81 81 Respiratory Rate 22 H Blood Pressure 106/78 Pulse Oximetry 96 Oxygen Delivery Mechanical Ventilation Oxygen Flow Rate Fraction of Inspired Oxygen 40 03/16/25 08:00 03/16/25 08:00 03/16/25 08:00 Temperature 37.1 C Pulse Rate 81 87 Respiratory Rate 22 H Blood Pressure 106/78 Pulse Oximetry 97 Oxygen Delivery Oxygen Flow Rate Fraction of Inspired Oxygen 70 03/16/25 08:00 03/16/25 08:18 03/16/25 08:40 Temperature Pulse Rate 81 92 Respiratory Rate 22 H 25 H Blood Pressure Pulse Oximetry 98 Oxygen Delivery Mechanical Ventilation Oxygen Flow Rate 22 Fraction of Inspired Oxygen 70 03/16/25 09:00 03/16/25 10:00 03/16/25 10:00 Temperature 37.1 C Pulse Rate 80 82 82 Respiratory Rate 22 H 22 H Blood Pressure 101/62 107/68 Pulse Oximetry 98 Oxygen Delivery Oxygen Flow Rate Fraction of Inspired Oxygen Exam Const: Other: Very frail elderly intubated man HENMT: Mouth: Yes moist mucous membranes Eyes: Sclera: sclerae normal Neck: Neck: supple Resp: Other: Central rhonchi noted good aeration no wheezing no rales Cardio: Rate: regular rate Rhythm: regular rhythm GI: GI Palp: Yes Soft to palpation Auscultation: normal bowel sounds Urinary Catheter: Urinary Catheter: patent and draining Skin: General skin exam: normal color Neuro: Other: Sedated on ventilator Extrem: Other: No edema, adequate distal perfusion Results Labs and Meds 03/16/25 04:33 03/16/25 04:33 Lab results: Cardiac Enzymes 03/15/25 03/16/25 03/16/25 Range/Units 19:56 00:44 04:33 AST 104 H 102 H (17-59) U/L Troponin I 0.023 1.270 H* D 4.410 H* D (0.000-0.034) ng/mL Coagulation 03/15/25 03/16/25 Range/Units 19:56 04:33 PT 14.7 13.8 (11.1-14.7) Seconds APTT 33.7 29.6 (22.3-36.8) Seconds Lipids 03/15/25 Range/Units 19:56 Triglycerides 114 (<150) mg/dL Cholesterol 189 (0-200) mg/dL CBC 03/15/25 03/16/25 Range/Units 19:56 04:33 WBC 8.3 10.2 H (4.5-10.0) K/mm3 RBC 3.71 L 3.33 L (4.6-6.20) M/mm3 Hgb 10.4 L 9.4 L (14.0-18.0) g/dL Hct 35.8 L 30.2 L (42.0-52.0) % Plt Count 281 258 (150-375) k/mm3 Lymph # (Auto) 4.49 H 0.81 L (0.9-3.2) K/mm3 [place] # (Auto) 0.4 0.4 (0.1-0.6) K/mm3 Eos # (Auto) 0.3 0.0 (0-0.3) K/mm3 Baso # (Auto) 0.1 0.0 (0.0-0.1) K/mm3 Comprehensive Metabolic Panel 03/15/25 03/16/25 Range/Units 19:56 04:33 Sodium 138 137 (137-145) mmol/L Potassium 4.0 4.5 (3.4-5.0) mmol/L Chloride 100 104 (98-107) mmol/L Carbon Dioxide 21 L 30 (22-30) mmol/L BUN 25 H 29 H (9-20) mg/dL Creatinine 1.34 H 1.29 (0.7-1.3) mg/dL Glucose 283 H 100 (65-110) mg/dL Calcium 9.0 8.2 L (8.4-10.2) mg/dL AST 104 H 102 H (17-59) U/L ALT 52 H 70 H (6-50) U/L Alkaline Phosphatase 138 H 146 H (38-126) U/L Total Protein 7.5 6.6 (6.3-8.2) g/dL Albumin 4.3 3.6 (3.5-5.1) g/dL Intake and Output 03/15/25 03/16/25 03/16/25 23:59 07:59 15:59 Intake Total 823.4 294.5 9.7 Output Total 250 Balance 823.4 44.5 9.7 Intake: IV 823.4 294.5 9.7 Fentanyl 2,500Mcg/Dh379aj(*Crx 6.5 149.6 9.7 2,500 mcg In 250 ml @ 125 MCG/ HR 12.5 mls/hr IV CONT .Q20H [facility] Rx#:[id number] Midazolam 100Mg/Ns 100Ml(*Crx) 2.8 20.9 0 100 mg In 100 ml @ 3 MG/HR 3 mls/hr IV CONT .[id number] [facility] Rx# :[id number] Norepinephrine 8 mg/D5w 250 ml 14.1 124.0 0 8 mg In 250 ml @ 2 MCG/MIN 3.75 mls/hr IV CONT .Q24H [facility] Rx#: [id number] Sodium Chloride 0.9% IV 500 ml 500 @ 999 mls/hr IV CONT .Q31M STA Rx#:[id number] Azithromycin IV 500 mg In 250 Sodium Chloride 0.9% IV 250 ml @ 250 mls/hr IVPB ONCE ONE Rx#: [id number] Cefepime 1 gm In Sodium 50 Chloride 0.9% IV 50 ml @ 100 mls/hr IVPB ONCE STA Rx#: [id number] Output: Catheter Urine 250 Urethral Catheter 250 Patient Weight 03/16/25 23:59 Weight 56.4 kg
[2025-03-16] MEDS: FENTANYL 2,500MCG/NS250ML(*CRX 2,500 MCG/250 ML BAG 15 MCG IV CONT (17:03)
--- NOTE | 2025-03-16 17:08 | PM.IMPN ---
Progress Note: A&P Assessment and Plan (1) Acute respiratory failure with hypoxia and hypercarbia: Code(s): J96.01 - Acute respiratory failure with hypoxia; J96.02 - Acute respiratory failure with hypercapnia Status: Acute Assessment and Plan: Acute respiratory failure secondary to aspiration pneumonia and cardiac arrest. Repeat chest x-ray done this morning and reviewed and ET tube looks in acceptable position Ventilator settings reviewed. I have wean down FiO2 to 40%. Currently on 7 of PEEP. Blood culture sent. Continue empiric cefepime and will add Flagyl. Discontinue vancomycin and azithromycin Hold worsened infusion. Perform sedation holiday. (2) Cardiac arrest: Code(s): I46.9 - Cardiac arrest, cause unspecified Status: Acute Assessment and Plan: Cardiac arrest secondary to aspiration food leading to aspiration pneumonia Patient has underlying ischemic cardiomyopathy and has elevated troponin likely from CPR and cardiac arrest. EKG reviewed Obtain echocardiogram Consult Cardiology Continue aspirin Hold other CHF medications due to hypotension (3) Chronic systolic (congestive) heart failure: Code(s): I50.22 - Chronic systolic (congestive) heart failure Status: Acute (4) Ischemic cardiomyopathy: Code(s): I25.5 - Ischemic cardiomyopathy Status: Chronic (5) Non-ST elevation PR (NSTEMI): Code(s): I21.4 - Non-ST elevation (NSTEMI) myocardial infarction Status: Acute (6) Infrarenal abdominal aortic aneurysm (AAA) without rupture: Code(s): I71.43 - Infrarenal abdominal aortic aneurysm, without rupture Status: Acute Assessment and Plan: CTA showed large 6.4 cm fusiform infrarenal aortic aneurysm. Defer further evaluation at this time until patient recovers from current events (7) Hyperglycemia: Code(s): R73.9 - Hyperglycemia, unspecified Status: Acute Assessment and Plan: SSI (8) CAMERON (acute kidney injury): Code(s): N17.9 - Acute kidney failure, unspecified Status: Acute Assessment and Plan: Likely secondary to hypotension. Creatinine improving. Will give additional cautious amount of IV fluids. Monitor urine output electrolytes and creatinine (9) COPD (chronic obstructive pulmonary disease): Qualifiers: COPD type: unspecified COPD Qualified Code(s): J44.9 - Chronic obstructive pulmonary disease, unspecified Code(s): J44.9 - Chronic obstructive pulmonary disease, unspecified Status: Chronic Assessment and Plan: Bronchodilators p.r.n. (10) Aspiration into airway: Code(s): T17.908A - Unspecified foreign body in respiratory tract, part unspecified causing other injury, initial encounter Status: Acute (11) Aspiration pneumonia: Code(s): J69.0 - Pneumonitis due to inhalation of food and vomit Status: Acute Plan This 85-year-old male who presents to the ER on 03/15/2025 via EMS for out of hospital cardiac arrest. 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 He was noted to choke on food slumped over and stopped breathing. EMS was called to noted asystole and gave 2 rounds of epi and achieved ROSC. He was then brought to [facility] ER. Patient was unresponsive intubated with 7 ET tube. SpO2 80 61% heart rate 95 blood pressure 120/76. ED ER physician reports extracting copious amount of food material during urgent bronchoscopy at bedside. Later respiratory therapy suction not more food material from the ET tube. Chest x-ray demonstrated ET tube terminating above the charles, bilateral infiltrates/opacities. He was then admitted to the ICU for further treatment. Blood pressure subsequently little lowered and Levophed was started after central line placement in right IJ. patient started on broad-spectrum antibiotics with vancomycin azithromycin cefepime. Laboratory workup with hemoglobin 10.4 lactic acid 5.4. Glucose 283 serum creatinine 1.34 anion gap of 17 with bicarb 21 transaminitis and elevated alkaline phosphatase. Troponin elevated at 1.27 from 0.023 initially. Urinalysis unremarkable. Urine drugs of abuse negative quad viral screen negative ABG 7.20/57/72/22. Acute hypoxic and hypercarbic respiratory failure requiring intubation: Cane Flume Feeding Machine Operator on board. Targeted temperature management ongoing. Continue Versed and fentanyl GTT. Suction ETT q.4 hours Septic shock: Continue Levophed. Lactic acidosis: Status post sodium bicarb 1 amp IV push x1. Trend lactic acid level. Manage hypotension and hypoxia. Lactic acidosis has resolved Aspiration pneumonia: Continue cefepime, vancomycin, azithromycin. Follow-up blood cultures. Flagyl added. Start hydrocortisone 50 mg IV q.[address] chest abdomen pelvis multifocal pneumonia worsened left lower lobe Ischemic cardiomyopathy chronic Large 6.4 cm fusiform infrarenal aortic aneurysm as seen in CTA Elevated blood sugars: Accu-Cheks q.6 hours with low-dose insulin sliding scale and hypoglycemia protocol. NSTEMI: Continue to trend troponins, trended up to 4.4 likely type 2 demand ischemia. Cardiology consulted Peripheral vascular disease with findings of moderate stenosis of celiac axis and total occlusion of inferior mesenteric artery total occlusion of left superior facial femoral artery. CAMERON and CKD: Multifactorial, management as above. Continue to trend renal function, consult Nephrology if worsening and patient will not be going comfort care. Transaminitis: Continue to trend DVT prophylaxis -Arixtra Stress ulcer prophylaxis -Pepcid Nutrition - NPO Code Status -patient is DNR Subjective Date/time seen: 03/16/25 17:08 Interval history: Chart reviewed. Patient intubated and sedated. Review of Systems Review of Systems: ROS unobtainable: Yes unobtainable due to medical condition Exam Narrative: General: Cachectic old male who is currently sedated, intubated and on mechanical ventilation Lungs/Chest: Trachea central Coarse BS B/L, No crackles or wheezing. Cardiac: RRR. Normal S1 S2. No murmurs Circulation: Both dorsalis pedis are not palpable Abdomen: Decreased but present bowel sounds.. Soft. NT. ND. Extremities: No edema, feet are cold : Restrepo in place Neurologic: Unable to assess due to sedation. Withdraws all l 4 extremities to painful stimuli. PERRL Objective Data Vital Signs Vital Signs: Vital Signs - 24 hr 03/15/25 19:31 03/15/25 19:43 03/15/25 20:01 Temperature Pulse Rate 98 100 101 H Respiratory Rate 18 16 Blood Pressure 120/76 145/78 H Pulse Oximetry 62 L 87 L 88 L Oxygen Delivery Bag Valve Mask Oxygen Flow Rate Fraction of Inspired Oxygen 03/15/25 20:04 03/15/25 20:07 03/15/25 20:14 Temperature Pulse Rate 110 H 103 H 103 H Respiratory Rate 15 Blood Pressure 142/85 H Pulse Oximetry 91 98 Oxygen Delivery Mechanical Ventilation Oxygen Flow Rate Fraction of Inspired Oxygen 100 03/15/25 20:16 03/15/25 20:19 03/15/25 20:22 Temperature 94.0 F L Pulse Rate 102 H 109 H 109 H Respiratory Rate 21 H 16 19 Blood Pressure 139/74 132/93 H Pulse Oximetry 94 92 Oxygen Delivery Oxygen Flow Rate Fraction of Inspired Oxygen 03/15/25 20:31 03/15/25 20:33 03/15/25 20:36 Temperature 94.6 F L 94.8 F L Pulse Rate 105 H 109 H 109 H Respiratory Rate 22 H 24 H 23 H Blood Pressure Pulse Oximetry 93 93 Oxygen Delivery Oxygen Flow Rate Fraction of Inspired Oxygen 03/15/25 20:45 03/15/25 20:45 03/15/25 20:47 Temperature 95.2 F L 95.2 F L 95.3 F L Pulse Rate 111 H 110 H 110 H Respiratory Rate 20 24 H 21 H Blood Pressure 141/91 H Pulse Oximetry 91 92 93 Oxygen Delivery Mechanical Ventilation Oxygen Flow Rate Fraction of Inspired Oxygen 03/15/25 20:55 03/15/25 21:02 03/15/25 21:02 Temperature Pulse Rate 107 H 105 H 108 H Respiratory Rate 18 23 H 18 Blood Pressure Pulse Oximetry Oxygen Delivery Oxygen Flow Rate Fraction of Inspired Oxygen 03/15/25 21:15 03/15/25 21:20 03/15/25 21:21 Temperature Pulse Rate 104 H 109 H 108 H Respiratory Rate 19 19 Blood Pressure Pulse Oximetry 88 L Oxygen Delivery Mechanical Ventilation Oxygen Flow Rate Fraction of Inspired Oxygen 90 03/15/25 21:21 03/15/25 21:30 03/15/25 21:37 Temperature 97.1 F L Pulse Rate 108 H 104 H 104 H Respiratory Rate 19 22 H 22 H Blood Pressure 75/48 L Pulse Oximetry 96 Oxygen Delivery Oxygen Flow Rate Fraction of Inspired Oxygen 03/15/25 21:38 03/15/25 21:39 03/15/25 21:40 Temperature 97.2 F L 97.2 F L Pulse Rate 104 H 104 H 103 H Respiratory Rate 23 H 22 H 16 Blood Pressure 69/47 L 67/48 L Pulse Oximetry 97 97 Oxygen Delivery Oxygen Flow Rate Fraction of Inspired Oxygen 03/15/25 21:41 03/15/25 21:43 03/15/25 21:50 Temperature 97.2 F L 97.3 F L Pulse Rate 102 H 105 H 108 H Respiratory Rate 21 H 20 22 H Blood Pressure 69/48 L 69/47 L Pulse Oximetry 97 97 Oxygen Delivery Oxygen Flow Rate Fraction of Inspired Oxygen 03/15/25 22:17 03/15/25 22:25 03/15/25 22:46 Temperature Pulse Rate 109 H 108 H 99 Respiratory Rate Blood Pressure 69/48 L 57/49 L 77/53 L Pulse Oximetry Oxygen Delivery Oxygen Flow Rate Fraction of Inspired Oxygen 03/15/25 22:57 03/15/25 23:10 03/15/25 23:28 Temperature Pulse Rate 98 102 H 102 H Respiratory Rate Blood Pressure 73/55 L 73/55 L Pulse Oximetry 93 Oxygen Delivery Mechanical Ventilation Oxygen Flow Rate Fraction of Inspired Oxygen 70 03/15/25 23:34 03/16/25 00:10 03/16/25 00:23 Temperature 98.1 F Pulse Rate 76 102 H 82 Respiratory Rate 21 H 24 H Blood Pressure 105/61 Pulse Oximetry 94 90 Oxygen Delivery Mechanical Ventilation Oxygen Flow Rate Fraction of Inspired Oxygen 70 03/16/25 00:33 03/16/25 01:45 03/16/25 02:00 Temperature 98 F Pulse Rate 74 98 84 Respiratory Rate 22 H 24 H Blood Pressure 139/66 Pulse Oximetry 93 99 Oxygen Delivery Mechanical Ventilation Oxygen Flow Rate Fraction of Inspired Oxygen 70 03/16/25 02:00 03/16/25 02:00 03/16/25 02:00 Temperature Pulse Rate 83 83 78 Respiratory Rate 24 H 24 H Blood Pressure Pulse Oximetry Oxygen Delivery Oxygen Flow Rate Fraction of Inspired Oxygen 03/16/25 02:15 03/16/25 02:21 03/16/25 02:34 Temperature Pulse Rate 83 76 78 Respiratory Rate 21 H Blood Pressure 139/67 117/58 L Pulse Oximetry 100 Oxygen Delivery Mechanical Ventilation Oxygen Flow Rate 22 Fraction of Inspired Oxygen 70 03/16/25 03:00 03/16/25 03:15 03/16/25 03:15 Temperature 98.1 F Pulse Rate 78 80 79 Respiratory Rate 22 H 22 H Blood Pressure 114/62 111/51 L 111/51 L Pulse Oximetry 99 98 Oxygen Delivery Oxygen Flow Rate Fraction of Inspired Oxygen 03/16/25 03:16 03/16/25 03:30 03/16/25 03:50 Temperature 98.1 F Pulse Rate 82 79 79 Respiratory Rate 22 H 22 H Blood Pressure 116/53 L 125/62 Pulse Oximetry 98 Oxygen Delivery Oxygen Flow Rate Fraction of Inspired Oxygen 03/16/25 04:00 03/16/25 04:00 03/16/25 04:00 Temperature 98.1 F Pulse Rate 84 83 Respiratory Rate 22 H 22 H Blood Pressure 119/58 L Pulse Oximetry 99 Oxygen Delivery Oxygen Flow Rate Fraction of Inspired Oxygen 70 03/16/25 04:00 03/16/25 04:00 03/16/25 04:09 Temperature Pulse Rate 83 83 80 Respiratory Rate 22 H Blood Pressure 119/58 L Pulse Oximetry 98 Oxygen Delivery Mechanical Ventilation Oxygen Flow Rate 22 Fraction of Inspired Oxygen 70 03/16/25 04:09 03/16/25 04:15 03/16/25 04:20 Temperature 98.2 F Pulse Rate 80 82 83 Respiratory Rate 22 H 22 H Blood Pressure 117/55 L 117/55 L Pulse Oximetry 99 Oxygen Delivery Oxygen Flow Rate Fraction of Inspired Oxygen 03/16/25 04:30 03/16/25 04:30 03/16/25 04:51 Temperature 98.2 F Pulse Rate 82 84 85 Respiratory Rate 22 H Blood Pressure 115/59 L 115/59 L 117/57 L Pulse Oximetry 99 Oxygen Delivery Oxygen Flow Rate Fraction of Inspired Oxygen 03/16/25 05:00 03/16/25 05:05 03/16/25 05:15 Temperature 98.3 F Pulse Rate 87 84 84 Respiratory Rate 22 H 22 H Blood Pressure 105/58 L 105/58 L 109/59 L Pulse Oximetry 100 99 Oxygen Delivery Oxygen Flow Rate Fraction of Inspired Oxygen 03/16/25 05:18 03/16/25 05:19 03/16/25 05:20 Temperature Pulse Rate 84 82 82 Respiratory Rate 22 H 22 H Blood Pressure Pulse Oximetry 99 Oxygen Delivery Mechanical Ventilation Oxygen Flow Rate Fraction of Inspired Oxygen 60 03/16/25 06:00 03/16/25 06:00 03/16/25 06:00 Temperature 98.3 F Pulse Rate 83 78 83 Respiratory Rate 22 H Blood Pressure 112/54 L 117/54 L Pulse Oximetry 100 Oxygen Delivery Oxygen Flow Rate Fraction of Inspired Oxygen 03/16/25 06:00 03/16/25 06:12 03/16/25 06:22 Temperature Pulse Rate 83 83 90 Respiratory Rate 22 H 22 H 22 H Blood Pressure Pulse Oximetry Oxygen Delivery Oxygen Flow Rate Fraction of Inspired Oxygen 03/16/25 06:23 03/16/25 06:24 03/16/25 07:00 Temperature 98.6 F Pulse Rate 78 89 76 Respiratory Rate 22 H 22 H Blood Pressure 106/60 103/60 Pulse Oximetry 99 Oxygen Delivery Oxygen Flow Rate Fraction of Inspired Oxygen 03/16/25 07:44 03/16/25 08:00 03/16/25 08:00 Temperature Pulse Rate 78 81 81 Respiratory Rate 22 H Blood Pressure 106/78 Pulse Oximetry 96 Oxygen Delivery Mechanical Ventilation Oxygen Flow Rate Fraction of Inspired Oxygen 40 03/16/25 08:00 03/16/25 08:00 03/16/25 08:00 Temperature 98.8 F Pulse Rate 81 87 Respiratory Rate 22 H Blood Pressure 106/78 Pulse Oximetry 97 Oxygen Delivery Oxygen Flow Rate Fraction of Inspired Oxygen 70 03/16/25 08:00 03/16/25 08:18 03/16/25 08:40 Temperature Pulse Rate 81 92 Respiratory Rate 22 H 25 H Blood Pressure Pulse Oximetry 98 Oxygen Delivery Mechanical Ventilation Oxygen Flow Rate 22 Fraction of Inspired Oxygen 70 03/16/25 09:00 03/16/25 10:00 03/16/25 10:00 Temperature 98.7 F Pulse Rate 80 82 82 Respiratory Rate 22 H 22 H Blood Pressure 101/62 107/68 Pulse Oximetry 98 Oxygen Delivery Oxygen Flow Rate Fraction of Inspired Oxygen 03/16/25 10:00 03/16/25 10:00 03/16/25 11:00 Temperature 98.3 F 98.1 F Pulse Rate 82 82 89 Respiratory Rate 22 H 22 H Blood Pressure 107/68 79/57 L Pulse Oximetry 98 98 Oxygen Delivery Oxygen Flow Rate Fraction of Inspired Oxygen 03/16/25 12:00 03/16/25 12:00 03/16/25 12:00 Temperature 98.4 F Pulse Rate 78 78 Respiratory Rate 22 H 22 H Blood Pressure 98/62 L Pulse Oximetry 100 Oxygen Delivery Oxygen Flow Rate Fraction of Inspired Oxygen 70 03/16/25 12:00 03/16/25 12:00 03/16/25 12:00 Temperature Pulse Rate 78 88 Respiratory Rate Blood Pressure 98/62 L Pulse Oximetry 97 Oxygen Delivery Mechanical Ventilation Oxygen Flow Rate 22 Fraction of Inspired Oxygen 70 03/16/25 12:19 03/16/25 12:23 03/16/25 12:38 Temperature Pulse Rate 110 H 95 80 Respiratory Rate 22 H Blood Pressure 81/57 L Pulse Oximetry 97 Oxygen Delivery Mechanical Ventilation Oxygen Flow Rate Fraction of Inspired Oxygen 30 03/16/25 13:00 03/16/25 13:32 03/16/25 14:00 Temperature 98.5 F Pulse Rate 74 85 105 H Respiratory Rate 22 H 23 H Blood Pressure 98/70 L 96/91 L Pulse Oximetry 98 Oxygen Delivery Oxygen Flow Rate Fraction of Inspired Oxygen 03/16/25 14:00 03/16/25 14:00 03/16/25 14:27 Temperature 98.4 F Pulse Rate 105 H 85 105 H Respiratory Rate 21 H 22 H Blood Pressure 96/91 L Pulse Oximetry 97 Oxygen Delivery Oxygen Flow Rate Fraction of Inspired Oxygen 03/16/25 14:34 03/16/25 15:00 03/16/25 15:53 Temperature 98.6 F Pulse Rate 71 73 Respiratory Rate 22 H Blood Pressure 96/55 L Pulse Oximetry 97 97 Oxygen Delivery Mechanical Ventilation Oxygen Flow Rate Fraction of Inspired Oxygen 30 70 03/16/25 16:00 03/16/25 16:00 03/16/25 16:00 Temperature 98.4 F Pulse Rate 75 75 75 Respiratory Rate 22 H 22 H Blood Pressure 83/54 L 83/54 L Pulse Oximetry 96 Oxygen Delivery Oxygen Flow Rate Fraction of Inspired Oxygen 03/16/25 16:00 03/16/25 16:00 03/16/25 17:00 Temperature 98.5 F Pulse Rate 75 111 H Respiratory Rate 20 Blood Pressure 149/103 H Pulse Oximetry 96 96 Oxygen Delivery Mechanical Ventilation Oxygen Flow Rate 22 Fraction of Inspired Oxygen 70 03/16/25 17:03 03/16/25 17:03 Temperature Pulse Rate 111 H 111 H Respiratory Rate 20 20 Blood Pressure Pulse Oximetry Oxygen Delivery Oxygen Flow Rate Fraction of Inspired Oxygen Intake/Output Intake/Output: Intake & Output 03/13/25 03/14/25 03/15/25 03/16/25 23:59 23:59 23:59 23:59 Intake Total 823.4 465.0 Output Total 250 Balance 823.4 215.0 Meds/Results Medications: Active Medications Generic Name Dose Route Start Last Admin Trade Name Freq PRN Reason Stop Dose Admin Acetaminophen 650 mg 03/15/25 21:11 Acetaminophen 650 Mg Suppository RECTAL Q6H PRN Mild Pain (1-3) or Fever Albuterol/Ipratropium 3 ml 03/16/25 08:53 Ipratropium 0.5 Mg/Albuterol Sulfate 2.5 Mg (Base) Ampul.Neb 3 Ml INHALATION Q6HRT PRN Wheezing Aspirin 325 mg 03/16/25 08:00 03/16/25 08:38 Aspirin 325 Mg Tablet FEED TUBE Not Given DAILY@0800 ERUM Bisacodyl 10 mg 03/16/25 07:39 Bisacodyl 10 Mg Suppository RECTAL QAM PRN Constipation Dextrose 12.5 gm 03/15/25 21:38 Dextrose 50% 25 Gm/50 Ml Syringe IV PUSH PRN PRN Hypoglycemia Protocol Famotidine 20 mg 03/16/25 09:00 03/16/25 15:46 Famotidine 20 Mg/2 Ml Vial IV PUSH 20 mg BID ERUM Administration Fondaparinux 2.5 mg 03/16/25 09:00 03/16/25 08:38 Fondaparinux Sodium 2.5 Mg/0.5 Ml Syringe SUB-Q 2.5 mg DAILY ERUM Administration Glucose 15 gm 03/15/25 21:38 Glucose Oral Gel 15 Gm Of Glucse In 37.5 Gm Tube PO PRN PRN Hypoglycemia Protocol Hydrocortisone Sodium Succinate 50 mg 03/16/25 03:00 03/16/25 14:45 Hydrocortisone Sodium Succinate 100 Mg/2 Ml Vial IV PUSH 50 mg Q6H ERUM Administration Fentanyl Citrate 2,500 mcg in 250 mls @ 15 mls/hr 03/15/25 20:10 03/16/25 17:03 Fentanyl 2,500 Mcg/Ns 250 Ml IV CONT 150 mcg/hr .[id number] ERUM 15 mls/hr Protocol Administration 150 MCG/HR Dextrose 1,000 mls @ 100 mls/hr 03/15/25 21:38 Dextrose 5% 1,000 Ml IVPB PRN PRN Hypoglycemia Protocol Cefepime HCl 1 gm/ Sodium 50 mls @ 100 mls/hr 03/16/25 09:00 03/16/25 08:26 Chloride IVPB 100 mls/hr Q12HR ERUM Administration Norepinephrine Bitartrate 8 mg in 250 mls @ 2.006 mls/hr 03/15/25 21:45 03/16/25 16:00 Levophed 8 Mg/D5w 250 Ml IV CONT 1.07 mcg/min .Q24H ERUM 2 mls/hr Protocol Titration 1.07 MCG/MIN Metronidazole 500 mg in 100 mls @ 100 mls/hr 03/16/25 07:40 03/16/25 14:40 Flagyl 500 Mg/Iso Soln 100 Ml IVPB 100 mls/hr Q8HR ERUM Administration Insulin Aspart 2 - 5 units 03/16/25 06:00 03/16/25 12:10 Insulin Aspart (*Bkc) 100 Units/Ml SUB-Q Not Given Q6HR ERUM Protocol Midazolam HCl 2 mg 03/16/25 07:57 03/16/25 15:45 Midazolam Hcl (*Crx) 2 Mg/2 Ml Vial IV PUSH 2 mg Q2H PRN Administration Agitation on vent Multi-Ingred Cream/Lotion/Oil/Oint 1 applic 03/15/25 21:00 03/16/25 08:38 Mineral Oil/White Petrolatum Ointment EACH EYE 1 applic Q12HR ERUM Administration Perflutren Lipid Microsphere 0 ml 03/16/25 07:35 Perflutren Lipid Microspheres 1.5 Ml Vial Diluted To 10 Ml Total Volume IV PUSH 03/19/25 07:36 ONCE PRN adequate visualization Protocol Polyethylene Glycol 17 gm 03/16/25 09:00 03/16/25 08:38 Polyethylene Glycol 3350 17 Gm Powd.Pack PO Not Given QAM ERUM Sodium Chloride 10 ml 03/16/25 06:00 03/16/25 14:44 Central Line Flush IV PUSH 10 ml Q8HR ERUM Administration Sodium Chloride 20 ml 03/16/25 00:39 Central Line Flush IV PUSH PRN PRN after blood draws Radiology Results: ITS Impressions Head CT 03/15/25 23:01 IMPRESSION: No acute intracranial hemorrhage or extra axial fluid collections. Generalized atrophy and chronic white matter microangiopathic changes. All CT scans at this facility are performed using low dose modulation techniques as appropriate to perform exam including the following: automated exposure control; use of iterative reconstruction technique; adjustment of the mA and/or kV according to patient size (this includes techniques or standardized protocols for targeted exams where dose is matched to indication/reason for exam). Chest/Abdomen/Pelvis CTA 03/16/25 06:52 IMPRESSION: 1. Multifocal pneumonia, worst in left lower lobe. 2. Moderate emphysema. 3. Fluid-filled esophagus. Material in the upper and lower lobe bronchi may be aspiration. 4. 6.4 cm fusiform infrarenal aortic aneurysm. Surgical consultation is recommended. 5. 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 6. 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 7. Stool distends the rectum. Chest X-Ray 03/16/25 08:07 IMPRESSION: 1. Frontal changes suggesting vascular congestion and mild pulmonary edema with pneumonitis and/or pneumonia possibly present. Grossly stable exam compared to yesterday. Patient remains intubated. Abdomen X-Ray 03/16/25 11:21 Impression: 1. No acute abnormality. Labs Labs: Laboratory Results - last 24 hr 03/15/25 03/15/25 03/15/25 19:56 21:13 21:29 WBC 8.3 RBC 3.71 L Hgb 10.4 L Hct 35.8 L MCV 96.5 MCH 28.0 MCHC 29.1 L RDW 14.6 H Plt Count 281 MPV 10.3 Immature Gran % (Auto) 2.0 H Neut % (Auto) 36.0 L Lymph % (Auto) 53.9 H Mcdonough % (Auto) 4.4 Eos % (Auto) 3.0 Baso % (Auto) 0.7 Lymph # (Auto) 4.49 H Mcdonough # (Auto) 0.4 Eos # (Auto) 0.3 Baso # (Auto) 0.1 Abs Immat Gran (auto) 0.17 H Absolute Neuts (auto) 3.0 Absolute Nucleated RBC 0.000 Band Neutrophils % Not Reportable Nucleated RBC % 0.0 Platelet Estimate Adequate Hypochromasia 1+ Ovalocytes Occasional Nimesh Cells Occasional Schistocytes Rare PT 14.7 INR 1.2 APTT 33.7 Puncture Site Left radial ABG pH 7.204 L* ABG pCO2 57.5 H ABG pO2 72.0 L ABG PO2/FiO2 Ratio 0.80 ABG HCO3 22.2 ABG O2 Saturation 90.6 L ABG O2 Content 13.8 L ABG Base Excess -6.1 A-a Gradient 510.8 Oxyhemoglobin 88.0 L Carboxyhemoglobin Methemoglobin Reduced Hemoglobin Total Hemoglobin 11.1 L O2 Delivery Device Ventilator O2 Liters/Min Not Reportable Minute Volume Not Reportable Vent Rate 18 Vent Mode Cmv FiO2 90 Tidal Volume 430 PEEP 5 Peak Inspir Pressure Not Reportable Pressure Support Not Reportable Sodium 138 Potassium 4.0 Chloride 100 Carbon Dioxide 21 L Anion Gap 17 H BUN 25 H Creatinine 1.34 H Estim Creat Clear Calc Not Reportable Estimated GFR 51 L Glucose 283 H POC Capillary Glucose Lactic Acid Calcium 9.0 Phosphorus Magnesium 2.3 Total Bilirubin 0.5 AST 104 H ALT 52 H Alkaline Phosphatase 138 H Troponin I 0.023 C-Reactive Protein < 0.5 NT-Pro-B Natriuret Pep 3080 H Total Protein 7.5 Albumin 4.3 Triglycerides 114 Cholesterol 189 LDL Cholesterol Direct 82 HDL Direct 82 Beta-Hydroxybutyrate/Acetoacetate Urine Color Urine Appearance Urine pH Ur Specific Left Hand Urine Protein Urine Glucose (UA) Urine Ketones Ur Blood (Man) Urine Nitrate Urine Bilirubin Urine Urobilinogen Add Ur Microanalysis Leukocyte Esterase Rfl Urine RBC Urine WBC Ur Squamous Epith Cells Urine Bacteria Urine Casts Nasal MRSA (PCR) Sperm Presence Urine Opiates Screen Urine Methadone Screen Ur Barbiturates Screen Ur Phencyclidine Scrn Ur Amphetamine Screen U Benzodiazepines Scrn Urine Cocaine Screen U Cannabinoids Screen Influenza A (RT-PCR) Influenza B (RT-PCR) RSV (RT-PCR) SARS-CoV-2 RNA (RT-PCR) Blood Type Antibody Screen 03/15/25 03/15/25 03/16/25 21:30 21:31 00:44 WBC RBC Hgb Hct MCV MCH MCHC RDW Plt Count MPV Immature Gran % (Auto) Neut % (Auto) Lymph % (Auto) Mcdonough % (Auto) Eos % (Auto) Baso % (Auto) Lymph # (Auto) Mcdonough # (Auto) Eos # (Auto) Baso # (Auto) Abs Immat Gran (auto) Absolute Neuts (auto) Absolute Nucleated RBC Band Neutrophils % Nucleated RBC % Platelet Estimate Hypochromasia Ovalocytes Nimesh Cells Schistocytes PT INR APTT Puncture Site ABG pH ABG pCO2 ABG pO2 ABG PO2/FiO2 Ratio ABG HCO3 ABG O2 Saturation ABG O2 Content ABG Base Excess A-a Gradient Oxyhemoglobin Carboxyhemoglobin Methemoglobin Reduced Hemoglobin Total Hemoglobin O2 Delivery Device O2 Liters/Min Minute Volume Vent Rate Vent Mode FiO2 Tidal Volume PEEP Peak Inspir Pressure Pressure Support Sodium Potassium Chloride Carbon Dioxide Anion Gap BUN Creatinine Estim Creat Clear Calc Estimated GFR Glucose POC Capillary Glucose Lactic Acid 5.4 H* Calcium Phosphorus Magnesium Total Bilirubin AST ALT Alkaline Phosphatase Troponin I 1.270 H* D C-Reactive Protein NT-Pro-B Natriuret Pep Total Protein Albumin Triglycerides Cholesterol LDL Cholesterol Direct HDL Direct Beta-Hydroxybutyrate/Acetoacetate 0.26 Urine Color Yellow Urine Appearance Clear Urine pH 6.0 Ur Specific Left Hand 1.019 Urine Protein 2+ H Urine Glucose (UA) Negative Urine Ketones Negative Ur Blood (Man) Negative Urine Nitrate Negative Urine Bilirubin Negative Urine Urobilinogen 0.2 Add Ur Microanalysis Reviewed Leukocyte Esterase Rfl Negative Urine RBC 6-10 H Urine WBC 0-5 Ur Squamous Epith Cells None seen Urine Bacteria None seen Urine Casts 0-2 Nasal MRSA (PCR) Not detected Sperm Presence Present Urine Opiates Screen Negative Urine Methadone Screen Negative Ur Barbiturates Screen Negative Ur Phencyclidine Scrn Negative Ur Amphetamine Screen Negative U Benzodiazepines Scrn Negative Urine Cocaine Screen Negative U Cannabinoids Screen Negative Influenza A (RT-PCR) Negative Influenza B (RT-PCR) Negative RSV (RT-PCR) Negative SARS-CoV-2 RNA (RT-PCR) Negative Blood Type A Positive Antibody Screen Negative 03/16/25 03/16/25 03/16/25 02:10 04:33 05:35 WBC 10.2 H RBC 3.33 L Hgb 9.4 L Hct 30.2 L MCV 90.7 D MCH 28.2 MCHC 31.1 L RDW 14.6 H Plt Count 258 MPV 10.5 H Immature Gran % (Auto) 0.3 Neut % (Auto) 87.0 H Lymph % (Auto) 7.9 L Mcdonough % (Auto) 4.3 Eos % (Auto) 0.2 Baso % (Auto) 0.3 Lymph # (Auto) 0.81 L Mcdonough # (Auto) 0.4 Eos # (Auto) 0.0 Baso # (Auto) 0.0 Abs Immat Gran (auto) 0.03 Absolute Neuts (auto) 8.9 H Absolute Nucleated RBC 0.000 Band Neutrophils % Nucleated RBC % 0.0 Platelet Estimate Hypochromasia Ovalocytes [place] Cells Schistocytes PT 13.8 INR 1.1 APTT 29.6 Puncture Site Right radial ABG pH 7.355 ABG pCO2 51.4 H ABG pO2 85.8 ABG PO2/FiO2 Ratio 1.43 ABG HCO3 28.1 H ABG O2 Saturation 96.0 ABG O2 Content 14.7 L ABG Base Excess 1.9 A-a Gradient 285.5 Oxyhemoglobin 95.4 Carboxyhemoglobin 0.4 Methemoglobin 0.1 Reduced Hemoglobin 4.1 Total Hemoglobin 10.9 L O2 Delivery Device Ventilator O2 Liters/Min Not Reportable Minute Volume Not Reportable Vent Rate 22 Vent Mode Cmv FiO2 60 Tidal Volume 450 PEEP 7 Peak Inspir Pressure Not Reportable Pressure Support Not Reportable Sodium 137 Potassium 4.5 Chloride 104 Carbon Dioxide 30 Anion Gap 3 L BUN 29 H Creatinine 1.29 Estim Creat Clear Calc 30 Estimated GFR 53 L Glucose 100 POC Capillary Glucose 112 H Lactic Acid 0.8 Calcium 8.2 L Phosphorus 4.0 Magnesium 2.2 Total Bilirubin 0.4 AST 102 H ALT 70 H Alkaline Phosphatase 146 H Troponin I 4.410 H* D C-Reactive Protein NT-Pro-B Natriuret Pep Total Protein 6.6 Albumin 3.6 Triglycerides Cholesterol LDL Cholesterol Direct HDL Direct Beta-Hydroxybutyrate/Acetoacetate Urine Color Urine Appearance Urine pH Ur Specific Left Hand Urine Protein Urine Glucose (UA) Urine Ketones Ur Blood (Man) Urine Nitrate Urine Bilirubin Urine Urobilinogen Add Ur Microanalysis Leukocyte Esterase Rfl Urine RBC Urine WBC Ur Squamous Epith Cells Urine Bacteria Urine Casts Nasal MRSA (PCR) Sperm Presence Urine Opiates Screen Urine Methadone Screen Ur Barbiturates Screen Ur Phencyclidine Scrn Ur Amphetamine Screen U Benzodiazepines Scrn Urine Cocaine Screen U Cannabinoids Screen Influenza A (RT-PCR) Influenza B (RT-PCR) RSV (RT-PCR) SARS-CoV-2 RNA (RT-PCR) Blood Type Antibody Screen 03/16/25 12:08 WBC RBC Hgb Hct MCV MCH MCHC RDW Plt Count MPV Immature Gran % (Auto) Neut % (Auto) Lymph % (Auto) Mcdonough % (Auto) Eos % (Auto) Baso % (Auto) Lymph # (Auto) Mcdonough # (Auto) Eos # (Auto) Baso # (Auto) Abs Immat Gran (auto) Absolute Neuts (auto) Absolute Nucleated RBC Band Neutrophils % Nucleated RBC % Platelet Estimate Hypochromasia Ovalocytes [place] Cells Schistocytes PT INR APTT Puncture Site ABG pH ABG pCO2 ABG pO2 ABG PO2/FiO2 Ratio ABG HCO3 ABG O2 Saturation ABG O2 Content ABG Base Excess A-a Gradient Oxyhemoglobin Carboxyhemoglobin Methemoglobin Reduced Hemoglobin Total Hemoglobin O2 Delivery Device O2 Liters/Min Minute Volume Vent Rate Vent Mode FiO2 Tidal Volume PEEP Peak Inspir Pressure Pressure Support Sodium Potassium Chloride Carbon Dioxide Anion Gap BUN Creatinine Estim Creat Clear Calc Estimated GFR Glucose POC Capillary Glucose 123 H Lactic Acid Calcium Phosphorus Magnesium Total Bilirubin AST ALT Alkaline Phosphatase Troponin I C-Reactive Protein NT-Pro-B Natriuret Pep Total Protein Albumin Triglycerides Cholesterol LDL Cholesterol Direct HDL Direct Beta-Hydroxybutyrate/Acetoacetate Urine Color Urine Appearance Urine pH Ur Specific Left Hand Urine Protein Urine Glucose (UA) Urine Ketones Ur Blood (Man) Urine Nitrate Urine Bilirubin Urine Urobilinogen Add Ur Microanalysis Leukocyte Esterase Rfl Urine RBC Urine WBC Ur Squamous Epith Cells Urine Bacteria Urine Casts Nasal MRSA (PCR) Sperm Presence Urine Opiates Screen Urine Methadone Screen Ur Barbiturates Screen Ur Phencyclidine Scrn Ur Amphetamine Screen U Benzodiazepines Scrn Urine Cocaine Screen U Cannabinoids Screen Influenza A (RT-PCR) Influenza B (RT-PCR) RSV (RT-PCR) SARS-CoV-2 RNA (RT-PCR) Blood Type Antibody Screen
[2025-03-16] MEDS: PROPOFOL IV EMULSION 100 ML 1.69 MG IV CONT (18:53)
[2025-03-17] VITALS (52 sets, daily range): BP systolic 80–112; BP diastolic 51–61; PULSE 59–105; RESP 13–26; TEMP 37.2–37.5; O2SAT 12–97
[2025-03-17] MEDS: HYDROCORTISONE SODIUM SUCCINATE 100 MG/2 ML VIAL 50 MG IV PUSH ×2 (04:19→08:14)
[2025-03-17 05:14] LABS: Hematocrit 30.0 % (42.0-52.0); Hemoglobin 8.7 g/dL (14.0-18.0); Mean Corpuscular HGB Conc 29.0 g/dl (32-36); Mean Corpuscular Hemoglobin 28.5 pg (26-34); Mean Corpuscular Volume 98.4 fl (80-100); Platelet Count Result 232 k/mm3 (150-375); Red Blood Count 3.05 M/mm3 (4.6-6.20); White Blood Count 8.5 K/mm3 (4.5-10.0)
[2025-03-17 05:16] LABS: Alveolar/Arterial O2 Gradient 102.5 mmHg; Carboxyhemoglobin 0.3 % THb (0-2.0); Fractional Inspired Oxygen 30 %; HCO3 ABG 26.6 mEq/l (22.0-26.0); Methemoglobin ABG 0.1 %THb (0-1.5); Oxygen Content ABG 12.7 %vol (16.0-22.0); Oxygen Saturation ABG 92.5 % (95.0-100.0); PCO2 ABG 41.5 mmHg (35.0-45.0); PO2 ABG 62.6 mmHg (80.0-100.0); PO2 FiO2 Ratio Arterial Blood 2.09 %; Reduced Hemoglobin 9.0 %THb (0-5.0)
[2025-03-17 05:17] LABS: Arterial Blood Gas Ventilator rate 22 /MIN; Modified Allen's Test Pass; Site Drawn RIGHT RADIAL
[2025-03-17 05:18] LABS: Arterial Blood Gas Tidal Volume 450 ml
[2025-03-17 05:33] LABS: Alanine Aminotransferase 44 U/L (6-50); Albumin Level 3.1 g/dL (3.5-5.1); Alkaline Phosphatase 107 U/L (38-126); Anion Gap 5 mmol/L (4-12); Aspartate Amino Transferase 54 U/L (17-59); Bilirubin,Total 0.5 mg/dL (0.2-1.3); Blood Urea Nitrogen 36 mg/dL (9-20); Calcium 8.4 mg/dL (8.4-10.2); Carbon Dioxide 27 mmol/L (22-30); Chloride 104 mmol/L (98-107); Creatine Kinase 386 U/L (55-170); Estimated CRCL calculation 28 ml/min; Estimated Glomerular Filt Rate 49; Glucose 107 mg/dL (65-110); Magnesium 2.2 mg/dL (1.6-2.3); Potassium 4.2 mmol/L (3.4-5.0); Sodium 136 mmol/L (137-145); Total Protein 5.8 g/dL (6.3-8.2); Triglycerides 65 mg/dL (<150)
[2025-03-17] MEDS: PROPOFOL IV EMULSION 100 ML 8.46 MG IV CONT (06:00)
[2025-03-17] MEDS: metroNIDAZOLE 500 MG/ISO 100ML 500 MG/100 ML BAG 100 MG IVPB (06:38)
--- NOTE | 2025-03-17 07:54 | P.PNINT_ITS ---
Progress Note: A&P Assessment and Plan (1) Acute respiratory failure with hypoxia and hypercarbia: Code(s): J96.01 - Acute respiratory failure with hypoxia; J96.02 - Acute respiratory failure with hypercapnia Status: Acute Assessment and Plan: Acute respiratory failure secondary to aspiration pneumonia and cardiac arrest. Chest x-ray done this morning shows increased pulmonary edema. FiO2 is at 40%. I will increase the PEEP to 8. Will give Lasix. Blood culture sent. Continue empiric cefepime and Flagyl. Off vancomycin and azithromycin Continue propofol. Cold fentanyl. Sedation holiday. (2) Cardiac arrest: Code(s): I46.9 - Cardiac arrest, cause unspecified Status: Acute Assessment and Plan: Cardiac arrest secondary to aspiration food leading to aspiration pneumonia Patient has underlying ischemic cardiomyopathy and has elevated troponin likely from CPR and cardiac arrest. EKG reviewed Patient evaluated by Cardiology Continue aspirin Hold other CHF medications due to hypotension Echo Summary 1. Complete two-dimensional, color flow and Doppler transthoracic echocardiogram is performed. 2. Left ventricular chamber dimension is severely enlarged. 3. Left ventricular systolic function is severely globally reduced, estimated at 15-20. 4. 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 5. The left ventricular diastolic function is grade I diastolic dysfunction. 6. E/e' 15 is elevated. 7. Left atrial chamber dimension is mildly enlarged. 8. Right atrial chamber dimension is mildly enlarged. 9. There is moderate aortic valve sclerosis. 10. The mitral valve has a mildly calcified annulus. 11. There is mild to moderate mitral valve regurgitation. 12. There is mild tricuspid valve regurgitation. 13. No pulmonary hypertension, estimated pulmonary arterial systolic pressure is 26 mmHg. 14. Dilated inferior vena cava with <50% collapse upon inspiration consistent with significantly elevated right atrial pressure, 15 mmHg (3) Chronic systolic (congestive) heart failure: Code(s): I50.22 - Chronic systolic (congestive) heart failure Status: Acute (4) Ischemic cardiomyopathy: Code(s): I25.5 - Ischemic cardiomyopathy Status: Chronic (5) Non-ST elevation AK (NSTEMI): Code(s): I21.4 - Non-ST elevation (NSTEMI) myocardial infarction Status: Acute (6) Infrarenal abdominal aortic aneurysm (AAA) without rupture: Code(s): I71.43 - Infrarenal abdominal aortic aneurysm, without rupture Status: Acute Assessment and Plan: CTA showed large 6.4 cm fusiform infrarenal aortic aneurysm. Defer further evaluation at this time until patient recovers from current events (7) Hyperglycemia: Code(s): R73.9 - Hyperglycemia, unspecified Status: Acute Assessment and Plan: SSI (8) CAMERON (acute kidney injury): Code(s): N17.9 - Acute kidney failure, unspecified Status: Acute Assessment and Plan: Likely secondary to hypotension. Creatinine 1.39. Will give Lasix due to worsening pulmonary edema on the chest x-ray. Monitor urine output electrolytes and creatinine (9) COPD (chronic obstructive pulmonary disease): Qualifiers: COPD type: unspecified COPD Qualified Code(s): J44.9 - Chronic obstructive pulmonary disease, unspecified Code(s): J44.9 - Chronic obstructive pulmonary disease, unspecified Status: Chronic Assessment and Plan: Bronchodilators p.r.n. (10) Aspiration into airway: Code(s): T17.908A - Unspecified foreign body in respiratory tract, part unspecified causing other injury, initial encounter Status: Acute (11) Aspiration pneumonia: Code(s): J69.0 - Pneumonitis due to inhalation of food and vomit Status: Acute Plan DVT prophylaxis -Arixtra Stress ulcer prophylaxis -Pepcid Nutrition -start tube feeding Code Status -patient is DNR 03/16 I had a long meeting with patient's sister who is patient's POA. She and her both believe the patient never wanted to be resuscitated or placed on mechanical ventilation in the 1st place. They state the patient does not have any other laying family member and he has expressly told them that he does not want any heroic measures to save his life or any invasive treatments or procedures. They know that he has significant medical issues and has not been doing well but he was very clear that he would not want to continue on mechanical ventilation for prolonged period of time. 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 At this point they want to give him some time to see if he recovers. If he does not shown sign of recovery or coming off mechanical ventilation they will consider a palliative extubation and comfort care going forward. I am going to meet with them again today . Total Critical Care Time - 32 minutes Due to a high probability of clinically significant, life threatening deterioration, the patient required my highest level of preparedness to intervene emergently and I personally spent this critical care time directly and personally managing the patient. This critical care time included obtaining a history; examining the patient; pulse oximetry; ordering and review of studies; arranging urgent treatment with development of a management plan; evaluation of patient's response to treatment; frequent reassessment; and discussions with other providers. It was exclusive of separately billable procedures and treating other patients and teaching time. Please see Assessment and Plan section and the rest of the note for further information on patient assessment and treatment Subjective Date/time seen: 03/17/25 Overnight events reviewed. Afebrile Continues to be on mechanical ventilation FiO2 40% peep 5 Continues to be on low-dose Levophed Continues to be sedated with propofol and fentanyl NPO. Other Vitals acceptable Review of Systems Review of Systems: ROS unobtainable: Yes unobtainable due to endotracheal tube, unobtainable due to medical condition and unobtainable due to mental status Exam Narrative: General: Cachectic old male who is currently sedated, intubated and on mechanical ventilation Lungs/Chest: Trachea central Coarse BS B/L, No crackles or wheezing. Cardiac: RRR. Normal S1 S2. No murmurs Circulation: Both dorsalis pedis are not palpable Abdomen: Decreased but present bowel sounds.. Soft. NT. ND. Extremities: No edema, feet are cold : Restrepo in place Neurologic: Unable to assess due to sedation. Withdraws all l 4 extremities to painful stimuli. PERRL Objective Data Vital Signs Vital Signs: Vital Signs - 24 hr 03/16/25 08:00 03/16/25 08:00 03/16/25 08:00 Temperature 37.1 C Pulse Rate 81 81 81 Respiratory Rate 22 H 22 H Blood Pressure 106/78 106/78 Pulse Oximetry 97 Oxygen Delivery Oxygen Flow Rate Fraction of Inspired Oxygen 03/16/25 08:00 03/16/25 08:00 03/16/25 08:00 Temperature Pulse Rate 87 Respiratory Rate Blood Pressure Pulse Oximetry 98 Oxygen Delivery Mechanical Ventilation Oxygen Flow Rate 22 Fraction of Inspired Oxygen 70 70 03/16/25 08:18 03/16/25 08:40 03/16/25 09:00 Temperature 37.1 C Pulse Rate 81 92 80 Respiratory Rate 22 H 25 H 22 H Blood Pressure 101/62 Pulse Oximetry 98 Oxygen Delivery Oxygen Flow Rate Fraction of Inspired Oxygen 03/16/25 10:00 03/16/25 10:00 03/16/25 10:00 Temperature Pulse Rate 82 82 82 Respiratory Rate 22 H Blood Pressure 107/68 Pulse Oximetry Oxygen Delivery Oxygen Flow Rate Fraction of Inspired Oxygen 03/16/25 10:00 03/16/25 11:00 03/16/25 12:00 Temperature 36.8 C 36.7 C 36.9 C Pulse Rate 82 89 78 Respiratory Rate 22 H 22 H 22 H Blood Pressure 107/68 79/57 L 98/62 L Pulse Oximetry 98 98 100 Oxygen Delivery Oxygen Flow Rate Fraction of Inspired Oxygen 03/16/25 12:00 03/16/25 12:00 03/16/25 12:00 Temperature Pulse Rate 78 78 Respiratory Rate 22 H Blood Pressure 98/62 L Pulse Oximetry Oxygen Delivery Oxygen Flow Rate Fraction of Inspired Oxygen 70 03/16/25 12:00 03/16/25 12:00 03/16/25 12:19 Temperature Pulse Rate 88 110 H Respiratory Rate Blood Pressure Pulse Oximetry 97 97 Oxygen Delivery Mechanical Ventilation Mechanical Ventilation Oxygen Flow Rate 22 Fraction of Inspired Oxygen 70 30 03/16/25 12:23 03/16/25 12:38 03/16/25 13:00 Temperature 36.9 C Pulse Rate 95 80 74 Respiratory Rate 22 H 22 H Blood Pressure 81/57 L 98/70 L Pulse Oximetry 98 Oxygen Delivery Oxygen Flow Rate Fraction of Inspired Oxygen 03/16/25 13:32 03/16/25 14:00 03/16/25 14:00 Temperature 36.9 C Pulse Rate 85 105 H 105 H Respiratory Rate 23 H 21 H Blood Pressure 96/91 L 96/91 L Pulse Oximetry 97 Oxygen Delivery Oxygen Flow Rate Fraction of Inspired Oxygen 03/16/25 14:00 03/16/25 14:27 03/16/25 14:34 Temperature Pulse Rate 85 105 H 71 Respiratory Rate 22 H Blood Pressure Pulse Oximetry 97 Oxygen Delivery Mechanical Ventilation Oxygen Flow Rate Fraction of Inspired Oxygen 30 03/16/25 15:00 03/16/25 15:53 03/16/25 16:00 Temperature 37.0 C Pulse Rate 73 75 Respiratory Rate 22 H 22 H Blood Pressure 96/55 L Pulse Oximetry 97 Oxygen Delivery Oxygen Flow Rate Fraction of Inspired Oxygen 70 03/16/25 16:00 03/16/25 16:00 03/16/25 16:00 Temperature 36.9 C Pulse Rate 75 75 75 Respiratory Rate 22 H Blood Pressure 83/54 L 83/54 L Pulse Oximetry 96 Oxygen Delivery Oxygen Flow Rate Fraction of Inspired Oxygen 03/16/25 16:00 03/16/25 17:00 03/16/25 17:03 Temperature 36.9 C Pulse Rate 111 H 111 H Respiratory Rate 20 20 Blood Pressure 149/103 H Pulse Oximetry 96 96 Oxygen Delivery Mechanical Ventilation Oxygen Flow Rate 22 Fraction of Inspired Oxygen 70 03/16/25 17:03 03/16/25 17:03 03/16/25 17:14 Temperature Pulse Rate 111 H 107 H 117 H Respiratory Rate 20 19 Blood Pressure Pulse Oximetry 94 Oxygen Delivery Mechanical Ventilation Oxygen Flow Rate Fraction of Inspired Oxygen 30 03/16/25 18:00 03/16/25 18:00 03/16/25 18:00 Temperature Pulse Rate 90 90 90 Respiratory Rate 22 H Blood Pressure 84/63 L Pulse Oximetry Oxygen Delivery Oxygen Flow Rate Fraction of Inspired Oxygen 03/16/25 18:00 03/16/25 18:53 03/16/25 18:54 Temperature 36.9 C Pulse Rate 90 78 77 Respiratory Rate 22 H 22 H 22 H Blood Pressure 84/63 L Pulse Oximetry 91 Oxygen Delivery Oxygen Flow Rate Fraction of Inspired Oxygen 03/16/25 19:00 03/16/25 19:00 03/16/25 19:43 Temperature 37.1 C 37.1 C Pulse Rate 69 78 78 Respiratory Rate 22 H 22 H 22 H Blood Pressure 94/54 L 94/54 L Pulse Oximetry 95 97 97 Oxygen Delivery Mechanical Ventilation Oxygen Flow Rate Fraction of Inspired Oxygen 30 03/16/25 19:57 03/16/25 19:57 03/16/25 20:00 Temperature 37.0 C Pulse Rate 70 77 Respiratory Rate 22 H Blood Pressure 102/55 L Pulse Oximetry 98 Oxygen Delivery Oxygen Flow Rate Fraction of Inspired Oxygen 30 03/16/25 20:00 03/16/25 20:00 03/16/25 20:00 Temperature Pulse Rate 70 70 70 Respiratory Rate 22 H 22 H Blood Pressure 102/55 L Pulse Oximetry Oxygen Delivery Oxygen Flow Rate Fraction of Inspired Oxygen 03/16/25 20:00 03/16/25 20:40 03/16/25 20:49 Temperature Pulse Rate 70 62 74 Respiratory Rate 22 H Blood Pressure 57/45 L Pulse Oximetry 97 Oxygen Delivery Mechanical Ventilation Oxygen Flow Rate Fraction of Inspired Oxygen 30 03/16/25 21:00 03/16/25 21:30 03/16/25 21:31 Temperature 37.2 C 36.9 C 36.7 C Pulse Rate 75 74 74 Respiratory Rate 22 H 19 23 H Blood Pressure 93/58 L 115/53 L Pulse Oximetry 95 95 95 Oxygen Delivery Oxygen Flow Rate Fraction of Inspired Oxygen 03/16/25 21:36 03/16/25 21:45 03/16/25 21:46 Temperature 37.2 C 37.2 C Pulse Rate 65 66 74 Respiratory Rate 22 H 22 H 22 H Blood Pressure 91/60 L Pulse Oximetry 96 96 Oxygen Delivery Oxygen Flow Rate Fraction of Inspired Oxygen 03/16/25 22:00 03/16/25 22:00 03/16/25 22:00 Temperature 37.2 C 37.1 C Pulse Rate 68 70 70 Respiratory Rate 22 H 22 H Blood Pressure 100/56 L 100/56 L Pulse Oximetry 96 96 Oxygen Delivery Oxygen Flow Rate Fraction of Inspired Oxygen 03/16/25 22:00 03/16/25 22:00 03/16/25 22:00 Temperature Pulse Rate 70 70 70 Respiratory Rate 22 H 22 H Blood Pressure 100/56 L Pulse Oximetry Oxygen Delivery Oxygen Flow Rate Fraction of Inspired Oxygen 03/16/25 22:00 03/16/25 22:01 03/16/25 22:15 Temperature 37.1 C 37.1 C 36.7 C Pulse Rate 70 73 69 Respiratory Rate 22 H 22 H 22 H Blood Pressure 100/56 L Pulse Oximetry 96 96 95 Oxygen Delivery Oxygen Flow Rate Fraction of Inspired Oxygen 03/16/25 22:16 03/16/25 22:19 03/16/25 22:30 Temperature 36.9 C 37.1 C Pulse Rate 61 70 70 Respiratory Rate 22 H 22 H 22 H Blood Pressure 106/52 L Pulse Oximetry 95 95 Oxygen Delivery Oxygen Flow Rate Fraction of Inspired Oxygen 03/16/25 22:31 03/16/25 22:43 03/16/25 22:45 Temperature 37.1 C 37.3 C Pulse Rate 63 70 68 Respiratory Rate 22 H 22 H Blood Pressure 78/53 L 78/53 L Pulse Oximetry 95 97 Oxygen Delivery Oxygen Flow Rate Fraction of Inspired Oxygen 03/16/25 22:46 03/16/25 23:00 03/16/25 23:00 Temperature 37.3 C 37.1 C Pulse Rate 66 73 70 Respiratory Rate 22 H 22 H 21 H Blood Pressure 82/59 L 111/62 Pulse Oximetry 97 96 Oxygen Delivery Oxygen Flow Rate Fraction of Inspired Oxygen 03/16/25 23:00 03/16/25 23:01 03/16/25 23:11 Temperature 37.1 C 36.9 C Pulse Rate 81 80 73 Respiratory Rate 23 H 20 22 H Blood Pressure 111/62 Pulse Oximetry 93 95 Oxygen Delivery Oxygen Flow Rate Fraction of Inspired Oxygen 03/16/25 23:13 03/16/25 23:15 03/16/25 23:16 Temperature 37.1 C Pulse Rate 71 75 67 Respiratory Rate 22 H Blood Pressure 111/62 Pulse Oximetry 95 95 Oxygen Delivery Mechanical Ventilation Oxygen Flow Rate Fraction of Inspired Oxygen 30 03/16/25 23:16 03/16/25 23:30 03/16/25 23:31 Temperature 37.1 C 37.3 C 37.3 C Pulse Rate 69 67 72 Respiratory Rate 22 H 22 H 22 H Blood Pressure 97/54 L 96/54 L Pulse Oximetry 95 96 96 Oxygen Delivery Oxygen Flow Rate Fraction of Inspired Oxygen 03/16/25 23:45 03/16/25 23:46 03/16/25 23:50 Temperature 37.1 C 36.8 C Pulse Rate 77 63 67 Respiratory Rate 15 22 H 22 H Blood Pressure 110/53 L Pulse Oximetry 93 94 95 Oxygen Delivery Mechanical Ventilation Oxygen Flow Rate Fraction of Inspired Oxygen 30 03/16/25 23:51 03/16/25 23:51 03/16/25 23:51 Temperature 37.2 C Pulse Rate 59 L 72 Respiratory Rate 22 H Blood Pressure 110/53 L Pulse Oximetry 95 Oxygen Delivery Oxygen Flow Rate Fraction of Inspired Oxygen 30 03/17/25 00:00 03/17/25 00:00 03/17/25 00:00 Temperature Pulse Rate 59 L 59 L 69 Respiratory Rate 22 H 22 H Blood Pressure 96/57 L Pulse Oximetry Oxygen Delivery Oxygen Flow Rate Fraction of Inspired Oxygen 03/17/25 00:00 03/17/25 00:01 03/17/25 00:15 Temperature 37.2 C 37.2 C 37.2 C Pulse Rate 72 60 71 Respiratory Rate 22 H 22 H 22 H Blood Pressure 96/57 L Pulse Oximetry 95 95 95 Oxygen Delivery Oxygen Flow Rate Fraction of Inspired Oxygen 03/17/25 00:16 03/17/25 00:30 03/17/25 00:31 Temperature 37.2 C 37.2 C 37.2 C Pulse Rate 68 69 73 Respiratory Rate 22 H 22 H 22 H Blood Pressure 100/51 L 94/59 L Pulse Oximetry 95 95 95 Oxygen Delivery Oxygen Flow Rate Fraction of Inspired Oxygen 03/17/25 00:45 03/17/25 00:46 03/17/25 01:00 Temperature 37.2 C 37.2 C 37.2 C Pulse Rate 73 71 72 Respiratory Rate 22 H 22 H 22 H Blood Pressure 103/53 L 88/58 L Pulse Oximetry 96 96 Oxygen Delivery Oxygen Flow Rate Fraction of Inspired Oxygen 03/17/25 01:00 03/17/25 01:01 03/17/25 01:15 Temperature 37.2 C 37.2 C 37.2 C Pulse Rate 59 L 66 66 Respiratory Rate 22 H 22 H 22 H Blood Pressure 88/58 L Pulse Oximetry 96 96 96 Oxygen Delivery Oxygen Flow Rate Fraction of Inspired Oxygen 03/17/25 01:16 03/17/25 01:30 03/17/25 01:31 Temperature 37.2 C 37.2 C 37.2 C Pulse Rate 74 69 72 Respiratory Rate 22 H 22 H 22 H Blood Pressure 104/61 102/59 L Pulse Oximetry 97 97 96 Oxygen Delivery Oxygen Flow Rate Fraction of Inspired Oxygen 03/17/25 01:45 03/17/25 01:46 03/17/25 02:00 Temperature 37.2 C 37.2 C 37.2 C Pulse Rate 65 67 75 Respiratory Rate 22 H 22 H 22 H Blood Pressure 108/54 L 102/57 L Pulse Oximetry 97 97 96 Oxygen Delivery Oxygen Flow Rate Fraction of Inspired Oxygen 03/17/25 02:00 03/17/25 02:00 03/17/25 02:00 Temperature Pulse Rate 68 68 68 Respiratory Rate 22 H 22 H Blood Pressure Pulse Oximetry Oxygen Delivery Oxygen Flow Rate Fraction of Inspired Oxygen 03/17/25 02:00 03/17/25 02:00 03/17/25 02:01 Temperature 37.2 C 37.2 C Pulse Rate 68 62 70 Respiratory Rate 22 H 22 H Blood Pressure 102/57 L 102/57 L Pulse Oximetry 96 Oxygen Delivery Oxygen Flow Rate Fraction of Inspired Oxygen 03/17/25 02:03 03/17/25 02:15 03/17/25 02:16 Temperature 37.2 C 37.2 C 37.2 C Pulse Rate 66 69 67 Respiratory Rate 22 H 22 H 22 H Blood Pressure 102/57 L 100/60 Pulse Oximetry 96 96 Oxygen Delivery Oxygen Flow Rate Fraction of Inspired Oxygen 03/17/25 02:20 03/17/25 02:30 03/17/25 02:31 Temperature 37.2 C 37.2 C Pulse Rate 62 68 64 Respiratory Rate 22 H 22 H Blood Pressure 108/60 Pulse Oximetry 96 Oxygen Delivery Mechanical Ventilation Oxygen Flow Rate Fraction of Inspired Oxygen 30 03/17/25 02:45 03/17/25 02:46 03/17/25 03:00 Temperature 37.2 C 37.2 C 37.2 C Pulse Rate 72 70 68 Respiratory Rate 22 H 22 H 22 H Blood Pressure 99/55 L Pulse Oximetry Oxygen Delivery Oxygen Flow Rate Fraction of Inspired Oxygen 03/17/25 03:01 03/17/25 03:15 03/17/25 03:16 Temperature 37.2 C 37.2 C 37.2 C Pulse Rate 66 68 64 Respiratory Rate 22 H 22 H 22 H Blood Pressure 101/52 L 98/55 L Pulse Oximetry 95 96 Oxygen Delivery Oxygen Flow Rate Fraction of Inspired Oxygen 03/17/25 03:30 03/17/25 03:31 03/17/25 04:00 Temperature 37.2 C 37.2 C Pulse Rate 71 72 72 Respiratory Rate 22 H 22 H 22 H Blood Pressure 99/56 L Pulse Oximetry 95 96 96 Oxygen Delivery Mechanical Ventilation Oxygen Flow Rate Fraction of Inspired Oxygen 30 03/17/25 04:00 03/17/25 04:00 03/17/25 04:00 Temperature 37.2 C Pulse Rate 67 68 Respiratory Rate 22 H Blood Pressure Pulse Oximetry 93 Oxygen Delivery Oxygen Flow Rate Fraction of Inspired Oxygen 30 03/17/25 04:00 03/17/25 04:00 03/17/25 04:00 Temperature Pulse Rate 68 68 68 Respiratory Rate 22 H 22 H Blood Pressure 81/55 L Pulse Oximetry Oxygen Delivery Oxygen Flow Rate Fraction of Inspired Oxygen 03/17/25 05:00 03/17/25 05:00 03/17/25 05:09 Temperature 37.2 C 37.2 C Pulse Rate 69 67 66 Respiratory Rate 22 H 22 H Blood Pressure 100/51 L 100/51 L Pulse Oximetry 93 92 93 Oxygen Delivery Mechanical Ventilation Oxygen Flow Rate Fraction of Inspired Oxygen 30 03/17/25 06:00 03/17/25 06:00 03/17/25 06:00 Temperature 37.2 C Pulse Rate 76 76 67 Respiratory Rate 22 H 22 H Blood Pressure 108/56 L Pulse Oximetry 94 Oxygen Delivery Oxygen Flow Rate Fraction of Inspired Oxygen 03/17/25 06:00 03/17/25 06:00 03/17/25 06:00 Temperature Pulse Rate 67 67 67 Respiratory Rate 22 H 22 H Blood Pressure 108/56 L Pulse Oximetry Oxygen Delivery Oxygen Flow Rate Fraction of Inspired Oxygen 03/17/25 07:00 03/17/25 07:01 Temperature 37.3 C Pulse Rate 72 Respiratory Rate 22 H Blood Pressure 105/54 L Pulse Oximetry 93 Oxygen Delivery Oxygen Flow Rate Fraction of Inspired Oxygen 40 Intake/Output Intake/Output: Intake & Output 03/14/25 03/15/25 03/16/25 03/17/25 23:59 23:59 23:59 23:59 Intake Total 823.4 2438.0 284.7 Output Total 675 250 Balance 823.4 1763.0 34.7 Meds/Results Medications: Active Medications Generic Name Dose Route Start Last Admin Trade Name Freq PRN Reason Stop Dose Admin Acetaminophen 650 mg 03/15/25 21:11 Acetaminophen 650 Mg Suppository RECTAL Q6H PRN Mild Pain (1-3) or Fever Albuterol/Ipratropium 3 ml 03/16/25 08:53 Ipratropium 0.5 Mg/Albuterol Sulfate 2.5 Mg (Base) Ampul.Neb 3 Ml INHALATION Q6HRT PRN Wheezing Aspirin 325 mg 03/16/25 08:00 03/16/25 08:38 Aspirin 325 Mg Tablet FEED TUBE Not Given DAILY@0800 ERUM Bisacodyl 10 mg 03/16/25 07:39 Bisacodyl 10 Mg Suppository RECTAL QAM PRN Constipation Dextrose 12.5 gm 03/15/25 21:38 Dextrose 50% 25 Gm/50 Ml Syringe IV PUSH PRN PRN Hypoglycemia Protocol Famotidine 20 mg 03/16/25 09:00 03/16/25 15:46 Famotidine 20 Mg/2 Ml Vial IV PUSH 20 mg BID ERUM Administration Fondaparinux 2.5 mg 03/16/25 09:00 03/16/25 08:38 Fondaparinux Sodium 2.5 Mg/0.5 Ml Syringe SUB-Q 2.5 mg DAILY ERUM Administration Glucose 15 gm 03/15/25 21:38 Glucose Oral Gel 15 Gm Of Glucse In 37.5 Gm Tube PO PRN PRN Hypoglycemia Protocol Hydrocortisone Sodium Succinate 50 mg 03/16/25 03:00 03/17/25 04:19 Hydrocortisone Sodium Succinate 100 Mg/2 Ml Vial IV PUSH 50 mg Q6H ERUM Administration Fentanyl Citrate 2,500 mcg in 250 mls @ 12.5 mls/hr 03/15/25 20:10 03/17/25 06:00 Fentanyl 2,500 Mcg/Ns 250 Ml IV CONT 125 mcg/hr On Hold: 03/17/25 07:28 .Q20H ERUM 12.5 mls/hr Protocol Titration 125 MCG/HR Dextrose 1,000 mls @ 100 mls/hr 03/15/25 21:38 Dextrose 5% 1,000 Ml IVPB PRN PRN Hypoglycemia Protocol Cefepime HCl 1 gm/ Sodium 50 mls @ 100 mls/hr 03/16/25 09:00 03/16/25 21:15 Chloride IVPB Infused Q12HR ERUM Infusion Norepinephrine Bitartrate 8 mg in 250 mls @ 7.5 mls/hr 03/15/25 21:45 03/17/25 06:00 Levophed 8 Mg/D5w 250 Ml IV CONT 4 mcg/min .Q24H ERUM 7.5 mls/hr Protocol Titration 4 MCG/MIN Metronidazole 500 mg in 100 mls @ 100 mls/hr 03/16/25 07:40 03/17/25 07:00 Flagyl 500 Mg/Iso Soln 100 Ml IVPB Infused Q8HR ERUM Infusion Propofol 100 mls @ 8.46 mls/hr 03/16/25 18:40 03/17/25 06:00 Diprivan IV CONT 25 mcg/kg/min .[id number] ERUM 8.46 mls/hr Protocol Administration 25 MCG/KG/MIN Insulin Aspart 2 - 5 units 03/16/25 06:00 03/17/25 06:41 Insulin Aspart (*Bkc) 100 Units/Ml SUB-Q Not Given Q6HR ERUM Protocol Multi-Ingred Cream/Lotion/Oil/Oint 1 applic 03/15/25 21:00 03/16/25 20:49 Mineral Oil/White Petrolatum Ointment EACH EYE 1 applic Q12HR ERUM Administration Perflutren Lipid Microsphere 0 ml 03/16/25 07:35 Perflutren Lipid Microspheres 1.5 Ml Vial Diluted To 10 Ml Total Volume IV PUSH 03/19/25 07:36 ONCE PRN adequate visualization Protocol Polyethylene Glycol 17 gm 03/16/25 09:00 03/16/25 08:38 Polyethylene Glycol 3350 17 Gm Powd.Pack PO Not Given QAM ERUM Sodium Chloride 10 ml 03/16/25 06:00 03/16/25 23:05 Central Line Flush IV PUSH 10 ml Q8HR ERUM Administration Sodium Chloride 20 ml 03/16/25 00:39 Central Line Flush IV PUSH PRN PRN after blood draws Radiology Results: ITS Impressions Head CT 03/15/25 23:01 IMPRESSION: No acute intracranial hemorrhage or extra axial fluid collections. Generalized atrophy and chronic white matter microangiopathic changes. All CT scans at this facility are performed using low dose modulation techniques as appropriate to perform exam including the following: automated exposure control; use of iterative reconstruction technique; adjustment of the mA and/or kV according to patient size (this includes techniques or standardized protocols for targeted exams where dose is matched to indication/reason for exam). Chest/Abdomen/Pelvis CTA 03/16/25 06:52 IMPRESSION: 1. Multifocal pneumonia, worst in left lower lobe. 2. Moderate emphysema. 3. Fluid-filled esophagus. Material in the upper and lower lobe bronchi may be aspiration. 4. 6.4 cm fusiform infrarenal aortic aneurysm. Surgical consultation is recommended. 5. 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 6. 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 7. Stool distends the rectum. Abdomen X-Ray 03/16/25 11:21 Impression: 1. No acute abnormality. Labs Labs: Laboratory Results - last 24 hr 03/16/25 03/16/25 03/16/25 12:08 17:09 23:45 WBC RBC Hgb Hct MCV MCH MCHC RDW Plt Count MPV Puncture Site ABG pH ABG pCO2 ABG pO2 ABG PO2/FiO2 Ratio ABG HCO3 ABG O2 Saturation ABG O2 Content ABG Base Excess A-a Gradient Oxyhemoglobin Carboxyhemoglobin Methemoglobin Reduced Hemoglobin Total Hemoglobin O2 Delivery Device O2 Liters/Min Minute Volume Vent Rate Vent Mode FiO2 Tidal Volume PEEP Peak Inspir Pressure Pressure Support Sodium Potassium Chloride Carbon Dioxide Anion Gap BUN Creatinine Estim Creat Clear Calc Estimated GFR Glucose POC Capillary Glucose 123 H 133 H 143 H Calcium Phosphorus Magnesium Total Bilirubin AST ALT Alkaline Phosphatase Total Creatine Kinase Total Protein Albumin Triglycerides 03/17/25 03/17/25 04:43 04:44 WBC 8.5 RBC 3.05 L Hgb 8.7 L Hct 30.0 L MCV 98.4 D MCH 28.5 MCHC 29.0 L RDW 14.8 H Plt Count 232 MPV 10.8 H Puncture Site Right radial ABG pH 7.424 ABG pCO2 41.5 ABG pO2 62.6 L ABG PO2/FiO2 Ratio 2.09 ABG HCO3 26.6 H ABG O2 Saturation 92.5 L ABG O2 Content 12.7 L ABG Base Excess 2.0 A-a Gradient 102.5 Oxyhemoglobin 90.6 Carboxyhemoglobin 0.3 Methemoglobin 0.1 Reduced Hemoglobin 9.0 H Total Hemoglobin 9.9 L O2 Delivery Device Ventilator O2 Liters/Min Not Reportable Minute Volume Not Reportable Vent Rate 22 Vent Mode Cmv FiO2 30 Tidal Volume 450 PEEP 5 Peak Inspir Pressure Not Reportable Pressure Support Not Reportable Sodium 136 L Potassium 4.2 Chloride 104 Carbon Dioxide 27 Anion Gap 5 BUN 36 H Creatinine 1.39 H Estim Creat Clear Calc 28 Estimated GFR 49 L Glucose 107 POC Capillary Glucose Calcium 8.4 Phosphorus 3.4 Magnesium 2.2 Total Bilirubin 0.5 AST 54 ALT 44 Alkaline Phosphatase 107 Total Creatine Kinase 386 H Total Protein 5.8 L Albumin 3.1 L Triglycerides 65 Quality VTE Prophylaxis VTE prophylaxis: pharmacologic ordered
[2025-03-17] MEDS: CEFEPIME 1 GM in SODIUM CHLORIDE 0.9% IV 50 ML 100 ML IVPB (08:12)
[2025-03-17] MEDS: FAMOTIDINE 20 MG/2 ML VIAL IV PUSH (08:14)
[2025-03-17] MEDS: CENTRAL LINE FLUSH 10 ML IV PUSH (08:14)
[2025-03-17] MEDS: MINERAL OIL/WHITE PETROLATUM OINTMENT 1 APPLIC EACH EYE (08:14)
[2025-03-17] MEDS: FONDAPARINUX SODIUM 2.5 MG/0.5 ML SYRINGE SUB-Q (08:14)
[2025-03-17] MEDS: ASPIRIN 325 MG TABLET FEED TUBE (08:14)
[2025-03-17] MEDS: FUROSEMIDE INJ 40 MG/4 ML VIAL IV PUSH (08:14)
[2025-03-17] MEDS: NOREPINEPHRINE 8 MG/D5W 250 ML 8 MG/250 ML BAG 7.5 MG IV CONT (10:20)
--- NOTE | 2025-03-17 11:32 | PM.EVENT ---
Event Note Event Note Event Note: Family Meeting I met with patient's sister who is patient's POA and [id number] in presence of patient's nurse to discuss medical decisions and level of care. I updated them with patient's current condition, treatment plan, expected prognosis and different potential outcomes. They told me that they have decided not to continue further mechanical ventilation and life support. They stated the patient never wanted to be on the ventilator in the 1st place and they feel that considering his comorbidities and prognosis they do not feel that for long mechanical ventilation will improve his quality of life. They are showed that patient was clear with his wishes and would like him to be taken off the mechanical ventilation and also artificial nutrition to be stopped. The patient's family has decided, in accordance with pt's wishes, to discontinue all medical therapy and institute comfort measures only. I have explained them that I will use opioids, anxiolytics and other agents on as needed basis to promote comfort and discontinue all medical therapy, lab testing and invasive monitoring. Patient will eventually . They verbalized understanding and are ready to proceed at this time. I have requested nurse to notify hospice physician and placed orders for comfort care in the chart.
[2025-03-17] MEDS: MORPHINE SULFATE (*CRX) 4 MG/ML INJ IV PUSH (11:46)
[2025-03-17] MEDS: diazePAM INJ (*CRX) 10 MG/2 ML SYRINGE IV PUSH (11:47)
--- NOTE | 2025-03-17 14:14 | PM.DDS ---
Discharge Summary Date and Time Date of : 03/17/25 Time of : 12:33 Provider Pronounced By: 2 RNs Name of First RN That Pronounced: Isamar Russo RN Name of Second RN That Pronounced: Sydni Fleming RN Probable Cause of Probable Cause of : Aspiration pneumonia Septic shock Summary Hospital Course: This 85-year-old male who presents to the ER on 03/15/2025 via EMS for out of hospital cardiac arrest. 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 He was noted to choke on food slumped over and stopped breathing. EMS was called to noted asystole and gave 2 rounds of epi and achieved ROSC. He was then brought to [facility] ER. Patient was unresponsive intubated with 7 ET tube. SpO2 80 61% heart rate 95 blood pressure 120/76. ED ER physician reports extracting copious amount of food material during urgent bronchoscopy at bedside. Later respiratory therapy suction not more food material from the ET tube. Chest x-ray demonstrated ET tube terminating above the charles, bilateral infiltrates/opacities. He was then admitted to the ICU for further treatment. Blood pressure subsequently little lowered and Levophed was started after central line placement in right IJ. patient started on broad-spectrum antibiotics with vancomycin azithromycin cefepime. Laboratory workup with hemoglobin 10.4 lactic acid 5.4. Glucose 283 serum creatinine 1.34 anion gap of 17 with bicarb 21 transaminitis and elevated alkaline phosphatase. Troponin elevated at 1.27 from 0.023 initially. Urinalysis unremarkable. Urine drugs of abuse negative quad viral screen negative ABG 7.20/57/72/22. Acute hypoxic and hypercarbic respiratory failure requiring intubation: [employer] Manager on board. Versed and fentanyl GTT. Suction ETT q.4 hours. Septic shock: Continue Levophed which was tapered off after transient Lactic acidosis: Status post sodium bicarb 1 amp IV push x1. Trend lactic acid level. Manage hypotension and hypoxia. Lactic acidosis has resolved Aspiration pneumonia: Continue cefepime, vancomycin, azithromycin. Follow-up blood cultures. Flagyl added. Started on hydrocortisone 50 mg IV q.[address] chest abdomen pelvis multifocal pneumonia worsened left lower lobe Ischemic cardiomyopathy chronic Large 6.4 cm fusiform infrarenal aortic aneurysm as seen in CTA Elevated blood sugars: Accu-Cheks q.6 hours with low-dose insulin sliding scale and hypoglycemia protocol. NSTEMI: Continue to trend troponins, trended up to 4.4 likely type 2 demand ischemia. Cardiology consulted Peripheral vascular disease with findings of moderate stenosis of celiac axis and total occlusion of inferior mesenteric artery total occlusion of left superior facial femoral artery. CAMERON and CKD: Multifactorial, management as above. Continue to trend renal function, consult Nephrology if worsening and patient will not be going comfort care. Transaminitis: Continue to trend DVT prophylaxis -Arixtra Stress ulcer prophylaxis -Pepcid Nutrition - NPO Code Status -patient is DNR. On 03/17/2025 POA and family decided on transitioning to comfort care and patient was palliatively extubated. Patient shortly . Additional Data Confirmation of as documented by pronouncing clinician: Pupillary Reflex, Palpable Pulses, Response to Stimuli, Heart Tones and Breath Sounds Name of Provider Notified: Dr. Delaney Time Provider Notified: 12:39 Provider Requests Autopsy: No Family Requests Autopsy: No Family Sociologist Notified: Yes Date [facility] Notified of : 03/17/25 Time [facility] Notified of : 13:52
== END 2025-03-17 12:33 | disposition expired | DRG 871 ==
LOC: ANHED 21:18 → ANHICU 22:05
PROVIDERS: Internal Medicine; Admitting Provider General Practice; Emergency Provider Student in an Organized Health Care Education/Training Program; PCP Internal Medicine; Visit Provider Internal Medicine
DX: A41.9 Sepsis, unspecified organism (principal); I21.A1 Myocardial infarction type 2; J18.9 Pneumonia, unspecified organism; J69.0 Pneumonitis due to inhalation of food and vomit; J96.01 Acute respiratory failure with hypoxia; J96.02 Acute respiratory failure with hypercapnia; R65.21 Severe sepsis with septic shock; I50.22 Chronic systolic (congestive) heart failure; N17.9 Acute kidney failure, unspecified; I46.9 Cardiac arrest, cause unspecified; I25.5 Ischemic cardiomyopathy; I73.9 Peripheral vascular disease, unspecified; J44.9 Chronic obstructive pulmonary disease, unspecified; T17.928A Food in respiratory tract, part unspecified causing other injury, initial encounter; I71.40 Abdominal aortic aneurysm, without rupture, unspecified; N40.0 Benign prostatic hyperplasia without lower urinary tract symptoms; F17.210 Nicotine dependence, cigarettes, uncomplicated; S72.001D Fracture of unspecified part of neck of right femur, subsequent encounter for closed fracture with routine healing; I25.2 Old myocardial infarction
CPT/HCPCS: 36415; 36556; 36600; 70450; 71045; 71275; 74174; 80053; 80061; 80307; 81001; 82010; 82375; 82550; 82805; 82948; 83050; 83605; 83735; 83880; 84100; 84478; 84484; 85018; 85025; 85027; 85610; 85730; 86140; 86850; 86900; 86901; 87040; 87637; 87641; 92950; 93005; 93306; 94002; 94003; 96361; 96365; 96366; 96367; 96368; 96375; 99285; A9270; C1751; G0378; J0456; J0612; J0692; J1652; J1720; J1836; J1938; J2250; J2270; J2704; J3010; J3360; J3373; J7040; J7050; J7120; Q9967